=== PATIENT | male | born 1960 | race Caucasian/White ===

== ENCOUNTER → 2017-11-16 15:10 | Outpatient (CLI) | payer OTHER, SELFPAY ==
[2017-11-19 16:51] LABS: Testosterone Free 3.7 pg/mL (7.2-24.0)
== END ==
DX: E29.1 Testicular hypofunction (principal)
CPT/HCPCS: 36415; 84402; 84403

== ENCOUNTER → 2018-03-01 08:15 | Outpatient (CLI) | payer OTHER, SELFPAY ==
--- NOTE | 2018-03-01 08:15 | DT_ITS ---
This patient was seen during an EMR downtime March 01, 2018 - March 08, 2018. This patient may have a combination of paper and electronic documentation or all paper documentation. All documentation is viewable within the e-chart portion of [employer] for each patient visit.
== END ==
DX: E29.1 Testicular hypofunction (principal)
CPT/HCPCS: 36415; 84403

== ENCOUNTER → 2018-07-19 07:37 | Outpatient (CLI) | payer OTHER, SELFPAY ==
[2018-07-19 10:39] LABS: Absolute Lymphocyte Count 1.74 X10^3/ul (0.83-4.51); Absolute Neutrophil Count 3.2 X10^3/uL (2.0-7.7); Basophil# 0.04 X10^3/uL; Basophil% 0.7 % (0-1); Eosinophil# 0.23 X10^3/uL; Eosinophils% 4.1 % (0-5); Hematocrit 43.2 % (40-54); Hemoglobin 14.6 g/dl (13.0-16.5); Lymphocyte # 1.74 X10^3/ul (4.0); Lymphocyte % 30.8 % (19-41); Mean Corp Hgb Conc 33.8 g/gl (32-36); Mean Corpuscular Hgb 30.7 pg (27.0-32.0); Mean Corpuscular Volume 90.9 fL (80-94); Mean Platelet Vol. 9.1 fl (6.2-12.0); Monocyte% 7.1 % (0-10); Neutrophil # 3.22 X10^3/uL (2.7-7.7); Neutrophil % 56.9 % (47-70); Platelet Count 290 K/mm3 (150-450); Red Blood Count 4.75 M/mm3 (4.6-6.2); White Blood Count 5.7 K/mm3 (4.4-11.0)
[2018-07-19 10:50] LABS: PSA,Total - Annual Screen 0.23 ng/mL (0.00-4.00)
[2018-07-19 10:54] LABS: POSITIVE COUNT NO; POSITIVE DIFFERENTIAL NO; POSITIVE MORPHOLOGY NO
== END ==
PROVIDERS: Family Provider Internal Medicine; PCP Internal Medicine
DX: E29.1 Testicular hypofunction (principal)
CPT/HCPCS: 36415; 84153; 84403; 85025; G0103

== ENCOUNTER → 2018-08-17 09:22 | Outpatient (CLI) | payer OTHER, SELFPAY ==
[2018-08-17 09:34] LABS: Lyme Ab Screen Interpretation REF LAB
[2018-08-17 10:39] LABS: Erythrocyte Sedimentation Rate 2 mm/hr (0-20)
[2018-08-17 10:41] LABS: Absolute Lymphocyte Count 1.71 X10^3/ul (0.83-4.51); Absolute Neutrophil Count 2.9 X10^3/uL (2.0-7.7); Basophil# 0.04 X10^3/uL; Basophil% 0.7 % (0-1); Eosinophil# 0.27 X10^3/uL; Hematocrit 39.8 % (40-54); Hemoglobin 13.4 g/dl (13.0-16.5); Lymphocyte # 1.71 X10^3/ul (4.0); Lymphocyte % 31.8 % (19-41); Mean Corp Hgb Conc 33.7 g/gl (32-36); Mean Corpuscular Hgb 30.1 pg (27.0-32.0); Mean Corpuscular Volume 89.4 fL (80-94); Monocyte# 0.48 X10^3/uL; Monocyte% 8.9 % (0-10); Neutrophil # 2.86 X10^3/uL (2.7-7.7); Neutrophil % 53.4 % (47-70); Platelet Count 232 K/mm3 (150-450); RBC Distribution Width CV 12.2 % (11.6-14.6); RBC Distribution Width SD 39.7 fl (35.1-43.9); Red Blood Count 4.45 M/mm3 (4.6-6.2); White Blood Count 5.4 K/mm3 (4.4-11.0)
[2018-08-17 10:42] LABS: POSITIVE COUNT NO; POSITIVE DIFFERENTIAL NO; POSITIVE MORPHOLOGY NO
[2018-08-17 11:20] LABS: CRP 3.08 mg/L (0.0-3.0); Rheumatoid Factor < 10.0 IU/mL (<15); Uric Acid 4.8 mg/dL (3.5-7.2)
[2018-08-18 19:48] LABS: ANTINUCLEAR ANTIBODIES DIRECT Negative (Negative)
[2018-08-24 16:54] LABS: HLA B27 Negative (.); Lyme Scn Total Ab w/Rflx <0.91 ISR (0.00-0.90)
== END ==
PROVIDERS: Family Provider Internal Medicine; PCP Internal Medicine; Referring Provider Orthopaedic Surgery; Visit Provider Orthopaedic Surgery
DX: M50.30 Other cervical disc degeneration, unspecified cervical region (principal)
CPT/HCPCS: 36415; 81374; 84550; 85025; 85652; 86038; 86140; 86431; 86618

== ENCOUNTER → 2018-09-01 09:58 | Outpatient (CLI) | payer OTHER, SELFPAY ==
[2017-03-20 16:06] VITALS: BMI 32.2
== END ==
PROVIDERS: Family Provider Internal Medicine; PCP Internal Medicine
DX: E29.1 Testicular hypofunction (principal)
CPT/HCPCS: 36415; 84403

== ENCOUNTER → 2018-12-30 08:07 | Outpatient (CLI) | payer OTHER, SELFPAY | PROVIDERS: Family Provider Internal Medicine; PCP Internal Medicine | DX: E29.1 Testicular hypofunction (principal) | CPT/HCPCS: 36415; 84403 ==

== ENCOUNTER → 2019-04-04 11:15 | Outpatient (CLI) | payer OTHER, SELFPAY ==
[2017-03-20 16:06] VITALS: BMI 32.2
== END ==
PROVIDERS: Family Provider Internal Medicine; PCP Internal Medicine
DX: E29.1 Testicular hypofunction (principal)
CPT/HCPCS: 36415; 84403

== ENCOUNTER → 2019-05-25 06:56 | Outpatient (CLI) | payer OTHER, SELFPAY ==
[2017-03-20 16:06] VITALS: BMI 32.2
[2019-05-25 08:47] LABS: Absolute Neutrophil Count 3.9 X10^3/uL (2.0-7.7); Basophil# 0.08 X10^3/uL; Basophil% 1.2 % (0-1); Eosinophil# 0.37 X10^3/uL; Eosinophils% 5.7 % (0-5); Hematocrit 45.9 % (40-54); Hemoglobin 15.7 g/dL (13.0-16.5); Lymphocyte % 24.8 % (19-41); Mean Corp Hgb Conc 34.2 g/dL (32-36); Mean Corpuscular Hgb 30.1 pg (27.0-32.0); Mean Corpuscular Volume 87.9 fL (80-94); Mean Platelet Vol. 8.8 fl (6.2-12.0); Monocyte# 0.48 X10^3/uL; Monocyte% 7.4 % (0-10); NRBC Flagged by Analyzer 0 % (0-5); Neutrophil # 3.88 X10^3/uL (2.7-7.7); Neutrophil % 60.3 % (47-70); Platelet Count 280 K/mm3 (150-450); RBC Distribution Width CV 11.9 % (11.6-14.6); RBC Distribution Width SD 38.5 fl (35.1-43.9); Red Blood Count 5.22 M/mm3 (4.6-6.2); White Blood Count 6.5 K/mm3 (4.4-11.0)
[2019-05-25 09:30] LABS: AST(SGOT) 25 U/L (15-37); Alanine Aminotransfer ALT/SGPT 50 U/L (16-61); Albumin, Serum 3.7 g/dL (3.2-5.0); Alkaline Phosphatase 63 U/L (45-117); Anion Gap 10 (5-15); BUN 11 mg/dL (7-18); BUN/Creat Ratio 13.6 RATIO (10-20); Bilirubin, Direct 0.09 mg/dL (0.00-0.30); Calcium,Total 8.8 mg/dL (8.5-10.1); Chloride 104 mmol/L (98-107); Cholesterol 188 mg/dL (200); Creatinine, Serum 0.81 mg/dL (0.70-1.30); EST Glomerular Filtration Rate 104 mL/min (>60); Est Glom Filt Rate - Afr Amer 125 mL/min (>60); Globulin 3.8 g/dL (2.2-4.2); Glucose 102 mg/dL (74-106); High Density Lipoprotein 55 mg/dL; Potassium 4.3 mmol/L (3.5-5.1); Protein, Total 7.5 g/dL (6.4-8.2); Sodium Level 140 mmol/L (136-145); Thyroid Stim Hormone (TSH) 1.63 uIU/mL (0.358-3.74); Triglycerides 98 mg/dL; Very Low Density Lipoprotein 20 mg/dL (5-40)
== END ==
PROVIDERS: Family Provider Internal Medicine; PCP Internal Medicine; Referring Provider Internal Medicine; Visit Provider Internal Medicine
DX: G89.29 Other chronic pain (principal); M54.42 Lumbago with sciatica, left side; N40.1 Benign prostatic hyperplasia with lower urinary tract symptoms; R35.0 Frequency of micturition
CPT/HCPCS: 36415; 80048; 80061; 80076; 84443; 85025

== ENCOUNTER → 2020-04-19 14:58 | Outpatient (CLI) | payer OTHER, SELFPAY ==
[2020-04-20 08:22] LABS: SARS-COV-2 TOTAL ABS Nonreactive (Nonreactive)
== END ==
PROVIDERS: PCP Internal Medicine; Referring Provider Physician Assistant; Visit Provider Physician Assistant
DX: J02.9 Acute pharyngitis, unspecified (principal); R05 Cough; R06.02 Shortness of breath; R53.83 Other fatigue; M79.10 Myalgia, unspecified site; R51 Headache; R19.7 Diarrhea, unspecified; Z20.828 Contact with and (suspected) exposure to other viral communicable diseases
CPT/HCPCS: 36415; 86769; 87635; 94799; G2023; U0003

== ENCOUNTER → 2020-04-26 | Outpatient (CLI) | payer OTHER, SELFPAY ==
[2020-04-19 17:32] VITALS: BMI 32.2
== END | disposition home or self-care (01) ==
PROVIDERS: PCP Internal Medicine; Referring Provider Internal Medicine; Visit Provider Internal Medicine
DX: R19.7 Diarrhea, unspecified (principal); R50.9 Fever, unspecified
CPT/HCPCS: 87506

== ENCOUNTER → 2020-11-02 08:14 | Outpatient (CLI) | payer OTHER, SELFPAY ==
[2020-04-19 17:32] VITALS: BMI 32.2
[2020-11-02 09:28] LABS: Erythrocyte Sedimentation Rate 10 mm/hr (0-20)
[2020-11-02 09:40] LABS: CRP < 2.90 mg/L (0.0-3.0); Uric Acid 7.9 mg/dL (3.5-7.2)
[2020-11-04 14:51] LABS: ANTINUCLEAR ANTIBODIES DIRECT Negative (Negative)
== END ==
PROVIDERS: PCP Internal Medicine; Referring Provider Internal Medicine; Visit Provider Internal Medicine
DX: M54.42 Lumbago with sciatica, left side (principal)
CPT/HCPCS: 36415; 84550; 85652; 86038; 86140; 86225; 86235

== ENCOUNTER 2021-03-25 09:30 | Outpatient (RCR) | payer OTHER, SELFPAY ==
[2020-04-19 17:32] VITALS: BMI 32.2
== END 2021-03-27 23:59 ==
LOC: NS 09:30
PROVIDERS: PCP Internal Medicine; Visit Provider Internal Medicine
DX: Z71.3 Dietary counseling and surveillance (principal); E66.9 Obesity, unspecified; Z68.32 Body mass index [BMI] 32.0-32.9, adult
CPT/HCPCS: 97802; 97803

== ENCOUNTER → 2021-08-30 07:32 | Outpatient (CLI) | payer OTHER, SELFPAY ==
[2021-08-30 08:03] LABS: Hematocrit 47.1 % (40-54); Hemoglobin 16.1 g/dL (13.0-16.5); Mean Corp Hgb Conc 34.2 g/dL (32-36); Mean Corpuscular Volume 90.6 fL (80-94); Mean Platelet Vol. 8.8 fl (6.2-12.0); Platelet Count 271 K/mm3 (150-450); RBC Distribution Width CV 11.9 % (11.6-14.6); RBC Distribution Width SD 39.5 fl (35.1-43.9); White Blood Count 6.7 K/mm3 (4.4-11.0)
[2021-08-30 08:51] LABS: ALB/GLOB Ratio 1.1 RATIO (0.9-2.4); AST(SGOT) 23 U/L (15-37); Alanine Aminotransfer ALT/SGPT 30 U/L (16-61); Albumin, Serum 3.9 g/dL (3.2-5.0); Alkaline Phosphatase 43 U/L (45-117); Anion Gap 3 (5-15); BUN 16 mg/dL (7-18); BUN/Creat Ratio 16.6 RATIO (10-20); CRP < 2.90 mg/L (0.0-3.0); Calcium,Total 9.2 mg/dL (8.5-10.1); Chloride 101 mmol/L (98-107); Cholesterol 177 mg/dL (200); Creatinine, Serum 0.96 mg/dL (0.70-1.30); EST Glomerular Filtration Rate 84 mL/min (>60); Est Glom Filt Rate - Afr Amer 102 mL/min (>60); Globulin 3.5 g/dL (2.2-4.2); Glucose 102 mg/dL (74-106); High Density Lipoprotein 49 mg/dL; Potassium 4.7 mmol/L (3.5-5.1); Protein, Total 7.4 g/dL (6.4-8.2); Sodium Level 136 mmol/L (136-145); Thyroid Stim Hormone (TSH) 1.08 uIU/mL (0.358-3.74); Triglycerides 117 mg/dL; Very Low Density Lipoprotein 23 mg/dL (5-40)
== END ==
PROVIDERS: PCP Internal Medicine; Referring Provider Internal Medicine; Visit Provider Internal Medicine
DX: F41.9 Anxiety disorder, unspecified (principal); E78.5 Hyperlipidemia, unspecified; G89.29 Other chronic pain; N40.1 Benign prostatic hyperplasia with lower urinary tract symptoms; G62.9 Polyneuropathy, unspecified; F32.9 Major depressive disorder, single episode, unspecified; N52.9 Male erectile dysfunction, unspecified; M06.9 Rheumatoid arthritis, unspecified; R53.83 Other fatigue; M19.90 Unspecified osteoarthritis, unspecified site; Z86.79 Personal history of other diseases of the circulatory system
CPT/HCPCS: 36415; 80053; 80061; 84443; 85027; 86140

== ENCOUNTER → 2022-03-18 | Outpatient (CLI) | payer OTHER, SELFPAY ==
[2022-03-18 15:34] LABS: Absolute Lymphocyte Count 2.03 X10^3/uL (0.83-4.51); Absolute Neutrophil Count 5.4 X10^3/uL (2.0-7.7); Basophil# 0.06 X10^3/uL; Basophil% 0.7 % (0-1); Eosinophil# 0.26 X10^3/uL; Eosinophils% 3.1 % (0-5); Hematocrit 42.9 % (40-54); Hemoglobin 14.8 g/dL (13.0-16.5); Lymphocyte # 2.03 X10^3/ul (0.83-4.51); Lymphocyte % 24.3 % (19-41); Mean Corp Hgb Conc 34.5 g/dL (32-36); Mean Corpuscular Hgb 31.6 pg (27.0-32.0); Mean Corpuscular Volume 91.5 fL (80-94); Mean Platelet Vol. 8.9 fl (6.2-12.0); Monocyte# 0.59 X10^3/uL; Monocyte% 7.1 % (0-10); NRBC Flagged by Analyzer 0 % (0-5); Neutrophil # 5.38 X10^3/uL (2.7-7.7); Neutrophil % 64.4 % (47-70); Platelet Count 283 K/mm3 (150-450); RBC Distribution Width CV 12.7 % (11.6-14.6); Red Blood Count 4.69 M/mm3 (4.6-6.2); White Blood Count 8.4 K/mm3 (4.4-11.0)
[2022-03-18 16:07] LABS: Erythrocyte Sedimentation Rate 6 mm/hr (0-20)
[2022-03-18 18:04] LABS: CRP < 2.90 mg/L (0.0-3.0)
== END | disposition home or self-care (01) ==
LOC: LAB 15:07
PROVIDERS: PCP Internal Medicine; Referring Provider Physician Assistant; Visit Provider Physician Assistant
DX: M17.12 Unilateral primary osteoarthritis, left knee (principal); L08.9 Local infection of the skin and subcutaneous tissue, unspecified
CPT/HCPCS: 36415; 85025; 85652; 86140

== ENCOUNTER 2022-06-30 09:00 | Outpatient (RCR) | payer OTHER, SELFPAY ==
--- NOTE | 2022-05-05 12:49 | HP.PTEVAL_ITS ---
Patient's Visit Information ELÍAS TOWNSEND is a 62 year old M referred to Physical Therapy by Dr. Leland Guido MD with a diagnosis of R knee primary OA. Date of Evaluation: 05/05/22 Physical Therapist: Jose Tanner, DPT, OCS, CSCS - Visit Plan Plan: Pt to have appropriate knee surgery next week and call for therapy when requested by doctor. I shoed him Wh walker gait, one step training today and initial ex of AP throughout day, QS, HS adn SLR. Also benefits of elevation and ice with his described veinous insufficieny. Plan to f/u when instructed after surgery 05/12 - Subjective Will have R TKA on next Thursday05/12/22. X ray last week showed he needed it right away. Has been on Uflexa for knee pain. Has been bone on bone for a long time. H/o 7 knee surgeries. Doctor not sure how he is walking. Needs prehab for insurance visits. Will need L TKA in 6 months. Had morning routine that he has done for the last number of years. Does treat his own back book. Also stretches HS and planks each am. Pain on meds 9/10 with sitting. Uses ice as needed. 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 Not able to enjoy that. ice is his go to pain killer. Also has compression garments and knee braces which can help him manage this. Basic ADLs are I and can be painful. No specific knee exercises, stopped gym a few years ago with foot problems. - Pain B knee pain Pain Intensity (Out of 10): 1 Pain Intensity Range: 1, 9 - Objective Walks well adn I without antalgia today. Steps up with some R knee pain and descends turning L hip out to avoid knee flexion and sharp pain R knee. R 17.5inch and 22 inch patella and 6 sp. R knee ext 37# knee flexion 68#. R knee -4 to 115, L knee -2 to 121. TUG 10 seconds - Balance/Special Test Scores Functional Gait Assessment Score: 28 % Disability: 6.6700 Lower Extremity Functional Score: 30 - Goals Goal 1:: Ready for TKA knee surgery, gola met by departure today. Goal Time Frame: 1 Week - Rehabilitation Potential Physical Therapy Diagnosis: R knee OA Rehabilitation Potential: Fair - Anticipated Interventions Patient/Client Instruction: Educate patient on: Condition, Plan of Care For the Purpose of:: To decrease pain, To increase ROM, To improve muscle performance and motor function, To increase tolerance to activity/condition/position, To improve ability of physical actions for home/community/work/leisure, To improve gait and locomotor functions Therapeutic Exercise to Include: Strength training, Flexibilty training, Gait and locomotor training, Passive ROM, Active ROM For the Purpose of:: To decrease pain, To increase ROM, To improve muscle performance and motor function, To increase tolerance to activity/condition/position, To improve ability of physical actions for home/community/work/leisure Manual Therapy Techniques to Include: Passive ROM, Soft tissue mobilization For the Purpose of:: To decrease pain, To increase ROM Cryotherapy (ice pack, ice massage): Yes For the Purpose of:: To decrease swelling/inflammation Thank you for the opportunity to evaluate your patient. For Medicare and Medicare HMO plans, please review the plan of care and approve it. It will need to be FAXED BACK to us at [phone] for Medicare purposes. For Medicare only, by signing this I certify the plan of care. Please let me know if there are questions or concerns regarding this plan of care. Physician Signature: Date:
--- NOTE | 2022-05-19 09:50 | HP.PTREVAL_ITS ---
Dr. Leland Guido MD, It has been my pleasure to treat ELÍAS TOWNSEND over the last 2 visits for R knee primary OA. Please see the progress note below for an update on the physical therapy plan of care! Subjective: Had R TKA one week ago on 05/12. Home on Thursday afternoon. Sleep is about 2 hours short of nromal to change ice in ice machine. It really helps. Pain over this weekend was 9/10 after walking 6 laps(600 yards) around driveway and PT exercises. Using wh walker just in case Soreness under knee cap and otherwise 4/10 pain. Objective/Function: -6 to 76 A. ROM to start and 85 after ex. girth at patella 19 inches and 23 6 sp. 33 womac. 45 # knee flexion seated R and 28# knee extension. Gait is good with wh walker and without it he has good balance but slower ambulation, hesitant and not enough knee flexion at swing. steps are reciprocal with two rails, educated to do just L right now if he encounters steps. Bruising apparent inner thight and mild swelling at knee. incison bandaged and dressed properly. fair prognosis, new goals. Plan Plan: 3x/week for 4-5 weeks per new script for... 1. patella mobs , rollout quad and HS, knee ROM. 2. strengthening and gait training with R knee, stairs. swelling and pain management. ice as needed. Balance/Gait/Functional tests - Balance/Special Test Scores Functional Gait Assessment Score: 28 % Disability: 6.6700 Lower Extremity Functional Score: 30 TUG Test Time Seconds: 12 WOMAC Total Score: 51 WOMAC Percentage: 46.8800 Goals Goal 1:: Ready for TKA knee surgery, gola met by departure today. Goal Time Frame: 1 Week Goal 2:: 0-115 AROM to help with function Goal Time Frame: 4-6 Weeks Goal 3:: Pain 0-2/10 at allt imes Goal Time Frame: 4-6 Weeks Goal 4:: Walk and steps without AD or rails in community Goal Time Frame: 4-6 Weeks Goal 5:: work in shop effectively and without increased pain Goal Time Frame: 4-6 Weeks Goal 6:: R knee 90% better overall. Goal Time Frame: 4-6 Weeks Anticipated Interventions Patient/Client Instruction: Educate patient on: Condition, Plan of Care For the Purpose of:: To decrease pain, To increase ROM, To improve muscle performance and motor function, To increase tolerance to activity/condition/position, To improve ability of physical actions for home/community/work/leisure, To improve gait and locomotor functions Therapeutic Exercise to Include: Strength training, Flexibilty training, Gait and locomotor training, Passive ROM, Active ROM For the Purpose of:: To decrease pain, To increase ROM, To improve muscle performance and motor function, To increase tolerance to activity/condition/position, To improve ability of physical actions for ho me/community/work/leisure Manual Therapy Techniques to Include: Passive ROM, Soft tissue mobilization For the Purpose of:: To decrease pain, To increase ROM Cryotherapy (ice pack, ice massage): Yes For the Purpose of:: To decrease swelling/inflammation Please do not hesitate to contact me at [phone] by phone or if you have questions or concerns regarding this new plan of care! Sincerely, Jose Tanner, DPT, OCS, CSCS
--- NOTE | 2022-06-30 09:35 | HP.PTDCSUM_ITS ---
It has been my pleasure to treat ELÍAS TOWNSEND referred by Dr. Leland Guido MD, with the diagnosis of R knee primary OA for a total of 14 visit(s). Discharge Date: 06/30/22 Please see the following information for a summary of their discharge status. Subjective: Working out in gym 45 minutes 3x week, 30 min on bike and in pool. Pain level is worse with heavy workout to 3/10 but gone with ice on front of knee. Tht pain is sharp at times anterior knee and also happens if he stands for 3-5 hours at [employer] working. I do stuff everyday that casues that pain, i cannot be a couch potato. Sleep is good, much better than in years. Activities at home are pretty normal, still frustrated at his speed on the bike at home. B knee pain Pain Intensity (Out of 10): 0 % Improvement: 80 Objective/Function: girth patella R 19 inch and 6 inch sp 23.5 inches. flexion 120, ext 0 AROM. strength 85+# R knee ext and 70 r knee flexion, some sharp pain laterally trasniently with flexion testing. Walking well, steps reciprocal without rail Goal 1:: Ready for TKA knee surgery, gola met by departure today. Goal Progress: Goal Met Goal 2:: 0-115 AROM to help with function Goal Progress: Goal Met Goal 3:: Pain 0-2/10 at allt imes Goal Progress: Progressing Goal 4:: Walk and steps without AD or rails in community Goal Progress: Goal Met Goal 5:: work in shop effectively and without increased pain Goal Progress: up to 3/10 at times Goal 6:: R knee 90% better overall. Goal Progress: Progressing Plan: d/c, pt to doctor tomorrow. I have had nbumerous discussion regarding avoiding over exercising which he admittedly will not listen to, encouraged emphasis on bike as he seems to like this and it is low stress to the knee for him. If there are questions or concerns regarding this patient's physical therapy, please feel free to call me at [phone]. Thank you for the referral of this patient. Sincerely, Jose Tanner, DPT, OCS, CSCS Balance/Gait/Functional tests - Balance/Special Test Scores Functional Gait Assessment Score: 28 % Disability: 6.6700 Lower Extremity Functional Score: 52 TUG Test Time Seconds: 7 Tug Test: <10 sec.=free mobile WOMAC Total Score: 27 WOMAC Percentage: 71.8800
== END 2022-06-30 14:22 | disposition home or self-care (01) ==
LOC: PT 09:00
PROVIDERS: PCP Internal Medicine; Referring Provider Orthopaedic Surgery; Visit Provider Orthopaedic Surgery
DX: M17.11 Unilateral primary osteoarthritis, right knee (principal)
CPT/HCPCS: 97110; 97140; 97161; 97164; 97530

== ENCOUNTER → 2022-12-22 | Outpatient (CLI) | payer OTHER, SELFPAY ==
[2022-12-22 17:09] LABS: Cholesterol 187 mg/dL (200); High Density Lipoprotein 58 mg/dL; PSA,Total - Annual Screen 0.74 ng/mL (0.00-4.00); Thyroid Stim Hormone (TSH) 1.06 uIU/mL (0.358-3.74); Triglycerides 127 mg/dL; Very Low Density Lipoprotein 25 mg/dL (5-40)
== END | disposition home or self-care (01) ==
LOC: LAB 15:53
PROVIDERS: PCP Internal Medicine; Referring Provider Internal Medicine; Visit Provider Internal Medicine
DX: Z12.5 Encounter for screening for malignant neoplasm of prostate (principal); Z13.220 Encounter for screening for lipoid disorders; G62.9 Polyneuropathy, unspecified; F41.9 Anxiety disorder, unspecified
CPT/HCPCS: 36415; 80061; 84153; 84443; G0103

== ENCOUNTER → 2023-01-08 | Outpatient (CLI) | payer OTHER, SELFPAY ==
[2023-01-08 11:22] LABS: Mucous, Urine 0 SEEN /hpf (<or=2+); Red Blood Cells-Urine 0 SEEN /hpf (0-5)
[2023-01-08 11:26] LABS: Color, Urine Yellow (Yellow); Glucose, Dipstick Normal (Normal); Ketone-Dipstick 5 mg/dl (Negative); Leukocyte Esterase-Dipstick 500 /ul (Negative); Nitrite-Dipstick Negative (Negative); Occult Blood-Urine Negative /ul (Negative); Protein-Dipstick Negative (Negative); Urine Bilirubin Dipstick Negative (Negative); Urine Clarity Clear (Clear); Urine Urobilinogen Normal (Normal); Urine pH 6.5 (5.0 - 8.0)
[2023-01-08 11:39] LABS: Bacteria RARE /hpf (None Seen); Squamous Epithelial Cells - UA 0-5 SEEN /hpf (0-5); White Blood Cells 5-10 SEEN /hpf (0-5)
== END | disposition home or self-care (01) ==
LOC: LABSPEC 11:12
PROVIDERS: PCP Internal Medicine; Referring Provider Physician Assistant; Visit Provider Physician Assistant
DX: R35.0 Frequency of micturition (principal)
CPT/HCPCS: 81001; 87086; 87088

== ENCOUNTER → 2023-02-17 | Outpatient (CLI) | payer OTHER, SELFPAY ==
[2023-02-17 17:07] LABS: Bacteria 0 SEEN /hpf (None Seen); Mucous, Urine 0 SEEN /hpf (<or=2+)
[2023-02-17 18:23] LABS: Color, Urine Yellow (Yellow); Glucose, Dipstick Normal (Normal); Ketone-Dipstick Negative (Negative); Leukocyte Esterase-Dipstick 500 /ul (Negative); Nitrite-Dipstick Negative (Negative); Occult Blood-Urine 10 /ul (Negative); Protein-Dipstick Negative (Negative); Urine Bilirubin Dipstick Negative (Negative); Urine Clarity Sl. Cloudy (Clear); Urine Urobilinogen Normal (Normal)
[2023-02-17 19:10] LABS: White Blood Cells 25-50 SEEN /hpf (0-5)
[2023-02-17 19:11] LABS: Amorphous Sediment 1+ PHOS; Red Blood Cells-Urine 0-5 SEEN /hpf (0-5); Squamous Epithelial Cells - UA 0-5 SEEN /hpf (0-5)
== END | disposition home or self-care (01) ==
LOC: LABSPEC 16:28
PROVIDERS: PCP Internal Medicine; Referring Provider Physician Assistant; Visit Provider Physician Assistant
DX: N39.0 Urinary tract infection, site not specified (principal)
CPT/HCPCS: 81001; 87077; 87086; 87088

== ENCOUNTER 2023-06-10 14:25 | Emergency (ER) | payer OTHER, SELFPAY ==
[2023-06-10 14:27] VITALS: BP 137/88; PULSE 84; RESP 18; TEMP 36.6; O2SAT 97; BMI 33.7
--- NOTE | 2023-06-10 15:08 | EKG12_ITS ---
Test Reason : STROKE LIKE SYMPTOMS Blood Pressure : / mmHG Vent. Rate : 080 BPM Atrial Rate : 080 BPM P-R Int : 194 ms QRS Dur : 094 ms QT Int : 358 ms P-R-T Axes : 043 -26 008 degrees QTc Int : 412 ms Normal sinus rhythm Normal ECG Confirmed by DARVIN JUNIOR MD ([id number]), market editor SAMMI MORALES ([id number]) on 06/11/2023 1:14:55 PM Referred By: MONIKA Confirmed By:DARVIN JUNIOR MD
--- NOTE | 2023-06-10 15:08 | CT_ITS ---
INDICATION: paraesthesias right arm EXAMINATION: CT BRAIN WITH CONTRAST TECHNIQUE: Noncontrast axial images were obtained of the brain. Subsequently, routine carotid CT angiogram protocol was performed without and with IV contrast. In addition, images were obtained of the [place]. NASCET criteria using the distal ICAs for comparison were used for evaluation of stenoses. 3D reconstructions were reviewed. A radiation dose optimization technique was used for this scan. IV Contrast dosage and agent: COMPARISON: FINDINGS: --CT BRAIN: BRAIN PARENCHYMA: No intra- or extra-axial hemorrhage. No evidence of acute infarct. No intracranial mass or mass effect. There is preservation of the patton/white matter interface. Posterior fossa structures are unremarkable. CSF SPACES: Appropriate for age. No hydrocephalus. Basal cisterns are patent. CALVARIUM, SKULL BASE, PARANASAL SINUSES AND MASTOID AIR CELLS: Clear. No discrete lytic or blastic abnormalities. --CTA NECK: AORTIC ARCH AND BRANCHES: Normal anatomy, patent. RIGHT CCA: No occlusion, significant stenosis or dissection. RIGHT CAROTID BULB: Minimal calcifications with no hemodynamically significant stenosis. RIGHT ICA: No occlusion, significant stenosis or dissection. LEFT CCA: No occlusion, significant stenosis or dissection. LEFT CAROTID BULB: Minimal calcifications with no hemodynamically significant stenosis. LEFT ICA: No occlusion, significant stenosis or dissection. RIGHT VERTEBRAL ARTERY: No occlusion, significant stenosis or dissection. LEFT VERTEBRAL ARTERY: No occlusion, significant stenosis or dissection. NECK SOFT TISSUES: Unremarkable. --CTA HEAD: --Anterior circulation: ICAs: No significant stenosis at the intracranial/visualized segments. ACAs: No significant stenosis at the visualized segments. ACOM: Present. MCAs: No significant stenosis at the visualized segments. --Posterior circulation: PCOMs: Patent on the left. Nonvisualization of the right. process improvement consultant: No significant stenosis at the visualized segments. BASILAR ARTERY: No significant stenosis. VERTEBRAL ARTERIES: No significant stenosis at the intradural/visualized segments. No evidence of intracranial aneurysm or vascular malformation. CT/CTA Head AND Neck W/ Contrast IMPRESSION: Negative CT Brain, CTA Carotid, and CTA Brain. Electronically Signed: Mauro Carvalho DO at 17:01 EDT Reading Location ID and State: [facility] / [place] Tel [phone], Service support ,
--- NOTE | 2023-06-10 15:10 | EX.ED.DYSGE1 ---
HPI History of Present Illness Chief Complaint: Numb/Ting Detail of Chief Complaint: Numbness and tingling to right arm Informant: patient Narrative Narrative: Patient presents emergency department complaint of numbness and tingling to the right arm that he initially noticed around 6 AM. Patient states he woke up at 5 AM and did not notice it but then woke up at 6 AM and noticed it. Patient then went to the gym to workout and noted that his right arm was weaker when he was using dumbbells 60 pounds. Denies visual changes. He denies difficulty with speech. Some of the numbness and tingling has improved to the forearm. The numbness and tingling is only from the forearm towards the right thumb. Patient thinks he may have slept wrong as he slept on his right side and when he normally sleeps on his left side. No significant medical history. Patient denies headache or head trauma. Patient has history of neuropathy in his lower extremities from prior back problems he has had and has had prior back surgery. [facility] Medical History (Updated 06/10/23 @ 17:[address] Shiva Hanna, ) Broken bones HTN (hypertension) Home Medications cyclobenzaprine 10 mg tablet 10 mg PO TID PRN Muscle Spasm #20 TABLETS 03/20/17 [Rx Last Taken Unknown] hydrocodone-acetaminophen 5-325mg 5mg-325mg 1 - 2 tab (1 - 2 x 5-325 mg) PO Q4H PRN PRN Pain #12 TABLETS 03/20/17 [Rx Last Taken Unknown] metoprolol tartrate 25 mg tablet 25 mg PO DAILY 03/20/17 [History Last Taken 03/20/17] allopurinol 300 mg tablet 300 mg PO DAILY 06/10/23 [History Last Taken Unknown] amlodipine 10 mg tablet 10 mg PO BID 06/10/23 [History Last Taken Unknown] duloxetine 60 mg capsule,delayed release 60 mg PO DAILY 06/10/23 [History Last Taken Unknown] gabapentin 600 mg tablet 600 mg PO DAILY 06/10/23 [History Last Taken Unknown] naproxen 500 mg tablet 500 mg PO Q12H 06/10/23 [History Last Taken Unknown] tamsulosin 0.4 mg capsule 0.8 mg PO Q24H 06/10/23 [History Last Taken Unknown] testosterone cypionate 200 mg/mL intramuscular oil 200 mg IM Q7D 06/10/23 [History Last Taken Unknown] trazodone 100 mg tablet 100 mg PO DAILY 06/10/23 [History Last Taken Unknown] Allergy/AdvReac Type Severity Reaction Status Date / Time No Known Allergies Allergy Verified 02/17/23 14:03 Surgical History (Updated 06/10/23 @ 15:08 by Jayde Sevilla) H/O knee surgery History of knee replacement History of surgery on arm Social History (Updated 06/10/23 @ 15:09 by Jayde Sevilla) household members: spouse, family and children housing: house Smoking Status: Former smoker ROS ROS ED Review of Systems ROS Unobtainable: other Constitutional Constitutional ED: Reports lethargy; Denies chills, fever(s), sweats or weight loss Eyes Eyes: Denies blurry vision, change in vision or diplopia ENT ENT ED: Denies rhinorrhea or sore throat Cardiovascular Cardiovascular: Denies chest pain, orthopnea or racing heartbeat Respiratory/Chest Respiratory/Chest: Denies cough, dyspnea, dyspnea on exertion, orthopnea or sputum Gastrointestinal Gastrointestinal: Denies abdominal pain, diarrhea, nausea or vomiting Genitourinary Genitourinary ED: Denies dysuria, hematuria or urinary frequency Musculoskeletal Musculoskeletal: Reports other Details: Weakness right arm ; Denies arthralgias, back pain, myalgias or neck pain Integumentary Denies abscess, Abrasions or rash Neurologic Neurologic: Reports paresthesias; Denies headache(s) or weakness Psychiatric Psychiatric: Denies anxiety, depression or suicidal thoughts Endocrine Endocrinology: Denies polydipsia, polyphagia or polyuria Hematologic/Lymphatic Hematologic/Lymphatic: Denies easy bleeding, easy bruising or lymphadenopathy Allergic/Immunologic Allergic/Immunologic ED: Denies mouth swelling, tongue swelling or urticaria EXAM Physical Exam Const Vital Signs: 06/10/23 14:27 06/10/23 17:18 Temperature 97.8 F Temperature Source Temporal Pulse Rate 84 Respiratory Rate 18 16 Blood Pressure 137/88 H Blood Pressure Mean 104 Pulse Ox 97 Oxygen Delivery Method Room Air Positive well nourished and well developed General Appearance ED: well developed and NAD HEENT Reports TM's clear and moist mucous membranes normocephalic and atraumatic; Negative for trauma or tenderness Tympanic Membrane ED: Yes TM's clear Eyes PERRL and EOMs intact bilaterally General Eye ED: Negative for pale conjunctiva or scleral icterus Neck no lymphadenopathy, supple and no JVD General: Negative for tenderness Chest Wall inspection of chest normal and palpation of chest normal Chest: Negative for tenderness Resp normal respiratory effort and clear to auscultation bilaterally Effort and Inspection: Negative for respiratory distress or pain with movement Auscultation: Negative for rhonchi, wheezes or diminished lung sounds Cardio regular rate, regular rhythm, S1 normal heart sound, S2 normal heart sound and no murmurs Peripheral Pulses: pulses 2+ throughout GI normal to inspection, nondistended, normoactive bowel sounds, soft to palpation, non-tender, non-distended and no masses Back/Spine no CVA tenderness and no thoracic nor lumbar tenderness Extremity normal to inspection General Extremety ED: Negative for edema General Extremity: Negative for edema Neuro oriented x3, CN's II-XII intact bilaterally, no sensory deficits noted and gait normal Neuro Narrative: NIH stroke scale is a 1 for somewhat decreased sensation to the right forearm. No focal weakness noted. Sensorium / Orientation: awake, alert, oriented to person, oriented to place and oriented to time Motor Exam: strength 5/5 throughout and strength abnormal Psych mental status grossly normal Skin no rashes or lesions noted and no wounds MDM MDM MDM Narrative Medical decision making narrative: Patient presents with paresthesias to the right forearm and weakness in the right wrist that he first noticed around 6 AM. Patient differential would be peripheral neuropathy versus central cause. Clinically I suspect more of a peripheral neuropathy given the localized nature of the paresthesias involving of the radial nerve distribution. Given his age we will obtain some basic labs and CTA of head and neck to evaluate further for possible central cause. Patient not a thrombolytic candidate given time of onset 6 AM this morning. EKG obtained arrival shows sinus rhythm with a rate of 80 bpm with no acute ST segment changes. CBC with differential was unremarkable. Chemistries unremarkable. Patient had a CT of the brain without contrast that was unremarkable. CTA of head and neck were normal. This point clinically I suspect likely a peripheral neuropathy I do not feel patient is having a stroke. Advised to follow-up with primary care physician within the next 3 to 5 days. Advised patient to take a baby aspirin daily. Lab Data Labs: Laboratory Results - last 24 hr 06/10/23 15:02 WBC 10.3 RBC 4.35 L Hgb 13.9 Hct 41.6 MCV 95.6 H MCH 32.0 MCHC 33.4 RDW Std Deviation 47.3 H RDW Coeff of Aria 13.3 Plt Count 303 MPV 9.0 Immature Gran % (Auto) 0.400 Neut % (Auto) 75.5 H Lymph % (Auto) 15.4 L [place] % (Auto) 5.2 Eos % (Auto) 2.9 Baso % (Auto) 0.6 Absolute Neuts (auto) 7.8 H Absolute Lymphs (auto) 1.59 Nucleated RBC % 0 Sodium 134 L Potassium 3.8 Chloride 101 Carbon Dioxide 28.0 Anion Gap 5 BUN 17 Creatinine 1.05 Estim Creat Clear Calc 83.72 Est GFR (MDRD) Af Amer 92 Est GFR (MDRD) Non-Af 76 BUN/Creatinine Ratio 16.2 Glucose 117 H Calcium 8.8 Radiography Diagnostic Testing: Clinical Impression(s) from Imaging Studies Head/Neck CTA 06/10/23 15:08 IMPRESSION: Negative CT Brain, CTA Carotid, and CTA Brain. Electronically Signed: Mauro Carvalho DO at 17:01 EDT Reading Location ID and State: [facility] / [place] Tel [phone], Service support , EKG Initial EKG: Attestation: I personally reviewed and interpreted this EKG as follows: Comments: Sinus rhythm with a rate of 80 bpm with no acute ST segment changes Discharge Plan Triage Chief Complaint: Numb/Ting ED Provider: Shiva Hanna Dx/Rx/DC Orders Clinical Impression: Peripheral neuropathy, Arm paresthesia, right Instructions: ED Neuropathy, Peripheral, ED Paraesthesias Prescriptions: No Action metoprolol tartrate 25 MG tablet 25 mg PO DAILY cyclobenzaprine 10 MG tablet 10 mg PO TID PRN (Reason: Muscle Spasm) Qty: 20 0RF hydrocodone-acetaminophen 1 TABLET tablet 1 - 2 tab PO Q4H PRN PRN (Reason: Pain) Qty: 12 0RF allopurinol 300 mg tablet 300 mg PO DAILY Patient Comments: TAKE 1 TABLET BY MOUTH ONCE DAILY amlodipine 10 mg tablet 10 mg PO BID Patient Comments: TAKE 1 TABLET BY MOUTH TWICE DAILY duloxetine 60 mg capsule,delayed release(DR/EC) 60 mg PO DAILY Patient Comments: TAKE 1 CAPSULE BY MOUTH DAILY gabapentin 600 mg tablet 600 mg PO DAILY Patient Comments: TAKE 1 CAPSULE BY MOUTH EVERY NIGHT AT BEDTIME naproxen 500 mg tablet 500 mg PO Q12H Patient Comments: TAKE 1 TABLET BY MOUTH WITH FOOD OR MILK NEEDED EVERY 12 HOURS 90 tamsulosin 0.4 mg capsule 0.8 mg PO Q24H Patient Comments: TAKE 2 CAPSULES BY MOUTH EVERY DAY testosterone cypionate 200 mg/mL oil 200 mg IM Q7D Patient Comments: INJECT 1 (ONE) ml INTRAMUSCULARLY EVERY WEEK trazodone 100 mg tablet 100 mg PO DAILY Patient Comments: TAKE 1 TABLET BY MOUTH AT BEDTIME Primary Care Provider: Shazia Mendez Referrals: Shazia Mendez MD [Primary Care Provider] - 3-5 Days Disposition Disposition: Home, Self Care Discharge Date/Time: 06/10/23 17:18
[2023-06-10 15:51] LABS: Absolute Lymphocyte Count 1.59 X10^3/uL (0.83-4.51); Absolute Neutrophil Count 7.8 X10^3/uL (2.0-7.7); Basophil# 0.06 X10^3/uL; Basophil% 0.6 % (0-1); Eosinophils% 2.9 % (0-5); Hematocrit 41.6 % (40-54); Hemoglobin 13.9 g/dL (13.0-16.5); Lymphocyte # 1.59 X10^3/ul (0.83-4.51); Lymphocyte % 15.4 % (19-41); Mean Corp Hgb Conc 33.4 g/dL (32-36); Mean Corpuscular Volume 95.6 fL (80-94); Monocyte# 0.54 X10^3/uL; Monocyte% 5.2 % (0-10); NRBC Flagged by Analyzer 0 % (0-5); Neutrophil # 7.79 X10^3/uL (2.7-7.7); Neutrophil % 75.5 % (47-70); Platelet Count 303 K/mm3 (150-450); RBC Distribution Width CV 13.3 % (11.6-14.6); RBC Distribution Width SD 47.3 fl (35.1-43.9); Red Blood Count 4.35 M/mm3 (4.6-6.2); White Blood Count 10.3 K/mm3 (4.4-11.0)
[2023-06-10 15:59] LABS: Anion Gap 5 (5-15); BUN 17 mg/dL (7-18); BUN/Creat Ratio 16.2 RATIO (10-20); Calcium,Total 8.8 mg/dL (8.5-10.1); Chloride 101 mmol/L (98-107); Creatinine, Serum 1.05 mg/dL (0.70-1.30); EST Glomerular Filtration Rate 76 mL/min (>60); Est Glom Filt Rate - Afr Amer 92 mL/min (>60); Estimated Creatinine Clearance 83.72 ml/min; Glucose 117 mg/dL (74-106); Potassium 3.8 mmol/L (3.5-5.1); Sodium Level 134 mmol/L (136-145)
[2023-06-10] MEDS: 0.9% Normal Saline (1000mL) 1,000 ML 15 ML IV (16:24)
[2023-06-10 17:18] VITALS: RESP 16
== END 2023-06-10 17:18 | disposition home or self-care (01) ==
PROVIDERS: Emergency Provider Emergency Medicine; PCP Internal Medicine; Visit Provider Emergency Medicine
DX: G62.9 Polyneuropathy, unspecified (principal); R20.0 Anesthesia of skin; Z87.891 Personal history of nicotine dependence
CPT/HCPCS: 70496; 70498; 80048; 85025; 93005; 99282; J7030; Q9967; A4216

== ENCOUNTER → 2023-08-25 | Outpatient (CLI) | payer OTHER, SELFPAY ==
--- NOTE | 2023-08-25 12:20 | CT_ITS ---
STUDY: CT CHEST WITHOUT CONTRAST REASON FOR EXAM: Male, 63 years old. SCREENING LIMITED CHEST OVER-READ ONLY RADIATION DOSAGE (If Supplied By Facility): CTDIvol = ( 22.58 ) mGy, DLP = ( 406.46 ) mGycm TECHNIQUE: Transaxial imaging was performed without the administration of intravenous contrast material. Individualized dose optimization techniques were used for this CT. COMPARISON: No relevant priors. FINDINGS: CHEST The lungs are normal. There is no demonstrated pleural abnormality. There are calcifications of the coronary arteries. There are small lymph nodes within the mediastinum, which are normal in size and morphology most compatible with reactive lymph hyperplasia. Normal hilar regions. Normal unenhanced pulmonary arteries. Mild atherosclerotic plaque formation of the aortic arch. The root of the ascending thoracic aorta is dilated and measures 44.3 mm. Normal osseous structures. There is no demonstrated abnormality of the visualized upper abdomen. CT/Limited Chest CT Cardiac Only IMPRESSION: Coronary artery calcification. Dilatation of the root of the ascending thoracic aorta with a transverse dimension of 44.3 mm. Electronically Signed: Samuel Aguilar MD at 11:20 EST ,
--- NOTE | 2023-08-25 12:21 | US_ITS ---
INDICATION: RECURRENT UTI EXAMINATION: Ultrasound US Kidney(s) complete (eg, kidneys and bladder) TECHNIQUE: Villar scale and color doppler images were obtained of the kidneys. COMPARISON: FINDINGS: RIGHT KIDNEY: 11.9 x 7.7 x 7.1 cm. The cortex is 19 mm.. There is no hydronephrosis. No shadowing calculus, focal lesion or perinephric collection is demonstrated. LEFT KIDNEY: 11.2 x 7.4 x 6.9 cm. The cortex is 18 mm.. There is no hydronephrosis. No shadowing calculus, focal lesion or perinephric collection is demonstrated. URINARY BLADDER: It has a volume of 789 cc. There is a questionable 5.2 x 5 cm cystic structure or diverticulum. US/Kidney and Bladder IMPRESSION: Questionable cystic structure or diverticulum of the urinary bladder. Electronically Signed: Mauro Carvalho DO at 16:05 EST ,
--- NOTE | 2023-08-25 17:36 | CA.SCORE ---
Calcium Scoring Date of Study:: 08/25/23 Indications Indications: Cardiac screening Coronary Calcium Scoring: High-resolution Computed Tomographic imaging of the chest was performed on [08/25/2023], with particular attention paid to the coronary arteries. Images from the examination were analyzed for the presence and extent of coronary artery calcification , using coronary calcium quantification software. The patient tolerated the procedure well and there were no complications. The results of the coronary calcification analysis are provided below. Findings Coronary Artery Left Main (LM): 13.9 Left Anterior Descending (LAD): 304 Left Circumflex (LCX): 107 Right Coronary Artery (RCA): 72 Total Agatston Score: 496.9 Percentile Rankinth-90th Calcium Scoring Interpretation: Different methods to categorize the overall amount of coronary plaque. Overall amount CAC SIS Visual of coronary plaque P1 Mild -100 <2 1-2 vessels with mild amount of plaque P2 Moderate 101-300 3-4 1-2 vessels with moderate amount, 3 vessels with mild amount of plaque P3 Severe 301-999 5-7 3 vessels with moderate amount, 1 vessel with severe amount of plaque P4 Extensive >1000 >8 2-3 vessels with severe amount of plaque Calcium Score: Severe: 3 vessels w/moderate amount, 1 vessel w/severe amt of plaque Conclusion: Moderate to severe coronary calcification noted in the left anterior descending artery with moderate disease noted in the other vessels.
== END | disposition home or self-care (01) ==
PROVIDERS: PCP Internal Medicine; Referring Provider Family Medicine; Visit Provider Family Medicine
DX: N39.0 Urinary tract infection, site not specified (principal); Z13.6 Encounter for screening for cardiovascular disorders
CPT/HCPCS: 75571; 76380; 76770

== ENCOUNTER → 2023-09-01 | Outpatient (CLI) | payer OTHER, SELFPAY ==
[2023-09-01 10:14] LABS: Bacteria 0 SEEN /hpf (None Seen); Mucous, Urine 0 SEEN /hpf (<or=2+); Red Blood Cells-Urine 0 SEEN /hpf (0-5)
[2023-09-01 10:19] LABS: Color, Urine Yellow (Yellow); Glucose, Dipstick Normal (Normal); Ketone-Dipstick Negative (Negative); Leukocyte Esterase-Dipstick 100 /ul (Negative); Nitrite-Dipstick Positive (Negative); Occult Blood-Urine Negative /ul (Negative); Protein-Dipstick 15 mg/dl (Negative); Urine Clarity Clear (Clear); Urine Urobilinogen 4 mg/dl (Normal)
[2023-09-01 10:26] LABS: Urine Bilirubin Dipstick 3 mg/dL (Negative)
[2023-09-01 10:28] LABS: Squamous Epithelial Cells - UA 0-5 SEEN /hpf (0-5); White Blood Cells 0-5 SEEN /hpf (0-5)
== END | disposition home or self-care (01) ==
LOC: LABSPEC 10:06
PROVIDERS: PCP Internal Medicine; Referring Provider Physician Assistant; Visit Provider Physician Assistant
DX: R30.0 Dysuria (principal)
CPT/HCPCS: 81001; 87086; 87491; 87591

== ENCOUNTER → 2023-10-16 | Outpatient (CLI) | payer OTHER, SELFPAY ==
--- OUTSIDE RECORDS SUMMARY | 2023-10-16 15:43 | XMS RPT_ITS | CCD ---
Author Name Unknown Address [address] [place] [address] Organization [facility] Care Team Providers Care Events Administrative Assistant Name Role Phone NO, DOCTOR ON Consulting Unavailable [facility] TECHNICIAN- Admitting Unavailable [facility] TECHNICIAN- Primary Care Unavailable [facility] TECHNICIAN- Attending Unavailable JAJA LEE Admitting Unavailable JAJA LEE Primary Care Unavailable JAJA LEE Attending Unavailable NO, DOCTOR ON Consulting Unavailable Shazia Mendez MD Primary Care Provider [phone] Shazia Mendez MD Primary Care Provider [phone] Shazia Mendez MD Primary Care Provider [phone] MICHAEL, ANTONIOS Primary Care Unavailable TAWANNA BROOKS [...] Referring Unavailable TESTRAKE, EDMOND Attending Unavailable MICHAEL, [facility] Unavailable MICHAEL, [facility] Primary [facility] Unavailable PASCUAL MILLER Attending Unavailabl e PSACUAL MILLER Admitting Unavailabl e MICHAEL, [facility] Primary Care Unavailable PASCUAL MILLER Referring Unavailabl e MICHAEL, [facility] Primary Care Unavailable PASCUAL MILLER Referring Unavailabl e PASCUAL MILLER Attending Unavailabl e MICHAEL, [facility] Unavailable MICHAEL, [facility] Unavailable TESTRAKE, EDMOND Referring Unavailable TESTRAKE, EDMOND Attending Unavailable Allergies Allergy Classification Reported Allergen(s) Allergy Type Date of Onset Reaction(s) Facility (8 sources) Amoxicillin; Translations: [AMOXICILLIN] Drug Allergy 02-09-2023 Diarrhea [facility] Medications Current Medications Medication Drug Class(es) [...] 83 mm[Hg] Cami Yusuf MD Work Phone: [facility] 02-09-2023 14:54-0400 Heart rate 81 /min Cami Yusuf MD Work Phone: [facility] 02-09-2023 14:54-0400 Systolic blood pressure 151 mm[Hg] Cami Yusuf MD Work Phone: [facility] 12-22-2022 13:23-0400 Diastolic blood pressure 96 mm[Hg] Pascual Miller MD Work Phone: [facility] 12-22-2022 13:23-0400 Heart rate 70 /min Pascual Samayoa Work Phone: [facility] 12-22-2022 13:23-0400 Systolic blood pressure 157 mm[Hg] Pascual Miller MD Work Phone: [facility] 10-22-2022 13:22-0500 Body height 190.5 cm Pacc 1 Work Phone: [facility] 10-22-2022 13:22-0500 Body temperature 99.1 [degF] Pacc 1 Work Phone: [facility] 10-22-2022 13:22-0500 Body weight 118.39 kg Pacc 1 Work Phone: [facility] 10-22-2022 13:22-0500 Diastolic blood pressure 84 mm[Hg] Pacc 1 Work Phone: [facility] 10-22-2022 13:22-0500 Heart rate 82 /min Pacc 1 Work Phone: [facility] 10-22-2022 13:22-0500 Respiratory rate 16 /min Pacc 1 Work Phone: [facility] 10-22-2022 13:22-0500 SaO2% (BldA) [Mass fraction] 95 % Pacc 1 Work Phone: [facility] 10-22-2022 13:22-0500 Systolic blood pressure 160 mm[Hg] Pacc 1 Work Phone: [facility] 08-12-2022 10:06-0500 Body height 188 cm Anca Mcdonald DO Work Phone: [facility] 08-12-2022 10:06-0500 Body weight 111.13 kg Anca Mcdonald DO Work Phone: [facility] 08-12-2022 10:06-0500 Diastolic blood pressure 89 mm[Hg] Anca Mcdonald DO Work Phone: [facility] 08-12-2022 10:06-0500 Heart rate 89 /min Ancatabatha Velazquezle DO Work Phone: [facility] 08-12-2022 10:06-0500 SaO2% (BldA) [Mass fraction] 96 % Anca Mcdonald DO Work Phone: [facility] 08-12-2022 10:06-0500 Systolic blood pressure 142 mm[Hg] Anca Mcdonald DO Work Phone: [facility] 06-09-2022 12:33-0400 Body height 188 cm Edie Garcia MD Work Phone: [facility] 06-09-2022 12:33-0400 Body weight 112.04 kg Edie Garcia MD Work Phone: [facility] 06-09-2022 12:33-0400 Diastolic blood pressure 86 mm[Hg] Edie Garcia MD Work Phone: [facility] 06-09-2022 12:33-0400 Heart rate 89 /min Edie Garcia MD Work Phone: [facility] 06-09-2022 12:33-0400 SaO2% (BldA) [Mass fraction] 99 % Edie Garcia MD Work Phone: [facility] 06-09-2022 12:33-0400 Systolic blood pressure 156 mm[Hg] Edie Garcia MD Work Phone: [facility] 04-30-2022 16:30-0400 Diastolic blood pressure 82 mm[Hg] Pascual Miller MD Work Phone: [facility] 04-30-2022 16:30-0400 Heart rate 76 /min Pascual Samayoa Work Phone: [facility] 04-30-2022 16:30-0400 Systolic blood pressure 193 mm[Hg] Pascual Miller MD Work Phone: [facility] 04-28-2022 17:14-0400 Diastolic blood pressure 99 mm[Hg] Pascual Miller MD Work Phone: [facility] 04-28-2022 17:14-0400 Heart rate 76 /min Pascual Samayoa Work Phone: [facility] 04-28-2022 17:14-0400 Systolic blood pressure 179 mm[Hg] Pascual Miller MD Work Phone: [facility] 04-28-2022 16:14-0400 Body height 188 cm Pascual Samayoa Work Phone: [facility] 02-17-2022 10:36-0400 Body height 190.5 cm Pascual Samayoa Work Phone: [facility] 02-17-2022 10:36-0400 Body weight 108.86 kg Pascual Samayoa Work Phone: [facility] 02-17-2022 10:36-0400 Diastolic blood pressure 94 mm[Hg] Pascual Miller MD Work Phone: [facility] 02-17-2022 10:36-0400 Heart rate 97 /min Pascual Samayoa Work Phone: [facility] 02-17-2022 10:36-0400 Systolic blood pressure 159 mm[Hg] Pascual Miller MD Work Phone: [facility] 01-30-2022 13:16-0400 Body height 190.5 cm Tawanna Brooks MD Work Phone: [facility] 01-30-2022 13:16-0400 Body weight 106.59 kg Tawanna Brooks MD Work Phone: [facility] Encounters Encounter Date Encounter Type Care Provider Facility Start: 04-30-2023 End: 04-30-2023 ambulatory ANTONIOS MICHAEL Facility:[facility] Start: 04-30-2023 End: 04-30-2023 Patient encounter [...] CANCER SCREENING DISCUSSION PROSTATE CANCER SCREENING DISCUSSION [facility] Start: 01-30-2027 PROSTATE CANCER SCREENING DISCUSSION PROSTATE CANCER SCREENING DISCUSSION [facility] Start: 10-22-2025 DIABETES SCREEN DIABETES SCREEN [facility] Start: 01-30-2025 DIABETES SCREEN DIABETES SCREEN [facility] Start: 12-06-2024 DIABETES SCREEN DIABETES SCREEN [facility] Start: 10-14-2024 PROSTATE CANCER SCREENING DISCUSSION PROSTATE CANCER SCREENING DISCUSSION [facility] Start: 05-29-2023 Influenza vaccination INFLUENZA (#1) [facility] Start: 03-18-2023 End: 05-18-2023 Bacteria identified in Urine by Culture [facility] Work Phone: Immunizations Immunization Date Immunization Notes Care Provider Fa cility 11-05-2022 influenza, injectabl e, quadrivalent, preservative free Pascual Miller MD Work Phone: [facility] 11-04-2022 COVID-19 booster vaccine, age 12+ yr, bivalent ([employer]) Pascual Miller MD Work Phone: [facility] Payers Date Payer Category Payer Unknown MMO MMO [employer] [id number] 2018-Present [phone] [address] [place] [address] PPO [id number] 2018 Unknown [id number] 2018 Unknown [id number] Social History Date Type Detail Facility Start: 12-07-2019 End: 06-09-2022 Tobacco smoking status NHIS Never smoked tobacco [facility] Start: 12-07-2019 End: 06-09-2022 Tobacco use and exposure Smokeless tobacco non-user [facility] Start: 12-26-2021 End: 04-30-2023 Alcohol intake Current non-drinker of alcohol (finding) [facility] Start: 1960 Sex Assigned At Male C [facility] Start: 12-16-2021 End: 07-01-2022 Exposure to SARS-CoV-2 (event) Not sure [facility] Start: 09-03-2020 End: 04-30-2023 History of Social function [facility] Start: 09-03-2020 End: 04-30-2023 Tobacco use panel [facility] National Score (1-10 0), lower number is lower risk Not on file [facility] Start: 10-30-2021 Gender identity Identifies as male gender (finding) [facility] Start: 10-30-2021 Sexual orientation Heterosexual (magaly rondon) [facility] Medical Equipment Procedure Code Equipment Code Equipment Origin al Text Equipment Identifier Dates Prosthesis Spect ra Rear Tip Technical Maintenance Technician 1cm For 12/14mm Cylinders - [id number] Start: 11-04-2022 Prosthesis Ams 7 00 Ms Pump Inhibizone Penile Preconnect Inflatable - [id number] Start: 11-04-2022 Clinical Notes 12-13-2021 to 04-30-2023 Grant Plata MD - 04/30/2023 1:11 PM Meghan Head RN - 03/23/2023 11:10 AM Tawanna Myles MD - 03/23/2023 10:39 AM Meghan Head RN - 03/23/2023 10:49 AM EDTPatient Instructions Note Date & Type Note Facility 04-30-2023 Note HNO ID: [id number] Author: Grant Plata MD Service: ? Author [...] by mouth once daily. 180 capsule 3 Aqgpxioe-Tbkt-Evkkpz-Hyalur Ac 530-073-94-2 mg cap Take 2 tablets by mouth [...] glans engorgement. RTC PRN Grant Plata MD [facility] 04-30-2023 History of Presen t illness [...] by mouth once daily. 180 capsule 3 Pjtgmfjr-Psjs-Nuarqp-Hyalur Ac 111-022-36-2 mg cap Take 2 tablets by mouth [...] Grant Plata MD documented in this encounter [facility] 03-23-2023 Note HNO ID: [id number] Author: Meghan Gibbs RN Service: ? Author [...] Visit completed when applicable. Meghan Gibbs RN [facility] 03-23-2023 Note HNO ID: [id number] Author: Tawanna Brooks MD Service: ? Author [...] with more than 50% of the total hubr-uh-dicy time of the visit in counseling / coordination of care. Tawanna Brooks MD [facility] 03-23-2023 History of Presen t illness [...] with more than 50% of the total plad-fp-hasu time of the visit in counseling / coordination of care. Tawanna Brooks MD documented in this encounter [facility] 03-23-2023 Nurse Note Actual procedure/procedure scheduled: Yes Performing provider/scheduled provider: Yes Patient was roomed in: Q9- 09 Casino Operations Supervisor offered:Patient declines Patient arrived in the room [...] Patient ID with two(2)identifiers verified by: Meghan Gibbs RN Pre-Procedure Antibiotics: None taken at home [...] Education Session: None Instruction Provided To: Patient Cook Sauce Present: not applicable Discipline: Nursing Learning Topic: SURVIVAL SKILLS: Complication Prevention Patient Evaluation: Verbalizes understanding: Yes Supplemental Material Given: Written Material Instructed By Meghan Gibbs RN In Department Urology . documented in this encounter [facility] 03-20-2023 Miscellaneous Notes Spoke with Nathan to stop Cymbalta and trazadone when he is taking Cipro. Pt understood. documented in this encounter [facility] 02-09-2023 Note HNO ID: [id number] Author: Cami Yusuf MD Service: ? Author Type: Physician Type: Progress Notes Filed: 02/09/2023 5:48 PM Note Text: [facility] NEW PATIENT HISTORY AND PHYSICAL [...] for internal providers or letter via the [employer] for external providers. I HISTORY [...] 1 capsule by mouth daily at bedtime. Hzzmquov-Dhet-Ukthzi-Hyalur Ac 682-991-58-2 mg cap Take 2 tablets by mouth [...] a referral Cami Yusuf MD Electronically signed [facility] 02-09-2023 History of Presen t illness Narrative [facility] NEW PATIENT HISTORY AND PHYSICAL [...] for internal providers or letter via the [employer] for external providers. I HISTORY [...] 1 capsule by mouth daily at bedtime. Krguhrcr-Pjjl-Daioak-Hyalur Ac 800-886-93-2 mg cap Take 2 tablets by mouth [...] Cami Yusuf MD documented in this encounter [facility] 02-09-2023 Nurse Note 2nd PVR 369 after voiding 1st PVR 835 documented in this encounter [facility] 02-09-2023 Note Patient Outreach (UR OLMN) ELÍAS COLLADO ([id number]) 1960 M Date Time Provider Department 02/09/23 CAMI YUSUF During your visit today, we recorded the following information about you: Allergies As of Date: 02/09/2023 Noted Allergy Reaction AMOXICILLIN 02/09/2023 6 - Diarrhea Date Reviewed: 02/09/2023 Reviewed by: Cami Yusuf MD - Fully Assessed Visit Diagnosis:Screening for genitourinary condition [Z13.89] Order(s):URINALYSIS, REFLEX MICROSCOPIC [[id number]] Order #: [id number]. #:[id number] Prescriptions as of 02/12/2023 - amLODIPine (NORVASC) [...] capsule by mouth daily at bedtime. - Dirdryeu-Beyq-Tqyqeb-Hyalur Ac 693-730-53-2 mg cap Take 2 tablets by mouth [...] Ejaculatory disorder [N53.19] 02/05/2023 Encounter Status:Closed by Zivix, PRODUSER on 02/12/23 [facility] 02-05-2023 Note HNO ID: [id number] Author: Tawanna Brooks MD Service: ? Author [...] mouth daily at bedtime. 90 capsule 5 Iyrhbzqd-Nnbs-Ivkuue-Hyalur Ac 058-399-95-2 mg cap Take 2 tablets by mouth [...] worse post IPP placement Tawanna Brooks MD [facility] 02-05-2023 History of Presen t illness [...] mouth daily at bedtime. 90 capsule 5 Pkwcvwus-Plbs-Rreclg-Hyalur Ac 945-585-87-2 mg cap Take 2 tablets by mouth [...] Tawanna Brooks MD documented in this encounter [facility] 01-31-2023 Note HNO ID: [id number] Author: Edmond Rojas Service: ? Author Type: [...] 1 capsule by mouth daily at bedtime. Zzivyajo-Fsbo-Qmcfaj-Hyalur Ac 138-388-80-2 mg cap Take 2 tablets by mouth [...] sooner if problems arise. Edmond Rojas DPM [facility] 01-30-2023 History of Presen t illness [...] 1 capsule by mouth daily at bedtime. Qdewoedg-Cqfl-Qfzgzb-Hyalur Ac 877-621-14-2 mg cap Take 2 tablets by mouth [...] Amita Garcia LPN documented in this encounter [facility] 01-29-2023 Note HNO ID: [id number] Author: Amita Garcia LPN Service: ? Author Type: LICENSED NURSE Type: Progress Notes Filed: 01/30/2023 10:41 PM Note Text: AMB ROOMING INTAKE FLOWSHEET DATA Patient presents with: Right Foot - Established Patient, Follow Up Left Foot - Established Patient, Follow Up Amita Garcia LPN [facility] 01-29-2023 Miscellaneous Notes Urology Telephone Note Attempted to call patient multiple times today but have not received an answer. Zachary Calixto Jr., MD Reconstructive Urology Fellow documented in this encounter [facility] 01-20-2023 Miscellaneous Notes Urology Telephone Note Attempted to call patient and spouse multiple times today but have not received an answer. Zachary Calixto Jr., MD Reconstructive Urology Fellow documented in this encounter [facility] 01-19-2023 Miscellaneous Notes Urology Telephone Note Attempted to call patient and spouse multiple times today but have not received an answer. Zachary Calixto Jr., MD Reconstructive Urology Fellow documented in this encounter [facility] 01-17-2023 Miscellaneous Notes Urology Telephone Note I spoke with pt over the phone today. He expressed a lot of frustration with the IPP and concern for infection. I explained that I would follow up the cultures and call him back. Patient expressed understanding and agreement with the plan. Zachary Calixto Jr., MD Reconstructive Urology Fellow documented in this encounter [facility] 12-30-2022 Note HNO ID: [id number] Author: Kasandra Méndez APRN.CNP Service: ? Author Type: Nurse Practitioner Type: Progress Notes Filed: 12/30/2022 5:48 PM Note Text: Deleted pended order for urine culture. Per Meghan Christie's note from today, Elías Collado went to local urgent care over the weekend and is staking cipro with improvement in UTI symptoms. Kasandra Méndez APRN.CNP [facility] 12-30-2022 History of Presen t illness Narrative Deleted pended order for urine culture. Per Meghan Christie's note from today, Elías Collado went to local urgent care over the weekend and is staking cipro with improvement in UTI symptoms. Kasandra Méndez APRN.CNP documented in this encounter [facility] 12-30-2022 Miscellaneous Notes Emailed patient to [...] back then. Anca documented in this encounter [facility] 12-26-2022 Miscellaneous Notes Called Elías Collado [...] back today. Anca documented in this encounter [facility] 12-23-2022 Miscellaneous Notes Returned Elías Collado's [...] done today. Anca documented in this encounter [facility] 12-23-2022 Miscellaneous Notes Elías Collado transferring care from to [facility]. Previously on course to have cyctectomy with [...] Meghan Flores RN documented in this encounter [facility] 12-22-2022 Note HNO ID: [id number] Author: Pascual Miller MD Service: ? Author [...] on File Prior to Visit Medication Sig Itimcdpd-Unyn-Lzizkw-Hyalur Ac 147-483-43-2 mg cap Take 2 tablets by mouth [...] few months for recheck. Pascual Miller MD [facility] 12-22-2022 Note Patient Outreach (UR OLMN) ELÍAS COLLADO ([id number]) 1960 M Date Time Provider Department 12/22/22 PASCUAL MILLER During your visit today, we recorded the following information about you: Allergies As of Date: 12/22/2022 (No Known Allergies) Date Reviewed: 12/22/2022 Reviewed by: AIME Houston - Fully Assessed Visit Diagnosis:Screening for genitourinary condition [Z13.89] Order(s):URINALYSIS, REFLEX MICROSCOPIC [[id number]] Order #: [id number]. #:[id number] Prescriptions as of 12/25/2022 - Prsrmccf-Ctbs-Ygnukv-Hyalur Ac 391-255-86-2 mg cap Take 2 tablets by mouth [...] erectile dysfunction [N52.8] 02/17/2022 Encounter Status:Closed by Zivix, PRODUSER on 12/25/22 [facility] 12-22-2022 History of Presen t illness [...] on File Prior to Visit Medication Sig Nntgtvre-Hqrr-Vwensx-Hyalur Ac 243-697-13-2 mg cap Take 2 tablets by mouth [...] Pascual Miller MD documented in this encounter [facility] 11-05-2022 Note HNO ID: [id number] Author: Angela Upton MD Service: Urology Author Type: Resident Type: Progress Notes Filed: 11/05/2022 6:33 AM Note Text: [facility] UROLOGY PROGRESS NOTE Name: Elías Collado Date: November 05, 2022 After Hours [facility] Urology Service Pager: [phone] ASSESSMENT AND PLAN Elías Collado is a [...] staff, Dr. Pao Upton MD [facility] PGY2 [facility] [place] Pager: [phone] After hours and on weekends, please page [phone] Objective Vital Signs BP 152/79 Pulse 85 [...] Penoscrotal incision CDI. ASTER SS. Imaging Reviewed [facility] 11-04-2022 Note HNO ID: [id number] Author: Angela Upton MD Service: Urology Author Type: Resident Type: Progress Notes Filed: 11/04/2022 2:32 PM Note Text: [facility] UROLOGY PROGRESS NOTE Name: Elías Collado Date: November 04, 2022 After Hours [facility] Service Pager: [phone] ASSESSMENT AND PLAN Elías Collado is a [...] Pao Upton MD Urology PGY2 [facility] [place] Pager: [phone] After hours and on weekends, please page [phone] Objective Vital Signs BP 134/69 Pulse 74 [...] Penoscrotal incision CDI. ASTER SS. Imaging Reviewed [facility] 11-04-2022 Note HNO ID: [id number] Author: Karie Landin APRN.BAIT MAN Service: ? Author Type: Nurse Oriental Rug Repairer Type: Anesthesia Procedure Notes Filed: 11/04/2022 8:03 AM Note Text: ANESTHESIOLOGY PROCEDURE NOTE Airway General Information Procedure Start Time/Medication Administration: 11/04/2022 7:42 AM Patient location during procedure: OR Timeout Performed Pre-procedure: timeout performed Consent Obtained: Yes Patient identity confirmed: arm band Staffing Anesthesiologist: Hardik Castellano MD BAIT MAN: Karie Landin APRN.BAIT MAN Indications and Patient Condition Indications for airway [...] 1 Airway not difficult SIGNATURE: Karie Landin APRN.BAIT MAN PATIENT NAME: Elías Collado DATE: November 04, 2022 TIME: 8:02 AM CSN: [id number] [facility] 10-28-2022 Miscellaneous Notes Urology Telephone Note I spoke with pt over the phone today. I recommended that he change his pre-op Abx to doxycycline. Patient expressed understanding and agreement with the plan. Zachary Calixto Jr., MD Reconstructive Urology Fellow documented in this encounter [facility] 10-22-2022 Instructions Gabriela Cuellar APRN.NETWORK OPERATIONS CENTER TECHNICIAN - 10/22/2022 1:30 PM EST PATIENT PREOPERATIVE INSTRUCTIONS No ref. provider found has scheduled you for your procedure at this surgery center: [facility] [place] Scheduling Office: [phone] --[address] [place] [address]. Please read below carefully for your personalized [...] Procedures: - YOU MUST HAVE A RESPONSIBLE UNDERGROUND HEAVY EQUIPMENT OPERATOR TAKE YOU HOME. A AUTOMOTIVE PARTS COUNTER ASSISTANT OR AUTOMOTIVE PARTS COUNTER ASSISTANT CANNOT BE MADE A RESPONSIBLE UNDERGROUND HEAVY EQUIPMENT OPERATOR. - We recommend that a responsible person [...] call the Thursday before. Your surgeon s glass loading equipment tender will tell you what time to call the office. - If you have not reached the departmental glass loading equipment tender by 5 P.M., call [phone] after 5 P.M. the day before your surgery. Please be aware that emergency situations arise, which may delay or change your surgical time. If this happens, we will notify you as soon as possible and regret any inconvenience. If you already have an Advance Directive, please fax a copy to [phone] or email to for it to be [...] Gabriela Cuellar APRN.ABENA documented in this encounter [facility] 10-22-2022 History and physical note HISTORY [...] fevers. Neurological: No history of TIA's, stroke, HEALTH TECHNICIAN HEARING tumor, impaired sensorium, hemiplegia, paraplegia or quadraplegia. No neurological symptoms or problems. Respiratory: No history of current cough or dyspnea, or pneumonia in the past 6 weeks. No history of respiratory/pulmonary symptoms or problems. Cardiovascular: Positive for: hyperlipidemia (supplement) and hypertension (on rx) Negative for: anticoagulation therapy, arrhythmia, atrial fibrillation, CAD, chest pain, CHF, congenital heart defect, DVT/PE, recent PA, murmur/valvular heart disease, open heart surgery and [...] 10/22/22 1330 Medication Sig Last Dose Taking Lkhhmyhs-Jnou-Vhldtj-Hyalur Ac 394-439-25-2 mg cap Take 2 tablets by mouth [...] or any previous visit (from the past 99022 hour(s)). Assessment Mixed hyperlipidemia Assessment: taking supplement [...] equal to 35 kg/m^2 STOP-Bang Score: 4 [id number] Score: Age: <65 Sex: male CHF history: No Hypertension history: Yes Stroke/TIA/thromboembolism history: No Vascular disease history: No Diabetes history: No UUT2QV7-TASa Score: 1 ARISCAT Score: Age: 51-80 Preoperative [...] PM PAGER/CONTACT #: documented in this encounter [facility] 09-17-2022 Note Patient Outreach (UR OLMN) BRENDAELÍAS RODRIGUEZ Patric ([id number]) 1960 M Date Time Provider Department 09/17/22 PASCUAL MILLER During your visit today, we recorded the following information about you: Allergies As of Date: 09/17/2022 (No Known Allergies) Date Reviewed: 09/17/2022 Reviewed by: Yajaira Joseph MA - Fully Assessed Visit Diagnosis:Screening for genitourinary condition [Z13.89] Order(s):URINALYSIS, REFLEX MICROSCOPIC [[id number]] Order #: [id number]. #:[id number] Prescriptions as of 09/22/2022 - doxycycline hyclate (VIBRAMYCIN) 100 mg capsule Take 1 capsule by mouth twice daily. - Mzdrynfb-Dtrr-Apjlsg-Hyalur Ac 194-517-71-2 mg cap Take 2 tablets by mouth [...] erectile dysfunction [N52.8] 02/17/2022 Encounter Status:Closed by [employer], PRODUSER on 09/22/22 [facility] 09-17-2022 Note HNO ID: [id number] Author: Pascual Miller MD Service: ? Author [...] on File Prior to Visit Medication Sig Fphiouci-Eteq-Fjfwlq-Hyalur Ac 709-396-84-2 mg cap Take 2 tablets by mouth [...] Miller MD Date: 09/17/2022 Time: 9:21 AM [facility] 09-17-2022 Miscellaneous Notes Addended by: PASCUAL MILLER on: 09/17/2022 09:50 AM Modules accepted: Orders documented in this encounter [facility] 09-17-2022 History of Presen t illness [...] on File Prior to Visit Medication Sig Zifbccgj-Dokd-Xcozfm-Hyalur Ac 555-153-47-2 mg cap Take 2 tablets by mouth [...] Time: 9:21 AM documented in this encounter [facility] 08-12-2022 Note HNO ID: [id number] Author: Anca Mcdonald DO Service: Vascular Surgery Author Type: Physician Type: Progress Notes Filed: 08/18/2022 3:17 PM Note Text: NAME: ELÍAS COLLADO [facility] NO: [id number] DATE OF SERVICE: 08/12/2022 Subjective: Mr. Collado [...] us as needed. Wilner Moy/089 Audio #: [id number] Date Dictated: 08/12/2022 10:33:13 Date Typed: 08/18/2022 10:47:41 Date Revised: [facility] 08-12-2022 History of Presen t illness Narrative NAME: ELÍAS COLLADO [facility] NO: [id number] DATE OF SERVICE: 08/12/2022 Subjective: Mr. Collado [...] needed. Anca Mcdonald D.O. KB/089 Audio #: [id number] Date Dictated: 08/12/2022 10:33:13 Date Typed: 08/18/2022 10:47:41 Date Revised: documented in this encounter [facility] 07-29-2022 Miscellaneous Notes ----- Message from [...] recovered in time for his trip to [facility]. In fact, based on the needed [...] available. He has travel plans (Oct 16 [facility]; and Nov 26 [place]) Looks like you are pretty booked up. MAV Called Elías Collado and ANURAG regarding Dr. Miller's response above. Asked him to call the office and discuss with Janny how he would like to proceed. Meghan Flores RN documented in this encounter [facility] 07-07-2022 Note HNO ID: [id number] Author: Edmond Rojas Service: ? Author Type: [...] HTN (hypertension) Current Outpatient Medications Medication Sig Yxhmtypp-Sthu-Qehnfv-Hyalur Ac 267-880-84-2 mg cap Take 2 tablets by mouth [...] will contact the office Edmond Rojas DPM [facility] 07-07-2022 History of Presen t illness [...] HTN (hypertension) Current Outpatient Medications Medication Sig Qbcgbfat-Ywnw-Krepwm-Hyalur Ac 884-471-69-2 mg cap Take 2 tablets by mouth [...] Amita Garcia LPN documented in this encounter [facility] 07-01-2022 Note HNO ID: [id number] Author: Amita Garcia LPN Service: ? Author Type: LICENSED NURSE Type: Progress Notes Filed: 07/07/2022 12:50 PM Note Text: AMB ROOMING INTAKE FLOWSHEET DATA Risk Screening Do you have concerns about personal safety or safety in the home?: No Patient presents with: Right Foot - Established Patient, Follow Up, charcot Amita Garcia LPN [facility] 07-01-2022 Note HNO ID: [id number] Author: RT Estefania(Flori) Service: Nuclear Medicine Author [...] RT Estefania(R) July 01, 2022 9:19 AM [facility] 07-01-2022 History of Presen t illness [...] 2022 9:19 AM documented in this encounter [facility] 06-24-2022 Miscellaneous Notes Jayde with [employer] called to update on patients refund. Patient returned foot plates after a month of use d/t blistering. [employer] agreed to refund the patient but not d/t fault, followed Dr Nataly tate. ESPINOZA Donohue # [phone] documented in this encounter [facility] 06-09-2022 Note HNO ID: [id number] Author: Edie Garcia MD Service: ? Author Type: Physician Type: Progress Notes Filed: 06/09/2022 3:08 PM Note Text: [facility] [place] DEPARTMENT OF VASCULAR SURGERY OUTPATIENT VISIT DATE June 09, 2022 OUTPATIENT VISIT TYPE CONSULTATION SERVICE DATE: 06/09/2022 SERVICE TIME: 12:33 PM PRIMARY CARE PHYSICIAN: Shazia Mendez MD REFERRING PROVIDER: Edmond Rojas, DORIS [address] [facility] [address] Consult requested for an opinion regarding the [...] Cancer Mother thyroid Breast Cancer Mother MEDICATIONS: Fksvxuvt-Jttt-Fjxtsz-Hyalur Ac 279-918-64-2 mg cap Take 2 tablets by mouth [...] reviewed for today's visit: Non-Invasive Vascular Laboratory [facility] Venous Valvular Incompetency Bilateral/Complete Date of service/time: 03/28/2022 1:24:51 PM MR (more content not included)... [facility] 06-09-2022 History of Presen t illness Narrative Images from the original note were not included. [facility] [place] DEPARTMENT OF VASCULAR SURGERY OUTPATIENT VISIT DATE June 09, 2022 OUTPATIENT VISIT TYPE CONSULTATION SERVICE DATE: 06/09/2022 SERVICE TIME: 12:33 PM PRIMARY CARE PHYSICIAN: Shazia Mendez MD REFERRING PROVIDER: Edmond Rojas DPM [address] [facility] [address] Consult requested for an opinion regarding the [...] Cancer Mother thyroid Breast Cancer Mother MEDICATIONS: Ngcaakur-Lfta-Pasnuz-Hyalur Ac 291-545-16-2 mg cap Take 2 tablets by mouth [...] reviewed for today's visit: Non-Invasive Vascular Laboratory [facility] Venous Valvular Incompetency Bilateral/Complete Date [...] Technologist: Micheline Phillips RVT, [facility] Ordering physician: EDMOND ROJAS Interpreting physician: Edie Garcia MD ESSION: Mr. Collado is a 62 year old male with atypical leg pain. May be related to venous insufficiency. Patient will return visit with Dr. Mcdonald for consideration for EVLT. Recommend ibuprofen 600 mg 3 times a day rmtdrz-dea-rxwwi for 5 days. Compression stockings. Medical Decision Making: Medical Decision Making Level: 1 - N/A SIGNATURE: Edie Garcia MD PATIENT NAME: Elías Collado DATE: June 09, 2022 TIME: 12:33 PM documented in this encounter [facility] 04-30-2022 History of Presen t illness [...] Xiaflex 2 Time pulled [address] [id number] Exp: 04/2023 Xiaflex Lot [id number] Exp; 04/2023 documented in this encounter [facility] 04-28-2022 History of Presen t illness [...] Collado here for Xiaflex (1) Xiaflex: Lot: [id number] Exp: January 2023 Time prepared: [address] Lot: [id number] Exp: 04/2023 documented in this encounter [facility] 04-24-2022 Miscellaneous Notes Spoke to patient to schedule a sooner appointment with Dr. Garcia. Encounter closed. Images from the original note were not included. Called and left patient message to call Marsha @[phone] to set up office visit with Dr. Mcdonald. Per message below:DO Marsha Ayers Any chance we can get this krystle into see me sooner rather than later. Ok to add on ;) Previous Messages ----- Message ----- From: Edmond Rojas Sent: 04/19/2022 10:17 PM EDT To: DO Marc Ayres. I was wondering if there would be chances for this patient to see you earlier if he saw you in [place]. He has swelling in legs and demonstrates incompetency on ultrasound. He has severe knee arthritis and has been informed that he needs to get swelling controlled before any intervention on his knees. I wanted to have him see you to discuss options. Thanks documented in this encounter [facility] 04-19-2022 History of Presen t illness [...] he has plans on seeing orthopedics in [facility]. PAIN EVALUATION No data found in the last 1 encounters. 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 He would like another disc with those views. Procedure was done at [facility], should he be inquiring there? Please let him know. 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 Written report also. documented in this encounter [facility] 03-28-2022 History of Presen t illness [...] severe right knee pain. He has seen [facility] who have advised that patient needs total knee replacement on right lower extremity but will not proceed with surgery until his swelling in right great toe resolve. Patient currently has no pain in right foot. He did have esr, crp and cbc at [facility]. All were within normal limits. He is currently not on antibiotic. He has no open wounds to right foot. PAIN EVALUATION No data found in the last 1 encounters. No results found for: HBA1C PCP: Shazia Mendez MD PAST MEDICAL HISTORY Diagnosis Date Anxiety BPH (benign prostatic hyperplasia) HTN (hypertension) Current Outpatient Medications Medication Sig Lexhoolj-Ored-Yedjmx-Hyalur Ac 713-220-91-2 mg cap Take 2 tablets by mouth [...] At patient request, I will discuss with [facility]. I discussed my concern for charcot [...] Edmond Rojas DPM documented in this encounter [facility] 03-28-2022 History of Presen t illness [...] 2022 2:38 PM documented in this encounter [facility] 03-20-2022 Miscellaneous Notes I called patient to discuss blood work at [facility]. Esr, crp and wbc all normal. [...] week as scheduled. documented in this encounter [facility] 03-15-2022 History of Presen t illness [...] HTN (hypertension) Current Outpatient Medications Medication Sig Uzshivtn-Utki-Vofomt-Hyalur Ac 650-519-01-2 mg cap Take 2 tablets by mouth [...] any pain today. documented in this encounter [facility] 03-13-2022 Miscellaneous Notes Phone call to [...] Edmond Rojas DPM documented in this encounter [facility] 03-04-2022 Miscellaneous Notes Left message on [...] Edmond Rojas DPM documented in this encounter [facility] 02-25-2022 History of Presen t illness Narrative Photograph of erection sent by patient, confirms 55 degrees dorsal curvature involving the distal penile shaft. Will get insurance approval for Xiaflex and then schedule for first cycle. Pascual Miller MD documented in this encounter [facility] 02-21-2022 History of Presen t illness [...] HTN (hypertension) Current Outpatient Medications Medication Sig Qwsodrep-Cczn-Mzxlbo-Hyalur Ac 604-442-15-2 mg cap Take 2 tablets by mouth [...] ulcer surgery 12/13/2021 documented in this encounter [facility] 02-17-2022 History of Presen t illness Narrative [facility] NEW PATIENT HISTORY AND PHYSICAL EXAM PATIENT INFO: Elías Patric Collado 61 year old REFERRING MHadley.: Tawanna Brooks [address] [facility] [address] This consult was requested by Dr. Brooks [...] none MEDICATIONS: Current Outpatient Medications Medication Sig Yztuxrdf-Jlpz-Pehots-Hyalur Ac 313-498-63-2 mg cap Take 2 tablets by mouth [...] Time: 12:47 PM documented in this encounter [facility] 01-30-2022 Miscellaneous Notes Addended by: TAWANNA BROOKS on: 01/30/2022 02:14 PM Modules accepted: Orders documented in this encounter [facility] 01-30-2022 History of Presen t illness [...] Current Outpatient Medications Medication Sig Dispense Refill Tohikowj-Gbdr-Jfcjhw-Hyalur Ac 489-752-18-2 mg cap Take 2 tablets by mouth [...] Tawanna Brooks MD documented in this encounter [facility] 01-17-2022 History of Presen t illness [...] Edmond Rojas DPM documented in this encounter [facility] 01-06-2022 History of Presen t illness [...] Edmond Rojas DPM documented in this encounter [facility] 12-26-2021 History of Presen t illness [...] 14 days surgery. documented in this encounter [facility] 12-26-2021 Instructions Edmond Rojas - 12/26/2021 [...] return to work. documented in this encounter [facility] 12-13-2021 Note HNO ID: [id number] Author: RT Meagan(R) Service: Radiology Author Type: [...] RT Meagan(R) December 13, 2021 12:45 PM [facility] 12-13-2021 Note HNO ID: [id number] Author: Jasmyn Gaviria APRN.BAIT MAN Service: Anesthesiology Author Type: Nurse Oriental Rug Repairer Type: Anesthesia Procedure Notes Filed: 12/13/2021 10:08 [...] December 13, 2021 TIME: 10:08 AM CSN: [id number] [facility] 12-13-2021 Note HNO ID: [id number] Author: Omar Caal DPM Service: Vascular Surgery [...] Urine Negative 02/21/2020 Nitrites Negative 02/21/2020 Specific Reynolds, Ur 1.010 02/21/2020 Protein, Urine Negative 02/21/2020 [...] December 13, 2021 TIME: 9:10 AM PAGER: [facility] Diagnosis Post-operative state- Primary Other postprocedural status Neuropathic ulcer of toe, right, with fat layer exposed (HCC) [facility] Diagnosis Post-operative state- Primary Other postprocedural status Neuropathic ulcer of toe, right, with fat layer exposed (HCC) [facility] Diagnosis Benign prostatic hyperplasia with urinary retention- Primary Screening for genitourinary condition Screening for other and unspecified genitourinary condition Nocturia Urinary frequency Increasing residual urine Other specified retention of urine Peyronie's disease [facility] Diagnosis Peyronie's disease- Primary Acquired curvature of penis Other specified disorder of penis Other male erectile dysfunction [facility] Diagnosis Screening for genitourinary condition Screening for other and unspecified genitourinary condition [facility] Diagnosis Neuropathic ulcer of toe, right, with fat layer exposed (HCC)- Primary Neuropathy Mononeuritis of unspecified site Ingrowing toenail Ingrowing nail Venous insufficiency Unspecified venous (peripheral) insufficiency [facility] Diagnosis Pain in right foot- Primary Pain in limb [facility] Diagnosis Charcot's joint of right foot- Primary [facility] Diagnosis Charcot's joint of right foot- Primary Swelling of limb [facility] Diagnosis Charcot's joint of right foot- Primary Swelling of limb Venous insufficiency Unspecified venous (peripheral) insufficiency [facility] Diagnosis Charcot's joint of right foot [facility] Diagnosis Charcot's joint of right foot Swelling of limb [facility] Diagnosis Charcot's joint of right foot- Primary Neuropathy Mononeuritis of unspecified site Venous insufficiency Unspecified venous (peripheral) insufficiency [facility] Diagnosis Peyronie's disease- Primary Acquired curvature of penis Other specified disorder of penis [facility] Diagnosis Peyronie's disease- Primary Acquired curvature of penis Other specified disorder of penis [facility] Diagnosis Screening for genitourinary condition Screening for other and unspecified genitourinary condition [facility] Diagnosis Varicose veins of bilateral lower extremities with pain- Primary [facility] Diagnosis Charcot's joint of right foot- Primary [facility] Diagnosis Charcot's joint of right foot [facility] Diagnosis Charcot's joint of right foot- Primary Neuropathy Mononeuritis of unspecified site Venous insufficiency Unspecified venous (peripheral) insufficiency [facility] Diagnosis Other male erectile dysfunction- Primary Peyronie's disease Acquired curvature of penis Other specified disorder of penis Pyuria Other nonspecific finding on examination of urine [facility] Diagnosis Screening for genitourinary condition Screening for other and unspecified genitourinary condition [facility] Diagnosis Pre-operative examination- Primary Preoperative examination, unspecified Mixed hyperlipidemia Insomnia, unspecified type Gout, unspecified cause, unspecified chronicity, unspecified site Essential hypertension, benign Anxiety Anxiety state, unspecified Benign prostatic hyperplasia with urinary retention Class 1 obesity due to excess calories with serious comorbidity and body mass index (BMI) of 31.0 to 31.9 in adult Peyronie's disease documented in this encounter [facility] note* Diagnosis Other male erectile dysfunction- Primary Peyronie's disease Acquired curvature of penis Other specified disorder of penis documented in this encounter [facility] note* Diagnosis Venous insufficiency- Primary Unspecified venous (peripheral) insufficiency documented in this encounter [facility] note* Diagnosis Screening for genitourinary condition Screening for other and unspecified genitourinary condition documented in this encounter [facility] note* Diagnosis Suspected UTI- Primary documented in this encounter [facility] note* Diagnosis BPH with urinary obstruction- Primary Hypertrophy of prostate with urinary obstruction and other lower urinary tract symptoms (LUTS) documented in this encounter [facility] note* Diagnosis Neuropathy- Primary Mononeuritis of unspecified site documented in this encounter [facility] note* Diagnosis Benign prostatic hyperplasia with urinary retention- Primary Screening for genitourinary condition Screening for other and unspecified genitourinary condition Urinary frequency Weak urinary stream Slowing of urinary stream Urinary urgency Urgency of urination Other post-procedural erectile dysfunction Ejaculatory disorder Other specified disorder of male genital organs documented in this encounter [facility] note* Diagnosis Erectile dysfunction, unspecified erectile dysfunction type- Primary documented in this encounter [facility] note* Diagnosis Acute cystitis without hematuria- Primary Acute cystitis documented in this encounter [facility] note* Diagnosis Benign prostatic hyperplasia with urinary retention- Primary Erectile dysfunction, unspecified erectile dysfunction type Urinary tract infection associated with catheterization of urinary tract, unspecified indwelling urinary catheter type, subsequent encounter Hypotonic neurogenic bladder Neurogenic bladder, NOS BNO (bladder neck obstruction) Bladder neck obstruction documented in this encounter [facility] note* Diagnosis Malfunction of penile prosthesis, subsequent encounter- Primary [facility] ([facility])* Diagnostic Procedure Only (Routine) - Closed Specialty Diagnoses / Procedures Referred By Contac t Referred To Contact XR IMAGING Diagnoses Post-operative state Procedures XR FOOT GENERAL 3V AP/LAT/OBL RIGHT RADEX FOOT COMPLETE MINIMUM 3 VIEWS Edmond Rojas[address] [place] [address] Xr Imaging Referral ID Status Reason Start Date Expiration Date V isits Requested Visits Authorized [id number] Closed Auto-Generate d Referral 12/26/2021 01/25/2023 1 1 [facility] ([facility] Diagnostic Procedure Only (Routine) - Closed Specialty Diagnoses / Procedures Referred By Contac t Referred To Contact XR IMAGING Diagnoses Neuropathic ulcer of toe, right, with fat layer exposed (HCC) Neuropathy Procedures XR FOOT GENERAL 3V AP/LAT/OBL RIGHT RADEX FOOT COMPLETE MINIMUM 3 VIEWS Edmond Rojas[address] [place] [address] Xr Imaging Referral ID Status Reason Start Date Expiration Date V isits Requested Visits Authorized [id number] Closed Auto-Generate d Referral 02/21/2022 03/23/2023 1 1 [facility] for referral (narrative)* Diagnostic Procedure Only (Routine) - Pending Review Specialty Diagnoses / Procedures Referred By Contac t Referred To Contact XR IMAGING Diagnoses Pain in right foot Procedures XR FOOT GENERAL 3V AP/LAT/OBL RIGHT RADEX FOOT COMPLETE MINIMUM 3 VIEWS Edmond [place] [address] Xr Imaging Referral ID Status Reason Start Date Expiration Date Visits Requested Visits Authorized [id number] Pending Review Auto-Generat ed Referral 03/07/2022 04/06/2023 1 1 [facility] for referral (narrative)* Diagnostic Procedure Only (Routine) - Pending Review Specialty Diagnoses / Procedures Referred By Contac t Referred To Contact XR IMAGING Diagnoses Charcot's joint of right foot Procedures XR FOOT GENERAL 3V AP/LAT/OBL RIGHT RADEX FOOT COMPLETE MINIMUM 3 VIEWS Edmond [place] [address] Xr Imaging Referral ID Status Reason Start Date Expiration Date Visits Requested Visits Authorized [id number] Pending Review Auto-Generat ed Referral 03/13/2022 04/12/2023 1 1 [facility] ([facility] Outpatient Procedure (Routine) - Pending Review Specialty Diagnoses / Procedures Referred By Contac t Referred To Contact [facility] Diagnoses Charcot's joint of right foot Swelling of limb Procedures US VENOUS INCOMPETENCY ANASTASIA VAS LAB DUP-SCAN XTR VEINS COMPLETE BILATERAL STUDY Edmond Rojas[address] [place] [address] [facility] [place] [address] [place] [address] Referral ID Status Reason Start Date Expiration Date Visits Requested Visits Authorized [id number] Pending Review Auto-Generat ed Referral 03/20/2022 03/20/2023 1 1 [facility] (narrative)* Diagnostic Procedure Only (Routine) - Pending Review Specialty Diagnoses / Procedures Referred By Contac t Referred To Contact XR IMAGING Diagnoses Charcot's joint of right foot Swelling of limb Procedures XR FOOT GENERAL 3V AP/LAT/OBL RIGHT RADEX FOOT COMPLETE MINIMUM 3 VIEWS Edmond Rojas [address] [place] [address] Xr Imaging Referral ID Status Reason Start Date Expiration Date Visits Requested Visits Authorized [id number] Pending Review Auto-Generat ed Referral 03/28/2022 04/27/2023 1 1 [facility] ([facility] Diagnostic Procedure Only (Routine) - Closed Specialty Diagnoses / Procedures Referred By Contac t Referred To Contact XR IMAGING Diagnoses Charcot's joint of right foot Procedures XR FOOT GENERAL 3V AP/LAT/OBL RIGHT RADEX FOOT COMPLETE MINIMUM 3 VIEWS Edmond Rojas [address] [place] [address] Xr Imaging Referral ID Status Reason Start Date Expiration Date V isits Requested Visits Authorized [id number] Closed Auto-Generate d Referral 03/13/2022 04/12/2023 1 [facility] Diagnostic Procedure Only (Routine) - Closed Specialty Diagnoses / Procedures Referred By Contac t Referred To Contact XR IMAGING Diagnoses Charcot's joint of right foot Swelling of limb Procedures XR FOOT GENERAL 3V AP/LAT/OBL RIGHT RADEX FOOT COMPLETE MINIMUM 3 VIEWS Edmond Rojas [address] [place] [address] Xr Imaging Referral ID Status Reason Start Date Expiration Date V isits Requested Visits Authorized [id number] Closed Auto-Generate d Referral 03/28/2022 04/27/2023 1 1 [facility] Diagnostic Procedure Only (Routine) - Pending Review Specialty Diagnoses / Procedures Referred By Contac t Referred To Contact XR IMAGING Diagnoses Charcot's joint of right foot Procedures XR FOOT GENERAL 3V AP/LAT/OBL RIGHT RADEX FOOT COMPLETE MINIMUM 3 VIEWS Edmond Rojas[address] [place] [address] Xr Imaging Referral ID Status Reason Start Date Expiration Date Visits Requested Visits Authorized [id number] Pending Review Auto-Generat ed Referral 06/27/2022 07/27/2023 1 1 [facility] Diagnostic Procedure Only (Routine) - Closed Specialty Diagnoses / Procedures Referred By Contac t Referred To Contact XR IMAGING Diagnoses Charcot's joint of right foot Procedures XR FOOT GENERAL 3V AP/LAT/OBL RIGHT RADEX FOOT COMPLETE MINIMUM 3 VIEWS Edmond Rojas [address] [place] [address] Xr Imaging Referral ID Status Reason Start Date Expiration Date V isits Requested Visits Authorized [id number] Closed Auto-Generate d Referral 06/27/2022 07/27/2023 1 1 [facility] Diagnostic Procedure Only (Routine) - Closed Specialty Diagnoses / Procedures Referred By Contac t Referred To Contact XR IMAGING Diagnoses Charcot's joint of right foot Procedures XR FOOT GENERAL 3V AP/LAT/OBL RIGHT RADEX FOOT COMPLETE MINIMUM 3 VIEWS Edmond Rojas[address] [place] [address] Xr Imaging Referral ID Status Reason Start Date Expiration Date V isits Requested Visits Authorized [id number] Closed Auto-Generate d Referral 03/13/2022 04/12/2023 1 1 [facility] Diagnostic Procedure Only (Routine) - Closed Specialty Diagnoses / Procedures Referred By Contac t Referred To Contact XR IMAGING Diagnoses Charcot's joint of right foot Swelling of limb Procedures XR FOOT GENERAL 3V AP/LAT/OBL RIGHT RADEX FOOT COMPLETE MINIMUM 3 VIEWS Edmond Rojas[address] [address] Xr Imaging Referral ID Status Reason Start Date Expiration Date V isits Requested Visits Authorized [id number] Closed Auto-Generate d Referral 03/28/2022 04/27/2023 1 1 [facility] Diagnostic Procedure Only (Routine) - Closed Specialty Diagnoses / Procedures Referred By Contac t Referred To Contact XR IMAGING Diagnoses Charcot's joint of right foot Procedures XR FOOT GENERAL 3V AP/LAT/OBL RIGHT RADEX FOOT COMPLETE MINIMUM 3 VIEWS Edmond Rojas [address] [place] [address] Xr Imaging Referral ID Status Reason Start Date Expiration Date V isits Requested Visits Authorized [id number] Closed Auto-Generate d Referral 06/27/2022 07/27/2023 1 1 [facility] Summary Purpose Family History No Family History Records FoundNo Family History Records FoundNo Family History Records Found Advance Directives No Advanced Directives Records FoundDocuments on File Type Date Recorded Patient Technical Manager Expl anation Advance Directive(s) 12/13/2021 7:23 AM Advance Directive(s) 12/02/2021 11:37 AM Advance Directive(s) 02/24/2020 5:20 AM Advance Directive(s) 12/07/2019 12:56 PM Advance Directive(s) 12/05/2019 12:26 PM Documents on File Type Date Recorded Patient Technical Manager Expl anation Advance Directive(s) 12/13/2021 7:23 AM [...] insufficiency Procedures CONSULT TO VASCULAR SURGERY OFFICE/OUTPATIENT [facility] 60-74 MINUTES Concepcion Hernandez DPM [address] [place] [address] Referral ID Status Reason Start Date Expiration Date V isits Requested Visits Authorized [id number] Closed PCP Requested Referral 04/09/2022 07/08/2022 1 1 Referral ID Status Reason Start Date Expiration Date V isits Requested Visits Authorized [id number] Closed PCP Requested Referral 04/09/2022 07/08/2022 1 1 Specialty Diagnoses / Procedures Referred By Contac t Referred To Contact Psychology Diagnoses Erectile dysfunction, unspecified erectile dysfunction type Procedures CONSULT TO PSYCHOLOGY OFFICE/OUTPATIENT [facility] 60-74 MINUTES Cami Yusuf MD [address] [place] [address] Referral ID Status Reason Start Date Expiration Date Visits Requested Visits Authorized [id number] Pending Review PCP Requested Referral 02/09/2023 02/09/2024 1 1 Additional Source Comments (unrecognized sect ion and content) No Status Records FoundNo Status Records FoundNo Status Records Found INFORMATION SOURCE (unrecogn ized section and content) DATE CREATED AUTHOR AUTHOR'S ORGANIZ ATION 12/20/2021 [facility] DATE CREATED AUTHOR AUTHOR'S ORGANIZ ATION 05/01/2023 [facility] Source Comments (unrecognize d section and content) In the event this informatio n is protected by the Federal Confidentiality of Alcohol and Drug Abuse Patient Records regulations: The Federal rules restrict any use of the information to criminally investigate or prosecute any alcohol or drug abuse patient.[facility] the event this information is protected by the Federal Confidentiality of Alcohol and Drug Abuse Patient Records regulations: The Federal rules restrict any use of the information to criminally investigate or prosecute any alcohol or drug abuse patient.[facility] the event this information is protected by the Federal Confidentiality of Alcohol and Drug Abuse Patient Records regulations: The Federal rules restrict any use of the information to criminally investigate or prosecute any alcohol or drug abuse patient.[facility] the event this information is protected by the Federal Confidentiality of Alcohol and Drug Abuse Patient Records regulations: The Federal rules restrict any use of the information to criminally investigate or prosecute any alcohol or drug abuse patient.[facility] the event this information is protected by the Federal Confidentiality of Alcohol and Drug Abuse Patient Records regulations: The Federal rules restrict any use of the information to criminally investigate or prosecute any alcohol or drug abuse patient.[facility] the event this information is protected by the Federal Confidentiality of Alcohol and Drug Abuse Patient Records regulations: The Federal rules restrict any use of the information to criminally investigate or prosecute any alcohol or drug abuse patient.[facility] the event this information is protected by the Federal Confidentiality of Alcohol and Drug Abuse Patient Records regulations: The Federal rules restrict any use of the information to criminally investigate or prosecute any alcohol or drug abuse patient.[facility] the event this information is protected by the Federal Confidentiality of Alcohol and Drug Abuse Patient Records regulations: The Federal rules restrict any use of the information to criminally investigate or prosecute any alcohol or drug abuse patient.[facility] the event this information is protected by the Federal Confidentiality of Alcohol and Drug Abuse Patient Records regulations: The Federal rules restrict any use of the information to criminally investigate or prosecute any alcohol or drug abuse patient.[facility]In the event this information is protected by the Federal Confidentiality of Alcohol and Drug Abuse Patient Records regulations: The Federal rules restrict any use of the information to criminally investigate or prosecute any alcohol or drug abuse patient.[facility]In the event this information is protected by the Federal Confidentiality of Alcohol and Drug Abuse Patient Records regulations: The Federal rules restrict any use of the information to criminally investigate or prosecute any alcohol or drug abuse patient.[facility]In the event this information is protected by the Federal Confidentiality of Alcohol and Drug Abuse Patient Records regulations: The Federal rules restrict any use of the information to criminally investigate or prosecute any alcohol or drug abuse patient.[facility]In the event this information is protected by the Federal Confidentiality of Alcohol and Drug Abuse Patient Records regulations: The Federal rules restrict any use of the information to criminally investigate or prosecute any alcohol or drug abuse patient.[facility]In the event this information is protected by the Federal Confidentiality of Alcohol and Drug Abuse Patient Records regulations: The Federal rules restrict any use of the information to criminally investigate or prosecute any alcohol or drug abuse patient.[facility]In the event this information is protected by the Federal Confidentiality of Alcohol and Drug Abuse Patient Records regulations: The Federal rules restrict any use of the information to criminally investigate or prosecute any alcohol or drug abuse patient.[facility] HospitalIn the event this information is protected by the Federal Confidentiality of Alcohol and Drug Abuse Patient Records regulations: The Federal rules restrict any use of the information to criminally investigate or prosecute any alcohol or drug abuse patient.[facility] HospitalIn the event this information is protected by the Federal Confidentiality of Alcohol and Drug Abuse Patient Records regulations: The Federal rules restrict any use of the information to criminally investigate or prosecute any alcohol or drug abuse patient.[facility]In the event this information is protected by the Federal Confidentiality of Alcohol and Drug Abuse Patient Records regulations: The Federal rules restrict any use of the information to criminally investigate or prosecute any alcohol or drug abuse patient.[facility] HospitalIn the event this information is protected by the Federal Confidentiality of Alcohol and Drug Abuse Patient Records regulations: The Federal rules restrict any use of the information to criminally investigate or prosecute any alcohol or drug abuse patient.[facility] HospitalIn the event this information is protected by the Federal Confidentiality of Alcohol and Drug Abuse Patient Records regulations: The Federal rules restrict any use of the information to criminally investigate or prosecute any alcohol or drug abuse patient.[facility]In the event this information is protected by the Federal Confidentiality of Alcohol and Drug Abuse Patient Records regulations: The Federal rules restrict any use of the information to criminally investigate or prosecute any alcohol or drug abuse patient.[facility] HospitalIn the event this information is protected by the Federal Confidentiality of Alcohol and Drug Abuse Patient Records regulations: The Federal rules restrict any use of the information to criminally investigate or prosecute any alcohol or drug abuse patient.[facility] HospitalIn the event this information is protected by the Federal Confidentiality of Alcohol and Drug Abuse Patient Records regulations: The Federal rules restrict any use of the information to criminally investigate or prosecute any alcohol or drug abuse patient.[facility] HospitalIn the event this information is protected by the Federal Confidentiality of Alcohol and Drug Abuse Patient Records regulations: The Federal rules restrict any use of the information to criminally investigate or prosecute any alcohol or drug abuse patient.[facility]In the event this information is protected by the Federal Confidentiality of Alcohol and Drug Abuse Patient Records regulations: The Federal rules restrict any use of the information to criminally investigate or prosecute any alcohol or drug abuse patient.[facility] HospitalIn the event this information is protected by the Federal Confidentiality of Alcohol and Drug Abuse Patient Records regulations: The Federal rules restrict any use of the information to criminally investigate or prosecute any alcohol or drug abuse patient.[facility] HospitalIn the event this information is protected by the Federal Confidentiality of Alcohol and Drug Abuse Patient Records regulations: The Federal rules restrict any use of the information to criminally investigate or prosecute any alcohol or drug abuse patient.[facility] HospitalIn the event this information is protected by the Federal Confidentiality of Alcohol and Drug Abuse Patient Records regulations: The Federal rules restrict any use of the information to criminally investigate or prosecute any alcohol or drug abuse patient.[facility]In the event this information is protected by the Federal Confidentiality of Alcohol and Drug Abuse Patient Records regulations: The Federal rules restrict any use of the information to criminally investigate or prosecute any alcohol or drug abuse patient.[facility] HospitalIn the event this information is protected by the Federal Confidentiality of Alcohol and Drug Abuse Patient Records regulations: The Federal rules restrict any use of the information to criminally investigate or prosecute any alcohol or drug abuse patient.[facility] HospitalIn the event this information is protected by the Federal Confidentiality of Alcohol and Drug Abuse Patient Records regulations: The Federal rules restrict any use of the information to criminally investigate or prosecute any alcohol or drug abuse patient.[facility]In the event this information is protected by the Federal Confidentiality of Alcohol and Drug Abuse Patient Records regulations: The Federal rules restrict any use of the information to criminally investigate or prosecute any alcohol or drug abuse patient.[facility]In the event this information is protected by the Federal Confidentiality of Alcohol and Drug Abuse Patient Records regulations: The Federal rules restrict any use of the information to criminally investigate or prosecute any alcohol or drug abuse patient.[facility] HospitalIn the event this information is protected by the Federal Confidentiality of Alcohol and Drug Abuse Patient Records regulations: The Federal rules restrict any use of the information to criminally investigate or prosecute any alcohol or drug abuse patient.[facility] HospitalIn the event this information is protected by the Federal Confidentiality of Alcohol and Drug Abuse Patient Records regulations: The Federal rules restrict any use of the information to criminally investigate or prosecute any alcohol or drug abuse patient.[facility]In the event this information is protected by the Federal Confidentiality of Alcohol and Drug Abuse Patient Records regulations: The Federal rules restrict any use of the information to criminally investigate or prosecute any alcohol or drug abuse patient.[facility] HospitalIn the event this information is protected by the Federal Confidentiality of Alcohol and Drug Abuse Patient Records regulations: The Federal rules restrict any use of the information to criminally investigate or prosecute any alcohol or drug abuse patient.[facility] HospitalIn the event this information is protected by the Federal Confidentiality of Alcohol and Drug Abuse Patient Records regulations: The Federal rules restrict any use of the information to criminally investigate or prosecute any alcohol or drug abuse patient.[facility] HospitalIn the event this information is protected by the Federal Confidentiality of Alcohol and Drug Abuse Patient Records regulations: The Federal rules restrict any use of the information to criminally investigate or prosecute any alcohol or drug abuse patient.[facility] HospitalIn the event this information is protected by the Federal Confidentiality of Alcohol and Drug Abuse Patient Records regulations: The Federal rules restrict any use of the information to criminally investigate or prosecute any alcohol or drug abuse patient.[facility] HospitalIn the event this information is protected by the Federal Confidentiality of Alcohol and Drug Abuse Patient Records regulations: The Federal rules restrict any use of the information to criminally investigate or prosecute any alcohol or drug abuse patient.[facility] HospitalIn the event this information is protected by the Federal Confidentiality of Alcohol and Drug Abuse Patient Records regulations: The Federal rules restrict any use of the information to criminally investigate or prosecute any alcohol or drug abuse patient.[facility] HospitalIn the event this information is protected by the Federal Confidentiality of Alcohol and Drug Abuse Patient Records regulations: The Federal rules restrict any use of the information to criminally investigate or prosecute any alcohol or drug abuse patient.[facility] HospitalIn the event this information is protected by the Federal Confidentiality of Alcohol and Drug Abuse Patient Records regulations: The Federal rules restrict any use of the information to criminally investigate or prosecute any alcohol or drug abuse patient.[facility] HospitalIn the event this information is protected by the Federal Confidentiality of Alcohol and Drug Abuse Patient Records regulations: The Federal rules restrict any use of the information to criminally investigate or prosecute any alcohol or drug abuse patient.[facility] HospitalIn the event this information is protected by the Federal Confidentiality of Alcohol and Drug Abuse Patient Records regulations: The Federal rules restrict any use of the information to criminally investigate or prosecute any alcohol or drug abuse patient.[facility] HospitalIn the event this information is protected by the Federal Confidentiality of Alcohol and Drug Abuse Patient Records regulations: The Federal rules restrict any use of the information to criminally investigate or prosecute any alcohol or drug abuse patient.[facility]In the event this information is protected by the Federal Confidentiality of Alcohol and Drug Abuse Patient Records regulations: The Federal rules restrict any use of the information to criminally investigate or prosecute any alcohol or drug abuse patient.[facility] HospitalIn the event this information is protected by the Federal Confidentiality of Alcohol and Drug Abuse Patient Records regulations: The Federal rules restrict any use of the information to criminally investigate or prosecute any alcohol or drug abuse patient.[facility] HospitalIn the event this information is protected by the Federal Confidentiality of Alcohol and Drug Abuse Patient Records regulations: The Federal rules restrict any use of the information to criminally investigate or prosecute any alcohol or drug abuse patient.[facility] HospitalIn the event this information is protected by the Federal Confidentiality of Alcohol and Drug Abuse Patient Records regulations: The Federal rules restrict any use of the information to criminally investigate or prosecute any alcohol or drug abuse patient.[facility]In the event this information is protected by the Federal Confidentiality of Alcohol and Drug Abuse Patient Records regulations: The Federal rules restrict any use of the information to criminally investigate or prosecute any alcohol or drug abuse patient.[facility]In the event this information is protected by the Federal Confidentiality of Alcohol and Drug Abuse Patient Records regulations: The Federal rules restrict any use of the information to criminally investigate or prosecute any alcohol or drug abuse patient.[facility] HospitalIn the event this information is protected by the Federal Confidentiality of Alcohol and Drug Abuse Patient Records regulations: The Federal rules restrict any use of the information to criminally investigate or prosecute any alcohol or drug abuse patient.[facility]In the event this information is protected by the Federal Confidentiality of Alcohol and Drug Abuse Patient Records regulations: The Federal rules restrict any use of the information to criminally investigate or prosecute any alcohol or drug abuse patient.[facility]In the event this information is protected by the Federal Confidentiality of Alcohol and Drug Abuse Patient Records regulations: The Federal rules restrict any use of the information to criminally investigate or prosecute any alcohol or drug abuse patient.[facility]In the event this information is protected by the Federal Confidentiality of Alcohol and Drug Abuse Patient Records regulations: The Federal rules restrict any use of the information to criminally investigate or prosecute any alcohol or drug abuse patient.[facility] HospitalIn the event this information is protected by the Federal Confidentiality of Alcohol and Drug Abuse Patient Records regulations: The Federal rules restrict any use of the information to criminally investigate or prosecute any alcohol or drug abuse patient.[facility] Reason for Visit (unrecogniz ed section [...] total of 8 vials Shazia Mendez MD [address] [place] [id number] Pascual Miller MD [address] [place] [address] Referral ID Status Reason Start Date Expiration Date V isits Requested Visits Authorized [id number] Authorized 03/05/2022 09/27/2022 99 99 Reason Comments Release Of Medical Records Reason Comments New Patient Reason Comments Patient Update Refund for foot plat e Reason Comments Established Patient Follow Up charcot Reason Comments [employer] 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 - Other Reason Comments Established Patient Reason Comments Follow Up Reason Comments Results Reason Comments Post-Op Visit Reason Comments Returning Patient's Call Reason Comments Patient Question Reason Comments Established Patient Follow Up Reason Comments cipro instructions Reason Comments Cystoscopy-1 Care Teams (unrecognized sec tion and content) Events Administrative Assistant Relationship Specialty Start Date End Date Shazia Mendez MD [address] [place] [id number] PCP - General Internal Medicine 02/10/20 Events Administrative Assistant Relationship Specialty Start Date End Date Shazia Mendez MD [address] [place] [id number] PCP - General Internal Medicine 02/10/20 Events Administrative Assistant Relationship Specialty Start Date End Date Shazia Mendez MD [address] [place] [id number] PCP - General Internal Medicine 02/10/20 Events Administrative Assistant Relationship Specialty Start Date End Date Shazia Mendez MD [address] [place] [id number] PCP - General Internal Medicine 02/10/20 Events Administrative Assistant Relationship Specialty Start Date End Date Shazia Mendez MD [address] [place] [id number] PCP - General Internal Medicine 02/10/20 Events Administrative Assistant Relationship Specialty [place] [id number] [place] [address] PCP - General Internal Medicine 02/10/20 Events Administrative Assistant Relationship Specialty [place] [address] [place] [address] PCP - General Internal Medicine 02/10/20 Events Administrative Assistant Relationship Specialty Start [place] [id number] [place] [address] PCP - General Internal Medicine 02/10/20 Events Administrative Assistant Relationship Specialty [place] [id number] [place] [address] PCP - General Internal Medicine 02/10/20 Events Administrative Assistant Relationship Specialty [place] [address] [place] [address] PCP - General Internal Medicine 02/10/20 Events Administrative Assistant Relationship Specialty Start [place] [address] [place] [address] PCP - General Internal Medicine 02/10/20 Events Administrative Assistant Relationship Specialty Start [place] [address] [place] [address] PCP - General Internal Medicine 02/10/20 Events Administrative Assistant Relationship Specialty Start [place] [address] [place] [address] PCP - General Internal Medicine 02/10/20 Events Administrative Assistant Relationship Specialty Start Date [place]az[place] [id number] [place] [address] [address] [place] [address] PCP - General Internal Medicine 02/10/20 Events Administrative Assistant Relationship Specialty Start Date End [place] Shazia Mendez MD [id number] [place] [address] [address] [place] [address] PCP - General Internal Medicine 02/10/20 Events Administrative Assistant Relationship Specialty Start Date End Date Shazia Mendez MD [address] [place] [address] [address] [place] [address] PCP - General Internal Medicine 02/10/20 Events Administrative Assistant Relationship Specialty Start Date End Date Shazia Mendez MD [address] [place] [address] [address] [place] [address] PCP - General Internal Medicine 02/10/20 Events Administrative Assistant Relationship Specialty Start Date End Date Shazia Mendez MD [address] [place] [address] [address] [place] [address] PCP - General Internal Medicine 02/10/20 Events Administrative Assistant Relationship Specialty Start Date End Date Shazia Mendez MD [address] [place] [address] [address] [place] [address] PCP - General Internal Medicine 02/10/20 Events Administrative Assistant Relationship Specialty Start Date End Date Shazia Mendez MD [address] [place] [address] [address] [place] [address] PCP - General Internal Medicine 02/10/20 Events Administrative Assistant Relationship Specialty Start Date End Date Shazia Mendez MD [address] [place] [address] [address] [place] [address] PCP - General Internal Medicine 02/10/20 Events Administrative Assistant Relationship Specialty Start Date End Date Shazia Mendez MD [address] [place] [address] [address] [place] [address] PCP - General Internal Medicine 02/10/20 Events Administrative Assistant Relationship Specialty Start [place] [address] [place] [address] PCP - General Internal Medicine 02/10/20 Events Administrative Assistant Relationship Specialty [place] [address] [facility] [address] [place] [address] PCP - General Internal Medicine 02/10/20 Events Administrative Assistant Relationship Specialty Start [place] [address] [facility] [address] [place] [address] PCP - General Internal Medicine 02/10/20 Events Administrative Assistant Relationship Specialty Start [place] [address] [facility] [address] [place] [address] PCP - General Internal Medicine 02/10/20 Events Administrative Assistant Relationship Specialty Start [place] [address] [facility] [address] [place] [address] PCP - General Internal Medicine 02/10/20 Events Administrative Assistant Relationship Specialty Start [place] [address] [facility] [address] [place] [address] PCP - General Internal Medicine 02/10/20 Events Administrative Assistant Relationship Specialty Start [place] [address] [facility] [address] [place] [address] PCP - General Internal Medicine 02/10/20 FOR [...] BE BASED ON THE PRIMARY CLINICAL RECORDS. [facility] [employer] [facility]. provides no warranty or guarantee of the accuracy or completeness of information in this document.
== END | disposition home or self-care (01) ==
LOC: LABSPEC 15:36
PROVIDERS: PCP Internal Medicine; Referring Provider Nurse Practitioner; Visit Provider Nurse Practitioner
DX: N39.0 Urinary tract infection, site not specified (principal)
CPT/HCPCS: 87077; 87086; 87088; 87186

== ENCOUNTER → 2023-10-22 | Outpatient (CLI) | payer OTHER, SELFPAY ==
--- OUTSIDE RECORDS SUMMARY | 2023-10-16 14:58 | XMS RPT_ITS | CCD ---
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 Name Role Phone NO, DOCTOR ON Consulting Unavailable [facility]- Admitting Unavailable PHILIPPE, [facility]- Primary Care Unavailable [facility]- Attending Unavailable JAJA LEE Admitting Unavailable JAJA LEE Primary Care Unavailable JAJA LEE Attending Unavailable NO, DOCTOR ON Consulting Unavailable Shazia Mendez MD Primary Care Provider [phone] Shazia Mendez MD Primary Care Provider [phone] Shazia Mendez MD Primary Care Provider [phone] MICHAEL, ANTONIOS Primary Care Unavailable TAWANNA BROOKS Referring Unavailable TAWANNA BROOKS Attending Unavailable MICHAEL, ANTONIOS Primary Care Unavailable CAMI YUSUF Attending Unavailable MICHAEL, ANTONIOS Primary Care Unavailable TAWANNA BROOKS Referring Unavailable MICHAEL, ANTONIOS Primary Care Unavailable TAWANNA BROOKS Referring Unavailable MICHAEL, ANTONIOS Primary Care Unavailable SELF Referring Unavailable TAWANNA BROOKS Attending Unavailable MICHAEL, ANTONIOS Primary Care Unavailable GRANT PLATA Attending Unavailable ANCA MCDONALD Referring Unavailable ANCA MCDONALD Attending Unavailable MICHAEL, ANTONIOS Primary Care Unavailable MICHAEL, ANTONIOS Primary Care Unavailable MICHAEL, ANTONIOS Primary Care Unavailable PASCUAL MILLER Referring Unavailabl e PASCUAL MILLER Attending Unavailabl e MICHAEL, ANTONIOS Primary Care Unavailable MICHAEL, ANTONIOS Primary Care Unavailable EDIE GARCIA Attending Unavail able EDMOND ROJAS Referring Unavailable MICHAEL, ANTONIOS Primary Care Unavailable TESTEDMOND SWEET Referring Unavailable TESTRAKE, EDMOND Referring Unavailable TESTRAKE, EDMOND Attending Unavailable MICHAEL, [facility] Unavailable MICHAEL, [facility] Primary [facility] Unavailable PASCUAL MILLER Attending Unavailabl e PASCUAL MILLER Admitting Unavailabl e MICHAEL, [facility] Primary Care Unavailable PASCUAL MILLER Referring Unavailabl e MICHAEL, [facility] Primary Care Unavailable PASCUAL MILLER Referring Unavailabl e PASCUAL MILLER Attending Unavailabl e MICHAEL, [facility] Unavailable MICHAEL, [facility] Unavailable TESTRAKE, EDMOND Referring Unavailable TESTRAKE, EDMOND Attending Unavailable Allergies Allergy Classification Reported Allergen(s) Allergy Type Date of Onset Reaction(s) Facility (8 sources) Amoxicillin; Translations: [AMOXICILLIN] Drug Allergy 02-09-2023 Diarrhea [facility] Medications Current Medications Medication Drug Class(es) Dates Sig (Normalized) Sig (Original) amoxicillin 875 mg / clavulanate 125 mg oral tablet (1 source) Penicillin-class Antibacterial Start: 10-28-2022 End: 11-04-2022 take 1 tablet by mouth twice daily amoxicillin-clav ulanic acid (AUGMENTIN) 875-125 mg per tablet Take 1 tablet by mouth twice daily for 7 days. 14 tablet 0 10/28/2022 11/04/2022 Active Completed/Discontinued Medications Medication Drug Class(es) Dates Sig (Normalized) Sig (Original) acetaminophen 1000 mg oral tablet (20 sources) acetaminophen (T YLENOL EXTRA STRENGTH ORAL) Take 1,000 mg by mouth as needed. 0 Active Problems Active Problems Problem Classification Problem Date Documented Date Episodic/Chronic Acquired foot deformities (1 source) Toe joint rigid; Translations: [Hallux rigidus, right foot] Chronic Anxiety disorders (20 sources) Anxiety; Translations: [Anxiety disorder, unspecified] Onset: 12-06-2021 12-06-2021 Chronic Chronic ulcer of skin (3 sources) Ulcer of toe; Translations: [Non-pressure chronic ulcer of other part of right foot with fat layer exposed] Chronic Complication of device; implant or graft (5 sources) Catheter-associated urinary tract infection; Translations: [Infection and inflammatory reaction due to indwelling urethral catheter, subsequent encounter] Onset: 03-23-2023 03-23-2023 Episodic Disorders of lipid metabolism (20 sources) Mixed hyperlipidemia; Translations: [Mixed hyperlipidemia] Onset: 12-06-2021 12-06-2021 Chronic Essential hypertension (20 sources) Benign essential hypertension; Translations: [Essential (primary) hypertension] Onset: 12-06-2021 12-06-2021 Chronic Gout and other crystal arthropathies (20 sources) Gout; Translations: [Gout, unspecified] Onset: 12-06-2021 12-06-2021 Chronic Hyperplasia of prostate (20 sources) Benign prostatic hypertrophy with outflow obstruction; Translations: [Benign prostatic hyperplasia with lower urinary tract symptoms] Onset: 09-08-2019 06-07-2020 Chronic Joint disorders and dislocations; trauma-related (20 sources) Chondromalacia of patella; Translations: [Chondromalacia patellae, unspecified knee] Onset: 04-03-2014 04-03-2014 Chronic Osteoarthritis (20 sources) Primary gonarthrosis, bilateral; Translations: [Bilateral primary osteoarthritis of knee] Onset: 06-13-2015 06-13-2015 Chronic Other connective tissue disease (1 source) Pain in right foot; Translations: [Pain in right foot] Episodic Other connective tissue disease (3 sources) Swelling of limb; Translations: [Other specified soft tissue disorders] Episodic Other diseases of bladder and urethra (3 sources) Paralysis of bladder; Translations: [Neuromuscular dysfunction of bladder, unspecified] Onset: 03-23-2023 03-23-2023 Chronic Other diseases of bladder and urethra (3 sources) Bladder neck obstruction; Translations: [Bladder-neck obstruction] Onset: 04-30-2023 04-30-2023 Chronic Other diseases of bladder and urethra (1 source) Neuromuscular dysfunction of bladder, unspecified; 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] Onset: 03-23-2023 Chronic Other diseases of kidney and ureters (1 source) Other obstructive and reflux uropathy; Translations: [BPH with urinary obstruction] Onset: 02-18-2023 Episodic Other diseases of veins and lymphatics (5 sources) Vascular insufficiency; Translations: [Venous insufficiency (chronic) (peripheral)] Episodic Other endocrine disorders (20 sources) Male hypogonadism; Translations: [Testicular hypofunction] Onset: 06-07-2020 06-07-2020 Chronic Other male genital disorders (20 sources) Induratio penis plastica; Translations: [Induration penis plastica] Onset: 01-30-2022 Chronic Other male genital disorders (5 sources) Deviation of penis; Translations: [Other specified disorders of penis] Chronic Other male genital disorders (20 sources) Other male erectile dysfunction; Translations: [Impotence of organic origin] Onset: 02-17-2022 Chronic Other male genital disorders (1 source) Male erectile dysfunction, unspecified; Translations: [Erectile dysfunction, unspecified erectile dysfunction type] Onset: 02-09-2023 Chronic Other male genital disorders (1 source) Induration penis plastica; 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] Onset: 01-30-2022 Chronic Other male genital disorders (1 source) Other specified disorders of penis; Translations: [Acquired curvature of penis] Onset: 09-17-2022 Chronic Other male genital disorders (9 sources) Defective ejaculation; Translations: [Other ejaculatory dysfunction] Onset: 02-05-2023 Episodic Other nervous system disorders (4 sources) Neuropathy; Translations: [Polyneuropathy, unspecified] Chronic Other non-traumatic joint disorders (9 sources) Charcot's joint of foot; Translations: [Charcot's joint, right ankle and foot] Chronic Other non-traumatic joint disorders (1 source) Charcot's joint, right ankle and foot; Translations: [Charcot's joint of right foot] Onset: 07-01-2022 Chronic Other nutritional; endocrine; and metabolic disorders (20 sources) Obese class I; Translations: [Obesity, unspecified] Onset: 12-07-2019 12-07-2019 Chronic Other nutritional; endocrine; and metabolic disorders (20 sources) Obesity; Translations: [Other obesity due to excess calories] Onset: 12-06-2021 12-06-2021 Chronic Other nutritional; endocrine; and metabolic disorders (2 sources) Obesity caused by energy imbalance; Translations: [Other obesity due to excess calories] Onset: 12-06-2021 12-06-2021 Chronic Other skin disorders (1 source) Ingrowing toenail; Translations: [Ingrowing nail] Episodic Residual codes; unclassified (3 sources) Postoperative state; Translations: [Other specified postprocedural states] Episodic Unclassified (1 source) Pyuria; Translations: [Pyuria] Onset: 09-17-2022 Urinary tract infections (3 sources) Acute cystitis; Translations: [Acute cystitis without hematuria] Onset: 02-18-2023 Episodic Varicose veins of lower extremity (2 sources) Varicose veins of lower extremity; Translations: [Varicose veins of bilateral lower extremities with pain] Episodic Past or Other Problems Problem Classification Problem Date Documented Date Episodic/Chronic Genitourinary symptoms and ill-defined conditions (20 sources) Poor stream of urine; Translations: [Poor urinary stream] Onset: 09-08-2019 09-08-2019 Episodic Other nervous system disorders (1 source) Other acute postprocedural pain; Translations: [Postoperative pain] Onset: 11-04-2022 Episodic Other screening for suspected conditions (not mental disorders or infectious disease) (20 sources) Patient encounter status; Translations: [Encounter for screening for other disorder] Onset: 01-30-2022 Episodic Residual codes; unclassified (20 sources) Insomnia; Translations: [Insomnia, unspecified] Onset: 12-06-2021 12-06-2021 Episodic Sprains and strains (20 sources) Tear of distal tendon of biceps brachii; Translations: [Strain of muscle, fascia and tendon of other parts of biceps, unspecified arm, initial encounter] Onset: 02-21-2014 02-21-2014 Episodic Results Test Name Value Interpretation Reference Range Facil ity Vital Signs Date Time Vital Sign Value Performing Clinician Jayla baltazar 02-09-2023 14:54-0400 Diastolic blood pressure 83 mm[Hg] Cami Yusuf MD Work Phone: [facility] 02-09-2023 14:54-0400 Heart rate 81 /min Cami Yusuf MD Work Phone: [facility] 02-09-2023 14:54-0400 Systolic blood pressure 151 mm[Hg] Cami Yusuf MD Work Phone: [facility] 12-22-2022 13:23-0400 Diastolic blood pressure 96 mm[Hg] Pascual Miller MD Work Phone: [facility] 12-22-2022 13:23-0400 Heart rate 70 /min Pascual Samayoa Work Phone: [facility] 12-22-2022 13:23-0400 Systolic blood pressure 157 mm[Hg] Pascual Miller MD Work Phone: [facility] 10-22-2022 13:22-0500 Body height 190.5 cm Pacc 1 Work Phone: [facility] 10-22-2022 13:22-0500 Body temperature 99.1 [degF] Pacc 1 Work Phone: [facility] 10-22-2022 13:22-0500 Body weight 118.39 kg Pacc 1 Work Phone: [facility] 10-22-2022 13:22-0500 Diastolic blood pressure 84 mm[Hg] Pacc 1 Work Phone: [facility] 10-22-2022 13:22-0500 Heart rate 82 /min Pacc 1 Work Phone: [facility] 10-22-2022 13:22-0500 Respiratory rate 16 /min Pacc 1 Work Phone: [facility] 10-22-2022 13:22-0500 SaO2% (BldA) [Mass fraction] 95 % Pacc 1 Work Phone: [facility] 10-22-2022 13:22-0500 Systolic blood pressure 160 mm[Hg] Pacc 1 Work Phone: [facility] 08-12-2022 10:06-0500 Body height 188 cm Anca Mcdonald DO Work Phone: [facility] 08-12-2022 10:06-0500 Body weight 111.13 kg Anca Mcdonald DO Work Phone: [facility] 08-12-2022 10:06-0500 Diastolic blood pressure 89 mm[Hg] Anca Mcdonald DO Work Phone: [facility] 08-12-2022 10:06-0500 Heart rate 89 /min Ancatabatha Velazquezle DO Work Phone: [facility] 08-12-2022 10:06-0500 SaO2% (BldA) [Mass fraction] 96 % Anca Mcdonald DO Work Phone: [facility] 08-12-2022 10:06-0500 Systolic blood pressure 142 mm[Hg] Anca Mcdonald DO Work Phone: [facility] 06-09-2022 12:33-0400 Body height 188 cm Edie Garcia MD Work Phone: [facility] 06-09-2022 12:33-0400 Body weight 112.04 kg Edie Garcia MD Work Phone: [facility] 06-09-2022 12:33-0400 Diastolic blood pressure 86 mm[Hg] Edie Garcia MD Work Phone: [facility] 06-09-2022 12:33-0400 Heart rate 89 /min Edie Garcia MD Work Phone: [facility] 06-09-2022 12:33-0400 SaO2% (BldA) [Mass fraction] 99 % Edie Garcia MD Work Phone: [facility] 06-09-2022 12:33-0400 Systolic blood pressure 156 mm[Hg] Edie Garcia MD Work Phone: [facility] 04-30-2022 16:30-0400 Diastolic blood pressure 82 mm[Hg] Pascual Miller MD Work Phone: [facility] 04-30-2022 16:30-0400 Heart rate 76 /min Pascual Samayoa Work Phone: [facility] 04-30-2022 16:30-0400 Systolic blood pressure 193 mm[Hg] Pascual Miller MD Work Phone: [facility] 04-28-2022 17:14-0400 Diastolic blood pressure 99 mm[Hg] Pascual Miller MD Work Phone: [facility] 04-28-2022 17:14-0400 Heart rate 76 /min Pascual Samayoa Work Phone: [facility] 04-28-2022 17:14-0400 Systolic blood pressure 179 mm[Hg] Pascual Miller MD Work Phone: [facility] 04-28-2022 16:14-0400 Body height 188 cm Pascual Samayoa Work Phone: [facility] 02-17-2022 10:36-0400 Body height 190.5 cm Pascual Samayoa Work Phone: [facility] 02-17-2022 10:36-0400 Body weight 108.86 kg Pascual Samayoa Work Phone: [facility] 02-17-2022 10:36-0400 Diastolic blood pressure 94 mm[Hg] Pascual Miller MD Work Phone: [facility] 02-17-2022 10:36-0400 Heart rate 97 /min Pascual Samayoa Work Phone: [facility] 02-17-2022 10:36-0400 Systolic blood pressure 159 mm[Hg] Pascual Miller MD Work Phone: [facility] 01-30-2022 13:16-0400 Body height 190.5 cm Tawanna Brooks MD Work Phone: [facility] 01-30-2022 13:16-0400 Body weight 106.59 kg Tawanna Brooks MD Work Phone: [facility] Encounters Encounter Date Encounter Type Care Provider Facility Start: 04-30-2023 End: 04-30-2023 ambulatory ANTONIOS MICHAEL Facility:[facility] Start: 04-30-2023 End: 04-30-2023 Patient encounter procedure Grant Plata MD Work Phone: Urology Procedures Date Procedure Procedure Detail Performing Clinician Start: 03-23-2023 Urnls dip stick/tabl et rgnt auto w/o microscopy Tawanna Brooks MD Work Phone: Start: 02-05-2023 URINE SEDIMENT B/O Cody Brooks MD Work Phone: Start: 02-05-2023 Urnls dip stick/tabl et rgnt auto w/o microscopy Tawanna Brooks MD Work Phone: Start: 12-22-2022 Urnls dip stick/tabl et rgnt auto w/o microscopy Bulk Order Provider Start: 09-17-2022 Urnls dip stick/tabl et reagent auto microscopy Bulk Order Provider Start: 07-01-2022 Radex foot complete minimum 3 views Edmond Rojas Work Phone: Start: 04-17-2022 Radex foot complete minimum 3 views Edmond Rojas Work Phone: Start: 03-28-2022 Radex foot complete minimum 3 views Edmond Rojas Work Phone: Start: 02-17-2022 Urnls dip stick/tabl et rgnt auto w/o microscopy Bulk Order Provider Start: 01-30-2022 URINE SEDIMENT B/O Cody Brooks MD Work Phone: Plan of Treatment Date Care Activity Detail Author Start: 02-19-2028 PROSTATE CANCER SCREENING DISCUSSION PROSTATE CANCER SCREENING DISCUSSION [facility] Start: 01-30-2027 PROSTATE CANCER SCREENING DISCUSSION PROSTATE CANCER SCREENING DISCUSSION [facility] Start: 10-22-2025 DIABETES SCREEN DIABETES SCREEN [facility] Start: 01-30-2025 DIABETES SCREEN DIABETES SCREEN [facility] Start: 12-06-2024 DIABETES SCREEN DIABETES SCREEN [facility] Start: 10-14-2024 PROSTATE CANCER SCREENING DISCUSSION PROSTATE CANCER SCREENING DISCUSSION [facility] Start: 05-29-2023 Influenza vaccination INFLUENZA (#1) [facility] Start: 03-18-2023 End: 05-18-2023 Bacteria identified in Urine by Culture [facility] Work Phone: Immunizations Immunization Date Immunization Notes Care Provider Fa cility 11-05-2022 influenza, injectabl e, quadrivalent, preservative free Pascual Miller MD Work Phone: [facility] 11-04-2022 COVID-19 booster vaccine, age 12+ yr, bivalent (PFIZER-BIONTCaviar) Pascual Miller MD Work Phone: [facility] Payers Date Payer Category Payer Unknown MMO MMO [employer] [id number] 2018-Present [phone] [address] [place] [address] PPO [id number] 2018 Unknown [id number] 2018 Unknown [id number] Social History Date Type Detail Facility Start: 12-07-2019 End: 06-09-2022 Tobacco smoking status NHIS Never smoked tobacco [facility] Start: 12-07-2019 End: 06-09-2022 Tobacco use and exposure Smokeless tobacco non-user [facility] Start: 12-26-2021 End: 04-30-2023 Alcohol intake Current non-drinker of alcohol (finding) [facility] Start: 1960 Sex Assigned At Male C [facility] Start: 12-16-2021 End: 07-01-2022 Exposure to SARS-CoV-2 (event) Not sure [facility] Start: 09-03-2020 End: 04-30-2023 History of Social function [facility] Start: 09-03-2020 End: 04-30-2023 Tobacco use panel [facility] National Score (1-10 0), lower number is lower risk Not on file [facility] Start: 10-30-2021 Gender identity Identifies as male gender (finding) [facility] Start: 10-30-2021 Sexual orientation Heterosexual (magaly rondon) [facility] Medical Equipment Procedure Code Equipment Code Equipment Origin al Text Equipment Identifier Dates Prosthesis Spect ra Rear Tip [employer]und[employer] Manager 1cm For 12/14mm Cylinders - [id number] Start: 11-04-2022 Prosthesis Ams 7 00 Ms Pump Inhibizone Penile Preconnect Inflatable - [id number] Start: 11-04-2022 Clinical Notes 12-13-2021 to 04-30-2023 Grant Plata MD - 04/30/2023 1:11 PM Meghan Head RN - 03/23/2023 11:10 AM Tawanna Myles MD - 03/23/2023 10:39 AM Meghan Head RN - 03/23/2023 10:49 AM EDTPatient Instructions Note Date & Type Note Facility 04-30-2023 Note HNO ID: [id number] Author: Grant Plata MD Service: ? Author Type: Physician Type: Progress Notes Filed: 04/30/2023 2:10 PM Note Text: Established Patient Visit 04/30/2023 HPI: 63 year old male returns for follow up for ED/PD s/p IPP with concerns regarding glans engorgement, length and girth and sensation of glans. Tried and failed trimix gel. Patient Entered Questionnaires PROMIS Global Health PROMIS Global Health Scale 10/16/2022 02/03/2023 04/23/2023 Physical Health Percentile 53 % 53 % 22 % Mental Health Percentile 63 % 82 % 82 % Percentiles provide an indication of how the patient's score ranks in relation to the general population. Higher percentile rankings indicate better function/quality of life. 50th percentile is the average of the general population and indicates half of respondents had a worse score. PAST MEDICAL HISTORY Diagnosis Date Anxiety BPH (benign prostatic hyperplasia) HTN (hypertension) PAST SURGICAL HISTORY Procedure Laterality Date PAST SURGICAL HISTORY OF 1999 laminectomy; L4-L5, S1 PAST SURGICAL HISTORY OF 1994 right clavicle PAST SURGICAL HISTORY OF 1981 right knee scope PAST SURGICAL HISTORY OF 2010 right hand; 1st knuckle repair of tendon PAST SURGICAL HISTORY OF 2001 right arm biceps tendon repair Rx: Current Outpatient Medications Medication Sig Dispense Refill cholecalciferol, vitamin D3, (VITAMIN D3 ORAL) Take by mouth. phenazopyridine (PYRIDIUM) 200 mg tablet Take 1 tablet by mouth three times daily as needed. 21 tablet 0 amLODIPine (NORVASC) 5 mg tablet Take by mouth once daily. gabapentin (NEURONTIN) 600 mg tablet Take 600 mg by mouth daily at bedtime. naproxen (NAPROSYN) 500 mg tablet Take 500 mg by mouth twice daily with meals. tamsulosin (FLOMAX) 0.4 mg Take 1 capsule by mouth daily at bedtime. 90 capsule 5 acetaminophen (TYLENOL EXTRA STRENGTH ORAL) Take 1,000 mg by mouth as needed. allopurinol (ZYLOPRIM) 300 mg tablet Take 300 mg by mouth once daily. lisinopril (ZESTRIL, PRINIVIL) 20 mg tablet Take 40 mg by mouth once daily. Takes two tablets to equal 40 MG every morning traZODone (DESYREL) 100 mg tablet Take 1 tablet by mouth daily at bedtime. metoprolol succinate ER (TOPROL XL) 25 mg 24 hr tablet Take 50 mg by mouth once daily. clonazePAM (KLONOPIN) 2 mg tablet Take 2 mg by mouth twice daily as needed. DULoxetine (CYMBALTA) 30 mg capsule Take 60 mg by mouth once daily. RED YEAST RICE ORAL Take by mouth once daily. melatonin 5 mg tablet Take 5 mg by mouth daily at bedtime. multivitamin tablet Take 1 tablet by mouth once daily. Catheter (BARD COUDE TIP CATHETER) 16 Fr misc 1 Device once daily. 30 Each 11 tamsulosin (FLOMAX) 0.4 mg Take 2 capsules by mouth once daily. 180 capsule 3 Tfqujzsq-Diju-Dvcakk-Hyalur Ac [id number] mg cap Take 2 tablets by mouth once daily. No current facility-administered medications for this visit. ROS: All other ROS reviewed and non-contributory Labs: GLUCOSE UA (POCT) Negative 03/23/2023 BILIRUBIN UA (POCT) Negative 03/23/2023 KETONE UA (POCT) Negative 03/23/2023 SPECIFIC GRAVITY UA (POCT) 1.015 03/23/2023 HEMOGLOBIN/BLOOD UA (POCT) Value: Trace-intact 03/23/2023 PH UA (POCT) 5.5 03/23/2023 PROTEIN UA (POCT) Negative 03/23/2023 UROBILINOGEN UA (POCT) 0.2 03/23/2023 NITRITE UA (POCT) Negative 03/23/2023 LEUKOCYTES UA (POCT) Trace 03/23/2023 COLOR UA (POCT) Yellow 03/23/2023 CLARITY UA (POCT) Clear 03/23/2023 0.87 Creatinine Date Value Ref Range Status 10/22/2022 0.94 0.73 - 1.22 mg/dL Final 01/30/2022 0.91 0.73 - 1.22 mg/dL Final 12/06/2021 0.89 0.73 - 1.22 mg/dL Final 02/21/2020 0.74 0.73 - 1.22 mg/dL Final No results found for this basename: testt 4.20 Imaging: None Pathology: None PE: General: Well masculinized, well nourished male Psych: euthymic, NAD Neuro: AANDOx3 Chest: non-labored breathing Abdomen: SNTND : Pump mid scrotum, cycles well Tips proximal glans No clear evidence of additional corpora beyond the cylinder tips Glans non-engorged as expected in this setting ASSESSMENT/PLAN: 1. Malfunction of penile prosthesis, subsequent encounter - ICD9: V58.89, 996.39, ICD10: T83.490D Poor glans engorgement and sensation. Explained expectations following IPP. These are common concerns at this point. For glans engorgement, I recommend: - Firmtech ring - Vibratory stimulation to glans - Viagra - Can continue with trimix gel if he wants Discussed psychological aspects of arousal and how perception of unsatisfactory result can further impair glans engorgement. RTC PRN Grant Plata MD [facility] 04-30-2023 History of Presen t illness Narrative Established Patient Visit 04/30/2023 HPI: 63 year old male returns for follow up for ED/PD s/p IPP with concerns regarding glans engorgement, length and girth and sensation of glans. Tried and failed trimix gel. Patient Entered Questionnaires PROMIS Global Health PROMIS Global Health Scale 10/16/2022 02/03/2023 04/23/2023 Physical Health Percentile 53 % 53 % 22 % Mental Health Percentile 63 % 82 % 82 % Percentiles provide an indication of how the patient's score ranks in relation to the general population. Higher percentile rankings indicate better function/quality of life. 50th percentile is the average of the general population and indicates half of respondents had a worse score. PAST MEDICAL HISTORY Diagnosis Date Anxiety BPH (benign prostatic hyperplasia) HTN (hypertension) PAST SURGICAL HISTORY Procedure Laterality Date PAST SURGICAL HISTORY OF 2000 laminectomy; L4-L5, S1 PAST SURGICAL HISTORY OF 1994 right clavicle PAST SURGICAL HISTORY OF 1981 right knee scope PAST SURGICAL HISTORY OF 2010 right hand; 1st knuckle repair of tendon PAST SURGICAL HISTORY OF 2001 right arm biceps tendon repair Rx: Current Outpatient Medications Medication Sig Dispense Refill cholecalciferol, vitamin D3, (VITAMIN D3 ORAL) Take by mouth. phenazopyridine (PYRIDIUM) 200 mg tablet Take 1 tablet by mouth three times daily as needed. 21 tablet 0 amLODIPine (NORVASC) 5 mg tablet Take by mouth once daily. gabapentin (NEURONTIN) 600 mg tablet Take 600 mg by mouth daily at bedtime. naproxen (NAPROSYN) 500 mg tablet Take 500 mg by mouth twice daily with meals. tamsulosin (FLOMAX) 0.4 mg Take 1 capsule by mouth daily at bedtime. 90 capsule 5 acetaminophen (TYLENOL EXTRA STRENGTH ORAL) Take 1,000 mg by mouth as needed. allopurinol (ZYLOPRIM) 300 mg tablet Take 300 mg by mouth once daily. lisinopril (ZESTRIL, PRINIVIL) 20 mg tablet Take 40 mg by mouth once daily. Takes two tablets to equal 40 MG every morning traZODone (DESYREL) 100 mg tablet Take 1 tablet by mouth daily at bedtime. metoprolol succinate ER (TOPROL XL) 25 mg 24 hr tablet Take 50 mg by mouth once daily. clonazePAM (KLONOPIN) 2 mg tablet Take 2 mg by mouth twice daily as needed. DULoxetine (CYMBALTA) 30 mg capsule Take 60 mg by mouth once daily. RED YEAST RICE ORAL Take by mouth once daily. melatonin 5 mg tablet Take 5 mg by mouth daily at bedtime. multivitamin tablet Take 1 tablet by mouth once daily. Catheter (BARD COUDE TIP CATHETER) 16 Fr misc 1 Device once daily. 30 Each 11 tamsulosin (FLOMAX) 0.4 mg Take 2 capsules by mouth once daily. 180 capsule 3 Izcfzbjh-Dgqa-Gvevwd-Hyalur Ac [id number] mg cap Take 2 tablets by mouth once daily. No current facility-administered medications for this visit. ROS: All other ROS reviewed and non-contributory Labs: GLUCOSE UA (POCT) Negative 03/23/2023 BILIRUBIN UA (POCT) Negative 03/23/2023 KETONE UA (POCT) Negative 03/23/2023 SPECIFIC GRAVITY UA (POCT) 1.015 03/23/2023 HEMOGLOBIN/BLOOD UA (POCT) Value: Trace-intact 03/23/2023 PH UA (POCT) 5.5 03/23/2023 PROTEIN UA (POCT) Negative 03/23/2023 UROBILINOGEN UA (POCT) 0.2 03/23/2023 NITRITE UA (POCT) Negative 03/23/2023 LEUKOCYTES UA (POCT) Trace 03/23/2023 COLOR UA (POCT) Yellow 03/23/2023 CLARITY UA (POCT) Clear 03/23/2023 0.87 Creatinine Date Value Ref Range Status 10/22/2022 0.94 0.73 - 1.22 mg/dL Final 01/30/2022 0.91 0.73 - 1.22 mg/dL Final 12/06/2021 0.89 0.73 - 1.22 mg/dL Final 02/21/2020 0.74 0.73 - 1.22 mg/dL Final No results found for this basename: testt 4.20 Imaging: None Pathology: None PE: General: Well masculinized, well nourished male Psych: euthymic, NAD Neuro: A&Ox3 Chest: non-labored breathing Abdomen: SNTND : Pump mid scrotum, cycles well Tips proximal glans No clear evidence of additional corpora beyond the cylinder tips Glans non-engorged as expected in this setting ASSESSMENT/PLAN: 1. Malfunction of penile prosthesis, subsequent encounter - ICD9: V58.89, 996.39, ICD10: T83.490D Poor glans engorgement and sensation. Explained expectations following IPP. These are common concerns at this point. For glans engorgement, I recommend: - Firmtech ring - Vibratory stimulation to glans - Viagra - Can continue with trimix gel if he wants Discussed psychological aspects of arousal and how perception of unsatisfactory result can further impair glans engorgement. RTC PRN Grant Plata MD documented in this encounter [facility] 03-23-2023 Note HNO ID: [id number] Author: Meghan Gibbs RN Service: ? Author Type: Registered Nurse Type: Progress Notes Filed: 03/23/2023 11:10 AM Note Text: UNIVERSAL PROTOCOL / SAFETY CHECKLIST Procedure to be Performed: cysto Sign In: A Moment of CARE was completed. Personnel directly involved with the procedure wore the appropriate PPE (Personal Protective Equipment). No special equipment needed. Patient/Surrogate Stated/Verified: PATIENT VERIFIED(optional for EMERGENT procedures): Patient name, Date of , Relevant allergies, and The intended procedure Time Out Communication: Intended patient and procedure match the source documents. Consent documented and matches the intended procedure. Relevant labs, photos, and/or imaging studies have been reviewed. No correct side/site applicable for marking and visibility. No medications required for procedure. Fire risk assessed and interventions discussed. No implant(s) inserted. Sign Out: SIGN OUT (optional for EMERGENT procedures): No specimen collected. No instruments, equipment or retained foreign bodies applicable. Post-procedure follow-up management communicated and Plan of Care Visit completed when applicable. Meghan Gibbs RN [facility] 03-23-2023 Note HNO ID: [id number] Author: Tawanna Brooks MD Service: ? Author Type: Physician Type: Progress Notes Filed: 04/30/2023 12:49 PM Note Text: PHYSICIAN'S NOTE: CYSTOSCOPY PROCEDURE Epic notes reviewed: yes Clinical Diagnosis: BPH, urinary retention Informed consent obtained Operation: Cystoscopy Anatomic Site: Bladder, Laterality: N/A Urethra, Laterality: Not applicable Prostate, Laterality: N/A Approach: endoscopic Device: None Qualifier: None TECHNIQUE: The procedure was fully explained to the patient, risks were reviewed. The patient was placed in the supine position. The genitalia were prepped with betadine, and the urethra was anesthetized with viscous 2% lidocaine. The flexible cystoscope was introduced into the urethra and advanced under direct vision with findings as outlined below. At the conclusion of the procedure, the cystoscope was withdrawn. Anesthetics given: Administered by nurse - see Pre-Procedure Nurse's Notes. Operative Findings Urethra: Normal Prostate: Nicely patent and s/p pvp Bladder: no stones, no tumors, no lesions, slightly tightened bladder neck but easily traversed with scope Radiologic Studies Urogram: N/A Complications: None Recommendations: Discussed findings with patient Comments: pt mostly bothered by his erectile dysfunction at this time pt to continue ISC prn will hold off on any BNO procedure at this time Post Procedure Evaluation Condition Post Procedure: satisfactory Post Procedure Medications: pyridium I spent 30 minutes in the visit, with more than 50% of the total glxc-pz-eoii time of the visit in counseling / coordination of care. Tawanna Brooks MD [facility] 03-23-2023 History of Presen t illness Narrative UNIVERSAL PROTOCOL / SAFETY CHECKLIST Procedure to be Performed: cysto Sign In: A Moment of CARE was completed. Personnel directly involved with the procedure wore the appropriate PPE (Personal Protective Equipment). No special equipment needed. Patient/Surrogate Stated/Verified: PATIENT VERIFIED(optional for EMERGENT procedures): Patient name, Date of , Relevant allergies, and The intended procedure Time Out Communication: Intended patient and procedure match the source documents. Consent documented and matches the intended procedure. Relevant labs, photos, and/or imaging studies have been reviewed. No correct side/site applicable for marking and visibility. No medications required for procedure. Fire risk assessed and interventions discussed. No implant(s) inserted. Sign Out: SIGN OUT (optional for EMERGENT procedures): No specimen collected. No instruments, equipment or retained foreign bodies applicable. Post-procedure follow-up management communicated and Plan of Care Visit completed when applicable. Meghan Gibbs RN PHYSICIAN'S NOTE: CYSTOSCOPY PROCEDURE Epic notes reviewed: yes Clinical Diagnosis: BPH, urinary retention Informed consent obtained Operation: Cystoscopy Anatomic Site: Bladder, Laterality: N/A Urethra, Laterality: Not applicable Prostate, Laterality: N/A Approach: endoscopic Device: None Qualifier: None TECHNIQUE: The procedure was fully explained to the patient, risks were reviewed. The patient was placed in the supine position. The genitalia were prepped with betadine, and the urethra was anesthetized with viscous 2% lidocaine. The flexible cystoscope was introduced into the urethra and advanced under direct vision with findings as outlined below. At the conclusion of the procedure, the cystoscope was withdrawn. Anesthetics given: Administered by nurse - see Pre-Procedure Nurse's Notes. Operative Findings Urethra: Normal Prostate: Nicely patent and s/p pvp Bladder: no stones, no tumors, no lesions, slightly tightened bladder neck but easily traversed with scope Radiologic Studies Urogram: N/A Complications: None Recommendations: Discussed findings with patient Comments: pt mostly bothered by his erectile dysfunction at this time pt to continue ISC prn will hold off on any BNO procedure at this time Post Procedure Evaluation Condition Post Procedure: satisfactory Post Procedure Medications: pyridium I spent 30 minutes in the visit, with more than 50% of the total zwcq-nd-rikj time of the visit in counseling / coordination of care. Tawanna Brooks MD documented in this encounter [facility] 03-23-2023 Nurse Note Actual procedure/procedure scheduled: Yes Performing provider/scheduled provider: Yes Patient was roomed in: Q9- 09 Warp Dyeing Vat Tender offered:Patient declines Patient arrived in the room at: 1049 Patient ready for procedure: 1058 The procedure started at ( Time Only): 1101 The procedure ended at: 1105 Was the procedure delayed: Yes: Equipment trouble, epic down The patient left the procedure room at: 1115 Meghan Gibbs RN PRE PROCEDURE ASSESSMENT- Cysto Procedure Indication: Cystoscopy Latex Allergy: No Allergies reviewed and updated. Yes Pre-Procedure Vital Signs: BP: 140/787 Pulse: 84 Heart valve replacement: No Joint replacement: No Back Office UA otained: yes PROCEDURE PREP-Cysto Patient ID with two(2)identifiers verified by: Meghan iGbbs RN Pre-Procedure Antibiotics: None taken at home nor prior to procedure Patient Prep: Betadine Scrub to perineum and placement of Sterile Drape. COMPLETED Anesthetic Given:10 cc 2% Lidocaine jelly Meghan Gibbs RN UNIVERSAL PROTOCOL / SAFETY CHECKLIST Procedure to be performed: Botox Injection and Cystoscopy Sign in Communication: Completed Time Out: Team Confirms the Correct Patient, Correct Procedure, Correct Site and Site Marking, Correct Position (if applicable). Sign Out Discussion: Completed Meghan Gibbs RN POST PROCEDURE NURSE ASSESSMENT Present along with physician during procedure exam. Meghan Gibbs RN Instruction sheet given and reviewed and patient verbalizes understanding: yes Post Procedure Antibiotic: None Current pain intensity is 0 on a 0-10 pain scale. Meghan Gibbs RN AMBULATORY PATIENT EDUCATION THE FOLLOWING WAS EVALUATED Motivation To Learn: Interested Family/Significant Other Support: Unable to assess - Family not present Cognitive Ability: Alert/Oriented Method of Instruction: Written instruction - handouts Verbal instruction The Following Influencing Factors Were Barriers To This Education Session: None The Following Physical Limitations Were Barriers To This Education Session: None Instruction Provided To: Patient Apparatus Cleaner Present: not applicable Discipline: Nursing Learning Topic: SURVIVAL SKILLS: Complication Prevention Patient Evaluation: Verbalizes understanding: Yes Supplemental Material Given: Written Material Instructed By Meghan Gibbs RN In Department Urology . documented in this encounter [facility] 03-20-2023 Miscellaneous Notes Spoke with Nathan to stop Cymbalta and trazadone when he is taking Cipro. Pt understood. documented in this encounter [facility] 02-09-2023 Note HNO ID: [id number] Author: Cami Yusuf MD Service: ? Author Type: Physician Type: Progress Notes Filed: 02/09/2023 5:48 PM Note Text: [facility] NEW PATIENT HISTORY AND PHYSICAL EXAM PATIENT INFO: Elías Collado 62 year old REFERRING M.D.: No referring provider defined for this encounter. This consult was requested by Dr. Brooks for an opinion regarding loss of penile sensation, and my final recommendations will be communicated to the requesting health care provider by way of the shared medical record for internal providers or letter via the [employer] Postal Service for external providers. I HISTORY CHIEF COMPLAINT: Problems following IPP HPI: IPP Nov 04, 2022 Complaints of no sensation in the glans penis No erection of the glans penis Auto inflation of the device MEDICATIONS: Current Outpatient Medications Medication Sig amLODIPine (NORVASC) 5 mg tablet Take by mouth once daily. gabapentin (NEURONTIN) 600 mg tablet Take 600 mg by mouth daily at bedtime. naproxen (NAPROSYN) 500 mg tablet Take 500 mg by mouth twice daily with meals. tamsulosin (FLOMAX) 0.4 mg Take 2 capsules by mouth once daily. tamsulosin (FLOMAX) 0.4 mg Take 1 capsule by mouth daily at bedtime. Zqfhgcns-Zunq-Ddexyu-Hyalur Ac [id number] mg cap Take 2 tablets by mouth once daily. acetaminophen (TYLENOL EXTRA STRENGTH ORAL) Take 1,000 mg by mouth as needed. allopurinol (ZYLOPRIM) 300 mg tablet Take 300 mg by mouth once daily. lisinopril (ZESTRIL, PRINIVIL) 20 mg tablet Take 1 tablet by mouth once daily. Takes two tablets to equal 40 MG every morning traZODone (DESYREL) 100 mg tablet Take 1 tablet by mouth daily at bedtime. metoprolol succinate ER (TOPROL XL) 25 mg 24 hr tablet Take 50 mg by mouth once daily. clonazePAM (KLONOPIN) 2 mg tablet Take 2 mg by mouth twice daily as needed. DULoxetine (CYMBALTA) 30 mg capsule Take 60 mg by mouth once daily. RED YEAST RICE ORAL Take by mouth once daily. melatonin 5 mg tablet Take 5 mg by mouth daily at bedtime. multivitamin tablet Take 1 tablet by mouth once daily. No current facility-administered medications for this visit. MEDICATION ALLERGIES: ALLERGIES Allergen Reactions Amoxicillin Diarrhea PAST MEDICAL HISTORY Diagnosis Date Anxiety BPH (benign prostatic hyperplasia) HTN (hypertension) PAST SURGICAL HISTORY Procedure Laterality Date PAST SURGICAL HISTORY OF 1999 laminectomy; L4-L5, S1 PAST SURGICAL HISTORY OF 1994 right clavicle PAST SURGICAL HISTORY OF 1981 right knee scope PAST SURGICAL HISTORY OF 2010 right hand; 1st knuckle repair of tendon PAST SURGICAL HISTORY OF 2001 right arm biceps tendon repair FAMILY HISTORY: NON-CONTRIBUTORY Social History Tobacco Use Smoking status: Never Smokeless tobacco: Never Vaping Use Vaping Use: Never used Substance Use Topics Alcohol use: No Drug use: No REVIEW OF SYSTEMS: Constitutional: negative Gastrointestinal: negative PHYSICAL EXAM: BP 151/83 (BP Site: Left Arm, BP Position: Sitting, BP Cuff Size: Large Adult) Pulse 81 GENERAL:WNL nutrition, no deformities, healthy appearing ABDOMEN: Soft, nontender, nondistended, no masses. HERNIAS: None SKIN/LYMPH: No rash, lesions NEURO/PSYCH: No signs of depression, anxiety, or agitation EXTREMITIES: Extremities normal. No deformities, edema, clubbing or skin discoloration. GENITOURINARY: MALE EXAM: IPP present, both tips normal Pt demonstrates inflation of device, erection good, good glans support Pt demonstrates deflation squeezing the penis MEDICAL DECISION MAKING: (A1) IMPRESSION: (Diagnostic Possibilities) New or Established 1) S/P IPP (A2) PLAN: (Management Options) I discussed proper deflation of device to zero pressure He is not getting any erection with blood flow to his glans I discussed inflating his device before having sex and then having adequate foreplay until he has sexual arousal before entry I discussed sex therapy to help with this and he would like a referral Cami Yusuf MD Electronically signed [facility] 02-09-2023 History of Presen t illness Narrative [facility] NEW PATIENT HISTORY AND PHYSICAL EXAM PATIENT INFO: Elías Spivey Tobias 62 year old REFERRING M.D.: No referring provider defined for this encounter. This consult was requested by Dr. Brooks for an opinion regarding loss of penile sensation, and my final recommendations will be communicated to the requesting health care provider by way of the shared medical record for internal providers or letter via the [employer] Postal Service for external providers. I HISTORY CHIEF COMPLAINT: Problems following IPP HPI: IPP Nov 04, 2022 Complaints of no sensation in the glans penis No erection of the glans penis Auto inflation of the device MEDICATIONS: Current Outpatient Medications Medication Sig amLODIPine (NORVASC) 5 mg tablet Take by mouth once daily. gabapentin (NEURONTIN) 600 mg tablet Take 600 mg by mouth daily at bedtime. naproxen (NAPROSYN) 500 mg tablet Take 500 mg by mouth twice daily with meals. tamsulosin (FLOMAX) 0.4 mg Take 2 capsules by mouth once daily. tamsulosin (FLOMAX) 0.4 mg Take 1 capsule by mouth daily at bedtime. Krexzuaa-Vkci-Nptzzr-Hyalur Ac [id number] mg cap Take 2 tablets by mouth once daily. acetaminophen (TYLENOL EXTRA STRENGTH ORAL) Take 1,000 mg by mouth as needed. allopurinol (ZYLOPRIM) 300 mg tablet Take 300 mg by mouth once daily. lisinopril (ZESTRIL, PRINIVIL) 20 mg tablet Take 1 tablet by mouth once daily. Takes two tablets to equal 40 MG every morning traZODone (DESYREL) 100 mg tablet Take 1 tablet by mouth daily at bedtime. metoprolol succinate ER (TOPROL XL) 25 mg 24 hr tablet Take 50 mg by mouth once daily. clonazePAM (KLONOPIN) 2 mg tablet Take 2 mg by mouth twice daily as needed. DULoxetine (CYMBALTA) 30 mg capsule Take 60 mg by mouth once daily. RED YEAST RICE ORAL Take by mouth once daily. melatonin 5 mg tablet Take 5 mg by mouth daily at bedtime. multivitamin tablet Take 1 tablet by mouth once daily. No current facility-administered medications for this visit. MEDICATION ALLERGIES: ALLERGIES Allergen Reactions Amoxicillin Diarrhea PAST MEDICAL HISTORY Diagnosis Date Anxiety BPH (benign prostatic hyperplasia) HTN (hypertension) PAST SURGICAL HISTORY Procedure Laterality Date PAST SURGICAL HISTORY OF 1999 laminectomy; L4-L5, S1 PAST SURGICAL HISTORY OF 1994 right clavicle PAST SURGICAL HISTORY OF 1981 right knee scope PAST SURGICAL HISTORY OF 2010 right hand; 1st knuckle repair of tendon PAST SURGICAL HISTORY OF 2002 right arm biceps tendon repair FAMILY HISTORY: NON-CONTRIBUTORY Social History Tobacco Use Smoking status: Never Smokeless tobacco: Never Vaping Use Vaping Use: Never used Substance Use Topics Alcohol use: No Drug use: No REVIEW OF SYSTEMS: Constitutional: negative Gastrointestinal: negative PHYSICAL EXAM: BP 151/83 (BP Site: Left Arm, BP Position: Sitting, BP Cuff Size: Large Adult) Pulse 81 GENERAL:WNL nutrition, no deformities, healthy appearing ABDOMEN: Soft, nontender, nondistended, no masses. HERNIAS: None SKIN/LYMPH: No rash, lesions NEURO/PSYCH: No signs of depression, anxiety, or agitation EXTREMITIES: Extremities normal. No deformities, edema, clubbing or skin discoloration. GENITOURINARY: MALE EXAM: IPP present, both tips normal Pt demonstrates inflation of device, erection good, good glans support Pt demonstrates deflation squeezing the penis MEDICAL DECISION MAKING: (A1) IMPRESSION: (Diagnostic Possibilities) New or Established 1) S/P IPP (A2) PLAN: (Management Options) I discussed proper deflation of device to zero pressure He is not getting any erection with blood flow to his glans I discussed inflating his device before having sex and then having adequate foreplay until he has sexual arousal before entry I discussed sex therapy to help with this and he would like a referral Cami Yusuf MD documented in this encounter [facility] 02-09-2023 Nurse Note 2nd PVR 369 after voiding 1st PVR 835 documented in this encounter [facility] 02-09-2023 Note Patient Outreach (UR OLMN) ELÍAS COLLADO ([id number]) 1960 M Date Time Provider Department 02/09/23 CAMI YUSUF During your visit today, we recorded the following information about you: Allergies As of Date: 02/09/2023 Noted Allergy Reaction AMOXICILLIN 02/09/2023 6 - Diarrhea Date Reviewed: 02/09/2023 Reviewed by: Cami Yusuf MD - Fully Assessed Visit Diagnosis:Screening for genitourinary condition [Z13.89] Order(s):URINALYSIS, REFLEX MICROSCOPIC [[id number]] Order #: [id number]. #:[id number] Prescriptions as of 02/12/2023 - amLODIPine (NORVASC) 5 mg tablet Take by mouth once daily. - gabapentin (NEURONTIN) 600 mg tablet Take 600 mg by mouth daily at bedtime. - naproxen (NAPROSYN) 500 mg tablet Take 500 mg by mouth twice daily with meals. - tamsulosin (FLOMAX) 0.4 mg Take 2 capsules by mouth once daily. - tamsulosin (FLOMAX) 0.4 mg Take 1 capsule by mouth daily at bedtime. - Phbzzics-Djxz-Veegdw-Hyalur Ac [id number] mg cap Take 2 tablets by mouth once daily. - acetaminophen (TYLENOL EXTRA STRENGTH ORAL) Take 1,000 mg by mouth as needed. - allopurinol (ZYLOPRIM) 300 mg tablet Take 300 mg by mouth once daily. - lisinopril (ZESTRIL, PRINIVIL) 20 mg tablet Take 1 tablet by mouth once daily. Takes two tablets to equal 40 MG every morning - traZODone (DESYREL) 100 mg tablet Take 1 tablet by mouth daily at bedtime. - metoprolol succinate ER (TOPROL XL) 25 mg 24 hr tablet Take 50 mg by mouth once daily. - clonazePAM (KLONOPIN) 2 mg tablet Take 2 mg by mouth twice daily as needed. - DULoxetine (CYMBALTA) 30 mg capsule Take 60 mg by mouth once daily. - RED YEAST RICE ORAL Take by mouth once daily. - melatonin 5 mg tablet Take 5 mg by mouth daily at bedtime. - multivitamin tablet Take 1 tablet by mouth once daily. 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] 04/03/2014 Primary osteoarthritis of both knees [M17.0] 06/13/2015 Benign prostatic hyperplasia with urinary reten*09/08/2019 Weak urinary stream [R39.12] 09/08/2019 Urinary frequency [R35.0] 09/08/2019 Nocturia [R35.1] 09/08/2019 Incomplete bladder emptying [R33.9] 10/21/2019 Obesity, Class I, BMI 30-34.9 [E66.9] 12/07/2019 Hypogonadism in male [E29.1] 06/07/2020 Feeling of incomplete bladder emptying [R39.14] 06/07/2020 Essential hypertension, benign [I10] 12/06/2021 Mixed hyperlipidemia [E78.2] 12/06/2021 Anxiety [F41.9] 12/06/2021 Gout [M10.9] 12/06/2021 Insomnia [G47.00] 12/06/2021 Class 1 obesity due to excess calories with ser*12/06/2021 Screening for genitourinary condition [Z13.89] 01/30/2022 Increasing residual urine [R39.198] 01/30/2022 Peyronie's disease [N48.6] 01/30/2022 Erectile dysfunction [N52.9] 02/17/2022 Urinary urgency [R39.15] 02/05/2023 Ejaculatory disorder [N53.19] 02/05/2023 Encounter Status:Closed by Yuntaa, PRODUSER on 02/12/23 [facility] 02-05-2023 Note HNO ID: [id number] Author: Tawanna Brooks MD Service: ? Author Type: Physician Type: Progress Notes Filed: 02/05/2023 1:50 PM Note Text: CHIEF COMPLAINT: BPH s/p XPS HPI: 62 y/o male here for follow up for BPH s/p XPS done on 02/24/2020. Previous AUA: 5, QOL: 1, PVR: 584, 631, 889. He is on flomax 0.4mg x 1 month with slight effect. He c/o urgency, frequency, weak stream. He had as much as 3L in the past. Previous AUA: 1, QOL: 1, PVR: 631 AUA Symptom Score Incomplete emptyin Frequency: 5 Intermittency: 2 Urgency: 4 Weak Stream: 5 Strainin Nocturia: 1 Total score: 22 Quality of life due to urinary symptoms: 4 QOL: mostly satisfied PVR: 525 ml He has hypogonadism. He has ED. He is s/p IPP on 11/04/[address] Miller. PSA PSA (ng/mL) Date Value 01/30/2022 1.18 10/14/2019 1.56 09/15/2019 0.98 PSA, Percent Free (%) Date Value 01/30/2022 27 10/14/2019 30 09/15/2019 50 Duration: years Location: Male - prostate Severity: severe Context: voiding Qualilty: severe Timing: constantly Improved by: Worsened by: No Change by: Associated sign AND symptoms: see above MEDICAL HISTORY: PAST MEDICAL HISTORY Diagnosis Date Anxiety BPH (benign prostatic hyperplasia) HTN (hypertension) SURGICAL HISTORY: PAST SURGICAL HISTORY Procedure Laterality Date PAST SURGICAL HISTORY OF 1999 laminectomy; L4-L5, S1 PAST SURGICAL HISTORY OF 1994 right clavicle PAST SURGICAL HISTORY OF 1981 right knee scope PAST SURGICAL HISTORY OF 2010 right hand; 1st knuckle repair of tendon PAST SURGICAL HISTORY OF 2001 right arm biceps tendon repair SOCIAL HISTORY: Social History Tobacco Use Smoking status: Never Smokeless tobacco: Never Vaping Use Vaping Use: Never used Substance Use Topics Alcohol use: No Drug use: No MEDS: Current Outpatient Medications Medication Sig Dispense Refill tamsulosin (FLOMAX) 0.4 mg Take 1 capsule by mouth daily at bedtime. 90 capsule 5 Jqudxdja-Notq-Ujiabq-Hyalur Ac [id number] mg cap Take 2 tablets by mouth once daily. acetaminophen (TYLENOL EXTRA STRENGTH ORAL) Take 1,000 mg by mouth as needed. allopurinol (ZYLOPRIM) 300 mg tablet Take 300 mg by mouth once daily. lisinopril (ZESTRIL, PRINIVIL) 20 mg tablet Take 1 tablet by mouth once daily. Takes two tablets to equal 40 MG every morning traZODone (DESYREL) 100 mg tablet Take 1 tablet by mouth daily at bedtime. metoprolol succinate ER (TOPROL XL) 25 mg 24 hr tablet Take 50 mg by mouth once daily. clonazePAM (KLONOPIN) 2 mg tablet Take 2 mg by mouth twice daily as needed. DULoxetine (CYMBALTA) 30 mg capsule Take 60 mg by mouth once daily. RED YEAST RICE ORAL Take by mouth once daily. melatonin 5 mg tablet Take 5 mg by mouth daily at bedtime. multivitamin tablet Take 1 tablet by mouth once daily. No current facility-administered medications for this visit. PHYSICAL EXAM: GENERAL:Wnl nutrition, no deformities, healthy appearing HEAD AND NECK: No masses, icterus. RESP: NL effort, no retractions or purse-lip breathing. SKIN: No rash or lesions NEURO: A/Ox3 PSYCH: Nl mood, with no signs of depression, anxiety, or agitation. GENITOURINARY: MALE EXAM: No suprapubic tenderness DATA/OR LABS TO BE REVIEWED: (Simple=1 data point; Complex= 2 or more) PSA (ng/mL) Date Value 01/30/2022 1.18 10/14/2019 1.56 09/15/2019 0.98 Creatinine (mg/dL) Date Value 10/22/2022 0.94 01/30/2022 0.91 12/06/2021 0.89 02/21/2020 0.74 12/07/2019 0.77 09/15/2019 0.71 05/05/2002 0.90 Hematocrit (%) Date Value 10/22/2022 41.3 04/17/2022 44.9 06/12/2020 38.4 02/21/2020 40.6 Testosterone (ng/dL) Date Value 06/12/2020 191 10/14/2019 1,213 MEDICAL DECISION MAKING: IMPRESSION: (Diagnostic Possibilities) New or Established 1) BPH 2) ED PLAN: (Management Options) Per Dr. Todd Hdz PA-C I have personally performed a face to face diagnostic evaluation on this patient. I have reviewed and agree with the care plan. My findings are as follows. History and Exam by me shows: 62 year old male with a history of BPH, urinary frequency, weak stream. Exam demonstrates no suprapubic tenderness. Plan: Decreased sensation to penis will refer to Paramjit for this evaluation pt states he has penile prosthesis autoinflation issue 5-7x/day, and his scrotal pump always feels full ? will refer back to Dr Miller for this Pt very frustrated about his current sexual situation increase flomax to 2/day as he states his urination is also worse post IPP placement Tawanna Brooks MD [facility] 02-05-2023 History of Presen t illness Narrative CHIEF COMPLAINT: BPH s/p XPS HPI: 62 y/o male here for follow up for BPH s/p XPS done on 02/24/2020. Previous AUA: 5, QOL: 1, PVR: 584, 631, 889. He is on flomax 0.4mg x 1 month with slight effect. He c/o urgency, frequency, weak stream. He had as much as 3L in the past. Previous AUA: 1, QOL: 1, PVR: 631 AUA Symptom Score Incomplete emptyin Frequency: 5 Intermittency: 2 Urgency: 4 Weak Stream: 5 Strainin Nocturia: 1 Total score: 22 Quality of life due to urinary symptoms: 4 QOL: mostly satisfied PVR: 525 ml He has hypogonadism. He has ED. He is s/p IPP on 11/04/[address] Miller. PSA PSA (ng/mL) Date Value 01/30/2022 1.18 10/14/2019 1.56 09/15/2019 0.98 PSA, Percent Free (%) Date Value 01/30/2022 27 10/14/2019 30 09/15/2019 50 Duration: years Location: Male - prostate Severity: severe Context: voiding Qualilty: severe Timing: constantly Improved by: Worsened by: No Change by: Associated sign & symptoms: see above MEDICAL HISTORY: PAST MEDICAL HISTORY Diagnosis Date Anxiety BPH (benign prostatic hyperplasia) HTN (hypertension) SURGICAL HISTORY: PAST SURGICAL HISTORY Procedure Laterality Date PAST SURGICAL HISTORY OF 1999 laminectomy; L4-L5, S1 PAST SURGICAL HISTORY OF 1994 right clavicle PAST SURGICAL HISTORY OF 1981 right knee scope PAST SURGICAL HISTORY OF 2010 right hand; 1st knuckle repair of tendon PAST SURGICAL HISTORY OF 2001 right arm biceps tendon repair SOCIAL HISTORY: Social History Tobacco Use Smoking status: Never Smokeless tobacco: Never Vaping Use Vaping Use: Never used Substance Use Topics Alcohol use: No Drug use: No MEDS: Current Outpatient Medications Medication Sig Dispense Refill tamsulosin (FLOMAX) 0.4 mg Take 1 capsule by mouth daily at bedtime. 90 capsule 5 Foaecfdq-Qgsz-Wlzrab-Hyalur Ac [id number] mg cap Take 2 tablets by mouth once daily. acetaminophen (TYLENOL EXTRA STRENGTH ORAL) Take 1,000 mg by mouth as needed. allopurinol (ZYLOPRIM) 300 mg tablet Take 300 mg by mouth once daily. lisinopril (ZESTRIL, PRINIVIL) 20 mg tablet Take 1 tablet by mouth once daily. Takes two tablets to equal 40 MG every morning traZODone (DESYREL) 100 mg tablet Take 1 tablet by mouth daily at bedtime. metoprolol succinate ER (TOPROL XL) 25 mg 24 hr tablet Take 50 mg by mouth once daily. clonazePAM (KLONOPIN) 2 mg tablet Take 2 mg by mouth twice daily as needed. DULoxetine (CYMBALTA) 30 mg capsule Take 60 mg by mouth once daily. RED YEAST RICE ORAL Take by mouth once daily. melatonin 5 mg tablet Take 5 mg by mouth daily at bedtime. multivitamin tablet Take 1 tablet by mouth once daily. No current facility-administered medications for this visit. PHYSICAL EXAM: GENERAL:Wnl nutrition, no deformities, healthy appearing HEAD & NECK: No masses, icterus. RESP: NL effort, no retractions or purse-lip breathing. SKIN: No rash or lesions NEURO: A/Ox3 PSYCH: Nl mood, with no signs of depression, anxiety, or agitation. GENITOURINARY: MALE EXAM: No suprapubic tenderness DATA/OR LABS TO BE REVIEWED: (Simple=1 data point; Complex= 2 or more) PSA (ng/mL) Date Value 01/30/2022 1.18 10/14/2019 1.56 09/15/2019 0.98 Creatinine (mg/dL) Date Value 10/22/2022 0.94 01/30/2022 0.91 12/06/2021 0.89 02/21/2020 0.74 12/07/2019 0.77 09/15/2019 0.71 05/05/2002 0.90 Hematocrit (%) Date Value 10/22/2022 41.3 04/17/2022 44.9 06/12/2020 38.4 02/21/2020 40.6 Testosterone (ng/dL) Date Value 06/12/2020 191 10/14/2019 1,213 MEDICAL DECISION MAKING: IMPRESSION: (Diagnostic Possibilities) New or Established 1) BPH 2) ED PLAN: (Management Options) Per Dr. Todd Hdz PA-C I have personally performed a face to face diagnostic evaluation on this patient. I have reviewed and agree with the care plan. My findings are as follows. History and Exam by me shows: 62 year old male with a history of BPH, urinary frequency, weak stream. Exam demonstrates no suprapubic tenderness. Plan: Decreased sensation to penis will refer to Paramjit for this evaluation pt states he has penile prosthesis autoinflation issue 5-7x/day, and his scrotal pump always feels full ? will refer back to Dr Miller for this Pt very frustrated about his current sexual situation increase flomax to 2/day as he states his urination is also worse post IPP placement Tawanna Brooks MD documented in this encounter [facility] 01-31-2023 Note HNO ID: [id number] Author: Edmond Rojas Service: ? Author Type: Physician Type: Progress Notes Filed: 01/30/2023 10:41 PM Note Text: FOLLOW UP PODIATRIC OFFICE VISIT Chief Complaint: This 62 year old who presents for b/l foot exam Patient presents to clinic for follow-up foot exam. He has complaints of burning in both feet. Other than burning, he has no other complaints. He has no open wounds to his feet. He underwent hallux ipj arthroplasty in the past on the right foot and he has not had any open wounds since. PAIN EVALUATION No data found in the last 1 encounters. No results found for: HBA1C PCP: Shazia Mendez MD PAST MEDICAL HISTORY Diagnosis Date Anxiety BPH (benign prostatic hyperplasia) HTN (hypertension) Current Outpatient Medications Medication Sig tamsulosin (FLOMAX) 0.4 mg Take 1 capsule by mouth daily at bedtime. Ydnsardf-Xshp-Gzjqam-Hyalur Ac [id number] mg cap Take 2 tablets by mouth once daily. acetaminophen (TYLENOL EXTRA STRENGTH ORAL) Take 1,000 mg by mouth as needed. allopurinol (ZYLOPRIM) 300 mg tablet Take 300 mg by mouth once daily. lisinopril (ZESTRIL, PRINIVIL) 20 mg tablet Take 1 tablet by mouth once daily. Takes two tablets to equal 40 MG every morning traZODone (DESYREL) 100 mg tablet Take 1 tablet by mouth daily at bedtime. metoprolol succinate ER (TOPROL XL) 25 mg 24 hr tablet Take 50 mg by mouth once daily. clonazePAM (KLONOPIN) 2 mg tablet Take 2 mg by mouth twice daily as needed. DULoxetine (CYMBALTA) 30 mg capsule Take 60 mg by mouth once daily. RED YEAST RICE ORAL Take by mouth once daily. melatonin 5 mg tablet Take 5 mg by mouth daily at bedtime. multivitamin tablet Take 1 tablet by mouth once daily. No current facility-administered medications for this visit. ALLERGIES No Known Allergies PAST SURGICAL HISTORY Procedure Laterality Date PAST SURGICAL HISTORY OF 1999 laminectomy; L4-L5, S1 PAST SURGICAL HISTORY OF 1994 right clavicle PAST SURGICAL HISTORY OF 1981 right knee scope PAST SURGICAL HISTORY OF 2010 right hand; 1st knuckle repair of tendon PAST SURGICAL HISTORY OF 2001 right arm biceps tendon repair Physical Exam: OBJECTIVE: Constitutional: Pt is a well developed 62 year old male who is alert, oriented, cooperative and in no apparent distress. Eyes: Following during examination. No redness or drainage. Respiratory: RR normal and nonlabored. Even breathing. No evidence of distress. Psychology: Patient is engaged during conversation. Normal affect and mood. Does not appear depressed or anxious. Vascular: dp and pt pulses are palpable to b/l feet. Cft is less than 5 seconds. Skin temperature is warm to warm . Neuro: protective sensation is decreased to b/l forefoot. Vibratory sensation is absent b/l. Dermatological: Nails 1-5 b/l are normal. Webspaces clean and dry 1-4 b/l. Skin appears well hydrated and supple. good color, texture, turgor. No open lesions present. No callosities present. Musculoskeletal/Orthopaedic: Patient has no pain to palpation of b/l feet ASSESSMENT: (G62.9) Neuropathy (primary encounter diagnosis) PLAN: B/l foot exam performed. Patient feet has no open wounds at this time. He underwent hallux ipj arthroplasty in the past and this has helped to eliminate recurrent ulceration He does suffer from neuropathy of b/l feet. He is on neurontin. One option that he can pursue is to discuss increasing his neurontin to possibly bid. I would recommend he check with his pcp prior to any attempted increase. Can follow-up in 1 year or sooner if problems arise. Edmond Rojas DPM [facility] 01-30-2023 History of Presen t illness Narrative FOLLOW UP PODIATRIC OFFICE VISIT Chief Complaint: This 62 year old who presents for b/l foot exam Patient presents to clinic for follow-up foot exam. He has complaints of burning in both feet. Other than burning, he has no other complaints. He has no open wounds to his feet. He underwent hallux ipj arthroplasty in the past on the right foot and he has not had any open wounds since. PAIN EVALUATION No data found in the last 1 encounters. No results found for: HBA1C PCP: Shazia Mendez MD PAST MEDICAL HISTORY Diagnosis Date Anxiety BPH (benign prostatic hyperplasia) HTN (hypertension) Current Outpatient Medications Medication Sig tamsulosin (FLOMAX) 0.4 mg Take 1 capsule by mouth daily at bedtime. Jztaaady-Gvlq-Rqqfne-Hyalur Ac [id number] mg cap Take 2 tablets by mouth once daily. acetaminophen (TYLENOL EXTRA STRENGTH ORAL) Take 1,000 mg by mouth as needed. allopurinol (ZYLOPRIM) 300 mg tablet Take 300 mg by mouth once daily. lisinopril (ZESTRIL, PRINIVIL) 20 mg tablet Take 1 tablet by mouth once daily. Takes two tablets to equal 40 MG every morning traZODone (DESYREL) 100 mg tablet Take 1 tablet by mouth daily at bedtime. metoprolol succinate ER (TOPROL XL) 25 mg 24 hr tablet Take 50 mg by mouth once daily. clonazePAM (KLONOPIN) 2 mg tablet Take 2 mg by mouth twice daily as needed. DULoxetine (CYMBALTA) 30 mg capsule Take 60 mg by mouth once daily. RED YEAST RICE ORAL Take by mouth once daily. melatonin 5 mg tablet Take 5 mg by mouth daily at bedtime. multivitamin tablet Take 1 tablet by mouth once daily. No current facility-administered medications for this visit. ALLERGIES No Known Allergies PAST SURGICAL HISTORY Procedure Laterality Date PAST SURGICAL HISTORY OF 1999 laminectomy; L4-L5, S1 PAST SURGICAL HISTORY OF 1994 right clavicle PAST SURGICAL HISTORY OF 1981 right knee scope PAST SURGICAL HISTORY OF 2010 right hand; knuckle repair of tendon PAST SURGICAL HISTORY OF 2001 right arm biceps tendon repair Physical Exam: OBJECTIVE: Constitutional: Pt is a well developed 62 year old male who is alert, oriented, cooperative and in no apparent distress. Eyes: Following during examination. No redness or drainage. Respiratory: RR normal and nonlabored. Even breathing. No evidence of distress. Psychology: Patient is engaged during conversation. Normal affect and mood. Does not appear depressed or anxious. Vascular: dp and pt pulses are palpable to b/l feet. Cft is less than 5 seconds. Skin temperature is warm to warm . Neuro: protective sensation is decreased to b/l forefoot. Vibratory sensation is absent b/l. Dermatological: Nails 1-5 b/l are normal. Webspaces clean and dry 1-4 b/l. Skin appears well hydrated and supple. good color, texture, turgor. No open lesions present. No callosities present. Musculoskeletal/Orthopaedic: Patient has no pain to palpation of b/l feet ASSESSMENT: (G62.9) Neuropathy (primary encounter diagnosis) PLAN: B/l foot exam performed. Patient feet has no open wounds at this time. He underwent hallux ipj arthroplasty in the past and this has helped to eliminate recurrent ulceration He does suffer from neuropathy of b/l feet. He is on neurontin. One option that he can pursue is to discuss increasing his neurontin to possibly bid. I would recommend he check with his pcp prior to any attempted increase. Can follow-up in 1 year or sooner if problems arise. Edmond Rojas DPM AMB ROOMING INTAKE FLOWSHEET DATA Patient presents with: Right Foot - Established Patient, Follow Up Left Foot - Established Patient, Follow Up Amita Garcia LPN documented in this encounter [facility] 01-29-2023 Note HNO ID: [id number] Author: Amita Garcia LPN Service: ? Author Type: LICENSED NURSE Type: Progress Notes Filed: 01/30/2023 10:41 PM Note Text: AMB ROOMING INTAKE FLOWSHEET DATA Patient presents with: Right Foot - Established Patient, Follow Up Left Foot - Established Patient, Follow Up Amita Garcia LPN [facility] 01-29-2023 Miscellaneous Notes Urology Telephone Note Attempted to call patient multiple times today but have not received an answer. Zachary Calixto Jr., MD Reconstructive Urology Fellow documented in this encounter [facility] 01-20-2023 Miscellaneous Notes Urology Telephone Note Attempted to call patient and spouse multiple times today but have not received an answer. Zachary Calixto Jr., MD Reconstructive Urology Fellow documented in this encounter [facility] 01-19-2023 Miscellaneous Notes Urology Telephone Note Attempted to call patient and spouse multiple times today but have not received an answer. Zachary Calixto Jr., MD Reconstructive Urology Fellow documented in this encounter [facility] 01-17-2023 Miscellaneous Notes Urology Telephone Note I spoke with pt over the phone today. He expressed a lot of frustration with the IPP and concern for infection. I explained that I would follow up the cultures and call him back. Patient expressed understanding and agreement with the plan. Zachary Calixto Jr., MD Reconstructive Urology Fellow documented in this encounter [facility] 12-30-2022 Note HNO ID: [id number] Author: Kasandra Méndez APRN.CNP Service: ? Author Type: Nurse Practitioner Type: Progress Notes Filed: 12/30/2022 5:48 PM Note Text: Deleted pended order for urine culture. Per Meghan Christie's note from today, Elías Collado went to local urgent care over the weekend and is staking cipro with improvement in UTI symptoms. Kasandra Méndez APRN.CNP [facility] 12-30-2022 History of Presen t illness Narrative Deleted pended order for urine culture. Per Meghan Christie's note from today, Elías Collado went to local urgent care over the weekend and is staking cipro with improvement in UTI symptoms. Kasandra Méndez APRN.CNP documented in this encounter [facility] 12-30-2022 Miscellaneous Notes Emailed patient to provide information he asked of me since his last office visit. I inquired with our senior most reconstruction surgeon regarding a cream or ointment which would help with glans engorgement since IPP surgery did not help with that. He informs that there is no cream that he is aware of. He recommended trialing viagra or cialis. Informed him that I would watch for culture results and treat as needed. Meghan Flores RN ----- Message from Anca Mitchell Patient Service Spec sent at 12/30/2022 11:25 AM EDT ----- Regarding: looking for a call back Contact: Patient called in to let you know that he did go to urgent care on Thursday and he was prescribed Cipro and that has been helping. He says you are researching something for him and were supposed to give him a call back but he hasn't spoken with you Looking for a call back today.He is disappointed that he has called a few times and hasn't had a call back. You can also email him a good time to talk and he can call back then. Anca documented in this encounter [facility] 12-26-2022 Miscellaneous Notes Called Elías Collado and informed him that urine from office visit on 12/22 was not available to run culture on. New order emailed to him to obtain locally. Patient states understanding of instructions and plan. Meghan Flores RN ----- Message from Anca Mitchell Patient Service Spec sent at 12/26/2022 9:36 AM EDT ----- Regarding: urine culture results Contact: Patient calling to speak with you about his urine culture. Would like a call back today. Anca documented in this encounter [facility] 12-23-2022 Miscellaneous Notes Returned Elías Collado's call regarding urinary results. States he has been having discharge from the penis and urinary frequency. This has been ongoing. PVR at last visit on 12/22 was 588ml. UA on 12/22 showing 75 Leuk estrase. Urine culture ordered and sent to lab. Meghan Flores RN ----- Message from Anca Mitchell Patient Service Spec sent at 12/22/2022 3:23 PM EDT ----- Regarding: urine results Contact: Patient called in to speak with you about his urine test done today. Anca documented in this encounter [facility] 12-23-2022 Miscellaneous Notes Elías Collado transferring care from to [facility]. Previously on course to have cyctectomy with ileal conduit with , but now having surgery with Dr. Miller and Dr. Blake on 01/15. Elías Collado calls today to inquire about plan for current PICC line and IV antibiotics ordered by ID providers. Per Dr. Miller, patient should follow plan of care recommended by ID. Elías Collado reports he has 2 more days of IV abx. Wants to know if he should keep the PICC line until our surgery on 01/15. Informed patient that he should complete the antibiotics prescribed by ID, and then have the PICC removed. That we will retest his urine on 01/07 and then treat if necessary with the appropriate abx. Elías Collado states he will check with on how he should have the PICC removed after IV abx completed. Meghan Flores RN documented in this encounter [facility] 12-22-2022 Note HNO ID: [id number] Author: Pascual Miller MD Service: ? Author Type: Physician Type: Progress Notes Filed: 12/22/2022 2:41 PM Note Text: HPI: Elías Collado is a 62M w PTSD, HTN, and BPH s/p PVP 2019 with Peyronie's + ED. Interval history: 04/30/22 - completed first cycle (2 injections) of Xiaflex injections for 55 degree dorsal curvature. Plan was to undergo cycle 2 in 6 weeks, but he ultimately decided against it because there was no benefit. 08/28/2022 - PVR 410 ml (baseline, managing conservatively, following Dr. Brooks). He has been using sildenafil 100 mg PRN since 2019, but he reports that it is losing efficacy. Elías Collado had IPP placed on 11/04/[address] Miller. Today, here for scheduled follow up and IPP teaching. States he is feeling fine. Partial erection from surgery is uncomfortable. Appetite and bowel function have returned to normal. Able to perform activities of daily living without issue. Completed Keflex 500 mg as prescribed. Last dose 12/05/22. No complaints of interval UTI. Endorses incision clean, dry and without drainage. Reports that he thinks his penis is not as wide or long as he expected. States that he has always been very sexual since he was young. PAST MEDICAL HISTORY Diagnosis Date Anxiety BPH (benign prostatic hyperplasia) HTN (hypertension) PAST SURGICAL HISTORY Procedure Laterality Date PAST SURGICAL HISTORY OF 1999 laminectomy; L4-L5, S1 PAST SURGICAL HISTORY OF 1994 right clavicle PAST SURGICAL HISTORY OF 1981 right knee scope PAST SURGICAL HISTORY OF 2010 right hand; 1st knuckle repair of tendon PAST SURGICAL HISTORY OF 2001 right arm biceps tendon repair Social History Tobacco Use Smoking status: Never Smokeless tobacco: Never Vaping Use Vaping Use: Never used Substance Use Topics Alcohol use: No Drug use: No Current Outpatient Medications on File Prior to Visit Medication Sig Owfdzjrl-Fake-Skgkof-Hyalur Ac [id number] mg cap Take 2 tablets by mouth once daily. acetaminophen (TYLENOL EXTRA STRENGTH ORAL) Take 1,000 mg by mouth as needed. allopurinol (ZYLOPRIM) 300 mg tablet Take 300 mg by mouth once daily. lisinopril (ZESTRIL, PRINIVIL) 20 mg tablet Take 1 tablet by mouth once daily. Takes two tablets to equal 40 MG every morning traZODone (DESYREL) 100 mg tablet Take 1 tablet by mouth daily at bedtime. metoprolol succinate ER (TOPROL XL) 25 mg 24 hr tablet Take 50 mg by mouth once daily. clonazePAM (KLONOPIN) 2 mg tablet Take 2 mg by mouth twice daily as needed. DULoxetine (CYMBALTA) 30 mg capsule Take 60 mg by mouth once daily. RED YEAST RICE ORAL Take by mouth once daily. melatonin 5 mg tablet Take 5 mg by mouth daily at bedtime. multivitamin tablet Take 1 tablet by mouth once daily. No current facility-administered medications on file prior to visit. Reviewed IPP device. Patient able to inflate and deflate without issue. Instructed to inflate and deflate twice a day for the next two weeks before using it for intercourse. Recommended he use lubrication when he does use it. ROS: Constitutional: negative Gastrointestinal: negative DATA/OR LABS TO BE REVIEWED: (Simple=1 data point; Complex= 2 or more) PSA (ng/mL) Date Value 01/30/2022 1.18 10/14/2019 1.56 09/15/2019 0.98 Creatinine (mg/dL) Date Value 10/22/2022 0.94 01/30/2022 0.91 12/06/2021 0.89 02/21/2020 0.74 12/07/2019 0.77 09/15/2019 0.71 05/05/2002 0.90 Testosterone (ng/dL) Date Value 06/12/2020 191 10/14/2019 1,213 Meghan Flores RN Urology Staff Note: I performed a face to face evaluation on the patient. My findings are as follows: Patient has recovered well from surgery. On exam he is healing, no evidence of infection. Pump easily accessible. IPP inflates and deflates with good rigidity and flaccidity. Minimal distal dorsal curvature with full inflation, I showed the patient how to gradually model the penis in order to help with this, but it is very minimal and I do not think it will be a functional problem. He expressed some dissatisfaction with direct length and asked about glans engorgement. I explained again that the prosthetic cylinders do not fill the glans penis and that he can consider using Viagra for this purpose to help engorged the glans. He has some at home, and will call for refills. In terms of length, the cylinder tips are in good position and inflated length today is consistent with stretched length. I explained that this is a fairly accurate expectation following IPP in the setting of Peyronie's disease and his preoperative stretch length. Return to clinic in a few months for recheck. Pascual Miller MD [facility] 12-22-2022 Note Patient Outreach (UR OLMN) ELÍAS COLLADO ([id number]) 1960 M Date Time Provider Department 12/22/22 PASCUAL MILLER During your visit today, we recorded the following information about you: Allergies As of Date: 12/22/2022 (No Known Allergies) Date Reviewed: 12/22/2022 Reviewed by: AIME Houston - Fully Assessed Visit Diagnosis:Screening for genitourinary condition [Z13.89] Order(s):URINALYSIS, REFLEX MICROSCOPIC [LDU3421] Order #: [id number]. #:[id number] Prescriptions as of 12/25/2022 - Eqxezren-Mvcb-Kdeozl-Hyalur Ac 098-977-23-2 mg cap Take 2 tablets by mouth once daily. - acetaminophen (TYLENOL EXTRA STRENGTH ORAL) Take 1,000 mg by mouth as needed. - allopurinol (ZYLOPRIM) 300 mg tablet Take 300 mg by mouth once daily. - lisinopril (ZESTRIL, PRINIVIL) 20 mg tablet Take 1 tablet by mouth once daily. Takes two tablets to equal 40 MG every morning - traZODone (DESYREL) 100 mg tablet Take 1 tablet by mouth daily at bedtime. - metoprolol succinate ER (TOPROL XL) 25 mg 24 hr tablet Take 50 mg by mouth once daily. - clonazePAM (KLONOPIN) 2 mg tablet Take 2 mg by mouth twice daily as needed. - DULoxetine (CYMBALTA) 30 mg capsule Take 60 mg by mouth once daily. - RED YEAST RICE ORAL Take by mouth once daily. - melatonin 5 mg tablet Take 5 mg by mouth daily at bedtime. - multivitamin tablet Take 1 tablet by mouth once daily. 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] 04/03/2014 Primary osteoarthritis of both knees [M17.0] 06/13/2015 Benign prostatic hyperplasia with urinary reten*09/08/2019 Weak urinary stream [R39.12] 09/08/2019 Urinary frequency [R35.0] 09/08/2019 Nocturia [R35.1] 09/08/2019 Incomplete bladder emptying [R33.9] 10/21/2019 Obesity, Class I, BMI 30-34.9 [E66.9] 12/07/2019 Hypogonadism in male [E29.1] 06/07/2020 Feeling of incomplete bladder emptying [R39.14] 06/07/2020 Essential hypertension, benign [I10] 12/06/2021 Mixed hyperlipidemia [E78.2] 12/06/2021 Anxiety [F41.9] 12/06/2021 Gout [M10.9] 12/06/2021 Insomnia [G47.00] 12/06/2021 Class 1 obesity due to excess calories with ser*12/06/2021 Screening for genitourinary condition [Z13.89] 01/30/2022 Increasing residual urine [R39.198] 01/30/2022 Peyronie's disease [N48.6] 01/30/2022 Other male erectile dysfunction [N52.8] 02/17/2022 Encounter Status:Closed by Yuntaa, PRODUSER on 12/25/22 [facility] 12-22-2022 History of Presen t illness Narrative HPI: Elías Collado is a 62M w PTSD, HTN, and BPH s/p PVP 2019 with Peyronie's + ED. Interval history: 04/30/22 - completed first cycle (2 injections) of Xiaflex injections for 55 degree dorsal curvature. Plan was to undergo cycle 2 in 6 weeks, but he ultimately decided against it because there was no benefit. 08/28/2022 - PVR 410 ml (baseline, managing conservatively, following Dr. Brooks). He has been using sildenafil 100 mg PRN since 2019, but he reports that it is losing efficacy. Elías Collado had IPP placed on 11/04/[address] Miller. Today, here for scheduled follow up and IPP teaching. States he is feeling fine. Partial erection from surgery is uncomfortable. Appetite and bowel function have returned to normal. Able to perform activities of daily living without issue. Completed Keflex 500 mg as prescribed. Last dose 12/05/22. No complaints of interval UTI. Endorses incision clean, dry and without drainage. Reports that he thinks his penis is not as wide or long as he expected. States that he has always been very sexual since he was young. PAST MEDICAL HISTORY Diagnosis Date Anxiety BPH (benign prostatic hyperplasia) HTN (hypertension) PAST SURGICAL HISTORY Procedure Laterality Date PAST SURGICAL HISTORY OF 1999 laminectomy; L4-L5, S1 PAST SURGICAL HISTORY OF 1994 right clavicle PAST SURGICAL HISTORY OF 1981 right knee scope PAST SURGICAL HISTORY OF 2010 right hand; 1st knuckle repair of tendon PAST SURGICAL HISTORY OF 2001 right arm biceps tendon repair Social History Tobacco Use Smoking status: Never Smokeless tobacco: Never Vaping Use Vaping Use: Never used Substance Use Topics Alcohol use: No Drug use: No Current Outpatient Medications on File Prior to Visit Medication Sig Cbouheti-Ywme-Ksocyp-Hyalur Ac 660-364-80-2 mg cap Take 2 tablets by mouth once daily. acetaminophen (TYLENOL EXTRA STRENGTH ORAL) Take 1,000 mg by mouth as needed. allopurinol (ZYLOPRIM) 300 mg tablet Take 300 mg by mouth once daily. lisinopril (ZESTRIL, PRINIVIL) 20 mg tablet Take 1 tablet by mouth once daily. Takes two tablets to equal 40 MG every morning traZODone (DESYREL) 100 mg tablet Take 1 tablet by mouth daily at bedtime. metoprolol succinate ER (TOPROL XL) 25 mg 24 hr tablet Take 50 mg by mouth once daily. clonazePAM (KLONOPIN) 2 mg tablet Take 2 mg by mouth twice daily as needed. DULoxetine (CYMBALTA) 30 mg capsule Take 60 mg by mouth once daily. RED YEAST RICE ORAL Take by mouth once daily. melatonin 5 mg tablet Take 5 mg by mouth daily at bedtime. multivitamin tablet Take 1 tablet by mouth once daily. No current facility-administered medications on file prior to visit. Reviewed IPP device. Patient able to inflate and deflate without issue. Instructed to inflate and deflate twice a day for the next two weeks before using it for intercourse. Recommended he use lubrication when he does use it. ROS: Constitutional: negative Gastrointestinal: negative DATA/OR LABS TO BE REVIEWED: (Simple=1 data point; Complex= 2 or more) PSA (ng/mL) Date Value 01/30/2022 1.18 10/14/2019 1.56 09/15/2019 0.98 Creatinine (mg/dL) Date Value 10/22/2022 0.94 01/30/2022 0.91 12/06/2021 0.89 02/21/2020 0.74 12/07/2019 0.77 09/15/2019 0.71 05/05/2002 0.90 Testosterone (ng/dL) Date Value 06/12/2020 191 10/14/2019 1,213 Meghan Flores RN Urology Staff Note: I performed a face to face evaluation on the patient. My findings are as follows: Patient has recovered well from surgery. On exam he is healing, no evidence of infection. Pump easily accessible. IPP inflates and deflates with good rigidity and flaccidity. Minimal distal dorsal curvature with full inflation, I showed the patient how to gradually model the penis in order to help with this, but it is very minimal and I do not think it will be a functional problem. He expressed some dissatisfaction with direct length and asked about glans engorgement. I explained again that the prosthetic cylinders do not fill the glans penis and that he can consider using Viagra for this purpose to help engorged the glans. He has some at home, and will call for refills. In terms of length, the cylinder tips are in good position and inflated length today is consistent with stretched length. I explained that this is a fairly accurate expectation following IPP in the setting of Peyronie's disease and his preoperative stretch length. Return to clinic in a few months for recheck. Pascual Miller MD documented in this encounter [facility] 11-05-2022 Note HNO ID: [id number] Author: Angela Upton MD Service: Urology Author Type: Resident Type: Progress Notes Filed: 11/05/2022 6:33 AM Note Text: [facility] UROLOGY PROGRESS NOTE Name: Elías Collado Date: November 05, 2022 After Hours [facility] Urology Service Pager: [phone] ASSESSMENT AND PLAN Elías Collado is a 62 year old male with history of PTSD, HTN, BPH s/p PVP (2019), peyronie's and ED now 1 Day Post-Op s/p insertion of IPP. INTERVAL/SUBJECTIVE - AFVSS, NAEON - Excellent UOP overnight, 5.8L - ASTER 100cc, 20cc in last shift - Feeling well. Pain improved. Tolerating diet. Plan: /Renal - ASTER likely to be removed prior to D/C, will confirm with staff - Stoll out this AM. Please obtain PVR to ensure adequate emptying after patient's next void Neuro - Multimodal pain control - Continue home clonazepam, trazodone, cymbalta CV/Pulm - Hold ACEI postop, continue other home meds - Close monitoring of hemodynamics - Encourage IS and ambulation to minimize atelectasis FEN - - Regular diet - IVF @ 75cc/hr - Zofran, colace Activity - Encourage ambulation multiple times throughout day DVT prophylaxis - Pharmacologic DVT prophylaxis contraindicated due to bleeding risk Antibiotics - Perioperative antibiotics - Zosyn - Will discharge on course of keflex Discharge planning - Anticipate discharge today after ambulating, voiding, eating Active Problems Anxiety POA: YES, continue home meds Benign prostatic hyperplasia with urinary retention Class 1 obesity due to excess calories with serious comorbidity and body mass index (BMI) of 31.0 to 31.9 in adult Essential components of plan discussed with staff, Dr. Pao Upton MD [facility] PGY2 [facility] [place] Pager: [phone] After hours and on weekends, please page [phone] Objective Vital Signs BP 152/79 Pulse 85 Temp 36.9 ?C (98.4 ?F) (Temporal) Resp 18 SpO2 95% Input and Output Intake/Output Summary (Last 24 hours) at 11/05/2022 0546 Last data filed at 11/05/2022 0519 Gross per 24 hour Intake 5338 ml Output 6640 ml Net -1302 ml Physical Exam GEN: Alert, NAD EYES: Anicteric LUNGS: No increased WOB on RA HEART: Reg rate ABDOMEN: soft, NTND : Glans with intact sensation and refill. Right penile bruising stable. Penoscrotal incision CDI. ASTER SS. Imaging Reviewed [facility] 11-04-2022 Note HNO ID: [id number] Author: Angela Upton MD Service: Urology Author Type: Resident Type: Progress Notes Filed: 11/04/2022 2:32 PM Note Text: [facility] UROLOGY PROGRESS NOTE Name: Elías Collado Date: November 04, 2022 After Hours [facility] [place] Urology Service Pager: [phone] ASSESSMENT AND PLAN Elías Collado is a 62 year old male with history of PTSD, HTN, BPH s/p PVP (2019), peyronie's and ED now Day of Surgery s/p insertion of IPP. INTERVAL/SUBJECTIVE - Afebrile and HDS since OR - Urine clear yellow, ASTER SS - Feeling well, reporting glandular pain but using urojet. - Tolerating diet. No N/V. Plan: /Renal - ASTER to bulb suction, likely removal POD1 prior to discharge - Maintain stoll catheter to gravity drainage. Ensure stoll has gentle upward curvature, secured with tape. Stoll to be removed POD1 with TOV. - Close monitoring of renal function and UOP Neuro - Multimodal pain control - Continue home clonazepam, trazodone, cymbalta CV/Pulm - Hold ACEI postop, continue other home meds - Close monitoring of hemodynamics - Encourage IS and ambulation to minimize atelectasis FEN - - Regular diet - IVF @ 125cc/hr - Zofran, colace Activity - Encourage ambulation multiple times throughout day DVT prophylaxis - Pharmacologic DVT prophylaxis contraindicated due to bleeding risk Antibiotics - Perioperative antibiotics - Zosyn - Will discharge on course of keflex Discharge planning - Anticipate discharge POD1 if meeting milestones Active Problems Anxiety POA: YES, continue home meds Benign prostatic hyperplasia with urinary retention Class 1 obesity due to excess calories with serious comorbidity and body mass index (BMI) of 31.0 to 31.9 in adult Essential components of plan discussed with staff, Dr. Pao Upton MD Urology PGY2 [facility] [place] Pager: [phone] After hours and on weekends, please page [phone] Objective Vital Signs BP 134/69 Pulse 74 Temp 36.7 ?C (98.1 ?F) (Temporal) Resp 16 SpO2 95% Input and Output No intake or output data in the 24 hours ending 11/04/22 0638 Physical Exam GEN: Alert, NAD EYES: Anicteric LUNGS: No increased WOB on RA HEART: Reg rate ABDOMEN: soft, NTND : Glans with intact sensation and refill, mildly tender to palpation. Right penile bruising but no appreciable hematoma. Penoscrotal incision CDI. ASTER SS. Imaging Reviewed [facility] 11-04-2022 Note HNO ID: [id number] Author: Karie Landin APRN.SOCIAL PSYCHOLOGIST Service: ? Author Type: Nurse Manager Order Type: Anesthesia Procedure Notes Filed: 11/04/2022 8:03 AM Note Text: ANESTHESIOLOGY PROCEDURE NOTE Airway General Information Procedure Start Time/Medication Administration: 11/04/2022 7:42 AM Patient location during procedure: OR Timeout Performed Pre-procedure: timeout performed Consent Obtained: Yes Patient identity confirmed: arm band Staffing Anesthesiologist: Hardik Castellano MD SOCIAL PSYCHOLOGIST: Karie Landin APRN.SOCIAL PSYCHOLOGIST Indications and Patient Condition Indications for airway management: anesthesia and airway protection Preoxygenated: yes Patient position: sniffing Method: asleep Difficult Mask: No Airway Accessory: oral airway Final Airway Details Final airway type: endotracheal airway Cuffed: yes Successful intubation technique: video laryngoscopy Devices used: Anna Endotracheal tube insertion site: oral Blade size: #4 Measured from: gums Measurement (cm): 22 Placement verified by: capnometry Cormack-Lehane Classification: grade I - full view of glottis Number of attempts at approach: 1 Airway not difficult SIGNATURE: Karie Landin APRN.SOCIAL PSYCHOLOGIST PATIENT NAME: Elías Collado DATE: November 04, 2022 TIME: 8:02 AM CSN: [id number] [facility] 10-28-2022 Miscellaneous Notes Urology Telephone Note I spoke with pt over the phone today. I recommended that he change his pre-op Abx to doxycycline. Patient expressed understanding and agreement with the plan. Zachary Calixto Jr., MD Reconstructive Urology Fellow documented in this encounter [facility] 10-22-2022 Instructions Gabriela Cuellar APRN.SANDER AND BUFFER - 10/22/2022 1:30 PM EST PATIENT PREOPERATIVE INSTRUCTIONS No ref. provider found has scheduled you for your procedure at this surgery center: [facility] [place] Scheduling Office: [phone] --[address] [place] [address]. Please read below carefully for your personalized instructions. Dietary Restrictions: - No solid food after midnight. - You may have 12 ounces of clear liquids (water, clear juices such as apple juice or gatorade, carbonated beverages, clear tea, black coffee, jello) until 2 hours before scheduled arrival at facility. No red/purple coloring and no creamer/sugar Medications: Unless instructed differently below, stay on all of your medications until your surgery. Approved medications to take the morning of surgery with a sip of water: metoprolol tartrate, (LOPRESSOR), DULoxetine (CYMBALTA) Do not take lisinopril (ZESTRIL, PRINIVIL) the morning and/or evening prior surgery If you take any medications for erectile dysfunction-Cialis (Tadalafil), Levitra, Staxyn (Vardenafil) Viagra (Sildenenafil please do not take these for 48 hours before surgery. If you start any new medications after today's visit, please contact the surgeon's office. Blood Thinning Medications: - Stop NSAIDS (Ibuprofen, Advil, Aleve, Motrin, Celebrex, Mobic, etc.) 7 days before surgery, as directed by your surgeon. - Stop Aspirin 7 days before surgery, as directed by your surgeon. - Stop Vitamin E, ALL multi-vitamins, herbals and dietary supplements 7 days before surgery. - You may take Tylenol (Acetaminophen) or any of your pain medications that do not contain aspirin or NSAIDS as needed. Important Reminders: - Candy, mints, and tobacco products are NOT permitted the morning of surgery. - Hearing aids, dentures and glasses may be worn the morning of surgery. - NO jewelry, body piercings, makeup, hairpins or contacts are to be worn the day of surgery. If you develop symptoms such as a fever, cold, or flu, or have other changes to your health within TWO DAYS of scheduled surgery or the morning of surgery, please contact the surgery center above. Personal Belongings: -Please have photo ID and insurance cards. -If you do not have a copy of advance directives on file with us, please bring a copy with you on the day of surgery. - Leave ALL valuables and money at home or with family members. For Outpatient Procedures: - YOU MUST HAVE A RESPONSIBLE AIRWAYS CONTROL SPECIALIST TAKE YOU HOME. A MIXING PAN TENDER OR AMUSEMENT OR RECREATION CARD CHECKER CANNOT BE MADE A RESPONSIBLE AIRWAYS CONTROL SPECIALIST. - We recommend that a responsible person stays with you overnight to take care of you. - You cannot stay in a hotel alone after outpatient surgery. You will not be permitted to have your surgery, if you do not have someone to take care of you. Arrival Time for Surgery: - To obtain your arrival time for surgery, call your physician's office the day before your surgery. - If your surgery is scheduled for Thursday, call the Thursday before. Your surgeon s first grade teacher will tell you what time to call the office. - If you have not reached the departmental first grade teacher by 5 P.M., call [phone] after 5 P.M. the day before your surgery. Please be aware that emergency situations arise, which may delay or change your surgical time. If this happens, we will notify you as soon as possible and regret any inconvenience. If you already have an Advance Directive, please fax a copy to [phone] or email to for it to be added to your chart. If you do not have an Advance Directive, you can find the appropriate form and more information at [email or web address]. We recommend that you complete the Advance Directive form found on the website and bring it with you the day of your surgery. It can be witnessed and scanned into your chart that day. Gabriela Cuellar APRN.ABENA documented in this encounter [facility] 10-22-2022 History and physical note HISTORY AND PHYSICAL EXAMINATION SERVICE DATE: 10/22/2022 SERVICE TIME: 3:19 PM PRIMARY CARE PHYSICIAN: Shazia Mendez MD REASON FOR VISIT: Elías Collado is a 62 year old male who is scheduled for Procedure(s): INSERTION PROSTHESIS PENILE INFLATABLE MULTI-COMPONENT (N/A) PLASTIC OP ON PENIS TO CORRECT ANGULATION (N/A) at the request of Dr. Pascual Miller MD for consultation. My final recommendation will be communicated back to the requesting physician by way of shared medical record or letter. Subjective The patient has the following: ACTIVE PROBLEM LIST Biceps Rupture, Distal Chondromalacia of Patella Primary Osteoarthritis of Both Knees Benign Prostatic Hyperplasia With Urinary Retention Weak Urinary Stream Urinary Frequency Nocturia Incomplete Bladder Emptying Obesity, Class I, Bmi 30-34.9 Hypogonadism in Male Feeling of Incomplete Bladder Emptying Essential Hypertension, Benign Mixed Hyperlipidemia Anxiety Gout Insomnia Class 1 Obesity Due to Excess Calories With Serious Comorbidity and Body Mass Index (Bmi) of 31.0 to 31.9 in Adult Screening for Genitourinary Condition Increasing Residual Urine Peyronie's Disease Other Male Erectile Dysfunction COVID-19 Immunization Status Overdue - COVID-19 VACCINE (4 - Booster for Moderna series) Overdue since 10/11/2021 08/16/2021 Imm Admin: COVID-19 vaccine, full dose (MODERNA) 11/30/2020 Imm Admin: COVID-19 vaccine, full dose (MODERNA) 10/30/2020 Imm Admin: COVID-19 vaccine, full dose (MODERNA) CHIEF COMPLAINT: Pre-op exam HPI: Elías Collado is a 62 year old seen for PAC due to scheduled above surgery because Peyronie's/ED. 09/17/2022, Dr. Cali HPI: 62M w PTSD, HTN, and BPH s/p PVP 2019 presents for Peyronie's + ED f/u. 04/30/22, completed first cycle (2 injections) of Xiaflex injections for 55 degree dorsal curvature. Plan was to undergo cycle 2 in 6 weeks, but he ultimately decided against it because there was no benefit. Today, PVR 410 ml (baseline, managing conservatively). He has been using sildenafil 100 mg PRN since 2019, but he reports that it is losing efficacy. REVIEW OF SYSTEMS: General: No weight loss, malaise or fevers. Neurological: No history of TIA's, stroke, WINDOW AIR CONDITIONER INSTALLER tumor, impaired sensorium, hemiplegia, paraplegia or quadraplegia. No neurological symptoms or problems. Respiratory: No history of current cough or dyspnea, or pneumonia in the past 6 weeks. No history of respiratory/pulmonary symptoms or problems. Cardiovascular: Positive for: hyperlipidemia (supplement) and hypertension (on rx) Negative for: anticoagulation therapy, arrhythmia, atrial fibrillation, CAD, chest pain, CHF, congenital heart defect, DVT/PE, recent ND, murmur/valvular heart disease, open heart surgery and valve surgery. GI: No history of GI symptoms or problems. No history of esophageal varices, recent ascites, or ETOH greater than 2 drinks per day. : See HPI. Positive for: BPH (s/p TURP). Endocrine: No history of diabetes. Has not taken steroids within the past 30 days. No history of endocrinological symptoms or problems. Hematology: No history of bleeding or clotting disorder. Patient is not taking anti-coagulation or platelet medications. No history of hematological symptoms or problems. Oncology: No history of CA metastasis, chemo within 30 days, or radiotherapy within 90 days. No history of oncological symptoms or problems. Psych: Positive for: anxiety (on rx). Musculoskeletal: +hx lumbar laminectomy. Negative for joint pain or swelling, back pain or muscle pain. Skin: Negative for lesions, rash and itching. PAST MEDICAL HISTORY Diagnosis Date Anxiety BPH (benign prostatic hyperplasia) HTN (hypertension) PAST SURGICAL HISTORY Procedure Laterality Date PAST SURGICAL HISTORY OF 1999 laminectomy; L4-L5, S1 PAST SURGICAL HISTORY OF 1994 right clavicle PAST SURGICAL HISTORY OF 1981 right knee scope PAST SURGICAL HISTORY OF 2010 right hand; knuckle repair of tendon PAST SURGICAL HISTORY OF 2001 right arm biceps tendon repair FAMILY HISTORY Problem Relation Age of Onset Cancer Mother thyroid Breast Cancer Mother Social History Tobacco Use Smoking status: Never Smokeless tobacco: Never Vaping Use Vaping Use: Never used Substance Use Topics Alcohol use: No Drug use: No Prior to Admission medications as of 10/22/22 1330 Medication Sig Last Dose Taking Bjnrdkct-Jsxv-Cjdlez-Hyalur Ac 556-345-32-2 mg cap Take 2 tablets by mouth once daily. Taking Yes acetaminophen (TYLENOL EXTRA STRENGTH ORAL) Take 1,000 mg by mouth as needed. Taking Yes allopurinol (ZYLOPRIM) 300 mg tablet Take 300 mg by mouth once daily. Taking Yes lisinopril (ZESTRIL, PRINIVIL) 20 mg tablet Take 1 tablet by mouth once daily. Takes two tablets to equal 40 MG every morning Taking Yes traZODone (DESYREL) 100 mg tablet Take 1 tablet by mouth daily at bedtime. Taking Yes metoprolol succinate ER (TOPROL XL) 25 mg 24 hr tablet Take 50 mg by mouth once daily. Taking Yes clonazePAM (KLONOPIN) 2 mg tablet Take 2 mg by mouth twice daily as needed. Taking Yes DULoxetine (CYMBALTA) 30 mg capsule Take 60 mg by mouth once daily. Taking Yes RED YEAST RICE ORAL Take by mouth once daily. Taking Yes melatonin 5 mg tablet Take 5 mg by mouth daily at bedtime. Taking Yes multivitamin tablet Take 1 tablet by mouth once daily. Taking Yes No medication comments found. ALLERGIES No Known Allergies Objective PHYSICAL EXAM: General: alert and oriented (x3), healthy appearance and obese. Pertinent negatives noted - not distressed. Skin: normal color, no rash or lesions. HEENT: EOM intact and pupils equal round. Pertinent negatives noted - no carotid bruit. Cardiovascular: regular rate and rhythm, normal S1 and S2, no rub, murmurs, or gallop. Respiratory: normal breath sounds, no wheezes or crackles. No chest wall deformity or tenderness. Abdomen: soft. Pertinent negatives noted - not tender. Extremities: no deformity, no edema or tenderness, no joint swelling or clubbing. Neurological: normal cognition and motor skills. Gait normal. No weakness or sensory deficit. PAIN ASSESSMENT: VITALS: BP 160/84 Pulse 82 Temp (Src) 99.1 (Temporal) Resp 16 Ht 6' 3 (1.91m) Wt 261 lb (118.4kg) SpO2 95% BMI 32.62 kg/(m^2). Diagnostic tests reviewed for today's visit: Lab Value Units Date High Low HB 14.6 g/dL 10/22/2022 17.0 13.0 HCT 41.3 % 10/22/2022 51.0 39.0 WBC 10.76 k/uL 10/22/2022 11.00 3.70 PLT 262 k/uL 10/22/2022 400 150 NA 137 mmol/L 10/22/2022 144 136 K 4.2 mmol/L 10/22/2022 5.1 3.7 GLUC 108 mg/dL 10/22/2022 99 74 BUN 15 mg/dL 10/22/2022 24 9 CREAT 0.94 mg/dL 10/22/2022 1.22 0.73 PTSEC No results within date range. INR No results within date range. APTT No results within date range. ALT 22 U/L 10/22/2022 54 10 AST 23 U/L 10/22/2022 40 14 TBILI 0.3 mg/dL 10/22/2022 1.3 0.2 TSH No results within date range. Lab Value Units Date High Low HCGQT No results within date range. UHCG No results within date range. HCG, BODY* No results within date range. Lab Value Units Date High Low ABORHD No results within date range. ABSCREEN No results within date range. No results found for: HBA1C No results found for this or any previous visit (from the past 8760 hour(s)). No results found for this or any previous visit (from the past 05639 hour(s)). Assessment Mixed hyperlipidemia Assessment: taking supplement Insomnia Assessment: rx as needed Gout Assessment: controlled on rx Essential hypertension, benign Assessment: controlled on rx Last 14 BP Last 14 Encounter BP Readings: Date: BP: 10/22/2022 160/84 08/12/2022 142/89 06/09/2022 156/86 04/30/2022 193/82 04/28/2022 179/99 02/17/2022 159/94 12/13/2021 107/56 12/06/2021 143/89 11/27/2021 136/82 02/21/2020 132/82 02/07/2020 141/72 12/07/2019 153/88 12/07/2019 153/88 12/07/2019 153/88[MD notified[ Anxiety Assessment: stable on rx per pt Benign prostatic hyperplasia with urinary retention Assessment: s/p green light laser therapy Class 1 obesity due to excess calories with serious comorbidity and body mass index (BMI) of 31.0 to 31.9 in adult Assessment: Body mass index is 32.62 kg/m . Rosas Activity Status Index: METS: Climb a flight of stairs or walk up a hill (5.50 METs) DASI Score: 5.5 Patient denies any chest pain or undue shortness of breath with the above physical activity. Clinical Frailty Scale: 3. Well, with treated comorbid disease STOP-Bang Score: Has or is being treated for high blood pressure Patient over 50 years old Has a large neck Male patient Denies snoring loudly Denies feeling tired, fatigued, or sleepy during the daytime Has not been observed to stop breathing or choking/gasping during sleep BMI less than or equal to 35 kg/m^2 STOP-Bang Score: 4 [id number] Score: Age: <65 Sex: male CHF history: No Hypertension history: Yes Stroke/TIA/thromboembolism history: No Vascular disease history: No Diabetes history: No [id number] Score: 1 ARISCAT Score: Age: 51-80 Preoperative SpO2: 91-95% Respiratory infection in the last month: No Preoperative anemia: No Surgical incision: peripheral Duration of surgery: <2 hrs Emergency procedure: No ARISCAT Score: 11 ASA Class: 2 ANESTHESIA FINDINGS: Intubation History: No history of difficult intubation Significant Anesthesia Considerations: none Airway History: No history of difficult airway I - PHYSICAL EVALUATION AIRWAY Patient intubated: No. Tracheostomy tube not present Mallampati: II. TM distance: >3 FB. Neck ROM: full ROM without neurological symptoms. Mouth opening: adequate. Short neck: no. Thick neck: no Garrison present: no DENTAL Dental findings: teeth intact. Additional comments: +crowns/back. II - ANESTHESIA PLAN ASA Score: 2 Anesthetic Plan: other Anesthetic plan additional comments: *PACC/TCI - anesthesia choice. Beta Martinez Monitoring Plan Post Procedure Analgesic Plan Informed Consent Anesthetic risks, benefits, alternatives, personnel and consent discussed: yes. Patient / Responsible Democrat agrees to proceed: yes Patient / Surrogate agrees to blood products: blood products not planned Prepared for Surgery: optimally prepared for surgery, pending [see comment]. labs CONSULTS: Patient does not require consults for optimization at this time Planned Anesthetic: other anesthesia choice The Following Tests/Procedures Have Been Initiated: No orders of the defined types were placed in this encounter. Instructions Given to Patient: Instructions located in the after visit summary. Patient given verbal and written preop instructions and voices comprehension and compliance. SIGNATURE: Gabriela Cuellar APRN.CNP PATIENT NAME: Elías Collado DATE: October 22, 2022 TIME: 1:24 PM PAGER/CONTACT #: documented in this encounter [facility] 09-17-2022 Note Patient Outreach (UR OLMN) BRENDAELÍAS RODRIGUEZ Patric ([id number]) 1960 M Date Time Provider Department 09/17/22 PASCUAL MILLER During your visit today, we recorded the following information about you: Allergies As of Date: 09/17/2022 (No Known Allergies) Date Reviewed: 09/17/2022 Reviewed by: Yajaira Joseph MA - Fully Assessed Visit Diagnosis:Screening for genitourinary condition [Z13.89] Order(s):URINALYSIS, REFLEX MICROSCOPIC [[id number]] Order #: [id number]. #:[id number] Prescriptions as of 09/22/2022 - doxycycline hyclate (VIBRAMYCIN) 100 mg capsule Take 1 capsule by mouth twice daily. - [place]-Xmck-Goloon-Hyalur Ac [id number] mg cap Take 2 tablets by mouth once daily. - celecoxib (CELEBREX) 200 mg capsule Take 1 capsule by mouth twice daily. - acetaminophen (TYLENOL EXTRA STRENGTH ORAL) Take 1,000 mg by mouth as needed. - allopurinol (ZYLOPRIM) 300 mg tablet Take 300 mg by mouth once daily. - lisinopril (ZESTRIL, PRINIVIL) 20 mg tablet Take 1 tablet by mouth once daily. Takes two tablets to equal 40 MG every morning - traZODone (DESYREL) 100 mg tablet Take 1 tablet by mouth daily at bedtime. - metoprolol succinate ER (TOPROL XL) 25 mg 24 hr tablet Take 50 mg by mouth once daily. - clonazePAM (KLONOPIN) 2 mg tablet Take 2 mg by mouth twice daily as needed. - DULoxetine (CYMBALTA) 30 mg capsule Take 60 mg by mouth once daily. - RED YEAST RICE ORAL Take by mouth once daily. - melatonin 5 mg tablet Take 5 mg by mouth daily at bedtime. - multivitamin tablet Take 1 tablet by mouth once daily. 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] 04/03/2014 Primary osteoarthritis of both knees [M17.0] 06/13/2015 Benign prostatic hyperplasia with urinary reten*09/08/2019 Weak urinary stream [R39.12] 09/08/2019 Urinary frequency [R35.0] 09/08/2019 Nocturia [R35.1] 09/08/2019 Incomplete bladder emptying [R33.9] 10/21/2019 Obesity, Class I, BMI 30-34.9 [E66.9] 12/07/2019 Hypogonadism in male [E29.1] 06/07/2020 Feeling of incomplete bladder emptying [R39.14] 06/07/2020 Essential hypertension, benign [I10] 12/06/2021 Mixed hyperlipidemia [E78.2] 12/06/2021 Anxiety [F41.9] 12/06/2021 Gout [M10.9] 12/06/2021 Insomnia [G47.00] 12/06/2021 Class 1 obesity due to excess calories with ser*12/06/2021 Screening for genitourinary condition [Z13.89] 01/30/2022 Increasing residual urine [R39.198] 01/30/2022 Peyronie's disease [N48.6] 01/30/2022 Other male erectile dysfunction [N52.8] 02/17/2022 Encounter Status:Closed by Yuntaa, PRODUSER on 09/22/22 [facility] 09-17-2022 Note HNO ID: [id number] Author: Pascual Miller MD Service: ? Author Type: Physician Type: Progress Notes Filed: 09/17/2022 9:25 AM Note Text: HPI: 62M w PTSD, HTN, and BPH s/p PVP 2019 presents for Peyronie's + ED f/u. 04/30/22, completed first cycle (2 injections) of Xiaflex injections for 55 degree dorsal curvature. Plan was to undergo cycle 2 in 6 weeks, but he ultimately decided against it because there was no benefit. Today, PVR 410 ml (baseline, managing conservatively). He has been using sildenafil 100 mg PRN since 2019, but he reports that it is losing efficacy. PAST MEDICAL HISTORY Diagnosis Date Anxiety BPH (benign prostatic hyperplasia) HTN (hypertension) PAST SURGICAL HISTORY Procedure Laterality Date PAST SURGICAL HISTORY OF 1999 laminectomy; L4-L5, S1 PAST SURGICAL HISTORY OF 1994 right clavicle PAST SURGICAL HISTORY OF 1981 right knee scope PAST SURGICAL HISTORY OF 2010 right hand; 1st knuckle repair of tendon PAST SURGICAL HISTORY OF 2001 right arm biceps tendon repair Social History Tobacco Use Smoking status: Never Smokeless tobacco: Never Vaping Use Vaping Use: Never used Substance Use Topics Alcohol use: No Drug use: No Current Outpatient Medications on File Prior to Visit Medication Sig Fqrbqwit-Lxis-Uoydef-Hyalur Ac [id number] mg cap Take 2 tablets by mouth once daily. celecoxib (CELEBREX) 200 mg capsule Take 1 capsule by mouth twice daily. acetaminophen (TYLENOL EXTRA STRENGTH ORAL) Take 1,000 mg by mouth as needed. allopurinol (ZYLOPRIM) 300 mg tablet Take 300 mg by mouth once daily. lisinopril (ZESTRIL, PRINIVIL) 20 mg tablet Take 1 tablet by mouth once daily. Takes two tablets to equal 40 MG every morning traZODone (DESYREL) 100 mg tablet Take 1 tablet by mouth daily at bedtime. metoprolol succinate ER (TOPROL XL) 25 mg 24 hr tablet Take 50 mg by mouth once daily. clonazePAM (KLONOPIN) 2 mg tablet Take 2 mg by mouth twice daily as needed. DULoxetine (CYMBALTA) 30 mg capsule Take 60 mg by mouth once daily. RED YEAST RICE ORAL Take by mouth once daily. melatonin 5 mg tablet Take 5 mg by mouth daily at bedtime. multivitamin tablet Take 1 tablet by mouth once daily. No current facility-administered medications on file prior to visit. ROS: Constitutional: negative Gastrointestinal: negative PHYSICAL EXAM: There were no vitals taken for this visit. GENERAL: Wnl nutrition, no deformities, healthy appearing DATA/OR LABS TO BE REVIEWED: (Simple=1 data point; Complex= 2 or more) PSA (ng/mL) Date Value 01/30/2022 1.18 10/14/2019 1.56 09/15/2019 0.98 Creatinine (mg/dL) Date Value 01/30/2022 0.91 12/06/2021 0.89 02/21/2020 0.74 12/07/2019 0.77 09/15/2019 0.71 05/05/2002 0.90 Testosterone (ng/dL) Date Value 06/12/2020 191 10/14/2019 1,213 A/P: 62M w anxiety, HTN, and BPH s/p PVP 2019 presents for Pekylenikevin's + ED f/u. He completed 1 cycle of Xiaflex in 04/2022. Zachary Calixto MD Attending Note I evaluated the patient and personally participated in the nunez components. I agree with the resident's findings and plan as documented and have discussed the case and management of the patient's care with the resident. Patient reports diminishing response to Viagra, not able to have reliable satisfactory intercourse, having impact on QOL. Curvature stable. PE: Penis circ, palpable dorsal tunical plaque as before. I demonstrated his stretched penile length to patient and reviewed its significance in terms of postoperative IPP results. PVR noted - chronic and followed by Dr. Brooks ASSESSMENT/PLAN: 1. Other male erectile dysfunction - ICD9: 607.84, ICD10: N52.8 (primary diagnosis) 2. Peyronie's disease - ICD9: 607.85, ICD10: N48.6 3. Acquired curvature of penis - ICD9: 607.89, ICD10: N48.89 Discussed with patient, provided IPP brochure and reviewed function of IPP. I discussed the RBAP related to the procedure, outcomes, appropriate postoperative expectations, recovery. Explained possible need for corporoplasty with graft. Patient agrees to proceed and would like next available date. I spent a total of 30 minutes on the date of the service which included preparing to see the patient, face to face patient care, completing clinical documentation, obtaining and/or reviewing separately obtained history, performing a medically appropriate examination, counseling and educating the patient/family/caregiver, ordering medications, tests, or procedures, and care coordination. Signature: Pascual Miller MD Date: 09/17/2022 Time: 9:21 AM [facility] 09-17-2022 Miscellaneous Notes Addended by: PASCUAL MILLER on: 09/17/2022 09:50 AM Modules accepted: Orders documented in this encounter [facility] 09-17-2022 History of Presen t illness Narrative HPI: 62M w PTSD, HTN, and BPH s/p PVP 2019 presents for Peyronie's + ED f/u. 04/30/22, completed first cycle (2 injections) of Xiaflex injections for 55 degree dorsal curvature. Plan was to undergo cycle 2 in 6 weeks, but he ultimately decided against it because there was no benefit. Today, PVR 410 ml (baseline, managing conservatively). He has been using sildenafil 100 mg PRN since 2019, but he reports that it is losing efficacy. PAST MEDICAL HISTORY Diagnosis Date Anxiety BPH (benign prostatic hyperplasia) HTN (hypertension) PAST SURGICAL HISTORY Procedure Laterality Date PAST SURGICAL HISTORY OF 1999 laminectomy; L4-L5, S1 PAST SURGICAL HISTORY OF 1994 right clavicle PAST SURGICAL HISTORY OF 1981 right knee scope PAST SURGICAL HISTORY OF 2010 right hand; 1st knuckle repair of tendon PAST SURGICAL HISTORY OF 2001 right arm biceps tendon repair Social History Tobacco Use Smoking status: Never Smokeless tobacco: Never Vaping Use Vaping Use: Never used Substance Use Topics Alcohol use: No Drug use: No Current Outpatient Medications on File Prior to Visit Medication Sig Rushkolv-Glgk-Drhhtp-Hyalur Ac [id number] mg cap Take 2 tablets by mouth once daily. celecoxib (CELEBREX) 200 mg capsule Take 1 capsule by mouth twice daily. acetaminophen (TYLENOL EXTRA STRENGTH ORAL) Take 1,000 mg by mouth as needed. allopurinol (ZYLOPRIM) 300 mg tablet Take 300 mg by mouth once daily. lisinopril (ZESTRIL, PRINIVIL) 20 mg tablet Take 1 tablet by mouth once daily. Takes two tablets to equal 40 MG every morning traZODone (DESYREL) 100 mg tablet Take 1 tablet by mouth daily at bedtime. metoprolol succinate ER (TOPROL XL) 25 mg 24 hr tablet Take 50 mg by mouth once daily. clonazePAM (KLONOPIN) 2 mg tablet Take 2 mg by mouth twice daily as needed. DULoxetine (CYMBALTA) 30 mg capsule Take 60 mg by mouth once daily. RED YEAST RICE ORAL Take by mouth once daily. melatonin 5 mg tablet Take 5 mg by mouth daily at bedtime. multivitamin tablet Take 1 tablet by mouth once daily. No current facility-administered medications on file prior to visit. ROS: Constitutional: negative Gastrointestinal: negative PHYSICAL EXAM: There were no vitals taken for this visit. GENERAL: Wnl nutrition, no deformities, healthy appearing DATA/OR LABS TO BE REVIEWED: (Simple=1 data point; Complex= 2 or more) PSA (ng/mL) Date Value 01/30/2022 1.18 10/14/2019 1.56 09/15/2019 0.98 Creatinine (mg/dL) Date Value 01/30/2022 0.91 12/06/2021 0.89 02/21/2020 0.74 12/07/2019 0.77 09/15/2019 0.71 05/05/2002 0.90 Testosterone (ng/dL) Date Value 06/12/2020 191 10/14/2019 1,213 A/P: 62M w anxiety, HTN, and BPH s/p PVP 2019 presents for Peyronie's + ED f/u. He completed 1 cycle of Xiaflex in 04/2022. Zachary Calixto MD Attending Note I evaluated the patient and personally participated in the nunez components. I agree with the resident's findings and plan as documented and have discussed the case and management of the patient's care with the resident. Patient reports diminishing response to Viagra, not able to have reliable satisfactory intercourse, having impact on QOL. Curvature stable. PE: Penis circ, palpable dorsal tunical plaque as before. I demonstrated his stretched penile length to patient and reviewed its significance in terms of postoperative IPP results. PVR noted - chronic and followed by Dr. Brooks ASSESSMENT/PLAN: 1. Other male erectile dysfunction - ICD9: 607.84, ICD10: N52.8 (primary diagnosis) 2. Peyronie's disease - ICD9: 607.85, ICD10: N48.6 3. Acquired curvature of penis - ICD9: 607.89, ICD10: N48.89 Discussed with patient, provided IPP brochure and reviewed function of IPP. I discussed the RBAP related to the procedure, outcomes, appropriate postoperative expectations, recovery. Explained possible need for corporoplasty with graft. Patient agrees to proceed and would like next available date. I spent a total of 30 minutes on the date of the service which included preparing to see the patient, face to face patient care, completing clinical documentation, obtaining and/or reviewing separately obtained history, performing a medically appropriate examination, counseling and educating the patient/family/caregiver, ordering medications, tests, or procedures, and care coordination. Signature: Pascual Miller MD Date: 09/17/2022 Time: 9:21 AM documented in this encounter [facility] 08-12-2022 Note HNO ID: [id number] Author: Anca Mcdonald DO Service: Vascular Surgery Author Type: Physician Type: Progress Notes Filed: 08/18/2022 3:17 PM Note Text: NAME: ELÍAS COLLADO [facility] NO: [id number] DATE OF SERVICE: 08/12/2022 Subjective: Mr. Collado is here to follow up on venous insufficiency. He last saw Dr. Garcia in May. He, at the time was having bradshaw splints, right greater than left. He recently had a total knee replacement on the right earlier this year. He denies any significant edema. He has tried compression in the past, however, he has not worn them more regularly due to a fair amount of sweating and would get hot, and did not notice significant improvement in symptoms. Currently, his bradshaw splints and the bradshaw pain are significantly improved, however, he is using Voltaren cream and patches as well, which helped his symptoms. Reviewed his venous reflux testing. He does have segmental reflux of his distal right GSV of the calf that approximately goes to thigh to 4 mm in diameter. The proximal portion does not reflux. On his left, he only has segmental reflux of his GSV. Assessment/Plan: Venous reflux. Reviewed the findings with Mr. Collado. Recommend he continue his compression, continue walking and exercise as tolerated. Recommend he update me in MyChart if his symptoms are persistent and he still requires the significant amount of NSAIDs. He may ultimately benefit from intervention, however, at this time, I do not believe that the reflux is consistent with his venous symptoms. He is agreeable to this plan. He will send me a message and update me as needed, and follow up with us as needed. Wilner Moy/089 Audio #: [id number] Date Dictated: 08/12/2022 10:33:13 Date Typed: 08/18/2022 10:47:41 Date Revised: [facility] 08-12-2022 History of Presen t illness Narrative NAME: ELÍAS COLLADO [facility] NO: [id number] DATE OF SERVICE: 08/12/2022 Subjective: Mr. Collado is here to follow up on venous insufficiency. He last saw Dr. Garcia in May. He, at the time was having bradshaw splints, right greater than left. He recently had a total knee replacement on the right earlier this year. He denies any significant edema. He has tried compression in the past, however, he has not worn them more regularly due to a fair amount of sweating and would get hot, and did not notice significant improvement in symptoms. Currently, his bradshaw splints and the bradshaw pain are significantly improved, however, he is using Voltaren cream and patches as well, which helped his symptoms. Reviewed his venous reflux testing. He does have segmental reflux of his distal right GSV of the calf that approximately goes to thigh to 4 mm in diameter. The proximal portion does not reflux. On his left, he only has segmental reflux of his GSV. Assessment/Plan: Venous reflux. Reviewed the findings with Mr. Collado. Recommend he continue his compression, continue walking and exercise as tolerated. Recommend he update me in MyChart if his symptoms are persistent and he still requires the significant amount of NSAIDs. He may ultimately benefit from intervention, however, at this time, I do not believe that the reflux is consistent with his venous symptoms. He is agreeable to this plan. He will send me a message and update me as needed, and follow up with us as needed. Anca Mcdonald D.O. KB/089 Audio #: [id number] Date Dictated: 08/12/2022 10:33:13 Date Typed: 08/18/2022 10:47:41 Date Revised: documented in this encounter [facility] 07-29-2022 Miscellaneous Notes ----- Message from Pascual Miller MD sent at 07/29/2022 12:47 PM EDT ----- Regarding: RE: patient is requesting IPP for Peyronie's in Jul if possible He should probably start by coming in for a visit so that I can discuss IPP with him, most recently I just saw him for the Xiafelx injection and I don't see anything about discussion of IPP. My surgery schedule is full through the end of the year. First available would be Sep 30, but it is possible he won't be recovered in time for his trip to [facility]. In fact, based on the needed recovery, he should probably wait until he gets back from [place]. I don't know if Dr. Plata would have earlier availability for surgery, but I guess patient could check, he would need an appt with him first. KEREN ----- Message ----- From: Meghan Flores RN Sent: 07/29/2022 10:35 AM EDT To: Pascual Miller MD Subject: patient is requesting IPP for Peyronie's in # You did not provide a date for him, but he would like surgery first available. He has travel plans (Oct 16 [facility]; and Nov 26 [place]) Looks like you are pretty booked up. MAV Called Elías Collado and ANURAG regarding Dr. Miller's response above. Asked him to call the office and discuss with Janny how he would like to proceed. Meghan Flores RN documented in this encounter [facility] 07-07-2022 Note HNO ID: [id number] Author: Edmond Rojas Service: ? Author Type: Physician Type: Progress Notes Filed: 07/07/2022 12:50 PM Note Text: FOLLOW UP PODIATRIC OFFICE VISIT Chief Complaint: This 62 year old who presents for follow up:right hallux fracture/charcot Patient presents to clinic for follow-up right hallux charcot Patient is wearing steel toe boots and inserts. Has no pain Has new xray to review PAIN EVALUATION No data found in the last 1 encounters. No results found for: HBA1C PCP: Shazia Mendez MD PAST MEDICAL HISTORY Diagnosis Date Anxiety BPH (benign prostatic hyperplasia) HTN (hypertension) Current Outpatient Medications Medication Sig Fhqbmzts-Cpuk-Wybjpd-Hyalur Ac [id number] mg cap Take 2 tablets by mouth once daily. celecoxib (CELEBREX) 200 mg capsule Take 1 capsule by mouth twice daily. acetaminophen (TYLENOL EXTRA STRENGTH ORAL) Take 1,000 mg by mouth as needed. allopurinol (ZYLOPRIM) 300 mg tablet Take 300 mg by mouth once daily. lisinopril (ZESTRIL, PRINIVIL) 20 mg tablet Take 1 tablet by mouth once daily. Takes two tablets to equal 40 MG every morning traZODone (DESYREL) 100 mg tablet Take 1 tablet by mouth daily at bedtime. metoprolol succinate ER (TOPROL XL) 25 mg 24 hr tablet Take 25 mg by mouth once daily. clonazePAM (KLONOPIN) 2 mg tablet Take 2 mg by mouth twice daily as needed. DULoxetine (CYMBALTA) 30 mg capsule Take 60 mg by mouth once daily. RED YEAST RICE ORAL Take by mouth once daily. melatonin 5 mg tablet Take 5 mg by mouth daily at bedtime. multivitamin tablet Take 1 tablet by mouth once daily. No current facility-administered medications for this visit. ALLERGIES No Known Allergies PAST SURGICAL HISTORY Procedure Laterality Date PAST SURGICAL HISTORY OF 1999 laminectomy; L4-L5, S1 PAST SURGICAL HISTORY OF 1994 right clavicle PAST SURGICAL HISTORY OF 1981 right knee scope PAST SURGICAL HISTORY OF 2010 right hand; 1st knuckle repair of tendon PAST SURGICAL HISTORY OF 2001 right arm biceps tendon repair Physical Exam: OBJECTIVE: Constitutional: Pt is a well developed 62 year old male who is alert, oriented, cooperative and in no apparent distress. Eyes: Following during examination. No redness or drainage. Respiratory: RR normal and nonlabored. Even breathing. No evidence of distress. Psychology: Patient is engaged during conversation. Normal affect and mood. Does not appear depressed or anxious. NVSI unchanged from previous visit. Dermatological: Webspaces clean and dry 1-4 b/l. Skin appears well hydrated and supple. good color, texture, turgor. No open lesions present. No callosities present. Musculoskeletal/Orthopaedic: Patient has no pain to palpation of right foot. Swelling is present to right hallux. No gross dislocation noted. Xrays reviewed of right foot. Progressive healing is noted to right hallux ASSESSMENT: (M14.671) Charcot's joint of right foot (primary encounter diagnosis) (G62.9) Neuropathy (I87.2) Venous insufficiency PLAN: Discussed past fracture of right hallux progressive healing is noted. Would continue with firm sole shoe and inserts. Patient is doing very well. No callus or ulceration on exam. If patient has any issues, he will contact the office Edmond Rojas DPM [facility] 07-07-2022 History of Presen t illness Narrative FOLLOW UP PODIATRIC OFFICE VISIT Chief Complaint: This 62 year old who presents for follow up:right hallux fracture/charcot Patient presents to clinic for follow-up right hallux charcot Patient is wearing steel toe boots and inserts. Has no pain Has new xray to review PAIN EVALUATION No data found in the last 1 encounters. No results found for: HBA1C PCP: Shazia Mendez MD PAST MEDICAL HISTORY Diagnosis Date Anxiety BPH (benign prostatic hyperplasia) HTN (hypertension) Current Outpatient Medications Medication Sig Yazsfwxo-Ngki-Vyvmkq-Hyalur Ac [id number] mg cap Take 2 tablets by mouth once daily. celecoxib (CELEBREX) 200 mg capsule Take 1 capsule by mouth twice daily. acetaminophen (TYLENOL EXTRA STRENGTH ORAL) Take 1,000 mg by mouth as needed. allopurinol (ZYLOPRIM) 300 mg tablet Take 300 mg by mouth once daily. lisinopril (ZESTRIL, PRINIVIL) 20 mg tablet Take 1 tablet by mouth once daily. Takes two tablets to equal 40 MG every morning traZODone (DESYREL) 100 mg tablet Take 1 tablet by mouth daily at bedtime. metoprolol succinate ER (TOPROL XL) 25 mg 24 hr tablet Take 25 mg by mouth once daily. clonazePAM (KLONOPIN) 2 mg tablet Take 2 mg by mouth twice daily as needed. DULoxetine (CYMBALTA) 30 mg capsule Take 60 mg by mouth once daily. RED YEAST RICE ORAL Take by mouth once daily. melatonin 5 mg tablet Take 5 mg by mouth daily at bedtime. multivitamin tablet Take 1 tablet by mouth once daily. No current facility-administered medications for this visit. ALLERGIES No Known Allergies PAST SURGICAL HISTORY Procedure Laterality Date PAST SURGICAL HISTORY OF 1999 laminectomy; L4-L5, S1 PAST SURGICAL HISTORY OF 1994 right clavicle PAST SURGICAL HISTORY OF 1981 right knee scope PAST SURGICAL HISTORY OF 2010 right hand; 1st knuckle repair of tendon PAST SURGICAL HISTORY OF 2001 right arm biceps tendon repair Physical Exam: OBJECTIVE: Constitutional: Pt is a well developed 62 year old male who is alert, oriented, cooperative and in no apparent distress. Eyes: Following during examination. No redness or drainage. Respiratory: RR normal and nonlabored. Even breathing. No evidence of distress. Psychology: Patient is engaged during conversation. Normal affect and mood. Does not appear depressed or anxious. NVSI unchanged from previous visit. Dermatological: Webspaces clean and dry 1-4 b/l. Skin appears well hydrated and supple. good color, texture, turgor. No open lesions present. No callosities present. Musculoskeletal/Orthopaedic: Patient has no pain to palpation of right foot. Swelling is present to right hallux. No gross dislocation noted. Xrays reviewed of right foot. Progressive healing is noted to right hallux ASSESSMENT: (M14.671) Charcot's joint of right foot (primary encounter diagnosis) (G62.9) Neuropathy (I87.2) Venous insufficiency PLAN: Discussed past fracture of right hallux progressive healing is noted. Would continue with firm sole shoe and inserts. Patient is doing very well. No callus or ulceration on exam. If patient has any issues, he will contact the office Edmond Rojas DPM AMB ROOMING INTAKE FLOWSHEET DATA Risk Screening Do you have concerns about personal safety or safety in the home?: No Patient presents with: Right Foot - Established Patient, Follow Up, charcot Amita Garcia LPN documented in this encounter [facility] 07-01-2022 Note HNO ID: [id number] Author: Amita Garcia LPN Service: ? Author Type: LICENSED NURSE Type: Progress Notes Filed: 07/07/2022 12:50 PM Note Text: AMB ROOMING INTAKE FLOWSHEET DATA Risk Screening Do you have concerns about personal safety or safety in the home?: No Patient presents with: Right Foot - Established Patient, Follow Up, charcot Amita Garcia LPN [facility] 07-01-2022 Note HNO ID: [id number] Author: RT Estefania(Flori) Service: Nuclear Medicine Author Type: Technologist Type: Progress Notes Filed: 07/01/2022 9:25 AM Note Text: Radiology Service Progress Note PATIENT NAME: Elías Collado DATE OF SERVICE: July 01, 2022 TIME: 9:19 AM PATIENT IDENTITY VERIFICATION COMPLETED USING TWO (2) IDENTIFIERS: Name and Date of confirmed by patient verbally. FALL SCREENING: Has the patient had 2 falls in the last year or 1 fall with injury or currently using an Ambulatory Assistive Device (Walker, Cane, Wheelchair, Crutches, etc.)? No PATIENT GENDER DATA: Male PATIENT RELEVANT IMPLANT DATA REVIEWED: Not Applicable RADIOLOGY DEPARTMENT: General X-ray: Exam(s) Completed: Lower Extremity X-Ray(s): Foot, Right and Wt. Bearing PERIPHERAL IV DATA: Not applicable SIGNED BY: RT Estefania(R) July 01, 2022 9:19 AM [facility] 07-01-2022 History of Presen t illness Narrative Radiology Service Progress Note PATIENT NAME: Elías Collado DATE OF SERVICE: July 01, 2022 TIME: 9:19 AM PATIENT IDENTITY VERIFICATION COMPLETED USING TWO (2) IDENTIFIERS: Name and Date of confirmed by patient verbally. FALL SCREENING: Has the patient had 2 falls in the last year or 1 fall with injury or currently using an Ambulatory Assistive Device (Walker, Cane, Wheelchair, Crutches, etc.)? No PATIENT GENDER DATA: Male PATIENT RELEVANT IMPLANT DATA REVIEWED: Not Applicable RADIOLOGY DEPARTMENT: General X-ray: Exam(s) Completed: Lower Extremity X-Ray(s): Foot, Right and Wt. Bearing PERIPHERAL IV DATA: Not applicable SIGNED BY: RT Estefania(R) July 01, 2022 9:19 AM documented in this encounter [facility] 06-24-2022 Miscellaneous Notes Jayde with [employer] called to update on patients refund. Patient returned foot plates after a month of use d/t blistering. [facility] agreed to refund the patient but not d/t fault, followed Dr Nataly tate. ESPINOZA Donohue # [phone] documented in this encounter [facility] 06-09-2022 Note HNO ID: [id number] Author: Edie Garcia MD Service: ? Author Type: Physician Type: Progress Notes Filed: 06/09/2022 3:08 PM Note Text: [facility] [place] DEPARTMENT OF VASCULAR SURGERY OUTPATIENT VISIT DATE June 09, 2022 OUTPATIENT VISIT TYPE CONSULTATION SERVICE DATE: 06/09/2022 SERVICE TIME: 12:33 PM PRIMARY CARE PHYSICIAN: Shazia Mendez MD REFERRING PROVIDER: Edmond Rojas, DORIS [address] [facility] [id number] Consult requested for an opinion regarding the evaluation and treatment of the above. My final impression and recommendations will be communicated back to the requesting physician by way of the shared medical record or letter via US mail. CHIEF COMPLAINT: Bilateral leg pain. HISTORY OF PRESENT ILLNESS: Vascular consultation at the request of Dr. Edmond Rojas. A copy of this consultation note will be provided to the requesting physician by way of shared Medical record or letter to requesting physician via US mail. Mr. Collado is a 62 year old male who is seen today for bilateral anterior leg pain. Patient describes these as shinsplints . Present for many years. Patient is now status post right TKA about 4 weeks ago. Patient still recovering from that. Normal postoperative pain. Right leg more symptomatic than the left. No history of prior vein procedures. Has had longstanding varicose veins both legs. No history of DVT or superficial thrombophlebitis. PAST MEDICAL HISTORY Diagnosis Date Anxiety BPH (benign prostatic hyperplasia) HTN (hypertension) PAST SURGICAL HISTORY Procedure Laterality Date PAST SURGICAL HISTORY OF 1999 laminectomy; L4-L5, S1 PAST SURGICAL HISTORY OF 1994 right clavicle PAST SURGICAL HISTORY OF 1981 right knee scope PAST SURGICAL HISTORY OF 2010 right hand; 1st knuckle repair of tendon PAST SURGICAL HISTORY OF 2001 right arm biceps tendon repair SOCIAL HISTORY: Social History Tobacco Use Smoking status: Never Smokeless tobacco: Never Vaping Use Vaping Use: Never used Substance Use Topics Alcohol use: No Drug use: No FAMILY HISTORY Problem Relation Age of Onset Cancer Mother thyroid Breast Cancer Mother MEDICATIONS: Elzihyml-Cnvw-Mmzxxi-Hyalur Ac [id number] mg cap Take 2 tablets by mouth once daily. celecoxib (CELEBREX) 200 mg capsule Take 1 capsule by mouth twice daily. acetaminophen (TYLENOL EXTRA STRENGTH ORAL) Take 1,000 mg by mouth as needed. allopurinol (ZYLOPRIM) 300 mg tablet Take 300 mg by mouth once daily. lisinopril (ZESTRIL, PRINIVIL) 20 mg tablet Take 1 tablet by mouth once daily. Takes two tablets to equal 40 MG every morning traZODone (DESYREL) 100 mg tablet Take 1 tablet by mouth daily at bedtime. metoprolol succinate ER (TOPROL XL) 25 mg 24 hr tablet Take 25 mg by mouth once daily. clonazePAM (KLONOPIN) 2 mg tablet Take 2 mg by mouth twice daily as needed. DULoxetine (CYMBALTA) 30 mg capsule Take 60 mg by mouth once daily. RED YEAST RICE ORAL Take by mouth once daily. melatonin 5 mg tablet Take 5 mg by mouth daily at bedtime. multivitamin tablet Take 1 tablet by mouth once daily. ALLERGIES: ALLERGIES No Known Allergies REVIEW OF SYSTEM: Constitutional: No weight loss, malaise or fevers. HEENT: Negative for frequent or significant headaches, No changes in hearing or vision, no nose bleeds or other nasal problems Respiratory: Negative for cough, wheezing, or shortness of breath Cardiovascular: Negative for chest pain, leg swelling or palpitations Gatrointestinal: Negative for abdominal discomfort, blood in stools or black stools or change in bowel habits Genitourinary: No difficulty urination, nocturia >1 times per night or hematuria Musculoskeletal: Negative for joint pain or swelling, back pain or muscle pain Endocrine: Negative for cold or heat intolerance, polyuria, polydipsia and goiter Hematology/Lymphatic: Negative for prolonged bleeding, bruising easily or swollen nodes Neurologic: No history or headaches, syncope, paralysis, seizures or tremors Integumentary: Negative for lesions, rash, and itching. PHYSICAL EXAM: VITALS: There were no vitals taken for this visit. General: Alert and oriented, No acute distress Integumentary: Normal color, no rash, no lesions. HEENT: No carotid bruits Cardiovascular: Pulse regular. Extremities: Right linear anterior knee scar healing appropriately. 2+ right knee edema. Right leg with trace to 1+ edema. Trace edema left leg. Nontender legs. Moderate varicose veins right medial thigh medial calf. Moderate varicose veins left medial calf. No evidence of thrombophlebitis. No hyperpigmentation. Vascular: 2+ pedal pulses bilaterally. Diagnostic tests reviewed for today's visit: Non-Invasive Vascular Laboratory [facility] Venous Valvular Incompetency Bilateral/Complete Date of service/time: 03/28/2022 1:24:51 PM MR (more content not included)... [facility] 06-09-2022 History of Presen t illness Narrative Images from the original note were not included. [facility] [place] DEPARTMENT OF VASCULAR SURGERY OUTPATIENT VISIT DATE June 09, 2022 OUTPATIENT VISIT TYPE CONSULTATION SERVICE DATE: 06/09/2022 SERVICE TIME: 12:33 PM PRIMARY CARE PHYSICIAN: Shazia Mendez MD REFERRING PROVIDER: Edmond Rojas DPM [address] [facility] [id number] Consult requested for an opinion regarding the evaluation and treatment of the above. My final impression and recommendations will be communicated back to the requesting physician by way of the shared medical record or letter via US mail. CHIEF COMPLAINT: Bilateral leg pain. HISTORY OF PRESENT ILLNESS: Vascular consultation at the request of Dr. Edmond Rojas. A copy of this consultation note will be provided to the requesting physician by way of shared Medical record or letter to requesting physician via US mail. Mr. Collado is a 62 year old male who is seen today for bilateral anterior leg pain. Patient describes these as shinsplints . Present for many years. Patient is now status post right TKA about 4 weeks ago. Patient still recovering from that. Normal postoperative pain. Right leg more symptomatic than the left. No history of prior vein procedures. Has had longstanding varicose veins both legs. No history of DVT or superficial thrombophlebitis. PAST MEDICAL HISTORY Diagnosis Date Anxiety BPH (benign prostatic hyperplasia) HTN (hypertension) PAST SURGICAL HISTORY Procedure Laterality Date PAST SURGICAL HISTORY OF 1999 laminectomy; L4-L5, S1 PAST SURGICAL HISTORY OF 1994 right clavicle PAST SURGICAL HISTORY OF 1981 right knee scope PAST SURGICAL HISTORY OF 2010 right hand; 1st knuckle repair of tendon PAST SURGICAL HISTORY OF 2001 right arm biceps tendon repair SOCIAL HISTORY: Social History Tobacco Use Smoking status: Never Smokeless tobacco: Never Vaping Use Vaping Use: Never used Substance Use Topics Alcohol use: No Drug use: No FAMILY HISTORY Problem Relation Age of Onset Cancer Mother thyroid Breast Cancer Mother MEDICATIONS: Gussvuvw-Eyeh-Qcchfp-Hyalur Ac [id number] mg cap Take 2 tablets by mouth once daily. celecoxib (CELEBREX) 200 mg capsule Take 1 capsule by mouth twice daily. acetaminophen (TYLENOL EXTRA STRENGTH ORAL) Take 1,000 mg by mouth as needed. allopurinol (ZYLOPRIM) 300 mg tablet Take 300 mg by mouth once daily. lisinopril (ZESTRIL, PRINIVIL) 20 mg tablet Take 1 tablet by mouth once daily. Takes two tablets to equal 40 MG every morning traZODone (DESYREL) 100 mg tablet Take 1 tablet by mouth daily at bedtime. metoprolol succinate ER (TOPROL XL) 25 mg 24 hr tablet Take 25 mg by mouth once daily. clonazePAM (KLONOPIN) 2 mg tablet Take 2 mg by mouth twice daily as needed. DULoxetine (CYMBALTA) 30 mg capsule Take 60 mg by mouth once daily. RED YEAST RICE ORAL Take by mouth once daily. melatonin 5 mg tablet Take 5 mg by mouth daily at bedtime. multivitamin tablet Take 1 tablet by mouth once daily. ALLERGIES: ALLERGIES No Known Allergies REVIEW OF SYSTEM: Constitutional: No weight loss, malaise or fevers. HEENT: Negative for frequent or significant headaches, No changes in hearing or vision, no nose bleeds or other nasal problems Respiratory: Negative for cough, wheezing, or shortness of breath Cardiovascular: Negative for chest pain, leg swelling or palpitations Gatrointestinal: Negative for abdominal discomfort, blood in stools or black stools or change in bowel habits Genitourinary: No difficulty urination, nocturia >1 times per night or hematuria Musculoskeletal: Negative for joint pain or swelling, back pain or muscle pain Endocrine: Negative for cold or heat intolerance, polyuria, polydipsia and goiter Hematology/Lymphatic: Negative for prolonged bleeding, bruising easily or swollen nodes Neurologic: No history or headaches, syncope, paralysis, seizures or tremors Integumentary: Negative for lesions, rash, and itching. PHYSICAL EXAM: VITALS: There were no vitals taken for this visit. General: Alert and oriented, No acute distress Integumentary: Normal color, no rash, no lesions. HEENT: No carotid bruits Cardiovascular: Pulse regular. Extremities: Right linear anterior knee scar healing appropriately. 2+ right knee edema. Right leg with trace to 1+ edema. Trace edema left leg. Nontender legs. Moderate varicose veins right medial thigh medial calf. Moderate varicose veins left medial calf. No evidence of thrombophlebitis. No hyperpigmentation. Vascular: 2+ pedal pulses bilaterally. Diagnostic tests reviewed for today's visit: Non-Invasive Vascular Laboratory [facility] Venous Valvular Incompetency Bilateral/Complete Date of service/time: 03/28/2022 1:24:51 PM Name: ELÍAS COLLADO Date of : 1960 Age: 62 years Gender: M Clinical Indication Lower extremity swelling and varicose veins. TECHNIQUE -------- A venous duplex ultrasound examination was performed, including grayscale imaging with compression maneuvers and color Doppler and spectral Doppler examination with augmentation maneuvers and response to respiration of the below mentioned veins. FINDINGS -------- RIGHT SIDE Method of augmentation: manual. Common femoral vein Doppler: normal flow. Compression: normal. Femoral vein Doppler: normal flow. Compression: normal. Popliteal vein Doppler: normal flow. Compression: normal. Great saphenous vein Compression: normal. Small saphenous vein Compression: normal. RIGHT GREAT SAPHENOUS VEIN Saphenofemoral junction Augmentation reflux none. Valsalva reflux none. Size 0.84 cm. Proximal thigh Augmentation reflux none. Valsalva reflux none. Size 0.35 cm. Mid thigh Augmentation reflux none. Valsalva reflux none. Size 0.31 cm. Distal thigh Augmentation reflux none. Valsalva reflux none. Size 0.41 cm. At Knee Augmentation reflux none. Size 0.52 cm. Proximal calf Augmentation reflux greater than or equal to 0.5 second. Size 0.49 cm. Mid calf Augmentation reflux greater than or equal to 0.5 second. Size 0.42 cm. Distal calf Augmentation reflux greater than or equal to 0.5 second. Size 0.45 cm. RIGHT SMALL SAPHENOUS VEIN Proximal calf Augmentation reflux none. Size 0.33 cm. Mid calf Augmentation reflux none. Size 0.39 cm. Distal calf Augmentation reflux less than 0.5 second. Size 0.33 cm. RIGHT ANTERIOR ACCESSORY GREAT SAPHENOUS VEIN Saphenous junction Augmentation reflux none. Valsalva reflux none. Size 0.45 cm. Proximal Thigh Augmentation reflux none. Valsalva reflux none. Size 0.47 cm. Mid Thigh Augmentation reflux none. Valsalva reflux none. Size 0.48 cm. Distal Thigh Size 0.49 cm. LEFT SIDE Method of augmentation: manual. Common femoral vein Doppler: normal flow. Compression: normal. Femoral vein Doppler: normal flow. Compression: normal. Popliteal vein Doppler: normal flow. Compression: normal. Great saphenous vein Compression: normal. Small saphenous vein Compression: normal. LEFT GREAT SAPHENOUS VEIN Saphenofemoral junction Augmentation reflux none. Valsalva reflux none. Size 0.49 cm. Proximal thigh Augmentation reflux none. Valsalva reflux none. Size 0.50 cm. Mid thigh Augmentation reflux none. Valsalva reflux none. Size 0.45 cm. Distal thigh Augmentation reflux none. Valsalva reflux none. Size 0.52 cm. At Knee Augmentation reflux none. Size 0.48 cm. Proximal calf Size 0.46 cm. Mid calf Augmentation reflux less than 0.5 second. Size 0.35 cm. Distal calf Augmentation reflux none. Size 0.39 cm. LEFT SMALL SAPHENOUS VEIN Proximal calf Augmentation reflux none. Size 0.22 cm. Mid calf Augmentation reflux none. Size 0.28 cm. Distal calf Augmentation reflux none. Size 0.26 cm. LEFT ANTERIOR ACCESSORY GREAT SAPHENOUS VEIN Saphenous junction Augmentation reflux none. Valsalva reflux none. Size 0.34 cm. Proximal thigh Augmentation reflux none. Valsalva reflux none. Size 0.31 cm. Mid thigh Size 0.31 cm. IMPRESSION RIGHT SIDE - DEEP VEINS Negative for acute deep vein thrombosis in vessels visualized. RIGHT SIDE - SUPERFICIAL VEINS Positive for valvular incompetency in the great saphenous vein. Reflux noted in the calf. Varicosities visualized. Negative for valvular incompetency in the small saphenous vein. LEFT SIDE - DEEP VEINS Negative for acute deep vein thrombosis in vessels visualized. LEFT SIDE - SUPERFICIAL VEINS Negative for valvular incompetency in the great saphenous vein. Negative for valvular incompetency in the small saphenous vein. Technologist: Micheline Phillips RVT, [facility] Ordering physician: EDMOND ROJAS Interpreting physician: Edie Garcia MD ESSION: Mr. Collado is a 62 year old male with atypical leg pain. May be related to venous insufficiency. Patient will return visit with Dr. Mcdonald for consideration for EVLT. Recommend ibuprofen 600 mg 3 times a day [id number] for 5 days. Compression stockings. Medical Decision Making: Medical Decision Making Level: 1 - N/A SIGNATURE: Edie Garcia MD PATIENT NAME: Elías Collado DATE: June 09, 2022 TIME: 12:33 PM documented in this encounter [facility] 04-30-2022 History of Presen t illness Narrative Xiaflex Injection Procedure for Peyronie's Disease Pertinent history since last visit: Mild bruising and swelling Informed consent obtained and patient has agreed to the procedure. Preop Diagnosis: Peyronie's Disease with erectile curvature Postop Diagnosis: Same Protocol number: 1.2 Direction of curvature: Dorsal Degree of curvature: 55 degrees Palpable plaque location: Dorsal midshaft Xiaflex allowed to come to room temperature and then added 0.39 cc diluent Prepped injection site with alcohol swab Local anesthetic: 1% lidocaine Xiaflex injection: 0.25 cc intraplaque Pressure held at injection site Procedure well tolerated, he was instructed on modeling of the penis May 02, and was provided with Xiaflex instruction sheet and he will start the stretching exercises on Thursday. No intercourse for 3 weeks. Next cycle in 6 weeks. Questions were answered and patient agrees with plan. Pascual Miller MD ummary: Xiaflex 2 Time pulled 1620 [address] Lot [id number] Exp: 04/2023 Xiaflex Lot [id number] Exp; 04/2023 documented in this encounter [facility] 04-28-2022 History of Presen t illness Narrative Xiaflex Injection Procedure for Peyronie's Disease Pertinent history since last visit: No change in curvature Informed consent obtained and patient has agreed to the procedure. Preop Diagnosis: Peyronie's Disease with erectile curvature Postop Diagnosis: Same Protocol number: 1.1 Direction of curvature: Dorsal Degree of curvature: 55 degrees Plaque location: Dorsal midshaft Xiaflex allowed to come to room temperature and then added 0.39 cc diluent Prepped injection site with alcohol swab Local anesthetic: 1% lidocaine Xiaflex injection: 0.25 cc intraplaque Pressure held at injection site Procedure well tolerated, Xiaflex instruction sheet given to patient Patient will require an additional Xiaflex injection procedure within the next 48-72 hours Pascual Miller MD ummary: Xiaflex 1 Elías Collado here for Xiaflex (1) Xiaflex: Lot: [id number] Exp: January 2023 Time prepared: 1620 [address]es[address] Lot: [id number] Exp: 04/2023 documented in this encounter [facility] 04-24-2022 Miscellaneous Notes Spoke to patient to schedule a sooner appointment with Dr. Garcia. Encounter closed. Images from the original note were not included. Called and left patient message to call Marsha @[phone] to set up office visit with Dr. Mcdonald. Per message below:DO Marsha Ayers Any chance we can get this rkystle into see me sooner rather than later. Ok to add on ;) Previous Messages ----- Message ----- From: Edmond Rojas Sent: 04/19/2022 10:17 PM EDT To: DO Marc Ayers. I was wondering if there would be chances for this patient to see you earlier if he saw you in [place]. He has swelling in legs and demonstrates incompetency on ultrasound. He has severe knee arthritis and has been informed that he needs to get swelling controlled before any intervention on his knees. I wanted to have him see you to discuss options. Thanks documented in this encounter [facility] 04-19-2022 History of Presen t illness Narrative FOLLOW UP PODIATRIC OFFICE VISIT Chief Complaint: This 62 year old who presents for follow up:right great toe fracture Patient presents to clinic for follow-up right great toe fracture He is wearing steel toed boot with custom orthotic He has no pain in his toe. He has new xrays to review. He does complain of right knee arthrits that he has plans on seeing orthopedics in [facility]. PAIN EVALUATION No data found in the last 1 encounters. No results found for: HBA1C PCP: Shazia Mendez MD PAST MEDICAL HISTORY Diagnosis Date Anxiety BPH (benign prostatic hyperplasia) HTN (hypertension) Current Outpatient Medications Medication Sig Wcnocqrk-Hyvp-Jpthzd-Hyalur Ac [id number] mg cap Take 2 tablets by mouth once daily. celecoxib (CELEBREX) 200 mg capsule Take 1 capsule by mouth twice daily. acetaminophen (TYLENOL EXTRA STRENGTH ORAL) Take 1,000 mg by mouth as needed. allopurinol (ZYLOPRIM) 300 mg tablet Take 300 mg by mouth once daily. lisinopril (ZESTRIL, PRINIVIL) 20 mg tablet Take 1 tablet by mouth once daily. Takes two tablets to equal 40 MG every morning traZODone (DESYREL) 100 mg tablet Take 1 tablet by mouth daily at bedtime. metoprolol succinate ER (TOPROL XL) 25 mg 24 hr tablet Take 25 mg by mouth once daily. clonazePAM (KLONOPIN) 2 mg tablet Take 2 mg by mouth twice daily as needed. DULoxetine (CYMBALTA) 30 mg capsule Take 60 mg by mouth once daily. RED YEAST RICE ORAL Take by mouth once daily. melatonin 5 mg tablet Take 5 mg by mouth daily at bedtime. multivitamin tablet Take 1 tablet by mouth once daily. cephALEXin (KEFLEX) 500 mg capsule Take 1 capsule by mouth three times daily. (Patient not taking: Reported on 03/13/2022 ) cephALEXin (KEFLEX) 500 mg capsule Take 1 capsule by mouth three times daily. (Patient not taking: Reported on 03/13/2022 ) cephALEXin (KEFLEX) 500 mg capsule Take 1 capsule by mouth three times daily. (Patient not taking: Reported on 12/26/2021 ) No current facility-administered medications for this visit. ALLERGIES No Known Allergies PAST SURGICAL HISTORY Procedure Laterality Date PAST SURGICAL HISTORY OF 1999 laminectomy; L4-L5, S1 PAST SURGICAL HISTORY OF 1994 right clavicle PAST SURGICAL HISTORY OF 1981 right knee scope PAST SURGICAL HISTORY OF 2010 right hand; knuckle repair of tendon PAST SURGICAL HISTORY OF 2001 right arm biceps tendon repair Physical Exam: OBJECTIVE: Constitutional: Pt is a well developed 62 year old male who is alert, oriented, cooperative and in no apparent distress. Eyes: Following during examination. No redness or drainage. Respiratory: RR normal and nonlabored. Even breathing. No evidence of distress. Psychology: Patient is engaged during conversation. Normal affect and mood. Does not appear depressed or anxious. NVSI unchanged from previous visit. Dermatological: Nails 1-5 b/l are normal. Webspaces clean and dry 1-4 b/l. Skin appears well hydrated and supple. good color, texture, turgor. No open lesions present. No callosities present. Musculoskeletal/Orthopaedic: Patient has no pain to palpation of right hallux Mild swelling is present to right hallux but appears to be improving. xrays show further hypertrophic bone formation and what appears to be healing of neuropathic fracture of right hallux. ASSESSMENT: (M14.671) Charcot's joint of right foot (primary encounter diagnosis) (G62.9) Neuropathy (I87.2) Venous insufficiency PLAN: Reviewed xrays of right hallux. xrays show further consolidation and healing of frcture. I would continue with firm sole shoe with insert. Will review blood work once final. If cbc, esr and crp remain normal, would have very low concern for any infection as past wound culture and bone cultures show now growth and patient has no open wounds since undergoing arthroplasty. Will notify patient of results. Discussed swelling in right leg. He does have venous incompetency as found on recent venous ultrasound. Will have patient see vascular surgery to discuss options. F/u in 5-6 weeks with new xrays or sooner if problems arise Edmond Rojas DPM documented in this encounter [facility] 04-17-2022 History of Presen t illness Narrative Radiology Service Progress Note PATIENT NAME: Elías Collado DATE OF SERVICE: April 17, 2022 TIME: 2:14 PM PATIENT IDENTITY VERIFICATION COMPLETED USING TWO (2) IDENTIFIERS: Name and Date of confirmed by patient verbally. FALL SCREENING: Has the patient had 2 falls in the last year or 1 fall with injury or currently using an Ambulatory Assistive Device (Walker, Cane, Wheelchair, Crutches, etc.)? No PATIENT GENDER DATA: Male PATIENT RELEVANT IMPLANT DATA REVIEWED: Not Applicable RADIOLOGY DEPARTMENT: General X-ray: Exam(s) Completed: Lower Extremity X-Ray(s): Foot, Right and Wt. Bearing PERIPHERAL IV DATA: Not applicable SIGNED BY: RT Estefania(R) April 17, 2022 2:14 PM documented in this encounter [facility] 04-01-2022 Miscellaneous Notes CD READY FOR KILN HAND AT [facility] Spoke with pt Pt called stating that the disc that he picked up did not have the actual images from the 12/13/21 images taken during/after his procedure that day. He would like another disc with those views. Procedure was done at [facility], should he be inquiring there? Please let him know. CD/ report READY FOR [facility]N HAND AT [facility] Patient is requesting foot x-rays from 10/10/2021 all x-rays from 11/14/2021, Fluoroscopy from 12/13/2021 with x-rays, and 02/21/2022. Written report also. documented in this encounter [facility] 03-28-2022 History of Presen t illness Narrative FOLLOW UP PODIATRIC OFFICE VISIT Chief Complaint: This 62 year old who presents for follow up:charcot of right great toe. Patient presents to clinic for follow-up charcot of right great toe. He was given pneumatic boot at last follow-up. He has been wearing boot around the house but during the day, he is wearing firm sole boot with custom inserts and matthew extension. He has no pain in his right great toe. He does suffer from severe right knee pain. He has seen [facility] who have advised that patient needs total knee replacement on right lower extremity but will not proceed with surgery until his swelling in right great toe resolve. Patient currently has no pain in right foot. He did have esr, crp and cbc at [facility]. All were within normal limits. He is currently not on antibiotic. He has no open wounds to right foot. PAIN EVALUATION No data found in the last 1 encounters. No results found for: HBA1C PCP: Shazia Mendez MD PAST MEDICAL HISTORY Diagnosis Date Anxiety BPH (benign prostatic hyperplasia) HTN (hypertension) Current Outpatient Medications Medication Sig Txpyncax-Disw-Lvliik-Hyalur Ac [id number] mg cap Take 2 tablets by mouth once daily. celecoxib (CELEBREX) 200 mg capsule Take 1 capsule by mouth twice daily. acetaminophen (TYLENOL EXTRA STRENGTH ORAL) Take 1,000 mg by mouth as needed. allopurinol (ZYLOPRIM) 300 mg tablet Take 300 mg by mouth once daily. lisinopril (ZESTRIL, PRINIVIL) 20 mg tablet Take 1 tablet by mouth once daily. Takes two tablets to equal 40 MG every morning traZODone (DESYREL) 100 mg tablet Take 1 tablet by mouth daily at bedtime. metoprolol succinate ER (TOPROL XL) 25 mg 24 hr tablet Take 25 mg by mouth once daily. clonazePAM (KLONOPIN) 2 mg tablet Take 2 mg by mouth twice daily as needed. DULoxetine (CYMBALTA) 30 mg capsule Take 60 mg by mouth once daily. RED YEAST RICE ORAL Take by mouth once daily. melatonin 5 mg tablet Take 5 mg by mouth daily at bedtime. multivitamin tablet Take 1 tablet by mouth once daily. cephALEXin (KEFLEX) 500 mg capsule Take 1 capsule by mouth three times daily. (Patient not taking: Reported on 03/13/2022 ) cephALEXin (KEFLEX) 500 mg capsule Take 1 capsule by mouth three times daily. (Patient not taking: Reported on 03/13/2022 ) cephALEXin (KEFLEX) 500 mg capsule Take 1 capsule by mouth three times daily. (Patient not taking: Reported on 12/26/2021 ) No current facility-administered medications for this visit. ALLERGIES No Known Allergies PAST SURGICAL HISTORY Procedure Laterality Date PAST SURGICAL HISTORY OF 1999 laminectomy; L4-L5, S1 PAST SURGICAL HISTORY OF 1994 right clavicle PAST SURGICAL HISTORY OF 1981 right knee scope PAST SURGICAL HISTORY OF 2010 right hand; 1st knuckle repair of tendon PAST SURGICAL HISTORY OF 2001 right arm biceps tendon repair Physical Exam: OBJECTIVE: Constitutional: Pt is a well developed 62 year old male who is alert, oriented, cooperative and in no apparent distress. Eyes: Following during examination. No redness or drainage. Respiratory: RR normal and nonlabored. Even breathing. No evidence of distress. Psychology: Patient is engaged during conversation. Normal affect and mood. Does not appear depressed or anxious. Vascular: DP and PT pulses are palpable to right foot. CFT is less than 5 seconds. Skin temperature is warm to warm. No erythema noted to right foot. Moderate to severe swelling is noted of right hallux. Dermatological: Right great toe presents with swelling however, no open wounds noted. No signs of infection. Prior ulceration that was present in november remains healed. Surgical incision to right hallux remains healed. No signs of rubbing noted. Musculoskeletal/Orthopaedic: Patient has no pain to palpation of right hallux Right hallux is swollen. No plantar exostosis noted to right great toe. xrays of right foot reviewed. Hypertrophic bone noted to right great toe. ASSESSMENT: Charcot's joint of right foot (primary encounter diagnosis) Swelling of limb Venous insufficiency PLAN: Patient was examined today and we had long discussion regarding his right great toe. He does have swelling in right great toe and it is likely this swelling may last for several months if not up to a year or longer. He has no pain to his right great toe and has no open wounds to his right foot. I have low suspicion for osteomyelitis. He has no open wounds to his foot. He is not currently on antibiotics and xrays do not show any resorption of bone, rather, hypertrophic bone formation is present. He had bone biopsy at time of surgery and this did not show any osteomyelitis. He did have small blister 2 weeks after surgery but at that time, the ulceration had already healed. At time of blister, a wound culture was performed. No growth was detected. He went on to heal his blister without issue. With past culture negative for any bacteria and pathology negative for osteomyelitis, again, I have low suspicion for osteomyelitis. Further, recent esr,crp and cbc are normal. This patient currently suffers from right knee arthritis. It sounds like no surgical intervention will be performed until his swelling subsides. I discussed performing biopsy of the right great toe to confirm no osteomyelitis. Patient is apprehensive about biopsy out of fear or concern of possible causing a wound that could lead to infection. He would prefer to hold on biopsy if at all possible. I will repeat xrays in 3 weeks and repeat blood work. If blood work remains normal and xrays continue to show hypertrophic bone, I would suspect no osteomyelitis. At patient request, I will discuss with [facility]. I discussed my concern for charcot vs traumatic fracture in a patient with neuropathy. xrays appear stable. I would highly recommend boot immobilization and close monitoring. If he is unable to use the boot, I would recommend firm sole boot with custom inserts and carbon fiber insert. I would hold on working out at this time. I discussed findings with radiology today. We discussed mri vs advanced imaging. I personally feel that mri would be difficult to differentiate charcot vs infection vs fracture. For this reason, will continue To monitor xrays and recommend he limit activity as much as possible. Follow-up in 3 weeks. Reviewed venous ultrasoud. He does have reflux. Would recommend he use compression stockings. Vascular surgery consult would be helpful Edmond Rojas DPM documented in this encounter [facility] 03-28-2022 History of Presen t illness Narrative Radiology Service Progress Note PATIENT NAME: Elías Collado DATE OF SERVICE: March 28, 2022 TIME: 2:38 PM PATIENT IDENTITY VERIFICATION COMPLETED USING TWO (2) IDENTIFIERS: Name and Date of confirmed by patient verbally. FALL SCREENING: Has the patient had 2 falls in the last year or 1 fall with injury or currently using an Ambulatory Assistive Device (Walker, Cane, Wheelchair, Crutches, etc.)? No PATIENT GENDER DATA: Male PATIENT RELEVANT IMPLANT DATA REVIEWED: Not Applicable RADIOLOGY DEPARTMENT: General X-ray: Exam(s) Completed: Lower Extremity X-Ray(s): Foot, Right and Wt. Bearing PERIPHERAL IV DATA: Not applicable SIGNED BY: RT Fiona(R) March 28, 2022 2:38 PM documented in this encounter [facility] 03-20-2022 Miscellaneous Notes I called patient to discuss blood work at [facility]. Esr, crp and wbc all normal. Past xrays reviewed and show hypertrophic bone. I suspect the findigns are related to either charcot vs fracture. Given no wounds present, past cultures showing no osteomyelitis and normal esr, crp and wbc, I favor more charcot vs fracture from unknown injury. I discussed options not lilmited to monitoring the toe, treating with boot and repeating xrays. We discussed other imaging such as MRI but mri likely would be difficult to distinguish osteomyelitis vs charcot. We discussed triphasic bone scan/wbc scan. We discussed biopsy. Patient elected to monitor. We discussed swelling in legs. Suspect possible venous insufficiency. Will order venous reflux. F/u in 1 week as scheduled. documented in this encounter [facility] 03-15-2022 History of Presen t illness Narrative FOLLOW UP PODIATRIC OFFICE VISIT Chief Complaint: This 62 year old who presents for follow up:left great toe swelling, posible charcot Patient has been wearing surgical shoe at home At work, he wears firm sole shoe with insert. He has an appointment to get his inserts modified to have carbon fiber insert in. Had been offered boot but has elected to hold on that. PAIN EVALUATION No data found in the last 1 encounters. No results found for: HBA1C PCP: Shazia Mednez MD PAST MEDICAL HISTORY Diagnosis Date Anxiety BPH (benign prostatic hyperplasia) HTN (hypertension) Current Outpatient Medications Medication Sig Nswxdbkp-Mhlv-Rvuksn-Hyalur Ac [id number] mg cap Take 2 tablets by mouth once daily. acetaminophen (TYLENOL EXTRA STRENGTH ORAL) Take 1,000 mg by mouth as needed. allopurinol (ZYLOPRIM) 300 mg tablet Take 300 mg by mouth once daily. lisinopril (ZESTRIL, PRINIVIL) 20 mg tablet Take 1 tablet by mouth once daily. traZODone (DESYREL) 100 mg tablet Take 1 tablet by mouth daily at bedtime. metoprolol succinate ER (TOPROL XL) 25 mg 24 hr tablet Take 25 mg by mouth once daily. clonazePAM (KLONOPIN) 2 mg tablet Take 2 mg by mouth twice daily as needed. DULoxetine (CYMBALTA) 30 mg capsule Take 60 mg by mouth once daily. RED YEAST RICE ORAL Take by mouth. melatonin 5 mg tablet Take 5 mg by mouth. multivitamin tablet Take 1 tablet by mouth once daily. cephALEXin (KEFLEX) 500 mg capsule Take 1 capsule by mouth three times daily. (Patient not taking: Reported on 03/13/2022 ) cephALEXin (KEFLEX) 500 mg capsule Take 1 capsule by mouth three times daily. (Patient not taking: Reported on 03/13/2022 ) celecoxib (CELEBREX) 200 mg capsule Take 1 capsule by mouth twice daily. cephALEXin (KEFLEX) 500 mg capsule Take 1 capsule by mouth three times daily. (Patient not taking: Reported on 12/26/2021 ) No current facility-administered medications for this visit. ALLERGIES No Known Allergies PAST SURGICAL HISTORY Procedure Laterality Date PAST SURGICAL HISTORY OF 1999 laminectomy; L4-L5, S1 PAST SURGICAL HISTORY OF 1994 right clavicle PAST SURGICAL HISTORY OF 1981 right knee scope PAST SURGICAL HISTORY OF 2010 right hand; 1st knuckle repair of tendon PAST SURGICAL HISTORY OF 2001 right arm biceps tendon repair Physical Exam: OBJECTIVE: Constitutional: Pt is a well developed 62 year old male who is alert, oriented, cooperative and in no apparent distress. Eyes: Following during examination. No redness or drainage. Respiratory: RR normal and nonlabored. Even breathing. No evidence of distress. Psychology: Patient is engaged during conversation. Normal affect and mood. Does not appear depressed or anxious. NVSI unchanged from previous visit. Dermatological: No open sores or signs of infection to right foot Past ulceration of right hallux ipj remains healed. Musculoskeletal/Orthopaedic: Patient has no pain to palpation of right foot Right great toe is swollen. xrays performed of right foot show hypertrophic bone formation and fragmentation of right hallux proximal phalanx ASSESSMENT: Charcot's joint of right foot (primary encounter diagnosis) PLAN: Patient was examined today and we discussed all clinical findings as well as radiologic studies. Today's xrays show increased hypertrophic bone formation. He is not currently on any antibiotics and I see no erosive changes to suggest an osteomyelitis. He recently underwent hallux ipj arthroplasty in November 2021 for ongoing ulceration. During that procedure, bone was collected and sent for pathology and micro. No evidence of osteomyelitis was confirmed. He healed his surgical incision in approximately 2 weeks and the only complication he sustained was a blister of the lisandro incisional area that healed without issues. The blister was likely the result of patient returning to regular shoes and going to the gym prior to having the incision even healed. Wound culture of the blister showed no growth. At this present time, this patient has no open wounds to his left foot. His prior ulceraiton of hallux ipj remains healed. The original wound that he had that led to the decision to proceed with arthroplasty healed immediately. Being that this patient has no open wounds, is not currently on antibiotics and the xrays show no erosive changes, I do not feel the changes on xray are related to osteomyelitis. I favor charcot vs traumatic fracture. This patient informe me that he does not recall any recent stubbing injury but does report that it is common for him to bump his toes. It is possible he may have bumped or dropped something on his toe resulting in fracture and the hypertrophic bone that is seen on xray today is fracture healing. I would like to have patient continue with firm sole shoe with inserts with carbon fiber inlay. I will repeat xrays in 2 weeks I offered patient pneumatic boot but he does not feel that is an option as he is unable to wear that at work. I did recommend patient cut down his working or being on his foot to allow this foot to heal. I am going to order repeat xrays for 2 weeks I will order cbc, esr, crp. I will order vitamin d panel. I will have patient f/u in 2 weeks Could consider biopsy of bone but given the fragmentation of bone, percutaneous biopsy could be challenging to obtain adequate specimen. Will evaluate xrays in 2 weeks. 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 documented in this encounter [facility] 03-13-2022 Miscellaneous Notes Phone call to patient. Patient scheduled to come in today, 03/13 at 3:45 pm. There is a possibility that I will need to block my schedule tomorrow due to surgery. Can he come in today Edmond Rojas DPM Pt rescheduled for tomorrow, Thu03/14/22 at 3pm. Please let me know if this is a problem for you. Thanks! Can you reschedule this patient. He had to reschedule due to power outage. He is rescheduled for April 01. I would like to see him sooner than later. Please call him and move his appointment up. Preferably early next week if nothing more for this week Edmond Rojas DPM documented in this encounter [facility] 03-04-2022 Miscellaneous Notes Left message on identified voicemail reminding patient of follow up appt. with Dr. Rojas on 03/12/22 at 8am. Pt. instructed to call if he has any questions or if he can't make appt. Carmelina Waters RN I received text from patient today stating that he has yet to hear from this office regarding follow-up appointment. It appears that our office contacted him on February 21 and informed him via message that he has an appointment on March 12. This provider is out of the office until March 10. This provider contacted him today to see how his foot was doing. Patient states that he is no longer going to the gym and that his foot and swelling has improved. He denies any redness to his foot. He has been using a surgical shoe 85% of the time. By this he means, he uses the surgical shoe at all times at home and when he goes to work he wears firm sole shoe with his insert. I discussed if he could wear the surgical shoe or even a boot at work but he states it is very difficult due to the environment he works in. An open toe shoe or boot could risk injury by nails ,etc. 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 Patient assures me his foot is doing better. He has no pain and has no open sores. I informed patient that his past xrays are more likely that of charcot rather than infection. He has no open wounds and past culture and pathology from his recent surgery are absent for infection. I do feel his activity in recent post-op period did result in charcot. It is important to calm down any activity, otherwise, this could worsen and place him at risk of amputation. This provider recommends he wear a device to resist motion of the great toe. He is wearing a surgical shoe to the great toe. In addition, I discussed use of pneumatic boot to provider further protection. I discussed pneumatic boot or casting to protect the entire foot. While I am out of the office, I informed him that he could make f/u with one of my nurses for boot. He states he would like to just wait on the boot and discuss this at follow-up. He assures me that his foot swelling is improving. I offered patient chance to come in this week and get xray and I would evaluate from out of the office to see how his foot is doing. He states he would like to wait until next week. I recommend he use the surgical shoe at all times unless he has to go to work. I recommend if he is able to, reduce his work hours. He states that that is really not an option but he will wear firm sole sneaker with inserts. I will have patient follow-up with me next week. He can contact me if he has any issues. Patient again reports the foot is improving. Edmond Rojas DPM documented in this encounter [facility] 02-25-2022 History of Presen t illness Narrative Photograph of erection sent by patient, confirms 55 degrees dorsal curvature involving the distal penile shaft. Will get insurance approval for Xiaflex and then schedule for first cycle. Pascual Miller MD documented in this encounter [facility] 02-21-2022 History of Presen t illness Narrative FOLLOW UP PODIATRIC OFFICE VISIT Chief Complaint: This 61 year old who presents for follow up:right hallux ulceration Patient presents to clinic for follow-up right hallux ulceration. Patient ulceration remains healed but his toe is still swollen. He has been using coban to the toe to try and eliminate swelling. As a result of the coban, he has a dry blister. He denies any drainage. He has no pain. He continues to go to the gym and is using recumbent bicycle. PAIN EVALUATION No data found in the last 1 encounters. No results found for: HBA1C PCP: Shazia Mendez MD PAST MEDICAL HISTORY Diagnosis Date Anxiety BPH (benign prostatic hyperplasia) HTN (hypertension) Current Outpatient Medications Medication Sig Sdlooeyh-Qeta-Wiayty-Hyalur Ac [id number] mg cap Take 2 tablets by mouth once daily. celecoxib (CELEBREX) 200 mg capsule Take 1 capsule by mouth twice daily. acetaminophen (TYLENOL EXTRA STRENGTH ORAL) Take 1,000 mg by mouth as needed. allopurinol (ZYLOPRIM) 300 mg tablet Take 300 mg by mouth once daily. lisinopril (ZESTRIL, PRINIVIL) 20 mg tablet Take 1 tablet by mouth once daily. traZODone (DESYREL) 100 mg tablet Take 1 tablet by mouth daily at bedtime. metoprolol succinate ER (TOPROL XL) 25 mg 24 hr tablet Take 25 mg by mouth once daily. clonazePAM (KLONOPIN) 2 mg tablet Take 2 mg by mouth twice daily as needed. DULoxetine (CYMBALTA) 30 mg capsule Take 60 mg by mouth once daily. RED YEAST RICE ORAL Take by mouth. melatonin 5 mg tablet Take 5 mg by mouth. multivitamin tablet Take 1 tablet by mouth once daily. cephALEXin (KEFLEX) 500 mg capsule Take 1 capsule by mouth three times daily. (Patient not taking: Reported on 12/26/2021 ) No current facility-administered medications for this visit. ALLERGIES No Known Allergies PAST SURGICAL HISTORY Procedure Laterality Date PAST SURGICAL HISTORY OF 1999 laminectomy; L4-L5, S1 PAST SURGICAL HISTORY OF 1994 right clavicle PAST SURGICAL HISTORY OF 1981 right knee scope PAST SURGICAL HISTORY OF 2010 right hand; 1st knuckle repair of tendon PAST SURGICAL HISTORY OF 2001 right arm biceps tendon repair Physical Exam: OBJECTIVE: Constitutional: Pt is a well developed 61 year old male who is alert, oriented, cooperative and in no apparent distress. Eyes: Following during examination. No redness or drainage. Respiratory: RR normal and nonlabored. Even breathing. No evidence of distress. Psychology: Patient is engaged during conversation. Normal affect and mood. Does not appear depressed or anxious. Vascular: DP and PT pulses are palpable b/l. CFT is less than 5 seconds. Skin temperature is warm to warm. There is significant swelling present to right hallux. Dermatological: Right foot has peeling skin along the right great toe however, there are no open sores. There is dry eschar along the dorsal lateral aspect of right hallux that peeled off and there are no open sores or signs of drainage present. The base of right 2nd toe has slight swelling with dry blood. No purulence noted. There is slight erythema noted of right 2nd toe. Musculoskeletal/Orthopaedic: Patient has no pain to palpation of b/l feet There is visible swelling noted to right great toe. ASSESSMENT: (L97.512) Neuropathic ulcer of toe, right, with fat layer exposed (HCC) (primary encounter diagnosis) (G62.9) Neuropathy (L60.0) Ingrowing toenail (I87.2) Venous insufficiency PLAN: Patient is s/p hallux ipj arthroplasty (november 2021) and his ulceration remains healed. There is visible swelling present to right great toe however, there are no open wounds to right foot. I am going to order xrays of right foot today to assure no underlying osseous pathology that would explain ongoing swelling of right great toe. He has been using coban to the toe and I think that has led to tourniquet effect' on the toe. I am going to suggest he stop this and start using compression stockings instead. These were ordered. He does have swelling present of right 2nd toenail at base. Offered removal. He has elected to forego this and I will have him soak the toe and will place him on antibiotic. If condition fails to improve, consider removal of toenail. The right 2nd toenail was trimmed today. In order to perform a complete physical exam, one nail slant back was performed. This incidental service is integral to the evaluation and management visit in order to appropriately manage and treat the patient (for their complaint or for this visit). Will call with results. Edmond Rojas DPM Patient presents with: Right Great Toe - Follow Up, neuropathic ulcer surgery 12/13/2021 documented in this encounter [facility] 02-17-2022 History of Presen t illness Narrative [facility] NEW PATIENT HISTORY AND PHYSICAL EXAM PATIENT INFO: Elías Patric Collado 61 year old REFERRING MHadley.: Tawanna Brooks [address] [facility] [id number] This consult was requested by Dr. Brooks for an opinion regarding peyronies disease, and my final recommendations will be communicated to the requesting health care provider by way of the shared medical record for internal providers or letter via the [place] [employer] for external providers. HISTORY Chief Complaint: peyronie's disease HPI: 61M with BPH s/p PVP 2 years ago who now presents with dorsal curvature for 18 months. He refers pain with intercourse prior to the PVP but began to notice the curvature 6 months after the PVP. PVR 679 which is his justice (was retaining 2-3L prior to surgery) Onset of curvature: 18months Degree of primary curvature: 31-45 degrees Direction of primary curvature:dorsal Degree of secondary curvature:N/A degrees Direction of secondary curvature: NA Known or probable prior injury or buckling event: no Pain with erections previously: yes Pain with erections in the past month: no ED: Partial or insufficient erections partial or insufficient erections PDEI Hinging or bending with erections: no Estimated length lost off erections: 2 cm Prior therapies:none Is the patient able to have intercourse? Y Is the patient circumcised? circumcised Personal history of Dupuytren's contracture or Ledderhose's disease none MEDICATIONS: Current Outpatient Medications Medication Sig Dweedvbv-Ljlo-Bucpux-Hyalur Ac [id number] mg cap Take 2 tablets by mouth once daily. celecoxib (CELEBREX) 200 mg capsule Take 1 capsule by mouth twice daily. cephALEXin (KEFLEX) 500 mg capsule Take 1 capsule by mouth three times daily. (Patient not taking: Reported on 12/26/2021 ) acetaminophen (TYLENOL EXTRA STRENGTH ORAL) Take 1,000 mg by mouth as needed. allopurinol (ZYLOPRIM) 300 mg tablet Take 300 mg by mouth once daily. lisinopril (ZESTRIL, PRINIVIL) 20 mg tablet Take 1 tablet by mouth once daily. traZODone (DESYREL) 100 mg tablet Take 1 tablet by mouth daily at bedtime. metoprolol succinate ER (TOPROL XL) 25 mg 24 hr tablet Take 25 mg by mouth once daily. clonazePAM (KLONOPIN) 2 mg tablet Take 2 mg by mouth twice daily as needed. DULoxetine (CYMBALTA) 30 mg capsule Take 60 mg by mouth once daily. RED YEAST RICE ORAL Take by mouth. melatonin 5 mg tablet Take 5 mg by mouth. multivitamin tablet Take 1 tablet by mouth once daily. No current facility-administered medications for this visit. MEDICATION ALLERGIES: ALLERGIES No Known Allergies PAST MEDICAL HISTORY Diagnosis Date Anxiety BPH (benign prostatic hyperplasia) HTN (hypertension) PAST SURGICAL HISTORY Procedure Laterality Date PAST SURGICAL HISTORY OF 1999 laminectomy; L4-L5, S1 PAST SURGICAL HISTORY OF 1994 right clavicle PAST SURGICAL HISTORY OF 1981 right knee scope PAST SURGICAL HISTORY OF 2010 right hand; knuckle repair of tendon PAST SURGICAL HISTORY OF 2001 right arm biceps tendon repair FAMILY HISTORY: NEGATIVE: No related previous family history. FAMILY HISTORY 1st Degree Relative: none Social History Tobacco Use Smoking status: Never Smoker Smokeless tobacco: Never Used Vaping Use Vaping Use: Never used Substance Use Topics Alcohol use: No Drug use: No REVIEW OF SYSTEMS: Constitutional: negative Eyes: negative Ear Nose and Throat: negative Cardiovascular: negative Respiratory: negative Gastrointestinal: negative Musculoskeletal: negative Integumentary: negative Neurological: negative Psychiatric: negative Endocrine: negative Hematologic/Lymphatic: negative Allergic/Immunologic: negative PHYSICAL EXAM: BP 159/94 (BP Site: Left Arm, BP Position: Sitting, BP Cuff Size: Extra Large Adult) Pulse 97 Ht 190.5 cm (6' 3 ) Wt 108.9 kg (240 lb) BMI 30.00 kg/m GENERAL: WNL nutrition, no deformities, healthy appearing HEAD & NECK: No masses, adenopathy, icterus. Thyroid nonpalpable RESP: Chest clear to auscultation without wheezing, rales, or rhonchi. CV: RRR, no murmurs, rubs or gallops ABDOMEN: Soft, nontender, nondistended, no masses. HERNIAS: None SKIN/LYMPH: No rash, lesions NEURO/PSYCH: No signs of depression, anxiety, or agitation EXTREMITIES: Extremities normal. No deformities, edema, clubbing or skin discoloration. GENITOURINARY: MALE EXAM: No scrotal lesions, cysts, rashes. Epididymis & testes: normal size, position, without masses Urethra & meatus: normal size & position w/o lesion or discharge Penis: circumcised, with 1cm midline dorsal plaque at midshaft, lesions, masses, or deformities. MEDICAL DECISION MAKING: (A1) IMPRESSION: (Diagnostic Possibilities) New or Established 1) Peyronie's disease 2) BPH (A2) PLAN: (Management Options) 1) Will have patient send us picture of his erection to document curvature then schedule for Xiaflex 2) S/p PVP with good effect Elías Giraldo MD Electronically signed STAFF NOTE: I evaluated the patient and personally participated in the nunez components. I agree with the resident's findings and plan as documented and have discussed the case and management of the patient's care with the resident. Epic notes reviewed Following the PVP, patient noted onset of dorsal erectile curvature and an element of erectile dysfunction. Currently the curvature remains dorsal, there is no pain with erection, and he estimates about 35 degrees in severity. Using Viagra 100 mg he is able to achieve adequate erectile rigidity, he was not using Viagra prior to PVP. He is able to have intercourse but it is difficult and the curvature causes problems with penetration and positioning. He reports minimal ejaculation as expected following prostate surgery, orgasm is also not as intense. On examination the penis is circumcised. There is a palpable dorsal tunical plaque at the mid shaft. No skin lesions. UA: + leuk, neg nitrites ASSESSMENT/PLAN: 1. Peyronie's disease - ICD9: 607.85, ICD10: N48.6 (primary diagnosis) 2. Acquired curvature of penis - ICD9: 607.89, ICD10: N48.89 I discussed the natural history and pathophysiology of PD with patient, and went over in detail the treatment options of traction device, Xiaflex injection, tunical plication, and continued observation in terms of advantages and disadvantages, risks and potential benefits. He is in the chronic phase of disease, and will send a photograph so that we can document the degree of curvature. After reviewing the above options, he is most interested in Xiaflex injection and we will start the approval process once the photograph has been reviewed. I discussed the RBAP related to the procedure, outcomes, appropriate expectations. Questions were answered and patient agrees with plan. 3. Other male erectile dysfunction - ICD9: 607.84, ICD10: N52.8 Continue Viagra 100 mg I spent a total of 30 minutes on the date of the service which included preparing to see the patient, face to face patient care, completing clinical documentation, obtaining and/or reviewing separately obtained history, performing a medically appropriate examination, counseling and educating the patient/family/caregiver, ordering medications, tests, or procedures, and care coordination. Signature: Pascual Miller MD Service Date: 02/17/2022 Service Time: 12:47 PM documented in this encounter [facility] 01-30-2022 Miscellaneous Notes Addended by: TAWANNA BROOKS on: 01/30/2022 02:14 PM Modules accepted: Orders documented in this encounter [facility] 01-30-2022 History of Presen t illness Narrative CHIEF COMPLAINT: BPH s/p XPS HPI: 61 y/o male here for follow up for BPH s/p XPS done on 02/24/2020. Previous AUA: 21, QOL: 6, PVR: 889. He had as much as 3L in the past. Previous AUA: 1, QOL: 1, PVR: 631 AUA Symptom Score Incomplete emptyin Frequency: 1 Intermittency: 1 Urgency: 1 Weak Stream: 1 Strainin Nocturia: 1 Total score: 5 Quality of life due to urinary symptoms: pleased QOL: 1 PVR: 584 ml He has hypogonadism. He is on testosterone injection with effect on energy. He has peyronie's disease (last 3rd of the penis) upward (45 degrees) and to the left He has ED. He is on viagra 100mg with some effect. He has a full erection, but soft at the tip. Duration: years Location: Male - prostate Severity: severe Context: voiding Qualilty: severe Timing: constantly Improved by: Worsened by: No Change by: Associated sign & symptoms: see above MEDICAL HISTORY: PAST MEDICAL HISTORY Diagnosis Date Anxiety BPH (benign prostatic hyperplasia) HTN (hypertension) SURGICAL HISTORY: PAST SURGICAL HISTORY Procedure Laterality Date PAST SURGICAL HISTORY OF 1999 laminectomy; L4-L5, S1 PAST SURGICAL HISTORY OF 1994 right clavicle PAST SURGICAL HISTORY OF 1981 right knee scope PAST SURGICAL HISTORY OF 2010 right hand; knuckle repair of tendon PAST SURGICAL HISTORY OF 2001 right arm biceps tendon repair SOCIAL HISTORY: Social History Tobacco Use Smoking status: Never Smoker Smokeless tobacco: Never Used Vaping Use Vaping Use: Never used Substance Use Topics Alcohol use: No Drug use: No MEDS: Current Outpatient Medications Medication Sig Dispense Refill Rwktyyou-Sdex-Jyeqwp-Hyalur Ac [id number] mg cap Take 2 tablets by mouth once daily. acetaminophen (TYLENOL EXTRA STRENGTH ORAL) Take 1,000 mg by mouth as needed. allopurinol (ZYLOPRIM) 300 mg tablet Take 300 mg by mouth once daily. lisinopril (ZESTRIL, PRINIVIL) 20 mg tablet Take 1 tablet by mouth once daily. traZODone (DESYREL) 100 mg tablet Take 1 tablet by mouth daily at bedtime. metoprolol succinate ER (TOPROL XL) 25 mg 24 hr tablet Take 25 mg by mouth once daily. clonazePAM (KLONOPIN) 2 mg tablet Take 2 mg by mouth twice daily as needed. DULoxetine (CYMBALTA) 30 mg capsule Take 60 mg by mouth once daily. RED YEAST RICE ORAL Take by mouth. melatonin 5 mg tablet Take 5 mg by mouth. multivitamin tablet Take 1 tablet by mouth once daily. cephALEXin (KEFLEX) 500 mg capsule Take 1 capsule by mouth three times daily. (Patient not taking: Reported on 12/26/2021 ) 21 capsule 0 No current facility-administered medications for this visit. PHYSICAL EXAM: GENERAL:Wnl nutrition, no deformities, healthy appearing HEAD & NECK: No masses, icterus. RESP: NL effort, no retractions or purse-lip breathing. ABDOMEN: No masses, tenderness, organomegaly. SKIN: No rash or lesions NEURO: A/Ox3 PSYCH: Nl mood, with no signs of depression, anxiety, or agitation. EXTREMITIES: Extremities normal. No deformities, edema GENITOURINARY: MALE EXAM: Epididymes & testes normal size, position, without mass, Urethra & meatus normal size & position w/o lesion or discharge and Penis w/o plaques, lesions, masses, or deformities DATA/OR LABS TO BE REVIEWED: (Simple=1 data point; Complex= 2 or more) PSA (ng/mL) Date Value 10/14/2019 1.56 09/15/2019 0.98 Creatinine (mg/dL) Date Value 12/06/2021 0.89 02/21/2020 0.74 12/07/2019 0.77 09/15/2019 0.71 05/05/2002 0.90 Hematocrit (%) Date Value 12/06/2021 46.1 06/12/2020 38.4 02/21/2020 40.6 Testosterone (ng/dL) Date Value 06/12/2020 191 10/14/2019 1,213 MEDICAL DECISION MAKING: IMPRESSION: (Diagnostic Possibilities) New or Established 1) BPH 2) LUTS 3) Peyronie's disease 4) ED PLAN: (Management Options) Discuss options I have personally performed a face to face diagnostic evaluation on this patient. I have reviewed and agree with the care plan. My findings are as follows. History and Exam by me shows: 61 year old male with a history of BPH post xps, now voiding well. Most bothered by his Peyronies Dz. Exam demonstrates I felt no plaque of penis 30g prostate non tender no nodules. Plan: BPH: still with 580cc pvr (but this is his justice level) pt of ISC and does want to restart check PSA and BMP Refer to Dr Miller for Peyronies Dx f/u in 1year Tawanna Brooks MD documented in this encounter [facility] 01-17-2022 History of Presen t illness Narrative FOLLOW UP PODIATRIC OFFICE VISIT Chief Complaint: This 61 year old who presents for follow up:right hallux ipj arthroplasty Patient presents to clinic for follow-up right hallux ipj arthroplasty. Patient has returned to regular shoe. He has no recurrent ulceration. He feels great and is happy with outcome from procedure. PAIN EVALUATION No data found in the last 1 encounters. No results found for: HBA1C PCP: Shazia Mendez MD PAST MEDICAL HISTORY Diagnosis Date Anxiety BPH (benign prostatic hyperplasia) HTN (hypertension) Current Outpatient Medications Medication Sig acetaminophen (TYLENOL EXTRA STRENGTH ORAL) Take 1,000 mg by mouth as needed. allopurinol (ZYLOPRIM) 300 mg tablet Take 300 mg by mouth once daily. lisinopril (ZESTRIL, PRINIVIL) 20 mg tablet Take 1 tablet by mouth once daily. traZODone (DESYREL) 100 mg tablet Take 1 tablet by mouth daily at bedtime. metoprolol succinate ER (TOPROL XL) 25 mg 24 hr tablet Take 25 mg by mouth once daily. clonazePAM (KLONOPIN) 2 mg tablet Take 2 mg by mouth twice daily as needed. DULoxetine (CYMBALTA) 30 mg capsule Take 60 mg by mouth once daily. RED YEAST RICE ORAL Take by mouth. melatonin 5 mg tablet Take 5 mg by mouth. multivitamin tablet Take 1 tablet by mouth once daily. cephALEXin (KEFLEX) 500 mg capsule Take 1 capsule by mouth three times daily. (Patient not taking: Reported on 12/26/2021 ) No current facility-administered medications for this visit. ALLERGIES No Known Allergies PAST SURGICAL HISTORY Procedure Laterality Date PAST SURGICAL HISTORY OF 1999 laminectomy; L4-L5, S1 PAST SURGICAL HISTORY OF 1994 right clavicle PAST SURGICAL HISTORY OF 1981 right knee scope PAST SURGICAL HISTORY OF 2010 right hand; 1st knuckle repair of tendon PAST SURGICAL HISTORY OF 2001 right arm biceps tendon repair Physical Exam: OBJECTIVE: Constitutional: Pt is a well developed 61 year old male who is alert, oriented, cooperative and in no apparent distress. Eyes: Following during examination. No redness or drainage. Respiratory: RR normal and nonlabored. Even breathing. No evidence of distress. Psychology: Patient is engaged during conversation. Normal affect and mood. Does not appear depressed or anxious. NVSI unchanged from previous visit. Dermatological: Surgical incision to right hallux remains healed. Prior blistering is now healed to right hallux. Ulceration of right hallux remains healed. No signs of infection Subtle ingrowing toenail of right hallux. No signs of infection. Musculoskeletal/Orthopaedic: Patient has no pain to palpation of right foot. 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 Ulceration remains healed s/p arthroplasty. Prior blister and incision is healed. Patient has returned to regular shoe without issues. Patient is very happy with outcome. I will have him continue with inserts. F/u in 6 weeks. He does have tendency to develop ingrown toenails. Very small noninfected ingrown noted.. In order to perform a complete physical exam, one nail slant back was performed. This incidental service is integral to the evaluation and management visit in order to appropriately manage and treat the patient (for their complaint or for this visit). F/u in 6 weeks Edmond Rojas DPM documented in this encounter [facility] 01-06-2022 History of Presen t illness Narrative Follow up podiatric office visit for: Chief Complaint: This 61 year old is contacted via phone for follow-up right hallux ipj arthroplasty. Patient is contacted via phone for follow-up right hallux ipj arthroplasty. He did send me pictures of his foot which demonstrates healing of plantar foot ulceration and incision remains healed to right hallux. He has blister of right hallux that is essentially healed. He has no pain. He is doing very well. He actually has returned to regular sneakers and has returned to the gym. He denies n/v/f/c. PAIN EVALUATION No data found in the last 1 encounters. No results found for: HBA1C PCP: Shazia Mendez MD PAST MEDICAL HISTORY Diagnosis Date Anxiety BPH (benign prostatic hyperplasia) HTN (hypertension) Current Outpatient Medications Medication Sig cephALEXin (KEFLEX) 500 mg capsule Take 1 capsule by mouth three times daily. (Patient not taking: Reported on 12/26/2021 ) acetaminophen (TYLENOL EXTRA STRENGTH ORAL) Take 1,000 mg by mouth as needed. allopurinol (ZYLOPRIM) 300 mg tablet Take 300 mg by mouth once daily. lisinopril (ZESTRIL, PRINIVIL) 20 mg tablet Take 1 tablet by mouth once daily. traZODone (DESYREL) 100 mg tablet Take 1 tablet by mouth daily at bedtime. metoprolol succinate ER (TOPROL XL) 25 mg 24 hr tablet Take 25 mg by mouth once daily. clonazePAM (KLONOPIN) 2 mg tablet Take 2 mg by mouth twice daily as needed. DULoxetine (CYMBALTA) 30 mg capsule Take 60 mg by mouth once daily. RED YEAST RICE ORAL Take by mouth. melatonin 5 mg tablet Take 5 mg by mouth. multivitamin tablet Take 1 tablet by mouth once daily. No current facility-administered medications for this visit. ALLERGIES No Known Allergies PAST SURGICAL HISTORY Procedure Laterality Date PAST SURGICAL HISTORY OF 1999 laminectomy; L4-L5, S1 PAST SURGICAL HISTORY OF 1994 right clavicle PAST SURGICAL HISTORY OF 1981 right knee scope PAST SURGICAL HISTORY OF 2010 right hand; knuckle repair of tendon PAST SURGICAL HISTORY OF 2001 right arm biceps tendon repair Physical Exam: Constitutional: Pt is a well developed 61 year old male who is alert, oriented, cooperative and in no apparent distress. OBJECTIVE: NVSI unchanged from previous visit. Dermatological: Ulceration of right hallux remains healed to right hallux. Skin incision to right hallux remains healed. Blister of right hallux is essentially healed. Wound culture shows no growth. ASSESSMENT: (Z98.890) Post-operative state (primary encounter diagnosis) (L97.512) Neuropathic ulcer of toe, right, with fat layer exposed (HCC) PLAN: Patient ulceration remains healed following right hallux ipj arthroplasty. His incision is healed. The blister he developed as a result to increased activity is now healed. As long as his wounds are healed and remain healed, he is ok to return to his wider sneaker and use inserts that were recently modified. Patient is very happy with outcome. I would like to see patient in 2-3 weeks or sooner if problems arise. He is ok to return to work next week provided he remain healed. Edmond Rojas DPM documented in this encounter [facility] 12-26-2021 History of Presen t illness Narrative DOS: 12/13/21 POD: 13 POV: 2 Surgical side: right This 61 year old presents post op right hallux ipj arthroplasty Pain level: 0/10 Vomiting, fever, chills, shortness of breath: n/a Pain Control: n/a Weightbearing status: Full weightbearing. Patient presents wearing his sneakers. He reports to returning to the gym on Thursday and used the bike for 30 minutes and lifted x 30 minutes Objective: Incision site is now healed without evidence of dehiscence. There is blistering to the dorsal aspect of right hallux just distal to incision. No deep wounds or drainage. Slight erythema is noted. No drainage. No lymphadenopathy. No lymphangitis. No surrounding cellulitis. Small eschar to plantar aspect of right hallux ipj but upon debridement, the ulceration is now healed. Patient has no pain to palpation of right calf. Negative Yeung's test. Assessment: (Z98.890) Post-operative state (primary encounter diagnosis) (M20.21) Hallux rigidus, right foot Plan: Patient was examined and informed of current findings. He is 13 days s/p hallux ipj arthroplasty. On exam, his plantar hallux ulceration is now healed. Even with his activity, the ulceration is now healed so this is optimistic that he should remain free of ulceration going forward. He does have considerable swelling of dorsal hallux. His incision is now healed however, he has blister just distal. I did culture this and I want him to stay on antibiotic. I am going to get xray as precaution but I suspect the blistering is due to his activity level. I want him to keep his foot elevated and I want him to refrain from the biking/gym until his blister is healed. He is to use the surgial shoe until healed. I want him to keep his toe clean and dry until healed. He will remain off work until his toe is healed. Follow-up in 1 week Orthotics ordered Edmond Rojas DPM Patient presents with: Right Great Toe - Post Op, Amputation Patient is 14 days surgery. documented in this encounter [facility] 12-26-2021 Instructions Edmond Rojas - 12/26/2021 8:34 AM EDT Apply neosporin to blister of right great toe. Can apply iodine to former incision. Only apply if you notice the incision or toe is white (macerated) Wear surgical shoe to prevent rubbing Follow-up in one week and I suspect the toe will then be healed and you will likely be able to return to work. documented in this encounter [facility] 12-13-2021 Note HNO ID: [id number] Author: RT Meagan(R) Service: Radiology Author Type: Technologist Type: Progress Notes Filed: 12/13/2021 12:45 PM Note Text: Radiology Service Progress Note PATIENT NAME: Elías Collado DATE OF SERVICE: December 13, 2021 TIME: 12:45 PM PATIENT IDENTITY VERIFICATION COMPLETED USING TWO (2) IDENTIFIERS: Name and Date of confirmed by patient verbally. FALL SCREENING: Has the patient had 2 falls in the last year or 1 fall with injury or currently using an Ambulatory Assistive Device (Walker, Cane, Wheelchair, Crutches, etc.)? No PATIENT GENDER DATA: Male PATIENT RELEVANT IMPLANT DATA REVIEWED: Not Applicable RADIOLOGY DEPARTMENT: General X-ray: Exam(s) Completed: Lower Extremity X-Ray(s): Foot, Right PERIPHERAL IV DATA: Not applicable SIGNED BY: RT Meagan(R) December 13, 2021 12:45 PM [facility] 12-13-2021 Note HNO ID: [id number] Author: Jasmyn Gaviria APRN.SOCIAL PSYCHOLOGIST Service: Anesthesiology Author Type: Nurse Manager Order Type: Anesthesia Procedure Notes Filed: 12/13/2021 10:08 AM Note Text: ANESTHESIOLOGY PROCEDURE NOTE Airway General Information Procedure Start Time/Medication Administration: 12/13/2021 9:24 AM Patient location during procedure: OR Timeout Performed Pre-procedure: timeout performed Consent Obtained: Yes Patient identity confirmed: arm band and patient Indications and Patient Condition Preoxygenated: yes Patient position: sniffing Manual In-Line Stabilization: No Indications for airway management: anesthesia anesthesia circuit Method: asleep Cricoid Pressure: No Final Airway Details Final airway type: supraglottic airway Number of attempts at approach: 1 Ventilation between attempts: none Final Supraglottic Airway: i-gel Size 4 Seal Adequate: yes Failed airway: no Unrecognized esophageal intubation: no Airway not difficult SIGNATURE: Jasmyn Gaviria APRN.CRNA PATIENT NAME: Elías Collado DATE: December 13, 2021 TIME: 10:08 AM CSN: [id number] [facility] 12-13-2021 Note HNO ID: [id number] Author: Omar Caal DPM Service: Vascular Surgery Author Type: Resident Type: Progress Notes Filed: 12/13/2021 9:12 AM Note Text: Attestation signed by Edmond Rojas at 12/13/2021 11:21 PM I was present and personally evaluated this patient Edmond Rojas DPM PODIATRIC PRE-OPERATIVE NOTE SERVICE DATE: 12/13/2021 SERVICE TIME: 9:10 AM DIAGNOSIS: Neuropathic ulcer of hallux, right foot PROCEDURE(S): Right hallux IPJ arthroplasty Consent on chart: Yes LABS: CBC: WBC 8.25 12/06/2021 Hemoglobin 16.2 12/06/2021 Hematocrit 46.1 12/06/2021 Platelet Count 268 12/06/2021 CMP: Sodium 133 12/06/2021 Potassium 4.3 12/10/2021 BUN 13 12/06/2021 Creatinine 0.89 12/06/2021 Glucose 108 12/06/2021 COAGS: APTT 25.4 02/21/2020 PT INR 0.9 02/21/2020 URINALYSIS: Ketones, Urine Negative 02/21/2020 Nitrites Negative 02/21/2020 Specific [place], Ur 1.010 02/21/2020 Protein, Urine Negative 02/21/2020 Leukest 3+ 02/21/2020 WBC, Urine neg 06/07/2020 Type AND screen: Yes Medical Clearance: Yes CXR/EKG: N/A Medications/Preop Antibiotics: Ancef ALLERGIES No Known Allergies Surgical site identified: Yes NPO: Yes IV Fluids: Yes Risks and benefits, complications, treatment options, expected outcome and rehabilitation explained, patient understands. All questions were entertained and answered. Patient wishes to proceed with above procedure(s). SIGNATURE: Omar Caal DPM PATIENT NAME: Elías Collado DATE: December 13, 2021 TIME: 9:10 AM PAGER: [facility] Diagnosis Post-operative state- Primary Other postprocedural status Neuropathic ulcer of toe, right, with fat layer exposed (HCC) [facility] Diagnosis Post-operative state- Primary Other postprocedural status Neuropathic ulcer of toe, right, with fat layer exposed (HCC) [facility] Diagnosis Benign prostatic hyperplasia with urinary retention- Primary Screening for genitourinary condition Screening for other and unspecified genitourinary condition Nocturia Urinary frequency Increasing residual urine Other specified retention of urine Peyronie's disease [facility] Diagnosis Peyronie's disease- Primary Acquired curvature of penis Other specified disorder of penis Other male erectile dysfunction [facility] Diagnosis Screening for genitourinary condition Screening for other and unspecified genitourinary condition [facility] Diagnosis Neuropathic ulcer of toe, right, with fat layer exposed (HCC)- Primary Neuropathy Mononeuritis of unspecified site Ingrowing toenail Ingrowing nail Venous insufficiency Unspecified venous (peripheral) insufficiency [facility] Diagnosis Pain in right foot- Primary Pain in limb [facility] Diagnosis Charcot's joint of right foot- Primary [facility] Diagnosis Charcot's joint of right foot- Primary Swelling of limb [facility] Diagnosis Charcot's joint of right foot- Primary Swelling of limb Venous insufficiency Unspecified venous (peripheral) insufficiency [facility] Diagnosis Charcot's joint of right foot [facility] Diagnosis Charcot's joint of right foot Swelling of limb [facility] Diagnosis Charcot's joint of right foot- Primary Neuropathy Mononeuritis of unspecified site Venous insufficiency Unspecified venous (peripheral) insufficiency [facility] Diagnosis Peyronie's disease- Primary Acquired curvature of penis Other specified disorder of penis [facility] Diagnosis Peyronie's disease- Primary Acquired curvature of penis Other specified disorder of penis [facility] Diagnosis Screening for genitourinary condition Screening for other and unspecified genitourinary condition [facility] Diagnosis Varicose veins of bilateral lower extremities with pain- Primary [facility] Diagnosis Charcot's joint of right foot- Primary [facility] Diagnosis Charcot's joint of right foot [facility] Diagnosis Charcot's joint of right foot- Primary Neuropathy Mononeuritis of unspecified site Venous insufficiency Unspecified venous (peripheral) insufficiency [facility] Diagnosis Other male erectile dysfunction- Primary Peyronie's disease Acquired curvature of penis Other specified disorder of penis Pyuria Other nonspecific finding on examination of urine [facility] Diagnosis Screening for genitourinary condition Screening for other and unspecified genitourinary condition [facility]* Diagnosis Pre-operative examination- Primary Preoperative examination, unspecified Mixed hyperlipidemia Insomnia, unspecified type Gout, unspecified cause, unspecified chronicity, unspecified site Essential hypertension, benign Anxiety Anxiety state, unspecified Benign prostatic hyperplasia with urinary retention Class 1 obesity due to excess calories with serious comorbidity and body mass index (BMI) of 31.0 to 31.9 in adult Peyronie's disease documented in this encounter [facility] note* Diagnosis Other male erectile dysfunction- Primary Peyronie's disease Acquired curvature of penis Other specified disorder of penis documented in this encounter [facility] note* Diagnosis Venous insufficiency- Primary Unspecified venous (peripheral) insufficiency documented in this encounter [facility] note* Diagnosis Screening for genitourinary condition Screening for other and unspecified genitourinary condition documented in this encounter [facility] note* Diagnosis Suspected UTI- Primary documented in this encounter [facility] note* Diagnosis BPH with urinary obstruction- Primary Hypertrophy of prostate with urinary obstruction and other lower urinary tract symptoms (LUTS) documented in this encounter [facility] note* Diagnosis Neuropathy- Primary Mononeuritis of unspecified site documented in this encounter [facility] note* Diagnosis Benign prostatic hyperplasia with urinary retention- Primary Screening for genitourinary condition Screening for other and unspecified genitourinary condition Urinary frequency Weak urinary stream Slowing of urinary stream Urinary urgency Urgency of urination Other post-procedural erectile dysfunction Ejaculatory disorder Other specified disorder of male genital organs documented in this encounter [facility] note* Diagnosis Erectile dysfunction, unspecified erectile dysfunction type- Primary documented in this encounter [facility] note* Diagnosis Acute cystitis without hematuria- Primary Acute cystitis documented in this encounter [facility] note* Diagnosis Benign prostatic hyperplasia with urinary retention- Primary Erectile dysfunction, unspecified erectile dysfunction type Urinary tract infection associated with catheterization of urinary tract, unspecified indwelling urinary catheter type, subsequent encounter Hypotonic neurogenic bladder Neurogenic bladder, NOS BNO (bladder neck obstruction) Bladder neck obstruction documented in this encounter [facility] note* Diagnosis Malfunction of penile prosthesis, subsequent encounter- Primary documented in this encounter [facility] for referral (narrative)* Diagnostic Procedure Only (Routine) - Closed Specialty Diagnoses / Procedures Referred By Contac t Referred To Contact XR IMAGING Diagnoses Post-operative state Procedures XR FOOT GENERAL 3V AP/LAT/OBL RIGHT RADEX FOOT COMPLETE MINIMUM 3 VIEWS Edmond Rojas[address] [place] [address] Xr Imaging Referral ID Status Reason Start Date Expiration Date V isits Requested Visits Authorized [id number] Closed Auto-Generate d Referral 12/26/2021 01/25/2023 1 1 T [facility] for referral (narrative)* Diagnostic Procedure Only (Routine) - Closed Specialty Diagnoses / Procedures Referred By Contac t Referred To Contact XR IMAGING Diagnoses Neuropathic ulcer of toe, right, with fat layer exposed (HCC) Neuropathy Procedures XR FOOT GENERAL 3V AP/LAT/OBL RIGHT RADEX FOOT COMPLETE MINIMUM 3 VIEWS Edmond Rojas[address] [place] [address] Xr Imaging Referral ID Status Reason Start Date Expiration Date V isits Requested Visits Authorized [id number] Closed Auto-Generate d Referral 02/21/2022 03/23/2023 1 1 [facility] for referral (narrative)* Diagnostic Procedure Only (Routine) - Pending Review Specialty Diagnoses / Procedures Referred By Contac t Referred To Contact XR IMAGING Diagnoses Pain in right foot Procedures XR FOOT GENERAL 3V AP/LAT/OBL RIGHT RADEX FOOT COMPLETE MINIMUM 3 VIEWS Edmond [place] [place] [address] Xr Imaging Referral ID Status Reason Start Date Expiration Date Visits Requested Visits Authorized [id number] Pending Review Auto-Generat ed Referral 03/07/2022 04/06/2023 1 1 [facility] for referral (narrative)* Diagnostic Procedure Only (Routine) - Pending Review Specialty Diagnoses / Procedures Referred By Contac t Referred To Contact XR IMAGING Diagnoses Charcot's joint of right foot Procedures XR FOOT GENERAL 3V AP/LAT/OBL RIGHT RADEX FOOT COMPLETE MINIMUM 3 [address] Ed[address] [place] [place] [address] Xr Imaging Referral ID Status Reason Start Date Expiration Date Visits Requested Visits Authorized [id number] Pending Review Auto-Generat ed Referral 03/13/2022 04/12/2023 1 1 [facility] for referral (narrative)* Outpatient Procedure (Routine) - Pending Review Specialty Diagnoses / Procedures Referred By Contac t Referred To Contact [facility] Diagnoses Charcot's joint of right foot Swelling of limb Procedures US VENOUS INCOMPETENCY ANASTASIA VAS LAB DUP-SCAN XTR VEINS COMPLETE BILATERAL STUDY Edmond Rojas[address] [place] [address] [facility] [place] [address] [place] [address] Referral ID Status Reason Start Date Expiration Date Visits Requested Visits Authorized [id number] Pending Review Auto-Generat ed Referral 03/20/2022 03/20/2023 1 1 T [facility] for referral (narrative)* Diagnostic Procedure Only (Routine) - Pending Review Specialty Diagnoses / Procedures Referred By Contac t Referred To Contact XR IMAGING Diagnoses Charcot's joint of right foot Swelling of limb Procedures XR FOOT GENERAL 3V AP/LAT/OBL RIGHT RADEX FOOT COMPLETE MINIMUM 3 VIEWS Edmond Rojas [address] [place] [address] Xr Imaging Referral ID Status Reason Start Date Expiration Date Visits Requested Visits Authorized [id number] Pending Review Auto-Generat ed Referral 03/28/2022 04/27/2023 1 1 [facility] for referral (narrative)* Diagnostic Procedure Only (Routine) - Closed Specialty Diagnoses / Procedures Referred By Contac t Referred To Contact XR IMAGING Diagnoses Charcot's joint of right foot Procedures XR FOOT GENERAL 3V AP/LAT/OBL RIGHT RADEX FOOT COMPLETE MINIMUM 3 VIEWS Edmond Rojas [address] [place] [address] Xr Imaging Referral ID Status Reason Start Date Expiration Date V isits Requested Visits Authorized [id number] Closed Auto-Generate d Referral 03/13/2022 04/12/2023 1 1 [facility] for referral (narrative)* Diagnostic Procedure Only (Routine) - Closed Specialty Diagnoses / Procedures Referred By Contac t Referred To Contact XR IMAGING Diagnoses Charcot's joint of right foot Swelling of limb Procedures XR FOOT GENERAL 3V AP/LAT/OBL RIGHT RADEX FOOT COMPLETE MINIMUM 3 VIEWS Edmond Rojas [address] [place] [address] Xr Imaging Referral ID Status Reason Start Date Expiration Date V isits Requested Visits Authorized [id number] Closed Auto-Generate d Referral 03/28/2022 04/27/2023 1 1 [facility] for referral (narrative)* Diagnostic Procedure Only (Routine) - Pending Review Specialty Diagnoses / Procedures Referred By Contac t Referred To Contact XR IMAGING Diagnoses Charcot's joint of right foot Procedures XR FOOT GENERAL 3V AP/LAT/OBL RIGHT RADEX FOOT COMPLETE MINIMUM 3 VIEWS Edmond Rojas[address] [place] [address] Xr Imaging Referral ID Status Reason Start Date Expiration Date Visits Requested Visits Authorized [id number] Pending Review Auto-Generat ed Referral 06/27/2022 07/27/2023 1 1 T [facility] for referral (narrative)* Diagnostic Procedure Only (Routine) - Closed Specialty Diagnoses / Procedures Referred By Contac t Referred To Contact XR IMAGING Diagnoses Charcot's joint of right foot Procedures XR FOOT GENERAL 3V AP/LAT/OBL RIGHT RADEX FOOT COMPLETE MINIMUM 3 VIEWS Edmond Rojas [address] [place] [address] Xr Imaging Referral ID Status Reason Start Date Expiration Date V isits Requested Visits Authorized [id number] Closed Auto-Generate d Referral 06/27/2022 07/27/2023 1 1 [facility] for visit Narrative* Diagnostic Procedure Only (Routine) - Closed Specialty Diagnoses / Procedures Referred By Contac t Referred To Contact XR IMAGING Diagnoses Charcot's joint of right foot Procedures XR FOOT GENERAL 3V AP/LAT/OBL RIGHT RADEX FOOT COMPLETE MINIMUM 3 VIEWS Edmond Rojas[address] [place] [address] Xr Imaging Referral ID Status Reason Start Date Expiration Date V isits Requested Visits Authorized [id number] Closed Auto-Generate d Referral 03/13/2022 04/12/2023 1 1 [facility] for visit Narrative* Diagnostic Procedure Only (Routine) - Closed Specialty Diagnoses / Procedures Referred By Contac t Referred To Contact XR IMAGING Diagnoses Charcot's joint of right foot Swelling of limb Procedures XR FOOT GENERAL 3V AP/LAT/OBL RIGHT RADEX FOOT COMPLETE MINIMUM 3 VIEWS Edmond Rojas[address] [place] [address] Xr Imaging Referral ID Status Reason Start Date Expiration Date V isits Requested Visits Authorized [id number] Closed Auto-Generate d Referral 03/28/2022 04/27/2023 1 1 [facility] for visit Narrative* Diagnostic Procedure Only (Routine) - Closed Specialty Diagnoses / Procedures Referred By Contac t Referred To Contact XR IMAGING Diagnoses Charcot's joint of right foot Procedures XR FOOT GENERAL 3V AP/LAT/OBL RIGHT RADEX FOOT COMPLETE MINIMUM 3 VIEWS Edmond Rojas [address] [place] [address] Xr Imaging Referral ID Status Reason Start Date Expiration Date V isits Requested Visits Authorized [id number] Closed Auto-Generate d Referral 06/27/2022 07/27/2023 1 1 [facility] Summary Purpose Family History No Family History Records FoundNo Family History Records FoundNo Family History Records Found Advance Directives No Advanced Directives Records FoundDocuments on File Type Date Recorded 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 Advance Directive(s) 12/13/2021 7:23 AM Advance Directive(s) 12/02/2021 11:37 AM Advance Directive(s) 02/24/2020 5:20 AM Advance Directive(s) 12/07/2019 12:56 PM Advance Directive(s) 12/05/2019 12:26 PM Documents on File Type Date Recorded 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 Advance Directive(s) 12/13/2021 7:23 AM Advance Directive(s) 12/02/2021 11:37 AM Advance Directive(s) 02/24/2020 5:20 AM Advance Directive(s) 12/07/2019 12:56 PM Advance Directive(s) 12/05/2019 12:26 PM Medications Administered Section Inactive Administered Medications - up to 3 most recent administrations Medication Order MAR Action Action Date Dose Rate Site collagenase clostridium histolyticum 0.58 mg injection (XIAFLEX) 0.58 mg, INJECTION(UNSPECIFIED PARENTERAL ROUTES), ONCE (UP TO 30 DAYS AMB), 1 dose, On Thu04/28/22 at 1730 Given 04/28/2022 5:00 PM EDT 0.58 mg Oth er Inactive Administered Medications - up to 3 most recent administrations Medication Order MAR Action Action Date Dose Rate Site collagenase clostridium histolyticum 0.58 mg injection (XIAFLEX) 0.58 mg, INJECTION(UNSPECIFIED PARENTERAL ROUTES), ONCE (UP TO 30 DAYS AMB), 1 dose, On Thu04/30/22 at 2030 Given 04/30/2022 4:50 PM EDT 0.58 mg Oth er Inactive Administered Medications - up to 3 most recent administrations Medication Order MAR Action Action Date Dose Rate Site lidocaine urojet 2 % 10 mL topical gel (GLYDO) 10 mL, URETHRAL, ONCE, 1 dose, On Thu03/23/23 at 1100, APPLY PRIOR TO PROCEDURE DIRECTED Given 03/23/2023 11:03 AM EDT 10 mL Reason for Referral Specialty Diagnoses / Procedures Referred By Rodo chowdhury Referred To Contact Vascular Surgery Diagnoses Venous insufficiency Procedures CONSULT TO VASCULAR SURGERY OFFICE/OUTPATIENT [facility] 60-74 MINUTES Concepcion Hernandez DPM [address] [place] [address] Referral ID Status Reason Start Date Expiration Date V isits Requested Visits Authorized [id number] Closed PCP Requested Referral 04/09/2022 07/08/2022 1 1 Referral ID Status Reason Start Date Expiration Date V isits Requested Visits Authorized [id number] Closed PCP Requested Referral 04/09/2022 07/08/2022 1 1 Specialty Diagnoses / Procedures Referred By Contac t Referred To Contact Psychology Diagnoses Erectile dysfunction, unspecified erectile dysfunction type Procedures CONSULT TO PSYCHOLOGY OFFICE/OUTPATIENT [facility] 60-74 MINUTES Cami Yusuf MD [address] [place] [address] Referral ID Status Reason Start Date Expiration Date Visits Requested Visits Authorized [id number] Pending Review PCP Requested Referral 02/09/2023 02/09/2024 1 1 Additional Source Comments (unrecognized sect ion and content) No Status Records FoundNo Status Records FoundNo Status Records Found INFORMATION SOURCE (unrecogn ized section and content) DATE CREATED AUTHOR AUTHOR'S ORGANIZ ATION 12/20/2021 [facility] DATE CREATED AUTHOR AUTHOR'S ORGANIZ ATION 05/01/2023 [facility] Source Comments (unrecognize d section and content) In the event this informatio n is protected by the Federal Confidentiality of Alcohol and Drug Abuse Patient Records regulations: The Federal rules restrict any use of the information to criminally investigate or prosecute any alcohol or drug abuse patient.[facility] the event this information is protected by the Federal Confidentiality of Alcohol and Drug Abuse Patient Records regulations: The Federal rules restrict any use of the information to criminally investigate or prosecute any alcohol or drug abuse patient.[facility] the event this information is protected by the Federal Confidentiality of Alcohol and Drug Abuse Patient Records regulations: The Federal rules restrict any use of the information to criminally investigate or prosecute any alcohol or drug abuse patient.[facility] the event this information is protected by the Federal Confidentiality of Alcohol and Drug Abuse Patient Records regulations: The Federal rules restrict any use of the information to criminally investigate or prosecute any alcohol or drug abuse patient.[facility] the event this information is protected by the Federal Confidentiality of Alcohol and Drug Abuse Patient Records regulations: The Federal rules restrict any use of the information to criminally investigate or prosecute any alcohol or drug abuse patient.[facility] the event this information is protected by the Federal Confidentiality of Alcohol and Drug Abuse Patient Records regulations: The Federal rules restrict any use of the information to criminally investigate or prosecute any alcohol or drug abuse patient.[facility] the event this information is protected by the Federal Confidentiality of Alcohol and Drug Abuse Patient Records regulations: The Federal rules restrict any use of the information to criminally investigate or prosecute any alcohol or drug abuse patient.[facility] the event this information is protected by the Federal Confidentiality of Alcohol and Drug Abuse Patient Records regulations: The Federal rules restrict any use of the information to criminally investigate or prosecute any alcohol or drug abuse patient.[facility] the event this information is protected by the Federal Confidentiality of Alcohol and Drug Abuse Patient Records regulations: The Federal rules restrict any use of the information to criminally investigate or prosecute any alcohol or drug abuse patient.[facility] the event this information is protected by the Federal Confidentiality of Alcohol and Drug Abuse Patient Records regulations: The Federal rules restrict any use of the information to criminally investigate or prosecute any alcohol or drug abuse patient.[facility] the event this information is protected by the Federal Confidentiality of Alcohol and Drug Abuse Patient Records regulations: The Federal rules restrict any use of the information to criminally investigate or prosecute any alcohol or drug abuse patient.[facility] the event this information is protected by the Federal Confidentiality of Alcohol and Drug Abuse Patient Records regulations: The Federal rules restrict any use of the information to criminally investigate or prosecute any alcohol or drug abuse patient.[facility] the event this information is protected by the Federal Confidentiality of Alcohol and Drug Abuse Patient Records regulations: The Federal rules restrict any use of the information to criminally investigate or prosecute any alcohol or drug abuse patient.[facility] HospitalIn the event this information is protected by the Federal Confidentiality of Alcohol and Drug Abuse Patient Records regulations: The Federal rules restrict any use of the information to criminally investigate or prosecute any alcohol or drug abuse patient.[facility] HospitalIn the event this information is protected by the Federal Confidentiality of Alcohol and Drug Abuse Patient Records regulations: The Federal rules restrict any use of the information to criminally investigate or prosecute any alcohol or drug abuse patient.[facility] HospitalIn the event this information is protected by the Federal Confidentiality of Alcohol and Drug Abuse Patient Records regulations: The Federal rules restrict any use of the information to criminally investigate or prosecute any alcohol or drug abuse patient.[facility] HospitalIn the event this information is protected by the Federal Confidentiality of Alcohol and Drug Abuse Patient Records regulations: The Federal rules restrict any use of the information to criminally investigate or prosecute any alcohol or drug abuse patient.[facility] HospitalIn the event this information is protected by the Federal Confidentiality of Alcohol and Drug Abuse Patient Records regulations: The Federal rules restrict any use of the information to criminally investigate or prosecute any alcohol or drug abuse patient.[facility] HospitalIn the event this information is protected by the Federal Confidentiality of Alcohol and Drug Abuse Patient Records regulations: The Federal rules restrict any use of the information to criminally investigate or prosecute any alcohol or drug abuse patient.[facility] HospitalIn the event this information is protected by the Federal Confidentiality of Alcohol and Drug Abuse Patient Records regulations: The Federal rules restrict any use of the information to criminally investigate or prosecute any alcohol or drug abuse patient.[facility] HospitalIn the event this information is protected by the Federal Confidentiality of Alcohol and Drug Abuse Patient Records regulations: The Federal rules restrict any use of the information to criminally investigate or prosecute any alcohol or drug abuse patient.[facility] HospitalIn the event this information is protected by the Federal Confidentiality of Alcohol and Drug Abuse Patient Records regulations: The Federal rules restrict any use of the information to criminally investigate or prosecute any alcohol or drug abuse patient.[facility] HospitalIn the event this information is protected by the Federal Confidentiality of Alcohol and Drug Abuse Patient Records regulations: The Federal rules restrict any use of the information to criminally investigate or prosecute any alcohol or drug abuse patient.[facility] HospitalIn the event this information is protected by the Federal Confidentiality of Alcohol and Drug Abuse Patient Records regulations: The Federal rules restrict any use of the information to criminally investigate or prosecute any alcohol or drug abuse patient.[facility] HospitalIn the event this information is protected by the Federal Confidentiality of Alcohol and Drug Abuse Patient Records regulations: The Federal rules restrict any use of the information to criminally investigate or prosecute any alcohol or drug abuse patient.[facility] HospitalIn the event this information is protected by the Federal Confidentiality of Alcohol and Drug Abuse Patient Records regulations: The Federal rules restrict any use of the information to criminally investigate or prosecute any alcohol or drug abuse patient.[facility] HospitalIn the event this information is protected by the Federal Confidentiality of Alcohol and Drug Abuse Patient Records regulations: The Federal rules restrict any use of the information to criminally investigate or prosecute any alcohol or drug abuse patient.[facility] HospitalIn the event this information is protected by the Federal Confidentiality of Alcohol and Drug Abuse Patient Records regulations: The Federal rules restrict any use of the information to criminally investigate or prosecute any alcohol or drug abuse patient.[facility] HospitalIn the event this information is protected by the Federal Confidentiality of Alcohol and Drug Abuse Patient Records regulations: The Federal rules restrict any use of the information to criminally investigate or prosecute any alcohol or drug abuse patient.[facility] HospitalIn the event this information is protected by the Federal Confidentiality of Alcohol and Drug Abuse Patient Records regulations: The Federal rules restrict any use of the information to criminally investigate or prosecute any alcohol or drug abuse patient.[facility] HospitalIn the event this information is protected by the Federal Confidentiality of Alcohol and Drug Abuse Patient Records regulations: The Federal rules restrict any use of the information to criminally investigate or prosecute any alcohol or drug abuse patient.[facility] HospitalIn the event this information is protected by the Federal Confidentiality of Alcohol and Drug Abuse Patient Records regulations: The Federal rules restrict any use of the information to criminally investigate or prosecute any alcohol or drug abuse patient.[facility] HospitalIn the event this information is protected by the Federal Confidentiality of Alcohol and Drug Abuse Patient Records regulations: The Federal rules restrict any use of the information to criminally investigate or prosecute any alcohol or drug abuse patient.[facility] HospitalIn the event this information is protected by the Federal Confidentiality of Alcohol and Drug Abuse Patient Records regulations: The Federal rules restrict any use of the information to criminally investigate or prosecute any alcohol or drug abuse patient.[facility] HospitalIn the event this information is protected by the Federal Confidentiality of Alcohol and Drug Abuse Patient Records regulations: The Federal rules restrict any use of the information to criminally investigate or prosecute any alcohol or drug abuse patient.[facility] HospitalIn the event this information is protected by the Federal Confidentiality of Alcohol and Drug Abuse Patient Records regulations: The Federal rules restrict any use of the information to criminally investigate or prosecute any alcohol or drug abuse patient.[facility] HospitalIn the event this information is protected by the Federal Confidentiality of Alcohol and Drug Abuse Patient Records regulations: The Federal rules restrict any use of the information to criminally investigate or prosecute any alcohol or drug abuse patient.[facility] HospitalIn the event this information is protected by the Federal Confidentiality of Alcohol and Drug Abuse Patient Records regulations: The Federal rules restrict any use of the information to criminally investigate or prosecute any alcohol or drug abuse patient.[facility] HospitalIn the event this information is protected by the Federal Confidentiality of Alcohol and Drug Abuse Patient Records regulations: The Federal rules restrict any use of the information to criminally investigate or prosecute any alcohol or drug abuse patient.[facility] HospitalIn the event this information is protected by the Federal Confidentiality of Alcohol and Drug Abuse Patient Records regulations: The Federal rules restrict any use of the information to criminally investigate or prosecute any alcohol or drug abuse patient.[facility] HospitalIn the event this information is protected by the Federal Confidentiality of Alcohol and Drug Abuse Patient Records regulations: The Federal rules restrict any use of the information to criminally investigate or prosecute any alcohol or drug abuse patient.[facility] HospitalIn the event this information is protected by the Federal Confidentiality of Alcohol and Drug Abuse Patient Records regulations: The Federal rules restrict any use of the information to criminally investigate or prosecute any alcohol or drug abuse patient.[facility] HospitalIn the event this information is protected by the Federal Confidentiality of Alcohol and Drug Abuse Patient Records regulations: The Federal rules restrict any use of the information to criminally investigate or prosecute any alcohol or drug abuse patient.[facility] HospitalIn the event this information is protected by the Federal Confidentiality of Alcohol and Drug Abuse Patient Records regulations: The Federal rules restrict any use of the information to criminally investigate or prosecute any alcohol or drug abuse patient.[facility] HospitalIn the event this information is protected by the Federal Confidentiality of Alcohol and Drug Abuse Patient Records regulations: The Federal rules restrict any use of the information to criminally investigate or prosecute any alcohol or drug abuse patient.[facility] HospitalIn the event this information is protected by the Federal Confidentiality of Alcohol and Drug Abuse Patient Records regulations: The Federal rules restrict any use of the information to criminally investigate or prosecute any alcohol or drug abuse patient.[facility] HospitalIn the event this information is protected by the Federal Confidentiality of Alcohol and Drug Abuse Patient Records regulations: The Federal rules restrict any use of the information to criminally investigate or prosecute any alcohol or drug abuse patient.[facility] HospitalIn the event this information is protected by the Federal Confidentiality of Alcohol and Drug Abuse Patient Records regulations: The Federal rules restrict any use of the information to criminally investigate or prosecute any alcohol or drug abuse patient.[facility] HospitalIn the event this information is protected by the Federal Confidentiality of Alcohol and Drug Abuse Patient Records regulations: The Federal rules restrict any use of the information to criminally investigate or prosecute any alcohol or drug abuse patient.[facility] HospitalIn the event this information is protected by the Federal Confidentiality of Alcohol and Drug Abuse Patient Records regulations: The Federal rules restrict any use of the information to criminally investigate or prosecute any alcohol or drug abuse patient.[facility] HospitalIn the event this information is protected by the Federal Confidentiality of Alcohol and Drug Abuse Patient Records regulations: The Federal rules restrict any use of the information to criminally investigate or prosecute any alcohol or drug abuse patient.[facility] HospitalIn the event this information is protected by the Federal Confidentiality of Alcohol and Drug Abuse Patient Records regulations: The Federal rules restrict any use of the information to criminally investigate or prosecute any alcohol or drug abuse patient.[facility] HospitalIn the event this information is protected by the Federal Confidentiality of Alcohol and Drug Abuse Patient Records regulations: The Federal rules restrict any use of the information to criminally investigate or prosecute any alcohol or drug abuse patient.[facility] HospitalIn the event this information is protected by the Federal Confidentiality of Alcohol and Drug Abuse Patient Records regulations: The Federal rules restrict any use of the information to criminally investigate or prosecute any alcohol or drug abuse patient.[facility] HospitalIn the event this information is protected by the Federal Confidentiality of Alcohol and Drug Abuse Patient Records regulations: The Federal rules restrict any use of the information to criminally investigate or prosecute any alcohol or drug abuse patient.[facility] HospitalIn the event this information is protected by the Federal Confidentiality of Alcohol and Drug Abuse Patient Records regulations: The Federal rules restrict any use of the information to criminally investigate or prosecute any alcohol or drug abuse patient.[facility] HospitalIn the event this information is protected by the Federal Confidentiality of Alcohol and Drug Abuse Patient Records regulations: The Federal rules restrict any use of the information to criminally investigate or prosecute any alcohol or drug abuse patient.[facility] HospitalIn the event this information is protected by the Federal Confidentiality of Alcohol and Drug Abuse Patient Records regulations: The Federal rules restrict any use of the information to criminally investigate or prosecute any alcohol or drug abuse patient.[facility] Reason for Visit (unrecogniz ed section and content) Reason Comments Post Op Reason Comments Established Patient BPH follow up [facility] 06/2020 Reason Comments Consult Reason Comments surgery 12/13/2021 Follow Up neuropathic ulcer Reason Comments Appointment Reason Comments Charcot right great toe Follow Up Reason Comments Patient Update Reason Comments Established Patient Review results of US Follow Up Review results of US Reason Comments Follow Up Foot Deformity Reason Comments Future Appointment Specialty Diagnoses / Procedures Referred By Rodo t Referred To Contact Urology / UROLOGY Diagnoses Peyronie's disease Peyronies disease Procedures COLLAGENASE, CLOST HIST INJ INJECTION PEYRONIE DISEASE NJX C/P/A CAVERNOSA W/PHARMACOLOGIC AGT J0775 XIAFLEX 2 vials every 6 wks for a total of 8 vials Shazia Mendez MD [address] [place] [id number] Pascual Miller MD [address] [place] [address] Referral ID Status Reason Start Date Expiration Date V isits Requested Visits Authorized [id number] Authorized 03/05/2022 09/27/2022 99 99 Reason Comments Release Of Medical Records Reason Comments New Patient Reason Comments Patient Update Refund for foot plat e Reason Comments Established Patient Follow Up charcot 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 Comments Established Patient Reason Comments Follow Up Reason Comments Results Reason Comments Post-Op Visit Reason Comments Returning Patient's Call Reason Comments Patient Question Reason Comments Established Patient Follow Up Reason Comments cipro instructions Reason Comments Cystoscopy-1 Care Teams (unrecognized sec tion and content) 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 Start Date End Date Shazia Mendez MD [address] [place] [address] PCP - General Internal Medicine 02/10/20 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 Start Date End Date Shazia Mendez MD [address] [place] [address] PCP - General Internal Medicine 02/10/20 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 Start Date End Date Shazia Mendez MD [address] [place] [address] PCP - General Internal Medicine 02/10/20 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 Start Date End Date Shazia Mendez MD [address] [place] [address] PCP - General Internal Medicine 02/10/20 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 Start Date End Date Shazia Mendez MD [address] [place] [address] PCP - General Internal Medicine 02/10/20 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 [place] [address] [place] [address] PCP - General Internal Medicine 02/10/20 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 [place] [address] [place] [address] PCP - General Internal Medicine 02/10/20 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 [place] [address] [place] [address] PCP - General Internal Medicine 02/10/20 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 [place] [address] [place] [address] PCP - General Internal Medicine 02/10/20 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 [place] [address] [place] [address] PCP - General Internal Medicine 02/10/20 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 Start [place] [address] [place] [address] PCP - General Internal Medicine 02/10/20 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 Start [place] [address] [place] [address] PCP - General Internal Medicine 02/10/20 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 Start [place] [address] [place] [address] PCP - General Internal Medicine 02/10/20 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 Start Date End Date Shazia Mendez [place] [id number] [place] [address] [address] [place] [address] PCP - General Internal Medicine 02/10/20 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 Start Date [place] Shaz[place] [id number] [place] [address] [address] [place] [address] PCP - General Internal Medicine 02/10/20 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 Start Date End Date Shazia Mendez MD [address] [place] [address] [address] [place] [address] PCP - General Internal Medicine 02/10/20 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 Start Date End Date Shazia Mendez MD [address] [place] [address] [address] [place] [address] PCP - General Internal Medicine 02/10/20 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 Start Date End Date Shazia Mendez MD [address] [place] [address] [address] [place] [address] PCP - General Internal Medicine 02/10/20 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 Start Date End Date Shazia Mendez MD [address] [place] [address] [address] [place] [address] PCP - General Internal Medicine 02/10/20 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 Start Date End Date Shazia Mendez MD [address] [place] [address] [address] [place] [address] PCP - General Internal Medicine 02/10/20 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 Start Date End Date Shazia Mendez MD [address] [place] [address] [address] [place] [address] PCP - General Internal Medicine 02/10/20 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 Start Date End Date Shazia Mendez MD [address] [place] [address] [address] [place] [address] PCP - General Internal Medicine 02/10/20 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 [place] [address] [place] [address] PCP - General Internal Medicine 02/10/20 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 [place] [address] [facility] [address] [place] [address] PCP - General Internal Medicine 02/10/20 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 [place] [address] [facility] [address] [place] [address] PCP - General Internal Medicine 02/10/20 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 [place] [address] [facility] [address] [place] [address] PCP - General Internal Medicine 02/10/20 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 [place] [address] [facility] [address] [place] [address] PCP - General Internal Medicine 02/10/20 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 [place] [address] [facility] [address] [place] [address] PCP - General Internal Medicine 02/10/20 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 [place] [address] [facility] [address] [place] [address] PCP - General Internal Medicine 02/10/20 FOR RECORDS PERTAINING TO PATIENTS WHO ARE OR HAVE BEEN ENROLLED IN A CHEMICAL DEPENDENCY/SUBSTANCEABUSE PROGRAM, SOME INFORMATION MAY BE OMITTED. This clinical summary was aggregated from multiple sources. Caution should be exercised in using it in the provision of clinical care. This summary normalizes information from multiple sources, and as a consequence, information in this document may materially change the coding, format and clinical context of patient data. In addition, data may be omitted in some cases. CLINICAL DECISIONS SHOULD BE BASED ON THE PRIMARY CLINICAL RECORDS. [facility] [employer] [facility]. provides no warranty or guarantee of the accuracy or completeness of information in this document.
--- OUTSIDE RECORDS SUMMARY | 2023-10-22 09:06 | XMS RPT_ITS | CCD ---
Author Name Unknown Address [address] [place] [address] Organization [facility] Care Team Providers Care Forest Resource Specialist Name Role Phone NO, DOCTOR ON Consulting Unavailable BAY PHILIPPE SENIOR ADMINISTRATIVE ASSISTANT- Admitting Unavailable PHILIPPE, BAY SENIOR ADMINISTRATIVE ASSISTANT- Primary Care Unavailable B[place] PHIL[place]PE SENIOR ADMINISTRATIVE ASSISTANT- Attending Unavailable JAJA LEE Admitting Unavailable JAJA LEE Primary Care Unavailable JAJA LEE Attending Unavailable NO, DOCTOR ON Consulting Unavailable Shazia Mendez MD Primary Care Provider [phone] Shazia Mendez MD Primary Care Provider [phone] Shazia Mendez MD Primary Care Provider [phone] MICHAEL, ANTONIOS Primary Care Unavailable TAWANNA BROOKS [...] Referring Unavailable TESTRAKE, EDMOND Attending Unavailable MICHAEL, [facility] Unavailable MICHAEL, [facility] Primary [facility] Unavailable PASCUAL MILLER Attending Unavailabl e PASCUAL MILLER Admitting Unavailabl e MICHAEL, [facility] Primary Care Unavailable PASCUAL MILLER Referring Unavailabl e MICHAEL, [facility] Primary Care Unavailable PASCUAL MILLER Referring Unavailabl e PASCUAL MILLER Attending Unavailabl e MICHAEL, [facility] Unavailable MICHAEL, [facility] Unavailable TESTRAKE, EDMOND Referring Unavailable TESTRAKE, EDMOND Attending Unavailable Allergies Allergy Classification Reported Allergen(s) Allergy Type Date of Onset Reaction(s) Facility (8 sources) Amoxicillin; Translations: [AMOXICILLIN] Drug Allergy 02-09-2023 Diarrhea [facility] Medications Current Medications Medication Drug Class(es) [...] 83 mm[Hg] Cami Yusuf MD Work Phone: [facility] 02-09-2023 14:54-0400 Heart rate 81 /min Cami Yusuf MD Work Phone: [facility] 02-09-2023 14:54-0400 Systolic blood pressure 151 mm[Hg] Cami Yusuf MD Work Phone: [facility] 12-22-2022 13:23-0400 Diastolic blood pressure 96 mm[Hg] Pascual Miller MD Work Phone: [facility] 12-22-2022 13:23-0400 Heart rate 70 /min Pascual Samayoa Work Phone: [facility] 12-22-2022 13:23-0400 Systolic blood pressure 157 mm[Hg] Pascual Miller MD Work Phone: [facility] 10-22-2022 13:22-0500 Body height 190.5 cm Pacc 1 Work Phone: [facility] 10-22-2022 13:22-0500 Body temperature 99.1 [degF] Pacc 1 Work Phone: [facility] 10-22-2022 13:22-0500 Body weight 118.39 kg Pacc 1 Work Phone: [facility] 10-22-2022 13:22-0500 Diastolic blood pressure 84 mm[Hg] Pacc 1 Work Phone: [facility] 10-22-2022 13:22-0500 Heart rate 82 /min Pacc 1 Work Phone: [facility] 10-22-2022 13:22-0500 Respiratory rate 16 /min Pacc 1 Work Phone: [facility] 10-22-2022 13:22-0500 SaO2% (BldA) [Mass fraction] 95 % Pacc 1 Work Phone: [facility] 10-22-2022 13:22-0500 Systolic blood pressure 160 mm[Hg] Pacc 1 Work Phone: [facility] 08-12-2022 10:06-0500 Body height 188 cm Anca Mcdonald DO Work Phone: [facility] 08-12-2022 10:06-0500 Body weight 111.13 kg Anca Mcdonald DO Work Phone: [facility] 08-12-2022 10:06-0500 Diastolic blood pressure 89 mm[Hg] Anca Mcdonald DO Work Phone: [facility] 08-12-2022 10:06-0500 Heart rate 89 /min Ancatabatha Velazquezle DO Work Phone: [facility] 08-12-2022 10:06-0500 SaO2% (BldA) [Mass fraction] 96 % Anca Mcdonald DO Work Phone: [facility] 08-12-2022 10:06-0500 Systolic blood pressure 142 mm[Hg] Anca Mcdonald DO Work Phone: [facility] 06-09-2022 12:33-0400 Body height 188 cm Edie Garcia MD Work Phone: [facility] 06-09-2022 12:33-0400 Body weight 112.04 kg Edie Garcia MD Work Phone: [facility] 06-09-2022 12:33-0400 Diastolic blood pressure 86 mm[Hg] Edie Garcia MD Work Phone: [facility] 06-09-2022 12:33-0400 Heart rate 89 /min Edie aGrcia MD Work Phone: [facility] 06-09-2022 12:33-0400 SaO2% (BldA) [Mass fraction] 99 % Edie Garcia MD Work Phone: [facility] 06-09-2022 12:33-0400 Systolic blood pressure 156 mm[Hg] Edie Garcia MD Work Phone: [facility] 04-30-2022 16:30-0400 Diastolic blood pressure 82 mm[Hg] Pascual Miller MD Work Phone: [facility] 04-30-2022 16:30-0400 Heart rate 76 /min Pascual Samayoa Work Phone: [facility] 04-30-2022 16:30-0400 Systolic blood pressure 193 mm[Hg] Pascual Miller MD Work Phone: [facility] 04-28-2022 17:14-0400 Diastolic blood pressure 99 mm[Hg] Pascual Miller MD Work Phone: [facility] 04-28-2022 17:14-0400 Heart rate 76 /min Pascual Samayoa Work Phone: [facility] 04-28-2022 17:14-0400 Systolic blood pressure 179 mm[Hg] Pascual Miller MD Work Phone: [facility] 04-28-2022 16:14-0400 Body height 188 cm Pascual Samayoa Work Phone: [facility] 02-17-2022 10:36-0400 Body height 190.5 cm Pascual Samayoa Work Phone: [facility] 02-17-2022 10:36-0400 Body weight 108.86 kg Pascual Samayoa Work Phone: [facility] 02-17-2022 10:36-0400 Diastolic blood pressure 94 mm[Hg] Pascual Miller MD Work Phone: [facility] 02-17-2022 10:36-0400 Heart rate 97 /min Pascual Samayoa Work Phone: [facility] 02-17-2022 10:36-0400 Systolic blood pressure 159 mm[Hg] Pascual Miller MD Work Phone: [facility] 01-30-2022 13:16-0400 Body height 190.5 cm Tawanna Brooks MD Work Phone: [facility] 01-30-2022 13:16-0400 Body weight 106.59 kg Tawanna Brooks MD Work Phone: [facility] Encounters Encounter Date Encounter Type Care Provider Facility Start: 04-30-2023 End: 04-30-2023 ambulatory ANTONIOS MICHAEL Facility:[facility] Start: 04-30-2023 End: 04-30-2023 Patient encounter procedure [...] CANCER SCREENING DISCUSSION PROSTATE CANCER SCREENING DISCUSSION [facility] Start: 01-30-2027 PROSTATE CANCER SCREENING DISCUSSION PROSTATE CANCER SCREENING DISCUSSION [facility] Start: 10-22-2025 DIABETES SCREEN DIABETES SCREEN [facility] Start: 01-30-2025 DIABETES SCREEN DIABETES SCREEN [facility] Start: 12-06-2024 DIABETES SCREEN DIABETES SCREEN [facility] Start: 10-14-2024 PROSTATE CANCER SCREENING DISCUSSION PROSTATE CANCER SCREENING DISCUSSION [facility] Start: 05-29-2023 Influenza vaccination INFLUENZA (#1) [facility] Start: 03-18-2023 End: 05-18-2023 Bacteria identified in Urine by Culture [facility] Work Phone: Immunizations Immunization Date Immunization Notes Care Provider Fa cility 11-05-2022 influenza, injectabl e, quadrivalent, preservative free Pascual Miller MD Work Phone: [facility] 11-04-2022 COVID-19 booster vaccine, age 12+ yr, bivalent ([employer] Pascual Miller MD Work Phone: [facility] Payers Date Payer Category Payer Unknown MMO MMO [employer] [id number] 2018-Present [phone] [address] [place] [address] PPO [id number] 2018 Unknown [id number] 2018 Unknown [id number] Social History Date Type Detail Facility Start: 12-07-2019 End: 06-09-2022 Tobacco smoking status NHIS Never smoked tobacco [facility] Start: 12-07-2019 End: 06-09-2022 Tobacco use and exposure Smokeless tobacco non-user [facility] Start: 12-26-2021 End: 04-30-2023 Alcohol intake Current non-drinker of alcohol (finding) [facility] Start: 1960 Sex Assigned At Male [facility] Start: 12-16-2021 End: 07-01-2022 Exposure to SARS-CoV-2 (event) Not sure [facility] Start: 09-03-2020 End: 04-30-2023 History of Social function [facility] Start: 09-03-2020 End: 04-30-2023 Tobacco use panel [facility] National Score (1-10 0), lower number is lower risk Not on file [facility] Start: 10-30-2021 Gender identity Identifies as male gender (finding) [facility] Start: 10-30-2021 Sexual orientation Heterosexual (magaly rondon) [facility] Medical Equipment Procedure Code Equipment Code Equipment Origin al Text Equipment Identifier Dates Prosthesis Spect ra Rear Tip Actuarial Assistant 1cm For 12/14mm Cylinders - [id number] Start: 11-04-2022 Prosthesis Ams 7 00 Ms Pump Inhibizone Penile Preconnect Inflatable - [id number] Start: 11-04-2022 Clinical Notes 12-13-2021 to 04-30-2023 Grant Plata MD - 04/30/2023 1:11 PM Meghan Head RN - 03/23/2023 11:10 AM Tawanna Myles MD - 03/23/2023 10:39 AM Meghan Head RN - 03/23/2023 10:49 AM EDTPatient Instructions Note Date & Type Note Facility 04-30-2023 Note HNO ID: [id number] Author: Grant Plata MD Service: ? Author [...] by mouth once daily. 180 capsule 3 Pxbtkqxj-Myue-Msstis-Hyalur Ac 602-457-11-2 mg cap Take 2 tablets by mouth [...] glans engorgement. RTC PRN Grant Plata MD [facility] 04-30-2023 History of Presen t illness Narrative [...] by mouth once daily. 180 capsule 3 Qkdwahuq-Xnlc-Zdeqzl-Hyalur Ac 520-559-33-2 mg cap Take 2 tablets by mouth [...] Grant Plata MD documented in this encounter [facility] 03-23-2023 Note HNO ID: [id number] Author: Meghan Gibbs RN Service: ? Author [...] Visit completed when applicable. Meghan Gibbs RN [facility] 03-23-2023 Note HNO ID: [id number] Author: Tawanna Brooks MD Service: ? Author [...] with more than 50% of the total tahs-hr-zuvw time of the visit in counseling / coordination of care. Tawanna Brooks MD [facility] 03-23-2023 History of Presen t illness Narrative [...] with more than 50% of the total fqws-ck-jjbe time of the visit in counseling / coordination of care. Tawanna Brooks MD documented in this encounter [facility] 03-23-2023 Nurse Note Actual procedure/procedure scheduled: Yes Performing provider/scheduled provider: Yes Patient was roomed in: Q9- 09 Senior Mechanical Estimator offered:Patient declines Patient arrived in the room [...] Education Session: None Instruction Provided To: Patient Immersion Metalcleaner Present: not applicable Discipline: Nursing Learning Topic: SURVIVAL SKILLS: Complication Prevention Patient Evaluation: Verbalizes understanding: Yes Supplemental Material Given: Written Material Instructed By Meghan Gibbs RN In Department Urology . documented in this encounter [facility] 03-20-2023 Miscellaneous Notes Spoke with Nathan to stop Cymbalta and trazadone when he is taking Cipro. Pt understood. documented in this encounter [facility] 02-09-2023 Note HNO ID: [id number] Author: Cami Yusuf MD Service: ? Author Type: Physician Type: Progress Notes Filed: 02/09/2023 5:48 PM Note Text: [facility] NEW PATIENT HISTORY AND PHYSICAL [...] for internal providers or letter via the [employer] Postal Service for external providers. I HISTORY [...] 1 capsule by mouth daily at bedtime. Blaewpbp-Yaio-Gsvajn-Hyalur Ac 367-891-70-2 mg cap Take 2 tablets by mouth [...] a referral Cami Yusuf MD Electronically signed [facility] 02-09-2023 History of Presen t illness Narrative [facility] NEW PATIENT HISTORY AND PHYSICAL [...] for internal providers or letter via the [employer] Postal Service for external providers. I HISTORY [...] 1 capsule by mouth daily at bedtime. Lwylyjnb-Rkqv-Blkyzz-Hyalur Ac 020-045-74-2 mg cap Take 2 tablets by mouth [...] Cami Yusuf MD documented in this encounter [facility] 02-09-2023 Nurse Note 2nd PVR 369 after voiding 1st PVR 835 documented in this encounter [facility] 02-09-2023 Note Patient Outreach (UR OLMN) ELÍAS COLLADO ([id number]) 1960 M Date Time Provider Department 02/09/23 CAMI YUSUF During your visit today, we recorded the following information about you: Allergies As of Date: 02/09/2023 Noted Allergy Reaction AMOXICILLIN 02/09/2023 6 - Diarrhea Date Reviewed: 02/09/2023 Reviewed by: Cami Yusuf MD - Fully Assessed Visit Diagnosis:Screening for genitourinary condition [Z13.89] Order(s):URINALYSIS, REFLEX MICROSCOPIC [RRC2537] Order #: [id number]. #:[id number] Prescriptions as of 02/12/2023 - amLODIPine (NORVASC) [...] capsule by mouth daily at bedtime. - Opznqwod-Bqra-Qfroxx-Hyalur Ac 319-061-29-2 mg cap Take 2 tablets by mouth [...] Ejaculatory disorder [N53.19] 02/05/2023 Encounter Status:Closed by Palm, PRODUSER on 02/12/23 [facility] 02-05-2023 Note HNO ID: [id number] Author: Tawanna Brooks MD Service: ? Author [...] mouth daily at bedtime. 90 capsule 5 Szzsgvkv-Rmas-Awwxly-Hyalur Ac 628-193-16-2 mg cap Take 2 tablets by mouth [...] worse post IPP placement Tawanna Brooks MD [facility] 02-05-2023 History of Presen t illness Narrative [...] mouth daily at bedtime. 90 capsule 5 Fxwgxztu-Tivg-Lvepba-Hyalur Ac 857-030-77-2 mg cap Take 2 tablets by mouth [...] Tawanna Brooks MD documented in this encounter [facility] 01-31-2023 Note HNO ID: [id number] Author: Edmond Rojas Service: ? Author Type: [...] 1 capsule by mouth daily at bedtime. Dwymmmtq-Ixrr-Sopwwb-Hyalur Ac 857-033-13-2 mg cap Take 2 tablets by mouth [...] sooner if problems arise. Edmond Rojas DPM [facility] 01-30-2023 History of Presen t illness Narrative [...] 1 capsule by mouth daily at bedtime. Jcrcbqla-Xgqk-Uoedtp-Hyalur Ac 415-238-55-2 mg cap Take 2 tablets by mouth [...] Amita Garcia LPN documented in this encounter [facility] 01-29-2023 Note HNO ID: [id number] Author: Amita Garcia LPN Service: ? Author Type: LICENSED NURSE Type: Progress Notes Filed: 01/30/2023 10:41 PM Note Text: AMB ROOMING INTAKE FLOWSHEET DATA Patient presents with: Right Foot - Established Patient, Follow Up Left Foot - Established Patient, Follow Up Amita Garcia LPN [facility] 01-29-2023 Miscellaneous Notes Urology Telephone Note Attempted to call patient multiple times today but have not received an answer. Zachary Calixto Jr., MD Reconstructive Urology Fellow documented in this encounter [facility] 01-20-2023 Miscellaneous Notes Urology Telephone Note Attempted to call patient and spouse multiple times today but have not received an answer. Zachary Calixto Jr., MD Reconstructive Urology Fellow documented in this encounter [facility] 01-19-2023 Miscellaneous Notes Urology Telephone Note Attempted to call patient and spouse multiple times today but have not received an answer. Zachary Calixto Jr., MD Reconstructive Urology Fellow documented in this encounter [facility] 01-17-2023 Miscellaneous Notes Urology Telephone Note I spoke with pt over the phone today. He expressed a lot of frustration with the IPP and concern for infection. I explained that I would follow up the cultures and call him back. Patient expressed understanding and agreement with the plan. Zachary Calixto Jr., MD Reconstructive Urology Fellow documented in this encounter [facility] 12-30-2022 Note HNO ID: [id number] Author: Kasandra Méndez APRN.CNP Service: ? Author Type: Nurse Practitioner Type: Progress Notes Filed: 12/30/2022 5:48 PM Note Text: Deleted pended order for urine culture. Per Meghan Christie's note from today, Elías Collado went to local urgent care over the weekend and is staking cipro with improvement in UTI symptoms. Kasandra Méndez APRN.CNP [facility] 12-30-2022 History of Presen t illness Narrative Deleted pended order for urine culture. Per Meghan Christie's note from today, Elías Collado went to local urgent care over the weekend and is staking cipro with improvement in UTI symptoms. Kasandra Méndez APRN.CNP documented in this encounter [facility] 12-30-2022 Miscellaneous Notes Emailed patient to [...] back then. Anca documented in this encounter [facility] 12-26-2022 Miscellaneous Notes Called Elías Collado [...] back today. Anca documented in this encounter [facility] 12-23-2022 Miscellaneous Notes Returned Elías Collado's [...] done today. Anca documented in this encounter [facility] 12-23-2022 Miscellaneous Notes Elías Collado transferring care from to [facility]. Previously on course to have [...] Meghan Flores RN documented in this encounter [facility] 12-22-2022 Note HNO ID: [id number] Author: Pascual Miller MD Service: ? Author [...] on File Prior to Visit Medication Sig Rzmbiath-Dnbu-Dgcnqs-Hyalur Ac 976-645-20-2 mg cap Take 2 tablets by mouth [...] few months for recheck. Pascual Miller MD [facility] 12-22-2022 Note Patient Outreach (UR OLMN) ELÍAS COLLADO ([id number]) 1960 M Date Time Provider Department 12/22/22 PASCUAL MILLER During your visit today, we recorded the following information about you: Allergies As of Date: 12/22/2022 (No Known Allergies) Date Reviewed: 12/22/2022 Reviewed by: AIME Houston - Fully Assessed Visit Diagnosis:Screening for genitourinary condition [Z13.89] Order(s):URINALYSIS, REFLEX MICROSCOPIC [[id number]] Order #: [id number]. #:[id number] Prescriptions as of 12/25/2022 - Tyaliyiw-Ikdq-Ldravl-Hyalur Ac 644-902-16-2 mg cap Take 2 tablets by mouth [...] erectile dysfunction [N52.8] 02/17/2022 Encounter Status:Closed by Palm, PRODUSER on 12/25/22 [facility] 12-22-2022 History of Presen t illness Narrative [...] on File Prior to Visit Medication Sig Nqngdxeq-Tanq-Hqhbyx-Hyalur Ac 814-555-61-2 mg cap Take 2 tablets by mouth [...] Pascual Miller MD documented in this encounter [facility] 11-05-2022 Note HNO ID: [id number] Author: Angela Upton MD Service: Urology Author Type: Resident Type: Progress Notes Filed: 11/05/2022 6:33 AM Note Text: [facility] UROLOGY PROGRESS NOTE Name: Elías Collado Date: November 05, 2022 After Hours [facility] Urology Service Pager: [phone] ASSESSMENT AND PLAN Elías Collado is a [...] staff, Dr. Pao Upton MD [facility] PGY2 [facility] [place] Pager: [phone] After hours and on weekends, please page [phone] Objective Vital Signs BP 152/79 Pulse 85 [...] Penoscrotal incision CDI. ASTER SS. Imaging Reviewed [facility] 11-04-2022 Note HNO ID: [id number] Author: Angela Upton MD Service: Urology Author Type: Resident Type: Progress Notes Filed: 11/04/2022 2:32 PM Note Text: [facility] UROLOGY PROGRESS NOTE Name: Elías Collado Date: November 04, 2022 After Hours [facility] Service Pager: [phone] ASSESSMENT AND PLAN Elías Collado is a [...] staff, Dr. Pao Upton MD Urology PGY2 [facility] [place] Pager: [phone] After hours and on weekends, please page [phone] Objective Vital Signs BP 134/69 Pulse 74 [...] Penoscrotal incision CDI. ASTER SS. Imaging Reviewed [facility] 11-04-2022 Note HNO ID: [id number] Author: Karie Landin APRN.ELECTRICAL AND INSTRUMENTATION MECHANIC Service: ? Author Type: Nurse Dictating Machine Transcriber Type: Anesthesia Procedure Notes Filed: 11/04/2022 8:03 AM Note Text: ANESTHESIOLOGY PROCEDURE NOTE Airway General Information Procedure Start Time/Medication Administration: 11/04/2022 7:42 AM Patient location during procedure: OR Timeout Performed Pre-procedure: timeout performed Consent Obtained: Yes Patient identity confirmed: arm band Staffing Anesthesiologist: Hardik Castellano MD ELECTRICAL AND INSTRUMENTATION MECHANIC: Karie Landin APRN.ELECTRICAL AND INSTRUMENTATION MECHANIC Indications and Patient Condition Indications for airway [...] 1 Airway not difficult SIGNATURE: Karie Landin APRN.ELECTRICAL AND INSTRUMENTATION MECHANIC PATIENT NAME: Elías Collado DATE: November 04, 2022 TIME: 8:02 AM CSN: [id number] [facility] 10-28-2022 Miscellaneous Notes Urology Telephone Note I spoke with pt over the phone today. I recommended that he change his pre-op Abx to doxycycline. Patient expressed understanding and agreement with the plan. Zachary Calixto Jr., MD Reconstructive Urology Fellow documented in this encounter [facility] 10-22-2022 Instructions Gabriela Cuellar APRN.SENIOR ADMINISTRATIVE ASSISTANT - 10/22/2022 1:30 PM EST PATIENT PREOPERATIVE INSTRUCTIONS No ref. provider found has scheduled you for your procedure at this surgery center: [facility] Scheduling Office: [phone] --[address] [place] [address]. Please read below carefully for your personalized [...] Procedures: - YOU MUST HAVE A RESPONSIBLE BOAT FUELER TAKE YOU HOME. A PUBLIC WORKS LABORER OR ANGLE FURNACEMAN CANNOT BE MADE A RESPONSIBLE BOAT FUELER. - We recommend that a responsible person [...] call the Thursday before. Your surgeon s claim inspector will tell you what time to call the office. - If you have not reached the departmental claim inspector by 5 P.M., call [phone] after 5 P.M. the day before your surgery. Please be aware that emergency situations arise, which may delay or change your surgical time. If this happens, we will notify you as soon as possible and regret any inconvenience. If you already have an Advance Directive, please fax a copy to [phone] or email to for it to be [...] Gabriela Cuellar APRN.ABENA documented in this encounter [facility] 10-22-2022 History and physical note HISTORY [...] fevers. Neurological: No history of TIA's, stroke, DIVE SUPERVISOR tumor, impaired sensorium, hemiplegia, paraplegia or quadraplegia. No neurological symptoms or problems. Respiratory: No history of current cough or dyspnea, or pneumonia in the past 6 weeks. No history of respiratory/pulmonary symptoms or problems. Cardiovascular: Positive for: hyperlipidemia (supplement) and hypertension (on rx) Negative for: anticoagulation therapy, arrhythmia, atrial fibrillation, CAD, chest pain, CHF, congenital heart defect, DVT/PE, recent CA, murmur/valvular heart disease, open heart surgery and [...] 10/22/22 1330 Medication Sig Last Dose Taking Vsictqpx-Rxvx-Lslqcz-Hyalur Ac 330-657-01-2 mg cap Take 2 tablets by mouth [...] or any previous visit (from the past 02139 hour(s)). Assessment Mixed hyperlipidemia Assessment: taking supplement [...] equal to 35 kg/m^2 STOP-Bang Score: 4 [id number] Score: Age: <65 Sex: male CHF history: No Hypertension history: Yes Stroke/TIA/thromboembolism history: No Vascular disease history: No Diabetes history: No [id number] Score: 1 ARISCAT Score: Age: 51-80 Preoperative [...] PM PAGER/CONTACT #: documented in this encounter [facility] 09-17-2022 Note Patient Outreach (UR OLMN) BRENDAELÍAS RODRIGUEZ Patric ([id number]) 1960 M Date Time Provider Department 09/17/22 PASCUAL MILLER During your visit today, we recorded the following information about you: Allergies As of Date: 09/17/2022 (No Known Allergies) Date Reviewed: 09/17/2022 Reviewed by: Yajaira Joseph MA - Fully Assessed Visit Diagnosis:Screening for genitourinary condition [Z13.89] Order(s):URINALYSIS, REFLEX MICROSCOPIC [[id number]] Order #: [id number]. #:[id number] Prescriptions as of 09/22/2022 - doxycycline hyclate (VIBRAMYCIN) 100 mg capsule Take 1 capsule by mouth twice daily. - Pkiprkmy-Adkv-Krdyat-Hyalur Ac 976-638-72-2 mg cap Take 2 tablets by mouth [...] erectile dysfunction [N52.8] 02/17/2022 Encounter Status:Closed by Palm, PRODUSER on 09/22/22 [facility] 09-17-2022 Note HNO ID: [id number] Author: Pascual Miller MD Service: ? Author [...] on File Prior to Visit Medication Sig Wqkwzgmb-Aboo-Alqaoe-Hyalur Ac 800-389-65-2 mg cap Take 2 tablets by mouth [...] Miller MD Date: 09/17/2022 Time: 9:21 AM [facility] 09-17-2022 Miscellaneous Notes Addended by: PASCUAL MILLER on: 09/17/2022 09:50 AM Modules accepted: Orders documented in this encounter [facility] 09-17-2022 History of Presen t illness [...] on File Prior to Visit Medication Sig Ijwzkvyt-Vxpo-Jgsdnd-Hyalur Ac 722-141-24-2 mg cap Take 2 tablets by mouth [...] noted - chronic and followed by Dr. Boroks ASSESSMENT/PLAN: 1. Other male erectile dysfunction - [...] Time: 9:21 AM documented in this encounter [facility] 08-12-2022 Note HNO ID: [id number] Author: Anca Mcdonald DO Service: Vascular Surgery Author Type: Physician Type: Progress Notes Filed: 08/18/2022 3:17 PM Note Text: NAME: ELÍAS COLLADO [facility] NO: [id number] DATE OF SERVICE: 08/12/2022 Subjective: Mr. Collado [...] us as needed. Wilner Moy/089 Audio #: [id number] Date Dictated: 08/12/2022 10:33:13 Date Typed: 08/18/2022 10:47:41 Date Revised: [facility] 08-12-2022 History of Presen t illness Narrative NAME: ELÍAS COLLADO [facility] NO: [id number] DATE OF SERVICE: 08/12/2022 Subjective: Mr. Collado [...] follow up with us as needed. Anca Mcdonlad D.O. KB/089 Audio #: [id number] Date Dictated: 08/12/2022 10:33:13 Date Typed: 08/18/2022 10:47:41 Date Revised: documented in this encounter [facility] 07-29-2022 Miscellaneous Notes ----- Message from [...] recovered in time for his trip to [facility]. In fact, based on the needed [...] available. He has travel plans (Oct 16 [facility]; and Nov 26 [place]) Looks like you are pretty booked up. MAV Called Elías Collado and ANURAG regarding Dr. Miller's response above. Asked him to call the office and discuss with Janny how he would like to proceed. Meghan Flores RN documented in this encounter [facility] 07-07-2022 Note HNO ID: [id number] Author: Edmond Rojas Service: ? Author Type: [...] HTN (hypertension) Current Outpatient Medications Medication Sig Ahpjsgqr-Gtin-Vrkbgj-Hyalur Ac 866-928-64-2 mg cap Take 2 tablets by mouth [...] will contact the office Edmond Rojas DPM [facility] 07-07-2022 History of Presen t illness Narrative [...] HTN (hypertension) Current Outpatient Medications Medication Sig Cbyrasds-Ytbr-Cdyiin-Hyalur Ac 169-772-18-2 mg cap Take 2 tablets by mouth [...] Amita Garcia LPN documented in this encounter [facility] 07-01-2022 Note HNO ID: [id number] Author: Amita Garcia LPN Service: ? Author Type: LICENSED NURSE Type: Progress Notes Filed: 07/07/2022 12:50 PM Note Text: AMB ROOMING INTAKE FLOWSHEET DATA Risk Screening Do you have concerns about personal safety or safety in the home?: No Patient presents with: Right Foot - Established Patient, Follow Up, charcot Amita Garcia LPN [facility] 07-01-2022 Note HNO ID: [id number] Author: RT Estefania(Flori) Service: Nuclear Medicine Author [...] RT Estefania(R) July 01, 2022 9:19 AM [facility] 07-01-2022 History of Presen t illness Narrative [...] 2022 9:19 AM documented in this encounter [facility] 06-24-2022 Miscellaneous Notes Jayde with [employer] called to update on patients refund. Patient returned foot plates after a month of use d/t blistering. [employer] agreed to refund the patient but not d/t fault, followed Dr Nataly tate. ESPINOZA Donohue # [phone] documented in this encounter [facility] 06-09-2022 Note HNO ID: [id number] Author: Edie Garcia MD Service: ? Author Type: Physician Type: Progress Notes Filed: 06/09/2022 3:08 PM Note Text: [facility] [place] DEPARTMENT OF VASCULAR SURGERY OUTPATIENT VISIT DATE June 09, 2022 OUTPATIENT VISIT TYPE CONSULTATION SERVICE DATE: 06/09/2022 SERVICE TIME: 12:33 PM PRIMARY CARE PHYSICIAN: Shazia Mendez MD REFERRING PROVIDER: Edmond Rojas, DORIS [address] [facility] [id number] Consult requested for an opinion regarding the [...] Cancer Mother thyroid Breast Cancer Mother MEDICATIONS: Cziclgcb-Pkdl-Wvvoqu-Hyalur Ac 921-983-22-2 mg cap Take 2 tablets by mouth [...] reviewed for today's visit: Non-Invasive Vascular Laboratory [facility] Venous Valvular Incompetency Bilateral/Complete Date of service/time: 03/28/2022 1:24:51 PM MR (more content not included)... [facility] 06-09-2022 History of Presen t illness Narrative Images from the original note were not included. [facility] [place] DEPARTMENT OF VASCULAR SURGERY OUTPATIENT VISIT DATE June 09, 2022 OUTPATIENT VISIT TYPE CONSULTATION SERVICE DATE: 06/09/2022 SERVICE TIME: 12:33 PM PRIMARY CARE PHYSICIAN: Shazia Mendez MD REFERRING PROVIDER: Edmond Rojas DPM [address] [facility] [id number] Consult requested for an opinion regarding the [...] Cancer Mother thyroid Breast Cancer Mother MEDICATIONS: Zozzqeyq-Dytk-Kdvpuz-Hyalur Ac 005-018-73-2 mg cap Take 2 tablets by mouth [...] reviewed for today's visit: Non-Invasive Vascular Laboratory [facility] Venous Valvular Incompetency Bilateral/Complete Date of service/time: [...] small saphenous vein. Technologist: Micheline Phillips RVT, [facility] Ordering physician: EDMOND ROJAS Interpreting physician: Edie Garcia MD ESSION: Mr. Collado is a 62 year old male with atypical leg pain. May be related to venous insufficiency. Patient will return visit with Dr. Mcdonald for consideration for EVLT. Recommend ibuprofen 600 mg 3 times a day sjbfcp-cqe-ickjr for 5 days. Compression stockings. Medical Decision Making: Medical Decision Making Level: 1 - N/A SIGNATURE: Edie Garcia MD PATIENT NAME: Elías Collado DATE: June 09, 2022 TIME: 12:33 PM documented in this encounter [facility] 04-30-2022 History of Presen t illness [...] Xiaflex 2 Time pulled [address] Lot [id number] Exp: 04/2023 Xiaflex Lot [id number] Exp; 04/2023 documented in this encounter [facility] 04-28-2022 History of Presen t illness [...] Collado here for Xiaflex (1) Xiaflex: Lot: [id number] Exp: January 2023 Time prepared: [address] Lot: [id number] Exp: 04/2023 documented in this encounter [facility] 04-24-2022 Miscellaneous Notes Spoke to patient to schedule a sooner appointment with Dr. Garcia. Encounter closed. Images from the original note were not included. Called and left patient message to call Marsha @[phone] to set up office visit with Dr. [...] you earlier if he saw you in [place]. He has swelling in legs and demonstrates incompetency on ultrasound. He has severe knee arthritis and has been informed that he needs to get swelling controlled before any intervention on his knees. I wanted to have him see you to discuss options. Thanks documented in this encounter [facility] 04-19-2022 History of Presen t illness [...] he has plans on seeing orthopedics in [facility]. PAIN EVALUATION No data found in the last 1 encounters. No results found for: HBA1C PCP: Shazia Mendez MD PAST MEDICAL HISTORY Diagnosis Date Anxiety BPH (benign prostatic hyperplasia) HTN (hypertension) Current Outpatient Medications Medication Sig Smjtibib-Tetv-Jxxdru-Hyalur Ac 040-652-72-2 mg cap Take 2 tablets by mouth [...] Edmond Rojas DPM documented in this encounter [facility] 04-17-2022 History of Presen t illness [...] 2022 2:14 PM documented in this encounter [facility] 04-01-2022 Miscellaneous Notes CD READY FOR DOG BATHER AT [facility] Spoke with pt Pt called stating that the disc that he picked up did not have the actual images from the 12/13/21 images taken during/after his procedure that day. He would like another disc with those views. Procedure was done at [facility], should he be inquiring there? Please let him know. CD/ report READY FOR DOG BATHER AT [facility] Patient is requesting foot x-rays from 10/10/2021 all x-rays from 11/14/2021, Fluoroscopy from 12/13/2021 with x-rays, and 02/21/2022. Written report also. documented in this encounter [facility] 03-28-2022 History of Presen t illness [...] severe right knee pain. He has seen [place] [facility] who have advised that patient needs total knee replacement on right lower extremity but will not proceed with surgery until his swelling in right great toe resolve. Patient currently has no pain in right foot. He did have esr, crp and cbc at [facility]. All were within normal limits. He is currently not on antibiotic. He has no open wounds to right foot. PAIN EVALUATION No data found in the last 1 encounters. No results found for: HBA1C PCP: Shazia Mendez MD PAST MEDICAL HISTORY Diagnosis Date Anxiety BPH (benign prostatic hyperplasia) HTN (hypertension) Current Outpatient Medications Medication Sig Hjgylpdx-Ryyi-Jcetvr-Hyalur Ac 673-004-41-2 mg cap Take 2 tablets by mouth [...] At patient request, I will discuss with [facility]. I discussed my concern for charcot [...] Edmond Rojas DPM documented in this encounter [facility] 03-28-2022 History of Presen t illness [...] 2022 2:38 PM documented in this encounter [facility] 03-20-2022 Miscellaneous Notes I called patient to discuss blood work at [facility]. Esr, crp and wbc all normal. Past [...] week as scheduled. documented in this encounter [facility] 03-15-2022 History of Presen t illness [...] HTN (hypertension) Current Outpatient Medications Medication Sig Fbohhldg-Vvra-Zoznqj-Hyalur Ac 733-597-59-2 mg cap Take 2 tablets by mouth [...] any pain today. documented in this encounter [facility] 03-13-2022 Miscellaneous Notes Phone call to [...] Edmond Rojas DPM documented in this encounter [facility] 03-04-2022 Miscellaneous Notes Left message on [...] Edmond Rojas DPM documented in this encounter [facility] 02-25-2022 History of Presen t illness Narrative Photograph of erection sent by patient, confirms 55 degrees dorsal curvature involving the distal penile shaft. Will get insurance approval for Xiaflex and then schedule for first cycle. Pascual Miller MD documented in this encounter [facility] 02-21-2022 History of Presen t illness [...] HTN (hypertension) Current Outpatient Medications Medication Sig Ldytxzkq-Cdfn-Viqewd-Hyalur Ac 208-721-98-2 mg cap Take 2 tablets by mouth [...] ulcer surgery 12/13/2021 documented in this encounter [facility] 02-17-2022 History of Presen t illness Narrative [facility] NEW PATIENT HISTORY AND PHYSICAL EXAM PATIENT INFO: Elías Patric Collado 61 year old REFERRING MHadley.: Tawanna Brooks [address] [facility] [address] This consult was requested by Dr. Brooks [...] none MEDICATIONS: Current Outpatient Medications Medication Sig Jaguqnzn-Skfn-Hwoavc-Hyalur Ac 246-266-47-2 mg cap Take 2 tablets by mouth [...] Time: 12:47 PM documented in this encounter [facility] 01-30-2022 Miscellaneous Notes Addended by: TAWANNA BROOKS on: 01/30/2022 02:14 PM Modules accepted: Orders documented in this encounter [facility] 01-30-2022 History of Presen t illness [...] Current Outpatient Medications Medication Sig Dispense Refill Kggecilk-Hkvi-Ylyvvr-Hyalur Ac 724-959-06-2 mg cap Take 2 tablets by mouth [...] Tawanna Brooks MD documented in this encounter [facility] 01-17-2022 History of Presen t illness [...] Edmond Rojas DPM documented in this encounter [facility] 01-06-2022 History of Presen t illness [...] Edmond Rojas DPM documented in this encounter [facility] 12-26-2021 History of Presen t illness [...] 14 days surgery. documented in this encounter [facility] 12-26-2021 Instructions Edmond Rojas - 12/26/2021 [...] return to work. documented in this encounter [facility] 12-13-2021 Note HNO ID: [id number] Author: RT Meagan(R) Service: Radiology Author Type: [...] RT Meagan(R) December 13, 2021 12:45 PM [facility] 12-13-2021 Note HNO ID: [id number] Author: Jasmyn Gaviria APRN.ELECTRICAL AND INSTRUMENTATION MECHANIC Service: Anesthesiology Author Type: Nurse Dictating Machine Transcriber Type: Anesthesia Procedure Notes Filed: 12/13/2021 10:08 [...] December 13, 2021 TIME: 10:08 AM CSN: [id number] [facility] 12-13-2021 Note HNO ID: [id number] Author: Omar Caal DPM Service: Vascular Surgery [...] Urine Negative 02/21/2020 Nitrites Negative 02/21/2020 Specific Siren, Ur 1.010 02/21/2020 Protein, Urine Negative 02/21/2020 [...] December 13, 2021 TIME: 9:10 AM PAGER: [facility] Diagnosis Post-operative state- Primary Other postprocedural status Neuropathic ulcer of toe, right, with fat layer exposed (HCC) [facility] Diagnosis Post-operative state- Primary Other postprocedural status Neuropathic ulcer of toe, right, with fat layer exposed (HCC) [facility] Diagnosis Benign prostatic hyperplasia with urinary retention- Primary Screening for genitourinary condition Screening for other and unspecified genitourinary condition Nocturia Urinary frequency Increasing residual urine Other specified retention of urine Peyronie's disease [facility] Diagnosis Peyronie's disease- Primary Acquired curvature of penis Other specified disorder of penis Other male erectile dysfunction [facility] Diagnosis Screening for genitourinary condition Screening for other and unspecified genitourinary condition [facility] Diagnosis Neuropathic ulcer of toe, right, with fat layer exposed (HCC)- Primary Neuropathy Mononeuritis of unspecified site Ingrowing toenail Ingrowing nail Venous insufficiency Unspecified venous (peripheral) insufficiency [facility] Diagnosis Pain in right foot- Primary Pain in limb [facility] Diagnosis Charcot's joint of right foot- Primary [facility] Diagnosis Charcot's joint of right foot- Primary Swelling of limb [facility] Diagnosis Charcot's joint of right foot- Primary Swelling of limb Venous insufficiency Unspecified venous (peripheral) insufficiency [facility] Diagnosis Charcot's joint of right foot [facility] Diagnosis Charcot's joint of right foot Swelling of limb [facility] Diagnosis Charcot's joint of right foot- Primary Neuropathy Mononeuritis of unspecified site Venous insufficiency Unspecified venous (peripheral) insufficiency [facility]* Diagnosis Peyronie's disease- Primary Acquired curvature of penis Other specified disorder of penis [facility] Diagnosis Peyronie's disease- Primary Acquired curvature of penis Other specified disorder of penis [facility] Diagnosis Screening for genitourinary condition Screening for other and unspecified genitourinary condition [facility] Diagnosis Varicose veins of bilateral lower extremities with pain- Primary [facility]* Diagnosis Charcot's joint of right foot- Primary [facility] Diagnosis Charcot's joint of right foot [facility] Diagnosis Charcot's joint of right foot- Primary Neuropathy Mononeuritis of unspecified site Venous insufficiency Unspecified venous (peripheral) insufficiency [facility] Diagnosis Other male erectile dysfunction- Primary Peyronie's disease Acquired curvature of penis Other specified disorder of penis Pyuria Other nonspecific finding on examination of urine [facility]* Diagnosis Screening for genitourinary condition Screening for other and unspecified genitourinary condition [facility] Diagnosis Pre-operative examination- Primary Preoperative examination, unspecified Mixed hyperlipidemia Insomnia, unspecified type Gout, unspecified cause, unspecified chronicity, unspecified site Essential hypertension, benign Anxiety Anxiety state, unspecified Benign prostatic hyperplasia with urinary retention Class 1 obesity due to excess calories with serious comorbidity and body mass index (BMI) of 31.0 to 31.9 in adult Peyronie's disease documented in this encounter [facility] note* Diagnosis Other male erectile dysfunction- Primary Peyronie's disease Acquired curvature of penis Other specified disorder of penis documented in this encounter [facility] note* Diagnosis Venous insufficiency- Primary Unspecified venous (peripheral) insufficiency documented in this encounter [facility] note* Diagnosis Screening for genitourinary condition Screening for other and unspecified genitourinary condition documented in this encounter [facility] note* Diagnosis Suspected UTI- Primary documented in this encounter [facility] note* Diagnosis BPH with urinary obstruction- Primary Hypertrophy of prostate with urinary obstruction and other lower urinary tract symptoms (LUTS) documented in this encounter [facility] note* Diagnosis Neuropathy- Primary Mononeuritis of unspecified site documented in this encounter [facility] note* Diagnosis Benign prostatic hyperplasia with urinary retention- Primary Screening for genitourinary condition Screening for other and unspecified genitourinary condition Urinary frequency Weak urinary stream Slowing of urinary stream Urinary urgency Urgency of urination Other post-procedural erectile dysfunction Ejaculatory disorder Other specified disorder of male genital organs documented in this encounter [facility] note* Diagnosis Erectile dysfunction, unspecified erectile dysfunction type- Primary documented in this encounter [facility] note* Diagnosis Acute cystitis without hematuria- Primary Acute cystitis documented in this encounter [facility] note* Diagnosis Benign prostatic hyperplasia with urinary retention- Primary Erectile dysfunction, unspecified erectile dysfunction type Urinary tract infection associated with catheterization of urinary tract, unspecified indwelling urinary catheter type, subsequent encounter Hypotonic neurogenic bladder Neurogenic bladder, NOS BNO (bladder neck obstruction) Bladder neck obstruction documented in this encounter [facility] note* Diagnosis Malfunction of penile prosthesis, subsequent encounter- Primary documented in this encounter [facility] for referral (narrative)* Diagnostic Procedure Only (Routine) - Closed Specialty Diagnoses / Procedures Referred By Contac t Referred To Contact XR IMAGING Diagnoses Post-operative state Procedures XR FOOT GENERAL 3V AP/LAT/OBL RIGHT RADEX FOOT COMPLETE MINIMUM 3 VIEWS Edmond Rojas[address] [place] [address] Xr Imaging Referral ID Status Reason Start Date Expiration Date V isits Requested Visits Authorized [id number] Closed Auto-Generate d Referral 12/26/2021 01/25/2023 [address] [facility] for referral (narrative)* Diagnostic Procedure Only (Routine) - Closed Specialty Diagnoses / Procedures Referred By Contac t Referred To Contact XR IMAGING Diagnoses Neuropathic ulcer of toe, right, with fat layer exposed (HCC) Neuropathy Procedures XR FOOT GENERAL 3V AP/LAT/OBL RIGHT RADEX FOOT COMPLETE MINIMUM 3 VIEWS Edmond Rojas[address] [place] [address] Xr Imaging Referral ID Status Reason Start Date Expiration Date V isits Requested Visits Authorized [id number] Closed Auto-Generate d Referral 02/21/2022 03/23/2023 1 1 [facility] for referral (narrative)* Diagnostic Procedure Only (Routine) - Pending Review Specialty Diagnoses / Procedures Referred By Contac t Referred To Contact XR IMAGING Diagnoses Pain in right foot Procedures XR FOOT GENERAL 3V AP/LAT/OBL RIGHT RADEX FOOT COMPLETE MINIMUM 3 [address] [place] [place] [address] Xr Imaging Referral ID Status Reason Start Date Expiration Date Visits Requested Visits Authorized [id number] Pending Review Auto-Generat ed Referral 03/07/2022 04/06/2023 1 1 [facility] for referral (narrative)* Diagnostic Procedure Only (Routine) - Pending Review Specialty Diagnoses / Procedures Referred By Contac t Referred To Contact XR IMAGING Diagnoses Charcot's joint of right foot Procedures XR FOOT GENERAL 3V AP/LAT/OBL RIGHT RADEX FOOT COMPLETE MINIMUM [address] [place] [place] [address] Xr Imaging Referral ID Status Reason Start Date Expiration Date Visits Requested Visits Authorized [id number] Pending Review Auto-Generat ed Referral 03/13/2022 04/12/2023 [address] [facility] for referral (narrative)* Outpatient Procedure (Routine) - Pending Review Specialty Diagnoses / Procedures Referred By Contac t Referred To Contact [facility] Diagnoses Charcot's joint of right foot Swelling of limb Procedures US VENOUS INCOMPETENCY ANASTASIA VAS LAB DUP-SCAN XTR VEINS COMPLETE BILATERAL STUDY Edmond Rojas[address] [place] [address] [facility] [place] [address] [place] [address] Referral ID Status Reason Start Date Expiration Date Visits Requested Visits Authorized [id number] Pending Review Auto-Generat ed Referral 03/20/2022 03/20/2023 [address] [facility] for referral (narrative)* Diagnostic Procedure Only (Routine) - Pending Review Specialty Diagnoses / Procedures Referred By Contac t Referred To Contact XR IMAGING Diagnoses Charcot's joint of right foot Swelling of limb Procedures XR FOOT GENERAL 3V AP/LAT/OBL RIGHT RADEX FOOT COMPLETE MINIMUM 3 VIEWS Edmond Rojas [address] [place] [address] Xr Imaging Referral ID Status Reason Start Date Expiration Date Visits Requested Visits Authorized [id number] Pending Review Auto-Generat ed Referral 03/28/2022 04/27/2023 [address] [facility] for referral (narrative)* Diagnostic Procedure Only (Routine) - Closed Specialty Diagnoses / Procedures Referred By Contac t Referred To Contact XR IMAGING Diagnoses Charcot's joint of right foot Procedures XR FOOT GENERAL 3V AP/LAT/OBL RIGHT RADEX FOOT COMPLETE MINIMUM 3 VIEWS Edmond Rojas [address] [place] [address] Xr Imaging Referral ID Status Reason Start Date Expiration Date V isits Requested Visits Authorized [id number] Closed Auto-Generate d Referral 03/13/2022 04/12/2023 [address] [facility] for referral (narrative)* Diagnostic Procedure Only (Routine) - Closed Specialty Diagnoses / Procedures Referred By Contac t Referred To Contact XR IMAGING Diagnoses Charcot's joint of right foot Swelling of limb Procedures XR FOOT GENERAL 3V AP/LAT/OBL RIGHT RADEX FOOT COMPLETE MINIMUM 3 VIEWS Edmond Rojas [address] [place] [address] Xr Imaging Referral ID Status Reason Start Date Expiration Date V isits Requested Visits Authorized [id number] Closed Auto-Generate d Referral 03/28/2022 04/27/2023 [address] [facility] for referral (narrative)* Diagnostic Procedure Only (Routine) - Pending Review Specialty Diagnoses / Procedures Referred By Contac t Referred To Contact XR IMAGING Diagnoses Charcot's joint of right foot Procedures XR FOOT GENERAL 3V AP/LAT/OBL RIGHT RADEX FOOT COMPLETE MINIMUM 3 VIEWS Edmond Rojas[address] [place] [address] Xr Imaging Referral ID Status Reason Start Date Expiration Date Visits Requested Visits Authorized [id number] Pending Review Auto-Generat ed Referral 06/27/2022 07/27/2023 [address] [facility] for referral (narrative)* Diagnostic Procedure Only (Routine) - Closed Specialty Diagnoses / Procedures Referred By Contac t Referred To Contact XR IMAGING Diagnoses Charcot's joint of right foot Procedures XR FOOT GENERAL 3V AP/LAT/OBL RIGHT RADEX FOOT COMPLETE MINIMUM 3 VIEWS Edmond Rojas [address] [place] [address] Xr Imaging Referral ID Status Reason Start Date Expiration Date V isits Requested Visits Authorized [id number] Closed Auto-Generate d Referral 06/27/2022 07/27/2023 [address] [facility] for visit Narrative* Diagnostic Procedure Only (Routine) - Closed Specialty Diagnoses / Procedures Referred By Contac t Referred To Contact XR IMAGING Diagnoses Charcot's joint of right foot Procedures XR FOOT GENERAL 3V AP/LAT/OBL RIGHT RADEX FOOT COMPLETE MINIMUM 3 VIEWS Edmond Rojas[address] [place] [address] Xr Imaging Referral ID Status Reason Start Date Expiration Date V isits Requested Visits Authorized [id number] Closed Auto-Generate d Referral 03/13/2022 04/12/2023 [address] [facility] for visit Narrative* Diagnostic Procedure Only (Routine) - Closed Specialty Diagnoses / Procedures Referred By Contac t Referred To Contact XR IMAGING Diagnoses Charcot's joint of right foot Swelling of limb Procedures XR FOOT GENERAL 3V AP/LAT/OBL RIGHT RADEX FOOT COMPLETE MINIMUM 3 VIEWS Edmond Rojas[address] [place] [address] Xr Imaging Referral ID Status Reason Start Date Expiration Date V isits Requested Visits Authorized [id number] Closed Auto-Generate d Referral 03/28/2022 04/27/2023 [address] [facility] for visit Narrative* Diagnostic Procedure Only (Routine) - Closed Specialty Diagnoses / Procedures Referred By Contac t Referred To Contact XR IMAGING Diagnoses Charcot's joint of right foot Procedures XR FOOT GENERAL 3V AP/LAT/OBL RIGHT RADEX FOOT COMPLETE MINIMUM 3 VIEWS Edmond Rojas [address] [place] [address] Xr Imaging Referral ID Status Reason Start Date Expiration Date V isits Requested Visits Authorized [id number] Closed Auto-Generate d Referral 06/27/2022 07/27/2023 1 1 [facility] Summary Purpose Family History No Family History Records FoundNo Family History Records FoundNo Family History Records Found Advance Directives No Advanced Directives Records FoundDocuments on File Type Date Recorded 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 Advance Directive(s) 12/13/2021 7:23 AM Advance Directive(s) 12/02/2021 11:37 AM Advance Directive(s) 02/24/2020 5:20 AM Advance Directive(s) 12/07/2019 12:56 PM Advance Directive(s) 12/05/2019 12:26 PM Documents on File Type Date Recorded 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 Advance Directive(s) 12/13/2021 7:23 AM [...] insufficiency Procedures CONSULT TO VASCULAR SURGERY OFFICE/OUTPATIENT [facility] 60-74 MINUTES Concepcion Hernandez DPM [address] [place] [address] Referral ID Status Reason Start Date Expiration Date V isits Requested Visits Authorized [id number] Closed PCP Requested Referral 04/09/2022 07/08/2022 1 1 Referral ID Status Reason Start Date Expiration Date V isits Requested Visits Authorized [id number] Closed PCP Requested Referral 04/09/2022 07/08/2022 1 1 Specialty Diagnoses / Procedures Referred By Contac t Referred To Contact Psychology Diagnoses Erectile dysfunction, unspecified erectile dysfunction type Procedures CONSULT TO PSYCHOLOGY OFFICE/OUTPATIENT [facility] 60-74 MINUTES Cami Yusuf MD [address] [place] [address] Referral ID Status Reason Start Date Expiration Date Visits Requested Visits Authorized [id number] Pending Review PCP Requested Referral 02/09/2023 02/09/2024 1 1 Additional Source Comments (unrecognized sect ion and content) No Status Records FoundNo Status Records FoundNo Status Records Found INFORMATION SOURCE (unrecogn ized section and content) DATE CREATED AUTHOR AUTHOR'S ORGANIZ ATION 12/20/2021 [facility] DATE CREATED AUTHOR AUTHOR'S ORGANIZ ATION 05/01/2023 [facility] Source Comments (unrecognize d section and content) In the event this informatio n is protected by the Federal Confidentiality of Alcohol and Drug Abuse Patient Records regulations: The Federal rules restrict any use of the information to criminally investigate or prosecute any alcohol or drug abuse patient.[facility] the event this information is protected by the Federal Confidentiality of Alcohol and Drug Abuse Patient Records regulations: The Federal rules restrict any use of the information to criminally investigate or prosecute any alcohol or drug abuse patient.[facility] the event this information is protected by the Federal Confidentiality of Alcohol and Drug Abuse Patient Records regulations: The Federal rules restrict any use of the information to criminally investigate or prosecute any alcohol or drug abuse patient.[facility] the event this information is protected by the Federal Confidentiality of Alcohol and Drug Abuse Patient Records regulations: The Federal rules restrict any use of the information to criminally investigate or prosecute any alcohol or drug abuse patient.[facility] the event this information is protected by the Federal Confidentiality of Alcohol and Drug Abuse Patient Records regulations: The Federal rules restrict any use of the information to criminally investigate or prosecute any alcohol or drug abuse patient.[facility] the event this information is protected by the Federal Confidentiality of Alcohol and Drug Abuse Patient Records regulations: The Federal rules restrict any use of the information to criminally investigate or prosecute any alcohol or drug abuse patient.[facility] the event this information is protected by the Federal Confidentiality of Alcohol and Drug Abuse Patient Records regulations: The Federal rules restrict any use of the information to criminally investigate or prosecute any alcohol or drug abuse patient.[facility] the event this information is protected by the Federal Confidentiality of Alcohol and Drug Abuse Patient Records regulations: The Federal rules restrict any use of the information to criminally investigate or prosecute any alcohol or drug abuse patient.[facility] the event this information is protected by the Federal Confidentiality of Alcohol and Drug Abuse Patient Records regulations: The Federal rules restrict any use of the information to criminally investigate or prosecute any alcohol or drug abuse patient.[facility] the event this information is protected by the Federal Confidentiality of Alcohol and Drug Abuse Patient Records regulations: The Federal rules restrict any use of the information to criminally investigate or prosecute any alcohol or drug abuse patient.[facility] the event this information is protected by the Federal Confidentiality of Alcohol and Drug Abuse Patient Records regulations: The Federal rules restrict any use of the information to criminally investigate or prosecute any alcohol or drug abuse patient.[facility] the event this information is protected by the Federal Confidentiality of Alcohol and Drug Abuse Patient Records regulations: The Federal rules restrict any use of the information to criminally investigate or prosecute any alcohol or drug abuse patient.[facility] the event this information is protected by the Federal Confidentiality of Alcohol and Drug Abuse Patient Records regulations: The Federal rules restrict any use of the information to criminally investigate or prosecute any alcohol or drug abuse patient.[facility] the event this information is protected by the Federal Confidentiality of Alcohol and Drug Abuse Patient Records regulations: The Federal rules restrict any use of the information to criminally investigate or prosecute any alcohol or drug abuse patient.[facility] the event this information is protected by the Federal Confidentiality of Alcohol and Drug Abuse Patient Records regulations: The Federal rules restrict any use of the information to criminally investigate or prosecute any alcohol or drug abuse patient.[facility] the event this information is protected by the Federal Confidentiality of Alcohol and Drug Abuse Patient Records regulations: The Federal rules restrict any use of the information to criminally investigate or prosecute any alcohol or drug abuse patient.[facility] the event this information is protected by the Federal Confidentiality of Alcohol and Drug Abuse Patient Records regulations: The Federal rules restrict any use of the information to criminally investigate or prosecute any alcohol or drug abuse patient.[facility] the event this information is protected by the Federal Confidentiality of Alcohol and Drug Abuse Patient Records regulations: The Federal rules restrict any use of the information to criminally investigate or prosecute any alcohol or drug abuse patient.[facility] the event this information is protected by the Federal Confidentiality of Alcohol and Drug Abuse Patient Records regulations: The Federal rules restrict any use of the information to criminally investigate or prosecute any alcohol or drug abuse patient.[facility]In the event this information is protected by the Federal Confidentiality of Alcohol and Drug Abuse Patient Records regulations: The Federal rules restrict any use of the information to criminally investigate or prosecute any alcohol or drug abuse patient.[facility] the event this information is protected by the Federal Confidentiality of Alcohol and Drug Abuse Patient Records regulations: The Federal rules restrict any use of the information to criminally investigate or prosecute any alcohol or drug abuse patient.[facility]In the event this information is protected by the Federal Confidentiality of Alcohol and Drug Abuse Patient Records regulations: The Federal rules restrict any use of the information to criminally investigate or prosecute any alcohol or drug abuse patient.[facility] HospitalIn the event this information is protected by the Federal Confidentiality of Alcohol and Drug Abuse Patient Records regulations: The Federal rules restrict any use of the information to criminally investigate or prosecute any alcohol or drug abuse patient.[facility]In the event this information is protected by the Federal Confidentiality of Alcohol and Drug Abuse Patient Records regulations: The Federal rules restrict any use of the information to criminally investigate or prosecute any alcohol or drug abuse patient.[facility]In the event this information is protected by the Federal Confidentiality of Alcohol and Drug Abuse Patient Records regulations: The Federal rules restrict any use of the information to criminally investigate or prosecute any alcohol or drug abuse patient.[facility]In the event this information is protected by the Federal Confidentiality of Alcohol and Drug Abuse Patient Records regulations: The Federal rules restrict any use of the information to criminally investigate or prosecute any alcohol or drug abuse patient.[facility]In the event this information is protected by the Federal Confidentiality of Alcohol and Drug Abuse Patient Records regulations: The Federal rules restrict any use of the information to criminally investigate or prosecute any alcohol or drug abuse patient.[facility]In the event this information is protected by the Federal Confidentiality of Alcohol and Drug Abuse Patient Records regulations: The Federal rules restrict any use of the information to criminally investigate or prosecute any alcohol or drug abuse patient.[facility]In the event this information is protected by the Federal Confidentiality of Alcohol and Drug Abuse Patient Records regulations: The Federal rules restrict any use of the information to criminally investigate or prosecute any alcohol or drug abuse patient.[facility]In the event this information is protected by the Federal Confidentiality of Alcohol and Drug Abuse Patient Records regulations: The Federal rules restrict any use of the information to criminally investigate or prosecute any alcohol or drug abuse patient.[facility]In the event this information is protected by the Federal Confidentiality of Alcohol and Drug Abuse Patient Records regulations: The Federal rules restrict any use of the information to criminally investigate or prosecute any alcohol or drug abuse patient.[facility]In the event this information is protected by the Federal Confidentiality of Alcohol and Drug Abuse Patient Records regulations: The Federal rules restrict any use of the information to criminally investigate or prosecute any alcohol or drug abuse patient.[facility]In the event this information is protected by the Federal Confidentiality of Alcohol and Drug Abuse Patient Records regulations: The Federal rules restrict any use of the information to criminally investigate or prosecute any alcohol or drug abuse patient.[facility]In the event this information is protected by the Federal Confidentiality of Alcohol and Drug Abuse Patient Records regulations: The Federal rules restrict any use of the information to criminally investigate or prosecute any alcohol or drug abuse patient.[facility]In the event this information is protected by the Federal Confidentiality of Alcohol and Drug Abuse Patient Records regulations: The Federal rules restrict any use of the information to criminally investigate or prosecute any alcohol or drug abuse patient.[facility]In the event this information is protected by the Federal Confidentiality of Alcohol and Drug Abuse Patient Records regulations: The Federal rules restrict any use of the information to criminally investigate or prosecute any alcohol or drug abuse patient.[facility]In the event this information is protected by the Federal Confidentiality of Alcohol and Drug Abuse Patient Records regulations: The Federal rules restrict any use of the information to criminally investigate or prosecute any alcohol or drug abuse patient.[facility]In the event this information is protected by the Federal Confidentiality of Alcohol and Drug Abuse Patient Records regulations: The Federal rules restrict any use of the information to criminally investigate or prosecute any alcohol or drug abuse patient.[facility]In the event this information is protected by the Federal Confidentiality of Alcohol and Drug Abuse Patient Records regulations: The Federal rules restrict any use of the information to criminally investigate or prosecute any alcohol or drug abuse patient.[facility]In the event this information is protected by the Federal Confidentiality of Alcohol and Drug Abuse Patient Records regulations: The Federal rules restrict any use of the information to criminally investigate or prosecute any alcohol or drug abuse patient.[facility]In the event this information is protected by the Federal Confidentiality of Alcohol and Drug Abuse Patient Records regulations: The Federal rules restrict any use of the information to criminally investigate or prosecute any alcohol or drug abuse patient.[facility]In the event this information is protected by the Federal Confidentiality of Alcohol and Drug Abuse Patient Records regulations: The Federal rules restrict any use of the information to criminally investigate or prosecute any alcohol or drug abuse patient.[facility]In the event this information is protected by the Federal Confidentiality of Alcohol and Drug Abuse Patient Records regulations: The Federal rules restrict any use of the information to criminally investigate or prosecute any alcohol or drug abuse patient.[facility]In the event this information is protected by the Federal Confidentiality of Alcohol and Drug Abuse Patient Records regulations: The Federal rules restrict any use of the information to criminally investigate or prosecute any alcohol or drug abuse patient.[facility]In the event this information is protected by the Federal Confidentiality of Alcohol and Drug Abuse Patient Records regulations: The Federal rules restrict any use of the information to criminally investigate or prosecute any alcohol or drug abuse patient.[facility]In the event this information is protected by the Federal Confidentiality of Alcohol and Drug Abuse Patient Records regulations: The Federal rules restrict any use of the information to criminally investigate or prosecute any alcohol or drug abuse patient.[facility]In the event this information is protected by the Federal Confidentiality of Alcohol and Drug Abuse Patient Records regulations: The Federal rules restrict any use of the information to criminally investigate or prosecute any alcohol or drug abuse patient.[facility]In the event this information is protected by the Federal Confidentiality of Alcohol and Drug Abuse Patient Records regulations: The Federal rules restrict any use of the information to criminally investigate or prosecute any alcohol or drug abuse patient.[facility]In the event this information is protected by the Federal Confidentiality of Alcohol and Drug Abuse Patient Records regulations: The Federal rules restrict any use of the information to criminally investigate or prosecute any alcohol or drug abuse patient.[facility]In the event this information is protected by the Federal Confidentiality of Alcohol and Drug Abuse Patient Records regulations: The Federal rules restrict any use of the information to criminally investigate or prosecute any alcohol or drug abuse patient.[facility]In the event this information is protected by the Federal Confidentiality of Alcohol and Drug Abuse Patient Records regulations: The Federal rules restrict any use of the information to criminally investigate or prosecute any alcohol or drug abuse patient.[facility]In the event this information is protected by the Federal Confidentiality of Alcohol and Drug Abuse Patient Records regulations: The Federal rules restrict any use of the information to criminally investigate or prosecute any alcohol or drug abuse patient.[facility]In the event this information is protected by the Federal Confidentiality of Alcohol and Drug Abuse Patient Records regulations: The Federal rules restrict any use of the information to criminally investigate or prosecute any alcohol or drug abuse patient.[facility]In the event this information is protected by the Federal Confidentiality of Alcohol and Drug Abuse Patient Records regulations: The Federal rules restrict any use of the information to criminally investigate or prosecute any alcohol or drug abuse patient.[facility]In the event this information is protected by the Federal Confidentiality of Alcohol and Drug Abuse Patient Records regulations: The Federal rules restrict any use of the information to criminally investigate or prosecute any alcohol or drug abuse patient.[facility]In the event this information is protected by the Federal Confidentiality of Alcohol and Drug Abuse Patient Records regulations: The Federal rules restrict any use of the information to criminally investigate or prosecute any alcohol or drug abuse patient.[facility]In the event this information is protected by the Federal Confidentiality of Alcohol and Drug Abuse Patient Records regulations: The Federal rules restrict any use of the information to criminally investigate or prosecute any alcohol or drug abuse patient.[facility]In the event this information is protected by the Federal Confidentiality of Alcohol and Drug Abuse Patient Records regulations: The Federal rules restrict any use of the information to criminally investigate or prosecute any alcohol or drug abuse patient.[facility] Reason for Visit (unrecogniz ed section [...] total of 8 vials Shazia Mendez MD [address] [place] [id number] Pascual Miller MD [address] [place] [address] Referral ID Status Reason Start Date Expiration Date V isits Requested Visits Authorized [id number] Authorized 03/05/2022 09/27/2022 99 99 Reason Comments Release Of Medical Records Reason Comments New Patient Reason Comments Patient Update Refund for foot plat e Reason Comments Established Patient Follow Up charcot Reason Comments Vest 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 - Other Reason Comments Established Patient Reason Comments Follow Up Reason Comments Results Reason Comments Post-Op Visit Reason Comments Returning Patient's Call Reason Comments Patient Question Reason Comments Established Patient Follow Up Reason Comments cipro instructions Reason Comments Cystoscopy-1 Care Teams (unrecognized sec tion and content) 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 Resource Specialist Relationship Specialty Start Date End Date Shazia Mendez MD [address] [place] [id number] PCP - General Internal Medicine 02/10/20 Forest Resource Specialist Relationship Specialty Start Date End Date Shazia Mendez MD [address] [place] [id number] PCP - General Internal Medicine 02/10/20 Forest Resource Specialist Relationship Specialty Start Date End Date Shazia Mendez MD [address] [place] [id number] PCP - General Internal Medicine 02/10/20 Forest Resource Specialist Relationship Specialty Start Date End Date Shazia Mendez MD [address] [place] [phone] PCP - General Internal Medicine 02/10/20 Forest Resource Specialist Relationship Specialty Start Date End Date Shazia Mendez MD [address] [place] [phone] PCP - General Internal Medicine 02/10/20 Forest Resource Specialist Relationship Specialty Start [place] [id number] [place] [address] PCP - General Internal Medicine 02/10/20 [employer] Specialist Relationship Specialty [place] [address] [place] [address] PCP - General Internal Medicine 02/10/20 [employer] Resource Specialist Relationship Specialty [place] [address] [place] [address] PCP - General Internal Medicine 02/10/20 [employer] Resource Specialist Relationship Specialty Start [place] [address] [place] [address] PCP - General Internal Medicine 02/10/20 Forest Resource Specialist Relationship Specialty Start [place] [address] [place] [address] PCP - General Internal Medicine 02/10/20 Forest Resource Specialist Relationship Specialty Start [place] [address] [place] [address] PCP - General Internal Medicine 02/10/20 Forest Resource Specialist Relationship Specialty Start [place] [address] [place] [address] PCP - General Internal Medicine 02/10/20 Forest Resource Specialist Relationship Specialty Start [place] [address] [place] [address] PCP - General Internal Medicine 02/10/20 Forest Resource Specialist Relationship Specialty Start Date End [place]azia Mendez [place] [id number] [place] [address] [address] [place] [address] PCP - General Internal Medicine 02/10/20 Forest Resource Specialist Relationship Specialty Start Date End [place]az[place] Mendez [place] [id number] [place] [address] [address] [place] [address] PCP - General Internal Medicine 02/10/20 Forest Resource Specialist Relationship Specialty Start Date End Date Shazia Mendez MD [address] [place] [address] [address] [place] [address] PCP - General Internal Medicine 02/10/20 Forest Resource Specialist Relationship Specialty Start Date End Date Shazia Mendez MD [address] [place] [address] [address] [place] [address] PCP - General Internal Medicine 02/10/20 Forest Resource Specialist Relationship Specialty Start Date End Date Shazia Mendez MD [address] [place] [address] [address] [place] [address] PCP - General Internal Medicine 02/10/20 Forest Resource Specialist Relationship Specialty Start Date End Date Shazia Mendez MD [address] [place] [address] [address] [place] [address] PCP - General Internal Medicine 02/10/20 Forest Resource Specialist Relationship Specialty Start Date End Date Shazia Mendez MD [address] [place] [address] [address] [place] [address] PCP - General Internal Medicine 02/10/20 Forest Resource Specialist Relationship Specialty Start Date End Date Shazia Mendez MD [address] [place] [address] [address] [place] [address] PCP - General Internal Medicine 02/10/20 Forest Resource Specialist Relationship Specialty Start Date End Date Shazia Mendez MD [address] [place] [address] [address] [place] [address] PCP - General Internal Medicine 02/10/20 Forest Resource Specialist Relationship Specialty Start [place] [address] [place] [address] PCP - General Internal Medicine 02/10/20 Forest Resource Specialist Relationship Specialty [place] [address] [facility] [address] [place] [address] PCP - General Internal Medicine 02/10/20 Forest Resource Specialist Relationship Specialty [place] [address] [facility] [address] [place] [address] PCP - General Internal Medicine 02/10/20 Forest Resource Specialist Relationship Specialty Start [place] [address] [facility] [address] [place] [address] PCP - General Internal Medicine 02/10/20 Forest Resource Specialist Relationship Specialty Start [place] [address] [facility] [address] [place] [address] PCP - General Internal Medicine 02/10/20 Forest Resource Specialist Relationship Specialty Start [place] [address] [facility] [address] [place] [address] PCP - General Internal Medicine 02/10/20 Forest Resource Specialist Relationship Specialty Start [place] [address] [facility] [address] [place] [address] PCP - General Internal Medicine 02/10/20 FOR [...] BE BASED ON THE PRIMARY CLINICAL RECORDS. [facility] [employer] [facility]. provides no warranty or guarantee of the accuracy or completeness of information in this document.
[2023-10-22 09:23] LABS: Absolute Lymphocyte Count 1.26 X10^3/uL (0.83-4.51); Absolute Neutrophil Count 5.6 X10^3/uL (2.0-7.7); Basophil# 0.06 X10^3/uL; Basophil% 0.8 % (0-1); Eosinophil# 0.16 X10^3/uL; Hematocrit 43.9 % (40-54); Hemoglobin 14.3 g/dL (13.0-16.5); Lymphocyte # 1.26 X10^3/ul (0.83-4.51); Mean Corp Hgb Conc 32.6 g/dL (32-36); Mean Corpuscular Hgb 31.2 pg (27.0-32.0); Mean Corpuscular Volume 95.9 fL (80-94); Mean Platelet Vol. 8.6 fl (6.2-12.0); Monocyte# 0.77 X10^3/uL; Monocyte% 9.8 % (0-10); NRBC Flagged by Analyzer 0 % (0-5); Neutrophil # 5.58 X10^3/uL (2.7-7.7); Neutrophil % 70.6 % (47-70); Platelet Count 238 K/mm3 (150-450); RBC Distribution Width CV 12.3 % (11.6-14.6); RBC Distribution Width SD 43.7 fl (35.1-43.9); Red Blood Count 4.58 M/mm3 (4.6-6.2); White Blood Count 7.9 K/mm3 (4.4-11.0)
[2023-10-22 10:07] LABS: ALB/GLOB Ratio 1.2 RATIO (0.9-2.4); AST(SGOT) 32 U/L (15-37); Alanine Aminotransfer ALT/SGPT 79 U/L (16-61); Albumin, Serum 3.8 g/dL (3.2-5.0); Alkaline Phosphatase 46 U/L (45-117); Anion Gap 1 (5-15); BUN 16 mg/dL (7-18); BUN/Creat Ratio 15.2 RATIO (10-20); Calcium,Total 9.3 mg/dL (8.5-10.1); Chloride 99 mmol/L (98-107); Cholesterol 146 mg/dL (200); Creatinine, Serum 1.05 mg/dL (0.70-1.30); EST Glomerular Filtration Rate 76 mL/min (>60); Est Glom Filt Rate - Afr Amer 92 mL/min (>60); Globulin 3.2 g/dL (2.2-4.2); Glucose 97 mg/dL (74-106); High Density Lipoprotein 59 mg/dL; Potassium 4.5 mmol/L (3.5-5.1); Sodium Level 131 mmol/L (136-145); Triglycerides 150 mg/dL; Very Low Density Lipoprotein 30 mg/dL (5-40)
== END | disposition home or self-care (01) ==
LOC: LAB 08:28
PROVIDERS: Nurse Practitioner; PCP Internal Medicine; Referring Provider Internal Medicine; Visit Provider Internal Medicine
DX: I10 Essential (primary) hypertension (principal); R79.89 Other specified abnormal findings of blood chemistry; Z87.440 Personal history of urinary (tract) infections
CPT/HCPCS: 36415; 80053; 80061; 84403; 85025

== ENCOUNTER → 2023-11-04 | Outpatient (CLI) | payer OTHER, SELFPAY ==
[2023-11-04 14:42] LABS: Mucous, Urine 0 SEEN /hpf (<or=2+); Red Blood Cells-Urine 0 SEEN /hpf (0-5); Squamous Epithelial Cells - UA 0 SEEN /hpf (0-5)
[2023-11-04 17:01] LABS: Color, Urine Yellow (Yellow); Glucose, Dipstick Normal (Normal); Ketone-Dipstick Negative (Negative); Leukocyte Esterase-Dipstick 500 /ul (Negative); Nitrite-Dipstick Positive (Negative); Occult Blood-Urine 10 /ul (Negative); Protein-Dipstick Negative (Negative); Specific Gravity, Urine 1.005 (1.002-1.030); Urine Bilirubin Dipstick Negative (Negative); Urine Clarity Clear (Clear); Urine Urobilinogen 1 mg/dl (Normal)
[2023-11-04 17:13] LABS: Bacteria RARE /hpf (None Seen); White Blood Cells 10-25 SEEN /hpf (0-5)
--- OUTSIDE RECORDS SUMMARY | 2023-11-04 18:54 | XMS RPT_ITS | CCD ---
Author Name Unknown Address [address] [place] [address] Organization [facility] Care Team Providers Care Medical Aide Name Role Phone NO, DOCTOR ON Consulting Unavailable BAY PHILIPPE CASTING TESTER- Admitting Unavailable PHILIPPE, BAY CASTING TESTER- Primary Care Unavailable BAY PHILIPPE CASTING TESTER- Attending Unavailable JAJA LEE Admitting Unavailable JAJA LEE Primary Care Unavailable JAJA LEE Attending Unavailable NO, DOCTOR ON Consulting Unavailable Shazia Mendez MD Primary Care Provider [phone] Shazia Mendez MD Primary Care Provider [phone] Shazia Mendez MD Primary Care Provider [phone] MICHAEL, ANTONIOS Primary Care Unavailable TAWANNA BROOKS [...] Unavailabl e MICHAEL, ANTONIOS Primary Care Unavailable MICHEAL, ANTONIOS Primary Care Unavailable EDIE GARCIA Attending Unavail able EDMOND ROJAS Referring Unavailable MICHAEL, ANTONIOS Primary Care Unavailable TESTEDMOND SWEET Referring Unavailable TESTRAKE, EDMOND Referring Unavailable TESTRAKE, EDMOND Attending Unavailable MICHAEL, [facility] Unavailable MICHAEL, [facility] Primary [facility] [place] Unavailable PASCUAL MILLER Attending Unavailabl e PASCUAL MILLER Admitting Unavailabl e MICHAEL, [facility] Primary Care Unavailable PASCUAL MILLER Referring Unavailabl e MICHAEL, [facility] Primary Care Unavailable PASCUAL MILLER Referring Unavailabl e PASCUAL MILLER Attending Unavailabl e MICHAEL, [facility] Unavailable MICHAEL, [facility] Unavailable TESTRAKE, EDMOND Referring Unavailable TESTRAKE, EDMOND Attending Unavailable Allergies Allergy Classification Reported Allergen(s) Allergy Type Date of Onset Reaction(s) Facility (8 sources) Amoxicillin; Translations: [AMOXICILLIN] Drug Allergy 02-09-2023 Diarrhea [facility] Medications Current Medications Medication Drug Class(es) Dates [...] 83 mm[Hg] Cami Yusuf MD Work Phone: [facility] 02-09-2023 14:54-0400 Heart rate 81 /min Cami Yusuf MD Work Phone: [facility] 02-09-2023 14:54-0400 Systolic blood pressure 151 mm[Hg] Cami Yusuf MD Work Phone: [facility] 12-22-2022 13:23-0400 Diastolic blood pressure 96 mm[Hg] Pascual Miller MD Work Phone: [facility] 12-22-2022 13:23-0400 Heart rate 70 /min Pascual Samayoa Work Phone: [facility] 12-22-2022 13:23-0400 Systolic blood pressure 157 mm[Hg] Pascual Miller MD Work Phone: [facility] 10-22-2022 13:22-0500 Body height 190.5 cm Pacc 1 Work Phone: [facility] 10-22-2022 13:22-0500 Body temperature 99.1 [degF] Pacc 1 Work Phone: [facility] 10-22-2022 13:22-0500 Body weight 118.39 kg Pacc 1 Work Phone: [facility] 10-22-2022 13:22-0500 Diastolic blood pressure 84 mm[Hg] Pacc 1 Work Phone: [facility] 10-22-2022 13:22-0500 Heart rate 82 /min Pacc 1 Work Phone: [facility] 10-22-2022 13:22-0500 Respiratory rate 16 /min Pacc 1 Work Phone: [facility] 10-22-2022 13:22-0500 SaO2% (BldA) [Mass fraction] 95 % Pacc 1 Work Phone: [facility] 10-22-2022 13:22-0500 Systolic blood pressure 160 mm[Hg] Pacc 1 Work Phone: [facility] 08-12-2022 10:06-0500 Body height 188 cm Anca Mcdonald DO Work Phone: [facility] 08-12-2022 10:06-0500 Body weight 111.13 kg Anca Mcdonald DO Work Phone: [facility] 08-12-2022 10:06-0500 Diastolic blood pressure 89 mm[Hg] Anca Mcdonald DO Work Phone: [facility] 08-12-2022 10:06-0500 Heart rate 89 /min Ancatabatha Velazquezle DO Work Phone: [facility] 08-12-2022 10:06-0500 SaO2% (BldA) [Mass fraction] 96 % Anca Mcdonald DO Work Phone: [facility] 08-12-2022 10:06-0500 Systolic blood pressure 142 mm[Hg] Anca Mcdonald DO Work Phone: [facility] 06-09-2022 12:33-0400 Body height 188 cm Edie Garcia MD Work Phone: [facility] 06-09-2022 12:33-0400 Body weight 112.04 kg Edie Garcia MD Work Phone: [facility] 06-09-2022 12:33-0400 Diastolic blood pressure 86 mm[Hg] Edie Garcia MD Work Phone: [facility] 06-09-2022 12:33-0400 Heart rate 89 /min Edie Garcia MD Work Phone: [facility] 06-09-2022 12:33-0400 SaO2% (BldA) [Mass fraction] 99 % Edie Garcia MD Work Phone: [facility] 06-09-2022 12:33-0400 Systolic blood pressure 156 mm[Hg] Edie Garcia MD Work Phone: [facility] 04-30-2022 16:30-0400 Diastolic blood pressure 82 mm[Hg] Pascual Miller MD Work Phone: [facility] 04-30-2022 16:30-0400 Heart rate 76 /min Pascual Samayoa Work Phone: [facility] 04-30-2022 16:30-0400 Systolic blood pressure 193 mm[Hg] Pascual Miller MD Work Phone: [facility] 04-28-2022 17:14-0400 Diastolic blood pressure 99 mm[Hg] Pascual Miller MD Work Phone: [facility] 04-28-2022 17:14-0400 Heart rate 76 /min Pascual Samayoa Work Phone: [facility] 04-28-2022 17:14-0400 Systolic blood pressure 179 mm[Hg] Pascual Miller MD Work Phone: [facility] 04-28-2022 16:14-0400 Body height 188 cm Pascual Samayoa Work Phone: [facility] 02-17-2022 10:36-0400 Body height 190.5 cm Pascual Samayoa Work Phone: [facility] 02-17-2022 10:36-0400 Body weight 108.86 kg Pascual Samayoa Work Phone: [facility] 02-17-2022 10:36-0400 Diastolic blood pressure 94 mm[Hg] Pascual Miller MD Work Phone: [facility] 02-17-2022 10:36-0400 Heart rate 97 /min Pascual Samayoa Work Phone: [facility] 02-17-2022 10:36-0400 Systolic blood pressure 159 mm[Hg] Pascual Miller MD Work Phone: [facility] 01-30-2022 13:16-0400 Body height 190.5 cm Tawanna Brooks MD Work Phone: [facility] 01-30-2022 13:16-0400 Body weight 106.59 kg Tawanna Brooks MD Work Phone: [facility] Encounters Encounter Date Encounter Type Care Provider Facility Start: 04-30-2023 End: 04-30-2023 ambulatory ANTONIOS MICHAEL Facility:[facility] Start: 04-30-2023 End: 04-30-2023 Patient encounter [...] CANCER SCREENING DISCUSSION PROSTATE CANCER SCREENING DISCUSSION [facility] Start: 01-30-2027 PROSTATE CANCER SCREENING DISCUSSION PROSTATE CANCER SCREENING DISCUSSION [facility] Start: 10-22-2025 DIABETES SCREEN DIABETES SCREEN [facility] Start: 01-30-2025 DIABETES SCREEN DIABETES SCREEN [facility] Start: 12-06-2024 DIABETES SCREEN DIABETES SCREEN [facility] Start: 10-14-2024 PROSTATE CANCER SCREENING DISCUSSION PROSTATE CANCER SCREENING DISCUSSION [facility] Start: 05-29-2023 Influenza vaccination INFLUENZA (#1) [facility] Start: 03-18-2023 End: 05-18-2023 Bacteria identified in Urine by [facility] Work Phone: Immunizations Immunization Date Immunization Notes Care Provider Fa cility 11-05-2022 influenza, injectabl e, quadrivalent, preservative free Pascual Miller MD Work Phone: [facility] 11-04-2022 COVID-19 booster vaccine, age 12+ yr, bivalent (PFIZER-BIONTAdelphic Mobile) Pascual Miller MD Work Phone: [facility] Payers Date Payer Category Payer Unknown MMO MMO [employer] [id number] 2018-Present [phone] [address] [place] [address] PPO [id number] 2018 Unknown [id number] 2018 Unknown [id number] Social History Date Type Detail Facility Start: 12-07-2019 End: 06-09-2022 Tobacco smoking status NHIS Never smoked tobacco [facility] Start: 12-07-2019 End: 06-09-2022 Tobacco use and exposure Smokeless tobacco non-user [facility] Start: 12-26-2021 End: 04-30-2023 Alcohol intake Current non-drinker of alcohol (finding) [facility] Start: 1960 Sex Assigned At Male C [facility] Start: 12-16-2021 End: 07-01-2022 Exposure to SARS-CoV-2 (event) Not sure [facility] Start: 09-03-2020 End: 04-30-2023 History of Social function [facility] Start: 09-03-2020 End: 04-30-2023 Tobacco use panel [facility] National Score (1-10 0), lower number is lower risk Not on file [facility] Start: 10-30-2021 Gender identity Identifies as male gender (finding) [facility] Start: 10-30-2021 Sexual orientation Heterosexual (magaly rondon) [facility] Medical Equipment Procedure Code Equipment Code Equipment Origin al Text Equipment Identifier Dates Prosthesis Spect ra Rear Tip Control Integration Engineer 1cm For 12/14mm Cylinders - [id number] Start: 11-04-2022 Prosthesis Ams 7 00 Ms Pump Inhibizone Penile Preconnect Inflatable - [id number] Start: 11-04-2022 Clinical Notes 12-13-2021 to 04-30-2023 Grant Plata MD - 04/30/2023 1:11 PM Meghan Head RN - 03/23/2023 11:10 AM Tawanna Myles MD - 03/23/2023 10:39 AM Meghan Head RN - 03/23/2023 10:49 AM EDTPatient Instructions Note Date & Type Note Facility 04-30-2023 Note HNO ID: [id number] Author: Grant Plata MD Service: ? Author [...] by mouth once daily. 180 capsule 3 Jekgtyzw-Uccn-Rchwtr-Hyalur Ac 027-058-73-2 mg cap Take 2 tablets by mouth [...] glans engorgement. RTC PRN Grant Plata MD [facility] 04-30-2023 History of Presen t illness Narrative [...] by mouth once daily. 180 capsule 3 Ahlmrcok-Idum-Kmdiug-Hyalur Ac 304-157-79-2 mg cap Take 2 tablets by mouth [...] Grant Plata MD documented in this encounter [facility] 03-23-2023 Note HNO ID: [id number] Author: Meghan Gibbs RN Service: ? Author [...] Visit completed when applicable. Meghan Gibbs RN [facility] 03-23-2023 Note HNO ID: [id number] Author: Tawanna Brooks MD Service: ? Author [...] with more than 50% of the total oocm-sr-psqa time of the visit in counseling / coordination of care. Tawanna Brooks MD [facility] 03-23-2023 History of Presen t illness Narrative [...] with more than 50% of the total mead-kv-tjyb time of the visit in counseling / coordination of care. Tawanna Brooks MD documented in this encounter [facility] 03-23-2023 Nurse Note Actual procedure/procedure scheduled: Yes Performing provider/scheduled provider: Yes Patient was roomed in: Q9- 09 [place] Vessel Pilot offered:Patient declines Patient arrived in the room [...] along with physician during procedure exam. Meghan Gbibs RN Instruction sheet given and reviewed and [...] Education Session: None Instruction Provided To: Patient Child Care Coordinator Present: not applicable Discipline: Nursing Learning Topic: SURVIVAL SKILLS: Complication Prevention Patient Evaluation: Verbalizes understanding: Yes Supplemental Material Given: Written Material Instructed By Meghan Gibbs RN In Department Urology . documented in this encounter [facility] 03-20-2023 Miscellaneous Notes Spoke with Nathan to stop Cymbalta and trazadone when he is taking Cipro. Pt understood. documented in this encounter [facility] 02-09-2023 Note HNO ID: [id number] Author: Cami Yusuf MD Service: ? Author Type: Physician Type: Progress Notes Filed: 02/09/2023 5:48 PM Note Text: [facility] NEW PATIENT HISTORY AND PHYSICAL [...] for internal providers or letter via the [employer] for external providers. I HISTORY [...] 1 capsule by mouth daily at bedtime. Kluxulrc-Cmwn-Szmbjs-Hyalur Ac 647-942-75-2 mg cap Take 2 tablets by mouth [...] a referral Cami Yusuf MD Electronically signed [facility] 02-09-2023 History of Presen t illness Narrative [facility] NEW PATIENT HISTORY AND PHYSICAL [...] for internal providers or letter via the [employer] for external providers. I HISTORY [...] 1 capsule by mouth daily at bedtime. Yfhmwmgq-Wplc-Lwbosd-Hyalur Ac 700-451-04-2 mg cap Take 2 tablets by mouth [...] Cami Yusuf MD documented in this encounter [facility] 02-09-2023 Nurse Note 2nd PVR 369 after voiding 1st PVR 835 documented in this encounter [facility] 02-09-2023 Note Patient Outreach (UR OLMN) ELÍAS COLLADO ([id number]) 1960 M Date Time Provider Department 02/09/23 CAMI YUSUF During your visit today, we recorded the following information about you: Allergies As of Date: 02/09/2023 Noted Allergy Reaction AMOXICILLIN 02/09/2023 6 - Diarrhea Date Reviewed: 02/09/2023 Reviewed by: Cami Yusuf MD - Fully Assessed Visit Diagnosis:Screening for genitourinary condition [Z13.89] Order(s):URINALYSIS, REFLEX MICROSCOPIC [[id number]] Order #: [id number]. #:[id number] Prescriptions as of 02/12/2023 - amLODIPine (NORVASC) [...] capsule by mouth daily at bedtime. - Utfzrvbc-Yath-Bwcqgt-Hyalur Ac 669-094-92-2 mg cap Take 2 tablets by mouth [...] Ejaculatory disorder [N53.19] 02/05/2023 Encounter Status:Closed by Responsive Sports, PRODUSER on 02/12/23 [facility] 02-05-2023 Note HNO ID: [id number] Author: Tawanna Brooks MD Service: ? Author [...] mouth daily at bedtime. 90 capsule 5 Bvrppvli-Zhen-Jsmayx-Hyalur Ac 416-711-59-2 mg cap Take 2 tablets by mouth [...] worse post IPP placement Tawanna Brooks MD [facility] 02-05-2023 History of Presen t illness Narrative [...] mouth daily at bedtime. 90 capsule 5 Vialvxsa-Ypxv-Nupigf-Hyalur Ac 590-981-31-2 mg cap Take 2 tablets by mouth [...] Tawanna Brooks MD documented in this encounter [facility] 01-31-2023 Note HNO ID: [id number] Author: Edmond Rojas Service: ? Author Type: [...] 1 capsule by mouth daily at bedtime. Zgnadntm-Bavl-Rakmjq-Hyalur Ac 074-994-29-2 mg cap Take 2 tablets by mouth [...] sooner if problems arise. Edmond Rojas DPM [facility] 01-30-2023 History of Presen t illness Narrative [...] 1 capsule by mouth daily at bedtime. Nvuhzxus-Ftng-Jyjqpl-Hyalur Ac 457-574-46-2 mg cap Take 2 tablets by mouth [...] Amita Garcia LPN documented in this encounter [facility] 01-29-2023 Note HNO ID: [id number] Author: Amita Garcia LPN Service: ? Author Type: LICENSED NURSE Type: Progress Notes Filed: 01/30/2023 10:41 PM Note Text: AMB ROOMING INTAKE FLOWSHEET DATA Patient presents with: Right Foot - Established Patient, Follow Up Left Foot - Established Patient, Follow Up Amita Garcia LPN [facility] 01-29-2023 Miscellaneous Notes Urology Telephone Note Attempted to call patient multiple times today but have not received an answer. Zachary Calixto Jr., MD Reconstructive Urology Fellow documented in this encounter [facility] 01-20-2023 Miscellaneous Notes Urology Telephone Note Attempted to call patient and spouse multiple times today but have not received an answer. Zachary Calixto Jr., MD Reconstructive Urology Fellow documented in this encounter [facility] 01-19-2023 Miscellaneous Notes Urology Telephone Note Attempted to call patient and spouse multiple times today but have not received an answer. Zachary Calixto Jr., MD Reconstructive Urology Fellow documented in this encounter [facility] 01-17-2023 Miscellaneous Notes Urology Telephone Note I spoke with pt over the phone today. He expressed a lot of frustration with the IPP and concern for infection. I explained that I would follow up the cultures and call him back. Patient expressed understanding and agreement with the plan. Zachary Calixto Jr., MD Reconstructive Urology Fellow documented in this encounter [facility] 12-30-2022 Note HNO ID: [id number] Author: Kasandra Méndez APRN.CNP Service: ? Author Type: Nurse Practitioner Type: Progress Notes Filed: 12/30/2022 5:48 PM Note Text: Deleted pended order for urine culture. Per Meghan Christie's note from today, Elías Collado went to local urgent care over the weekend and is staking cipro with improvement in UTI symptoms. Kasandra Méndez APRN.CNP [facility] 12-30-2022 History of Presen t illness Narrative Deleted pended order for urine culture. Per Meghan Christie's note from today, Elías Collado went to local urgent care over the weekend and is staking cipro with improvement in UTI symptoms. Kasandra Méndez APRN.CNP documented in this encounter [facility] 12-30-2022 Miscellaneous Notes Emailed patient to provide [...] back then. Anca documented in this encounter [facility] 12-26-2022 Miscellaneous Notes Called Elías Collado and [...] back today. Anca documented in this encounter [facility] 12-23-2022 Miscellaneous Notes Returned Elías Collado's call [...] done today. Anca documented in this encounter [facility] 12-23-2022 Miscellaneous Notes Elías Collado transferring care from to [facility]. Previously on course to have cyctectomy [...] Meghan Flores RN documented in this encounter [facility] 12-22-2022 Note HNO ID: [id number] Author: Pascual Miller MD Service: ? Author [...] on File Prior to Visit Medication Sig Xdurdujg-Qnjw-Krpgco-Hyalur Ac 766-068-32-2 mg cap Take 2 tablets by mouth [...] few months for recheck. Pascual Miller MD [facility] 12-22-2022 Note Patient Outreach (UR OLMN) ELÍAS COLLADO ([id number]) 1960 M Date Time Provider Department 12/22/22 PASCUAL MILLER During your visit today, we recorded the following information about you: Allergies As of Date: 12/22/2022 (No Known Allergies) Date Reviewed: 12/22/2022 Reviewed by: AIME Houston - Fully Assessed Visit Diagnosis:Screening for genitourinary condition [Z13.89] Order(s):URINALYSIS, REFLEX MICROSCOPIC [[id number]] Order #: [id number]. #:[id number] Prescriptions as of 12/25/2022 - Gpwewbfe-Vppo-Vffzgb-Hyalur Ac 003-467-65-2 mg cap Take 2 tablets by mouth [...] erectile dysfunction [N52.8] 02/17/2022 Encounter Status:Closed by Responsive Sports, PRODUSER on 12/25/22 [facility] 12-22-2022 History of Presen t illness Narrative [...] on File Prior to Visit Medication Sig Ftotiqeq-Ocgi-Haqccu-Hyalur Ac 288-432-26-2 mg cap Take 2 tablets by mouth [...] Pascual Miller MD documented in this encounter [facility] 11-05-2022 Note HNO ID: [id number] Author: Angela Upton MD Service: Urology Author Type: Resident Type: Progress Notes Filed: 11/05/2022 6:33 AM Note Text: [facility] UROLOGY PROGRESS NOTE Name: Elías Collado Date: November 05, 2022 After Hours [facility] Urology Service Pager: [phone] ASSESSMENT AND PLAN Elías Collado is a [...] staff, Dr. Pao Upton MD [facility]rology PGY2 [facility] [place] Pager: [phone] After hours and on weekends, please page [phone] Objective Vital Signs BP 152/79 Pulse 85 [...] Penoscrotal incision CDI. ASTER SS. Imaging Reviewed [facility] 11-04-2022 Note HNO ID: [id number] Author: Angela Upton MD Service: Urology Author Type: Resident Type: Progress Notes Filed: 11/04/2022 2:32 PM Note Text: [facility] UROLOGY PROGRESS NOTE Name: Elías Collado Date: November 04, 2022 After Hours [facility] Service Pager: [phone] ASSESSMENT AND PLAN Elías Collado is a [...] staff, Dr. Pao Upton MD Urology PGY2 [facility] [place] Pager: [phone] After hours and on weekends, please page [phone] Objective Vital Signs BP 134/69 Pulse 74 [...] Penoscrotal incision CDI. ASTER SS. Imaging Reviewed [facility] 11-04-2022 Note HNO ID: [id number] Author: Karie Landin APRN.TRENCH PIPE LAYER HELPER Service: ? Author Type: Nurse Document Control Supervisor Type: Anesthesia Procedure Notes Filed: 11/04/2022 8:03 AM Note Text: ANESTHESIOLOGY PROCEDURE NOTE Airway General Information Procedure Start Time/Medication Administration: 11/04/2022 7:42 AM Patient location during procedure: OR Timeout Performed Pre-procedure: timeout performed Consent Obtained: Yes Patient identity confirmed: arm band Staffing Anesthesiologist: Hardik Castellano MD TRENCH PIPE LAYER HELPER: Karie Landin APRN.TRENCH PIPE LAYER HELPER Indications and Patient Condition Indications for airway [...] 1 Airway not difficult SIGNATURE: Karie Landin APRN.TRENCH PIPE LAYER HELPER PATIENT NAME: Elías Collado DATE: November 04, 2022 TIME: 8:02 AM CSN: [id number] [facility] 10-28-2022 Miscellaneous Notes Urology Telephone Note I spoke with pt over the phone today. I recommended that he change his pre-op Abx to doxycycline. Patient expressed understanding and agreement with the plan. Zachary Calixto Jr., MD Reconstructive Urology Fellow documented in this encounter [facility] 10-22-2022 Instructions Gabriela Cuellar APRN.CASTING TESTER - 10/22/2022 1:30 PM EST PATIENT PREOPERATIVE INSTRUCTIONS No ref. provider found has scheduled you for your procedure at this surgery center: [facility] [place] Scheduling Office: [phone] --[address] [place] [address]. Please read below carefully for your personalized [...] Procedures: - YOU MUST HAVE A RESPONSIBLE DIRECTOR CUSTOM TAKE YOU HOME. A SOIL CONSERVATION AIDE OR TANK SYSTEMS MAINTAINER CANNOT BE MADE A RESPONSIBLE DIRECTOR CUSTOM. - We recommend that a responsible person [...] call the Thursday before. Your surgeon s pricing clerk will tell you what time to call the office. - If you have not reached the departmental pricing clerk by 5 P.M., call [phone] after 5 P.M. the day before your surgery. Please be aware that emergency situations arise, which may delay or change your surgical time. If this happens, we will notify you as soon as possible and regret any inconvenience. If you already have an Advance Directive, please fax a copy to [phone] or email to for it to be [...] Gabriela Cuellar APRN.ABENA documented in this encounter [facility] 10-22-2022 History and physical note HISTORY AND [...] fevers. Neurological: No history of TIA's, stroke, RELIEF MANAGER tumor, impaired sensorium, hemiplegia, paraplegia or quadraplegia. No neurological symptoms or problems. Respiratory: No history of current cough or dyspnea, or pneumonia in the past 6 weeks. No history of respiratory/pulmonary symptoms or problems. Cardiovascular: Positive for: hyperlipidemia (supplement) and hypertension (on rx) Negative for: anticoagulation therapy, arrhythmia, atrial fibrillation, CAD, chest pain, CHF, congenital heart defect, DVT/PE, recent FL, murmur/valvular heart disease, open heart surgery and [...] 10/22/22 1330 Medication Sig Last Dose Taking Amxrwknv-Lnxb-Retplh-Hyalur Ac 048-452-69-2 mg cap Take 2 tablets by mouth [...] or any previous visit (from the past 78402 hour(s)). Assessment Mixed hyperlipidemia Assessment: taking supplement [...] equal to 35 kg/m^2 STOP-Bang Score: 4 [id number] Score: Age: <65 Sex: male CHF history: No Hypertension history: Yes Stroke/TIA/thromboembolism history: No Vascular disease history: No Diabetes history: No [id number] Score: 1 ARISCAT Score: Age: 51-80 Preoperative [...] and consent discussed: yes. Patient / Responsible [employer] Party agrees to proceed: yes Patient / Surrogate [...] PM PAGER/CONTACT #: documented in this encounter [facility] 09-17-2022 Note Patient Outreach (UR OLMN) BRENDAELÍAS RODRIGUEZ Patric ([id number]) 1960 M Date Time Provider Department 09/17/22 PASCUAL MILLER During your visit today, we recorded the following information about you: Allergies As of Date: 09/17/2022 (No Known Allergies) Date Reviewed: 09/17/2022 Reviewed by: Yajaira Joseph MA - Fully Assessed Visit Diagnosis:Screening for genitourinary condition [Z13.89] Order(s):URINALYSIS, REFLEX MICROSCOPIC [BIL8269] Order #: [id number]. #:[id number] Prescriptions as of 09/22/2022 - doxycycline hyclate (VIBRAMYCIN) 100 mg capsule Take 1 capsule by mouth twice daily. - Uoeaprli-Iuza-Pwefuc-Hyalur Ac 320-475-10-2 mg cap Take 2 tablets by mouth [...] erectile dysfunction [N52.8] 02/17/2022 Encounter Status:Closed by Responsive Sports, PRODUSER on 09/22/22 [facility] 09-17-2022 Note HNO ID: [id number] Author: Pascual Miller MD Service: ? Author [...] on File Prior to Visit Medication Sig Yfhbsbye-Lgrj-Cnyvpo-Hyalur Ac 283-989-34-2 mg cap Take 2 tablets by mouth [...] Miller MD Date: 09/17/2022 Time: 9:21 AM [facility] 09-17-2022 Miscellaneous Notes Addended by: PASCUAL MILLER on: 09/17/2022 09:50 AM Modules accepted: Orders documented in this encounter [facility] 09-17-2022 History of Presen t illness Narrative [...] on File Prior to Visit Medication Sig Dhyuseca-Wket-Vdotts-Hyalur Ac 456-598-40-2 mg cap Take 2 tablets by mouth [...] Time: 9:21 AM documented in this encounter [facility] 08-12-2022 Note HNO ID: [id number] Author: Anca Mcdonald DO Service: Vascular Surgery Author Type: Physician Type: Progress Notes Filed: 08/18/2022 3:17 PM Note Text: NAME: ELÍAS COLLADO [facility] NO: [id number] DATE OF SERVICE: 08/12/2022 Subjective: Mr. Collado [...] us as needed. Wilner Moy/089 Audio #: [id number] Date Dictated: 08/12/2022 10:33:13 Date Typed: 08/18/2022 10:47:41 Date Revised: [facility] 08-12-2022 History of Presen t illness Narrative NAME: ELÍAS COLLADO [facility] NO: [id number] DATE OF SERVICE: 08/12/2022 Subjective: Mr. Collado [...] needed. Anca Mcdonald D.O. KB/089 Audio #: [id number] Date Dictated: 08/12/2022 10:33:13 Date Typed: 08/18/2022 10:47:41 Date Revised: documented in this encounter [facility] 07-29-2022 Miscellaneous Notes ----- Message from Pascual [...] Meghan Flores RN documented in this encounter [facility] 07-07-2022 Note HNO ID: [id number] Author: Edmond Rojas Service: ? Author Type: [...] HTN (hypertension) Current Outpatient Medications Medication Sig Vzqhjbur-Adcp-Tohied-Hyalur Ac 569-454-56-2 mg cap Take 2 tablets by mouth [...] will contact the office Edmond Rojas DPM [facility] 07-07-2022 History of Presen t illness Narrative [...] HTN (hypertension) Current Outpatient Medications Medication Sig Bnbyvwdr-Otms-Lcsmlg-Hyalur Ac 725-089-20-2 mg cap Take 2 tablets by mouth [...] Amita Garcia LPN documented in this encounter [facility] 07-01-2022 Note HNO ID: [id number] Author: Amita Garcia LPN Service: ? Author Type: LICENSED NURSE Type: Progress Notes Filed: 07/07/2022 12:50 PM Note Text: AMB ROOMING INTAKE FLOWSHEET DATA Risk Screening Do you have concerns about personal safety or safety in the home?: No Patient presents with: Right Foot - Established Patient, Follow Up, charcot Amita Garcia LPN [facility] 07-01-2022 Note HNO ID: [id number] Author: RT Estefania(Flori) Service: Nuclear Medicine Author [...] RT Estefania(R) July 01, 2022 9:19 AM [facility] 07-01-2022 History of Presen t illness Narrative [...] 2022 9:19 AM documented in this encounter [facility] 06-24-2022 Miscellaneous Notes Jayde with [employer] called to update on patients refund. Patient returned foot plates after a month of use d/t blistering. [employer] agreed to refund the patient but not d/t fault, followed Dr Nataly tate. ESPINOZA Donohue # [phone] documented in this encounter [facility] 06-09-2022 Note HNO ID: [id number] Author: Edie Garcia MD Service: ? Author Type: Physician Type: Progress Notes Filed: 06/09/2022 3:08 PM Note Text: [facility] [place] DEPARTMENT OF VASCULAR SURGERY OUTPATIENT VISIT DATE June 09, 2022 OUTPATIENT VISIT TYPE CONSULTATION SERVICE DATE: 06/09/2022 SERVICE TIME: 12:33 PM PRIMARY CARE PHYSICIAN: Shazia Mendez MD REFERRING PROVIDER: Edmond Rojas, DORIS [address] [place] [address] Consult requested for an opinion regarding the [...] Cancer Mother thyroid Breast Cancer Mother MEDICATIONS: Kfwwdzdg-Xddd-Kzsccn-Hyalur Ac 671-534-61-2 mg cap Take 2 tablets by mouth [...] reviewed for today's visit: Non-Invasive Vascular Laboratory [facility] Venous Valvular Incompetency Bilateral/Complete Date of service/time: 03/28/2022 1:24:51 PM MR (more content not included)... [facility] 06-09-2022 History of Presen t illness Narrative Images from the original note were not included. [facility] [place] DEPARTMENT OF VASCULAR SURGERY OUTPATIENT VISIT DATE June 09, 2022 OUTPATIENT VISIT TYPE CONSULTATION SERVICE DATE: 06/09/2022 SERVICE TIME: 12:33 PM PRIMARY CARE PHYSICIAN: Shazia Mendez MD REFERRING PROVIDER: Edmond Rojas DPM [address] [facility] [address] Consult requested for an opinion regarding the [...] Cancer Mother thyroid Breast Cancer Mother MEDICATIONS: Lntftgyi-Cfpv-Pamcvt-Hyalur Ac 409-447-91-2 mg cap Take 2 tablets by mouth [...] reviewed for today's visit: Non-Invasive Vascular Laboratory [facility] Venous Valvular Incompetency Bilateral/Complete Date of service/time: [...] small saphenous vein. Technologist: Micheline Phillips RVT, [facility] Ordering physician: EDMOND ORJAS Interpreting physician: Edie Garcia MD ESSION: Mr. Collado is a 62 year old male with atypical leg pain. May be related to venous insufficiency. Patient will return visit with Dr. Mcdonald for consideration for EVLT. Recommend ibuprofen 600 mg 3 times a day birdxe-jbz-rjtjm for 5 days. Compression stockings. Medical Decision Making: Medical Decision Making Level: 1 - N/A SIGNATURE: Edie Garcia MD PATIENT NAME: Elías Collado DATE: June 09, 2022 TIME: 12:33 PM documented in this encounter [facility] 04-30-2022 History of Presen t illness Narrative [...] Xiaflex 2 Time pulled [address] [id number] Exp: 04/2023 Xiaflex Lot [id number] Exp; 04/2023 documented in this encounter [facility] 04-28-2022 History of Presen t illness Narrative [...] Collado here for Xiaflex (1) Xiaflex: Lot: [id number] Exp: January 2023 Time prepared: [address] Lot: [id number] Exp: 04/2023 documented in this encounter [facility] 04-24-2022 Miscellaneous Notes Spoke to patient to schedule a sooner appointment with Dr. Garcia. Encounter closed. Images from the original note were not included. Called and left patient message to call Marsha @[phone] to set up office visit with Dr. [...] you earlier if he saw you in [place]. He has swelling in legs and demonstrates incompetency on ultrasound. He has severe knee arthritis and has been informed that he needs to get swelling controlled before any intervention on his knees. I wanted to have him see you to discuss options. Thanks documented in this encounter [facility] 04-19-2022 History of Presen t illness Narrative [...] he has plans on seeing orthopedics in [facility]. PAIN EVALUATION No data found in the last 1 encounters. 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 He would like another disc with those views. Procedure was done at [facility], should he be inquiring there? Please let him know. CD/ report READY FOR ELEVATOR CONSTRUCTOR ELECTRIC AT [facility] Patient is requesting foot x-rays from 10/10/2021 all x-rays from 11/14/2021, Fluoroscopy from 12/13/2021 with x-rays, and 02/21/2022. Written report also. documented in this encounter [facility] 03-28-2022 History of Presen t illness Narrative [...] severe right knee pain. He has seen [place] [facility] who have advised that patient needs total knee replacement on right lower extremity but will not proceed with surgery until his swelling in right great toe resolve. Patient currently has no pain in right foot. He did have esr, crp and cbc at [facility]. All were within normal limits. He is currently not on antibiotic. He has no open wounds to right foot. PAIN EVALUATION No data found in the last 1 encounters. No results found for: HBA1C PCP: Shazia Mendez MD PAST MEDICAL HISTORY Diagnosis Date Anxiety BPH (benign prostatic hyperplasia) HTN (hypertension) Current Outpatient Medications Medication Sig Yjmuvmlh-Ajxa-Vixzte-Hyalur Ac 819-146-41-2 mg cap Take 2 tablets by mouth [...] At patient request, I will discuss with [facility]. I discussed my concern for charcot [...] Edmond Rojas DPM documented in this encounter [facility] 03-28-2022 History of Presen t illness Narrative [...] 2022 2:38 PM documented in this encounter [facility] 03-20-2022 Miscellaneous Notes I called patient to discuss blood work at [facility]. Esr, crp and wbc all [...] week as scheduled. documented in this encounter [facility] 03-15-2022 History of Presen t illness Narrative [...] HTN (hypertension) Current Outpatient Medications Medication Sig Cbgpqeli-Wskq-Cwjvkz-Hyalur Ac 054-461-52-2 mg cap Take 2 tablets by mouth [...] any pain today. documented in this encounter [facility] 03-13-2022 Miscellaneous Notes Phone call to patient. [...] Edmond Rojas DPM documented in this encounter [facility] 03-04-2022 Miscellaneous Notes Left message on identified [...] Edmond Rojas DPM documented in this encounter [facility] 02-25-2022 History of Presen t illness Narrative Photograph of erection sent by patient, confirms 55 degrees dorsal curvature involving the distal penile shaft. Will get insurance approval for Xiaflex and then schedule for first cycle. Pascual Miller MD documented in this encounter [facility] 02-21-2022 History of Presen t illness Narrative [...] HTN (hypertension) Current Outpatient Medications Medication Sig Jnxqlwqr-Rkac-Yvrqni-Hyalur Ac 676-078-70-2 mg cap Take 2 tablets by mouth [...] ulcer surgery 12/13/2021 documented in this encounter [facility] 02-17-2022 History of Presen t illness Narrative [facility] NEW PATIENT HISTORY AND PHYSICAL EXAM PATIENT INFO: Elías Patric Collado 61 year old REFERRING MHadley.: Tawanna Brooks [address] [facility] [place] [id number] This consult was requested by Dr. Brooks [...] none MEDICATIONS: Current Outpatient Medications Medication Sig Rjfxdocf-Zieb-Vqoovj-Hyalur Ac 051-984-21-2 mg cap Take 2 tablets by mouth [...] Time: 12:47 PM documented in this encounter [facility] 01-30-2022 Miscellaneous Notes Addended by: TAWANNA BROOKS on: 01/30/2022 02:14 PM Modules accepted: Orders documented in this encounter [facility] 01-30-2022 History of Presen t illness Narrative [...] Current Outpatient Medications Medication Sig Dispense Refill Zqfdvmyv-Xwts-Zqjrci-Hyalur Ac 378-715-20-2 mg cap Take 2 tablets by mouth [...] Tawanna Brooks MD documented in this encounter [facility] 01-17-2022 History of Presen t illness Narrative [...] Edmond Rojas DPM documented in this encounter [facility] 01-06-2022 History of Presen t illness Narrative [...] Edmond Rojas DPM documented in this encounter [facility] 12-26-2021 History of Presen t illness Narrative [...] 14 days surgery. documented in this encounter [facility] 12-26-2021 Instructions Edmond Rojas - 12/26/2021 8:34 [...] return to work. documented in this encounter [facility] 12-13-2021 Note HNO ID: [id number] Author: RT Meagan(R) Service: Radiology Author Type: [...] RT Meagan(R) December 13, 2021 12:45 PM [facility] 12-13-2021 Note HNO ID: [id number] Author: Jasmyn Gaviria APRN.[employer] PIPE LAYER HELPER Service: Anesthesiology Author Type: Nurse Document Control Supervisor Type: Anesthesia Procedure Notes Filed: 12/13/2021 10:08 [...] December 13, 2021 TIME: 10:08 AM CSN: [id number] [facility] 12-13-2021 Note HNO ID: [id number] Author: Omar Caal DPM Service: Vascular Surgery [...] Urine Negative 02/21/2020 Nitrites Negative 02/21/2020 Specific [place], Ur 1.010 02/21/2020 Protein, Urine Negative 02/21/2020 [...] December 13, 2021 TIME: 9:10 AM PAGER: [facility] Diagnosis Post-operative state- Primary Other postprocedural status Neuropathic ulcer of toe, right, with fat layer exposed (HCC) [facility] Diagnosis Post-operative state- Primary Other postprocedural status Neuropathic ulcer of toe, right, with fat layer exposed (HCC) [facility] Diagnosis Benign prostatic hyperplasia with urinary retention- Primary Screening for genitourinary condition Screening for other and unspecified genitourinary condition Nocturia Urinary frequency Increasing residual urine Other specified retention of urine Peyronie's disease [facility] Diagnosis Peyronie's disease- Primary Acquired curvature of penis Other specified disorder of penis Other male erectile dysfunction [facility] Diagnosis Screening for genitourinary condition Screening for other and unspecified genitourinary condition [facility] Diagnosis Neuropathic ulcer of toe, right, with fat layer exposed (HCC)- Primary Neuropathy Mononeuritis of unspecified site Ingrowing toenail Ingrowing nail Venous insufficiency Unspecified venous (peripheral) insufficiency [facility] Diagnosis Pain in right foot- Primary Pain in limb [facility] Diagnosis Charcot's joint of right foot- Primary [facility] Diagnosis Charcot's joint of right foot- Primary Swelling of limb [facility] Charcot's joint of right foot- Primary Swelling of limb Venous insufficiency Unspecified venous (peripheral) insufficiency [facility] Diagnosis Charcot's joint of right foot [facility] Diagnosis Charcot's joint of right foot Swelling of limb [facility] Diagnosis Charcot's joint of right foot- Primary Neuropathy Mononeuritis of unspecified site Venous insufficiency Unspecified venous (peripheral) insufficiency [facility] Diagnosis Peyronie's disease- Primary Acquired curvature of penis Other specified disorder of penis [facility] Diagnosis Peyronie's disease- Primary Acquired curvature of penis Other specified disorder of penis [facility] Diagnosis Screening for genitourinary condition Screening for other and unspecified genitourinary condition [facility] Diagnosis Varicose veins of bilateral lower extremities with pain- Primary [facility] Diagnosis Charcot's joint of right foot- Primary [facility] Diagnosis Charcot's joint of right foot [facility] Diagnosis Charcot's joint of right foot- Primary Neuropathy Mononeuritis of unspecified site Venous insufficiency Unspecified venous (peripheral) insufficiency [facility] Diagnosis Other male erectile dysfunction- Primary Peyronie's disease Acquired curvature of penis Other specified disorder of penis Pyuria Other nonspecific finding on examination of urine [facility] Diagnosis Screening for genitourinary condition Screening for other and unspecified genitourinary condition [facility] Diagnosis Pre-operative examination- Primary Preoperative examination, unspecified Mixed hyperlipidemia Insomnia, unspecified type Gout, unspecified cause, unspecified chronicity, unspecified site Essential hypertension, benign Anxiety Anxiety state, unspecified Benign prostatic hyperplasia with urinary retention Class 1 obesity due to excess calories with serious comorbidity and body mass index (BMI) of 31.0 to 31.9 in adult Peyronie's disease documented in this encounter [facility] note* Diagnosis Other male erectile dysfunction- Primary Peyronie's disease Acquired curvature of penis Other specified disorder of penis documented in this encounter [facility] note* Diagnosis Venous insufficiency- Primary Unspecified venous (peripheral) insufficiency documented in this encounter [facility] note* Diagnosis Screening for genitourinary condition Screening for other and unspecified genitourinary condition documented in this encounter [facility] note* Diagnosis Suspected UTI- Primary documented in this encounter [facility] note* Diagnosis BPH with urinary obstruction- Primary Hypertrophy of prostate with urinary obstruction and other lower urinary tract symptoms (LUTS) documented in this encounter [facility] note* Diagnosis Neuropathy- Primary Mononeuritis of unspecified site documented in this encounter [facility] note* Diagnosis Benign prostatic hyperplasia with urinary retention- Primary Screening for genitourinary condition Screening for other and unspecified genitourinary condition Urinary frequency Weak urinary stream Slowing of urinary stream Urinary urgency Urgency of urination Other post-procedural erectile dysfunction Ejaculatory disorder Other specified disorder of male genital organs documented in this encounter [facility] note* Diagnosis Erectile dysfunction, unspecified erectile dysfunction type- Primary documented in this encounter [facility] note* Diagnosis Acute cystitis without hematuria- Primary Acute cystitis documented in this encounter [facility] note* Diagnosis Benign prostatic hyperplasia with urinary retention- Primary Erectile dysfunction, unspecified erectile dysfunction type Urinary tract infection associated with catheterization of urinary tract, unspecified indwelling urinary catheter type, subsequent encounter Hypotonic neurogenic bladder Neurogenic bladder, NOS BNO (bladder neck obstruction) Bladder neck obstruction documented in this encounter [facility] note* Diagnosis Malfunction of penile prosthesis, subsequent encounter- Primary documented in this encounter [facility] for referral (narrative)* Diagnostic Procedure Only (Routine) - Closed Specialty Diagnoses / Procedures Referred By Contac t Referred To Contact XR IMAGING Diagnoses Post-operative state Procedures XR FOOT GENERAL 3V AP/LAT/OBL RIGHT RADEX FOOT COMPLETE MINIMUM 3 VIEWS Edmond Rojas[address] [place] [address] Xr Imaging Referral ID Status Reason Start Date Expiration Date V isits Requested Visits Authorized [id number] Closed Auto-Generate d Referral 12/26/2021 01/25/2023 1 1 T [facility] for referral (narrative)* Diagnostic Procedure Only (Routine) - Closed Specialty Diagnoses / Procedures Referred By Contac t Referred To Contact XR IMAGING Diagnoses Neuropathic ulcer of toe, right, with fat layer exposed (HCC) Neuropathy Procedures XR FOOT GENERAL 3V AP/LAT/OBL RIGHT RADEX FOOT COMPLETE MINIMUM 3 VIEWS Edmond Rojas[address] [place] [address] Xr Imaging Referral ID Status Reason Start Date Expiration Date V isits Requested Visits Authorized [id number] Closed Auto-Generate d Referral 02/21/2022 03/23/2023 1 1 [facility] for referral (narrative)* Diagnostic Procedure Only (Routine) - Pending Review Specialty Diagnoses / Procedures Referred By Contac t Referred To Contact XR IMAGING Diagnoses Pain in right foot Procedures XR FOOT GENERAL 3V AP/LAT/OBL RIGHT RADEX FOOT COMPLETE MINIMUM 3 V[address]WS [place] [address] Xr Imaging Referral ID Status Reason Start Date Expiration Date Visits Requested Visits Authorized [id number] Pending Review Auto-Generat ed Referral 03/07/2022 04/06/2023 1 1 [facility] for referral (narrative)* Diagnostic Procedure Only (Routine) - Pending Review Specialty Diagnoses / Procedures Referred By Contac t Referred To Contact XR IMAGING Diagnoses Charcot's joint of right foot Procedures XR FOOT GENERAL 3V AP/LAT/OBL RIGHT RADEX FOOT COMPLETE MINIMUM 3 VIEWS [address] [address] Xr Imaging Referral ID Status Reason Start Date Expiration Date Visits Requested Visits Authorized [id number] Pending Review Auto-Generat ed Referral 03/13/2022 04/12/2023 1 1 [facility] for referral (narrative)* Outpatient Procedure (Routine) - Pending Review Specialty Diagnoses / Procedures Referred By Contac t Referred To Contact [facility] Diagnoses Charcot's joint of right foot Swelling of limb Procedures US VENOUS INCOMPETENCY ANASTASIA VAS LAB DUP-SCAN XTR VEINS COMPLETE BILATERAL STUDY Edmond Rojas[address] [place] [address] [facility] [address] [place] [address] Referral ID Status Reason Start Date Expiration Date Visits Requested Visits Authorized [id number] Pending Review Auto-Generat ed Referral 03/20/2022 03/20/2023 1 1 T [facility] for referral (narrative)* Diagnostic Procedure Only (Routine) - Pending Review Specialty Diagnoses / Procedures Referred By Contac t Referred To Contact XR IMAGING Diagnoses Charcot's joint of right foot Swelling of limb Procedures XR FOOT GENERAL 3V AP/LAT/OBL RIGHT RADEX FOOT COMPLETE MINIMUM 3 VIEWS Edmond Rojas [address] [place] [address] Xr Imaging Referral ID Status Reason Start Date Expiration Date Visits Requested Visits Authorized [id number] Pending Review Auto-Generat ed Referral 03/28/2022 04/27/2023 1 1 [facility] for referral (narrative)* Diagnostic Procedure Only (Routine) - Closed Specialty Diagnoses / Procedures Referred By Contac t Referred To Contact XR IMAGING Diagnoses Charcot's joint of right foot Procedures XR FOOT GENERAL 3V AP/LAT/OBL RIGHT RADEX FOOT COMPLETE MINIMUM 3 VIEWS Edmond Rojas [address] [place] [address] Xr Imaging Referral ID Status Reason Start Date Expiration Date V isits Requested Visits Authorized [id number] Closed Auto-Generate d Referral 03/13/2022 04/12/2023 1 1 [facility] for referral (narrative)* Diagnostic Procedure Only (Routine) - Closed Specialty Diagnoses / Procedures Referred By Contac t Referred To Contact XR IMAGING Diagnoses Charcot's joint of right foot Swelling of limb Procedures XR FOOT GENERAL 3V AP/LAT/OBL RIGHT RADEX FOOT COMPLETE MINIMUM 3 VIEWS Edmond Rojas [address] [place] [address] Xr Imaging Referral ID Status Reason Start Date Expiration Date V isits Requested Visits Authorized [id number] Closed Auto-Generate d Referral 03/28/2022 04/27/2023 1 1 [facility] for referral (narrative)* Diagnostic Procedure Only (Routine) - Pending Review Specialty Diagnoses / Procedures Referred By Contac t Referred To Contact XR IMAGING Diagnoses Charcot's joint of right foot Procedures XR FOOT GENERAL 3V AP/LAT/OBL RIGHT RADEX FOOT COMPLETE MINIMUM 3 VIEWS Edmond Rojas[address] [place] [address] Xr Imaging Referral ID Status Reason Start Date Expiration Date Visits Requested Visits Authorized [id number] Pending Review Auto-Generat ed Referral 06/27/2022 07/27/2023 1 1 T [facility] for referral (narrative)* Diagnostic Procedure Only (Routine) - Closed Specialty Diagnoses / Procedures Referred By Contac t Referred To Contact XR IMAGING Diagnoses Charcot's joint of right foot Procedures XR FOOT GENERAL 3V AP/LAT/OBL RIGHT RADEX FOOT COMPLETE MINIMUM 3 VIEWS Edmond Rojas [address] [place] [address] Xr Imaging Referral ID Status Reason Start Date Expiration Date V isits Requested Visits Authorized [id number] Closed Auto-Generate d Referral 06/27/2022 07/27/2023 1 1 [facility] for visit Narrative* Diagnostic Procedure Only (Routine) - Closed Specialty Diagnoses / Procedures Referred By Contac t Referred To Contact XR IMAGING Diagnoses Charcot's joint of right foot Procedures XR FOOT GENERAL 3V AP/LAT/OBL RIGHT RADEX FOOT COMPLETE MINIMUM 3 VIEWS Edmond Rojas[address] [place] [address] Xr Imaging Referral ID Status Reason Start Date Expiration Date V isits Requested Visits Authorized [id number] Closed Auto-Generate d Referral 03/13/2022 04/12/2023 1 1 [facility] for visit Narrative* Diagnostic Procedure Only (Routine) - Closed Specialty Diagnoses / Procedures Referred By Contac t Referred To Contact XR IMAGING Diagnoses Charcot's joint of right foot Swelling of limb Procedures XR FOOT GENERAL 3V AP/LAT/OBL RIGHT RADEX FOOT COMPLETE MINIMUM 3 VIEWS Edmond Rojas[address] [place] [address] Xr Imaging Referral ID Status Reason Start Date Expiration Date V isits Requested Visits Authorized [id number] Closed Auto-Generate d Referral 03/28/2022 04/27/2023 1 1 [facility] for visit Narrative* Diagnostic Procedure Only (Routine) - Closed Specialty Diagnoses / Procedures Referred By Contac t Referred To Contact XR IMAGING Diagnoses Charcot's joint of right foot Procedures XR FOOT GENERAL 3V AP/LAT/OBL RIGHT RADEX FOOT COMPLETE MINIMUM 3 VIEWS Edmond Rojas [address] [place] [address] Xr Imaging Referral ID Status Reason Start Date Expiration Date V isits Requested Visits Authorized [id number] Closed Auto-Generate d Referral 06/27/2022 07/27/2023 1 1 [facility] Summary Purpose Family History No Family History Records FoundNo Family History Records FoundNo Family History Records Found Advance Directives No Advanced Directives Records FoundDocuments on File Type Date Recorded Patient General Magistrate Expl anation Advance Directive(s) 12/13/2021 7:23 AM Advance Directive(s) 12/02/2021 11:37 AM Advance Directive(s) 02/24/2020 5:20 AM Advance Directive(s) 12/07/2019 12:56 PM Advance Directive(s) 12/05/2019 12:26 PM Documents on File Type Date Recorded Patient General Magistrate Expl anation Advance Directive(s) 12/13/2021 7:23 AM [...] insufficiency Procedures CONSULT TO VASCULAR SURGERY OFFICE/OUTPATIENT [facility] 60-74 MINUTES Concepcion Hernandez DPM [address] [place] [address] Referral ID Status Reason Start Date Expiration Date V isits Requested Visits Authorized [id number] Closed PCP Requested Referral 04/09/2022 07/08/2022 1 1 Referral ID Status Reason Start Date Expiration Date V isits Requested Visits Authorized [id number] Closed PCP Requested Referral 04/09/2022 07/08/2022 1 1 Specialty Diagnoses / Procedures Referred By Contac t Referred To Contact Psychology Diagnoses Erectile dysfunction, unspecified erectile dysfunction type Procedures CONSULT TO PSYCHOLOGY OFFICE/OUTPATIENT [facility] 60-74 MINUTES Cmai Yusuf MD [address] [place] [address] Referral ID Status Reason Start Date Expiration Date Visits Requested Visits Authorized [id number] Pending Review PCP Requested Referral 02/09/2023 02/09/2024 1 1 Additional Source Comments (unrecognized sect ion and content) No Status Records FoundNo Status Records FoundNo Status Records Found INFORMATION SOURCE (unrecogn ized section and content) DATE CREATED AUTHOR AUTHOR'S ORGANIZ ATION 12/20/2021 [facility] DATE CREATED AUTHOR AUTHOR'S ORGANIZ ATION 05/01/2023 [facility] Source Comments (unrecognize d section and content) In the event this informatio n is protected by the Federal Confidentiality of Alcohol and Drug Abuse Patient Records regulations: The Federal rules restrict any use of the information to criminally investigate or prosecute any alcohol or drug abuse patient.[facility] the event this information is protected by the Federal Confidentiality of Alcohol and Drug Abuse Patient Records regulations: The Federal rules restrict any use of the information to criminally investigate or prosecute any alcohol or drug abuse patient.[facility] the event this information is protected by the Federal Confidentiality of Alcohol and Drug Abuse Patient Records regulations: The Federal rules restrict any use of the information to criminally investigate or prosecute any alcohol or drug abuse patient.[facility] the event this information is protected by the Federal Confidentiality of Alcohol and Drug Abuse Patient Records regulations: The Federal rules restrict any use of the information to criminally investigate or prosecute any alcohol or drug abuse patient.[facility] the event this information is protected by the Federal Confidentiality of Alcohol and Drug Abuse Patient Records regulations: The Federal rules restrict any use of the information to criminally investigate or prosecute any alcohol or drug abuse patient.[facility] the event this information is protected by the Federal Confidentiality of Alcohol and Drug Abuse Patient Records regulations: The Federal rules restrict any use of the information to criminally investigate or prosecute any alcohol or drug abuse patient.[facility] the event this information is protected by the Federal Confidentiality of Alcohol and Drug Abuse Patient Records regulations: The Federal rules restrict any use of the information to criminally investigate or prosecute any alcohol or drug abuse patient.[facility] the event this information is protected by the Federal Confidentiality of Alcohol and Drug Abuse Patient Records regulations: The Federal rules restrict any use of the information to criminally investigate or prosecute any alcohol or drug abuse patient.[facility] the event this information is protected by the Federal Confidentiality of Alcohol and Drug Abuse Patient Records regulations: The Federal rules restrict any use of the information to criminally investigate or prosecute any alcohol or drug abuse patient.[facility] the event this information is protected by the Federal Confidentiality of Alcohol and Drug Abuse Patient Records regulations: The Federal rules restrict any use of the information to criminally investigate or prosecute any alcohol or drug abuse patient.[facility] the event this information is protected by the Federal Confidentiality of Alcohol and Drug Abuse Patient Records regulations: The Federal rules restrict any use of the information to criminally investigate or prosecute any alcohol or drug abuse patient.[facility] the event this information is protected by the Federal Confidentiality of Alcohol and Drug Abuse Patient Records regulations: The Federal rules restrict any use of the information to criminally investigate or prosecute any alcohol or drug abuse patient.[facility] the event this information is protected by the Federal Confidentiality of Alcohol and Drug Abuse Patient Records regulations: The Federal rules restrict any use of the information to criminally investigate or prosecute any alcohol or drug abuse patient.[facility] the event this information is protected by the Federal Confidentiality of Alcohol and Drug Abuse Patient Records regulations: The Federal rules restrict any use of the information to criminally investigate or prosecute any alcohol or drug abuse patient.[facility] the event this information is protected by the Federal Confidentiality of Alcohol and Drug Abuse Patient Records regulations: The Federal rules restrict any use of the information to criminally investigate or prosecute any alcohol or drug abuse patient.[facility] the event this information is protected by the Federal Confidentiality of Alcohol and Drug Abuse Patient Records regulations: The Federal rules restrict any use of the information to criminally investigate or prosecute any alcohol or drug abuse patient.[facility] the event this information is protected by the Federal Confidentiality of Alcohol and Drug Abuse Patient Records regulations: The Federal rules restrict any use of the information to criminally investigate or prosecute any alcohol or drug abuse patient.[facility] the event this information is protected by the Federal Confidentiality of Alcohol and Drug Abuse Patient Records regulations: The Federal rules restrict any use of the information to criminally investigate or prosecute any alcohol or drug abuse patient.[facility]In the event this information is protected by the Federal Confidentiality of Alcohol and Drug Abuse Patient Records regulations: The Federal rules restrict any use of the information to criminally investigate or prosecute any alcohol or drug abuse patient.[facility]In the event this information is protected by the Federal Confidentiality of Alcohol and Drug Abuse Patient Records regulations: The Federal rules restrict any use of the information to criminally investigate or prosecute any alcohol or drug abuse patient.[facility]In the event this information is protected by the Federal Confidentiality of Alcohol and Drug Abuse Patient Records regulations: The Federal rules restrict any use of the information to criminally investigate or prosecute any alcohol or drug abuse patient.[facility]In the event this information is protected by the Federal Confidentiality of Alcohol and Drug Abuse Patient Records regulations: The Federal rules restrict any use of the information to criminally investigate or prosecute any alcohol or drug abuse patient.[facility]In the event this information is protected by the Federal Confidentiality of Alcohol and Drug Abuse Patient Records regulations: The Federal rules restrict any use of the information to criminally investigate or prosecute any alcohol or drug abuse patient.[facility] the event this information is protected by the Federal Confidentiality of Alcohol and Drug Abuse Patient Records regulations: The Federal rules restrict any use of the information to criminally investigate or prosecute any alcohol or drug abuse patient.[facility]In the event this information is protected by the Federal Confidentiality of Alcohol and Drug Abuse Patient Records regulations: The Federal rules restrict any use of the information to criminally investigate or prosecute any alcohol or drug abuse patient.[facility]In the event this information is protected by the Federal Confidentiality of Alcohol and Drug Abuse Patient Records regulations: The Federal rules restrict any use of the information to criminally investigate or prosecute any alcohol or drug abuse patient.[facility] the event this information is protected by the Federal Confidentiality of Alcohol and Drug Abuse Patient Records regulations: The Federal rules restrict any use of the information to criminally investigate or prosecute any alcohol or drug abuse patient.[facility]In the event this information is protected by the Federal Confidentiality of Alcohol and Drug Abuse Patient Records regulations: The Federal rules restrict any use of the information to criminally investigate or prosecute any alcohol or drug abuse patient.[facility]In the event this information is protected by the Federal Confidentiality of Alcohol and Drug Abuse Patient Records regulations: The Federal rules restrict any use of the information to criminally investigate or prosecute any alcohol or drug abuse patient.[facility]In the event this information is protected by the Federal Confidentiality of Alcohol and Drug Abuse Patient Records regulations: The Federal rules restrict any use of the information to criminally investigate or prosecute any alcohol or drug abuse patient.[facility]In the event this information is protected by the Federal Confidentiality of Alcohol and Drug Abuse Patient Records regulations: The Federal rules restrict any use of the information to criminally investigate or prosecute any alcohol or drug abuse patient.[facility]In the event this information is protected by the Federal Confidentiality of Alcohol and Drug Abuse Patient Records regulations: The Federal rules restrict any use of the information to criminally investigate or prosecute any alcohol or drug abuse patient.[facility]In the event this information is protected by the Federal Confidentiality of Alcohol and Drug Abuse Patient Records regulations: The Federal rules restrict any use of the information to criminally investigate or prosecute any alcohol or drug abuse patient.[facility]In the event this information is protected by the Federal Confidentiality of Alcohol and Drug Abuse Patient Records regulations: The Federal rules restrict any use of the information to criminally investigate or prosecute any alcohol or drug abuse patient.[facility]In the event this information is protected by the Federal Confidentiality of Alcohol and Drug Abuse Patient Records regulations: The Federal rules restrict any use of the information to criminally investigate or prosecute any alcohol or drug abuse patient.[facility]In the event this information is protected by the Federal Confidentiality of Alcohol and Drug Abuse Patient Records regulations: The Federal rules restrict any use of the information to criminally investigate or prosecute any alcohol or drug abuse patient.[facility]In the event this information is protected by the Federal Confidentiality of Alcohol and Drug Abuse Patient Records regulations: The Federal rules restrict any use of the information to criminally investigate or prosecute any alcohol or drug abuse patient.[facility]In the event this information is protected by the Federal Confidentiality of Alcohol and Drug Abuse Patient Records regulations: The Federal rules restrict any use of the information to criminally investigate or prosecute any alcohol or drug abuse patient.[facility]In the event this information is protected by the Federal Confidentiality of Alcohol and Drug Abuse Patient Records regulations: The Federal rules restrict any use of the information to criminally investigate or prosecute any alcohol or drug abuse patient.[facility]In the event this information is protected by the Federal Confidentiality of Alcohol and Drug Abuse Patient Records regulations: The Federal rules restrict any use of the information to criminally investigate or prosecute any alcohol or drug abuse patient.[facility]In the event this information is protected by the Federal Confidentiality of Alcohol and Drug Abuse Patient Records regulations: The Federal rules restrict any use of the information to criminally investigate or prosecute any alcohol or drug abuse patient.[facility]In the event this information is protected by the Federal Confidentiality of Alcohol and Drug Abuse Patient Records regulations: The Federal rules restrict any use of the information to criminally investigate or prosecute any alcohol or drug abuse patient.[facility]In the event this information is protected by the Federal Confidentiality of Alcohol and Drug Abuse Patient Records regulations: The Federal rules restrict any use of the information to criminally investigate or prosecute any alcohol or drug abuse patient.[facility]In the event this information is protected by the Federal Confidentiality of Alcohol and Drug Abuse Patient Records regulations: The Federal rules restrict any use of the information to criminally investigate or prosecute any alcohol or drug abuse patient.[facility]In the event this information is protected by the Federal Confidentiality of Alcohol and Drug Abuse Patient Records regulations: The Federal rules restrict any use of the information to criminally investigate or prosecute any alcohol or drug abuse patient.[facility]In the event this information is protected by the Federal Confidentiality of Alcohol and Drug Abuse Patient Records regulations: The Federal rules restrict any use of the information to criminally investigate or prosecute any alcohol or drug abuse patient.[facility]In the event this information is protected by the Federal Confidentiality of Alcohol and Drug Abuse Patient Records regulations: The Federal rules restrict any use of the information to criminally investigate or prosecute any alcohol or drug abuse patient.[facility]In the event this information is protected by the Federal Confidentiality of Alcohol and Drug Abuse Patient Records regulations: The Federal rules restrict any use of the information to criminally investigate or prosecute any alcohol or drug abuse patient.[facility]In the event this information is protected by the Federal Confidentiality of Alcohol and Drug Abuse Patient Records regulations: The Federal rules restrict any use of the information to criminally investigate or prosecute any alcohol or drug abuse patient.[facility]In the event this information is protected by the Federal Confidentiality of Alcohol and Drug Abuse Patient Records regulations: The Federal rules restrict any use of the information to criminally investigate or prosecute any alcohol or drug abuse patient.[facility]In the event this information is protected by the Federal Confidentiality of Alcohol and Drug Abuse Patient Records regulations: The Federal rules restrict any use of the information to criminally investigate or prosecute any alcohol or drug abuse patient.[facility]In the event this information is protected by the Federal Confidentiality of Alcohol and Drug Abuse Patient Records regulations: The Federal rules restrict any use of the information to criminally investigate or prosecute any alcohol or drug abuse patient.[facility] the event this information is protected by the Federal Confidentiality of Alcohol and Drug Abuse Patient Records regulations: The Federal rules restrict any use of the information to criminally investigate or prosecute any alcohol or drug abuse patient.[facility] the event this information is protected by the Federal Confidentiality of Alcohol and Drug Abuse Patient Records regulations: The Federal rules restrict any use of the information to criminally investigate or prosecute any alcohol or drug abuse patient.[facility] the event this information is protected by the Federal Confidentiality of Alcohol and Drug Abuse Patient Records regulations: The Federal rules restrict any use of the information to criminally investigate or prosecute any alcohol or drug abuse patient.[facility] the event this information is protected by the Federal Confidentiality of Alcohol and Drug Abuse Patient Records regulations: The Federal rules restrict any use of the information to criminally investigate or prosecute any alcohol or drug abuse patient.[facility] the event this information is protected by the Federal Confidentiality of Alcohol and Drug Abuse Patient Records regulations: The Federal rules restrict any use of the information to criminally investigate or prosecute any alcohol or drug abuse patient.[facility]In the event this information is protected by the Federal Confidentiality of Alcohol and Drug Abuse Patient Records regulations: The Federal rules restrict any use of the information to criminally investigate or prosecute any alcohol or drug abuse patient.[facility] Reason for Visit (unrecogniz ed section and [...] total of 8 vials Shazia Mendez MD [address] [place] [id number] Pascual Miller MD [address] [place] [address] Referral ID Status Reason Start Date Expiration Date V isits Requested Visits Authorized [id number] Authorized 03/05/2022 09/27/2022 99 99 Reason Comments Release Of Medical Records Reason Comments New Patient Reason Comments Patient Update Refund for foot plat e Reason Comments 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 Established Patient Reason Comments Follow Up Reason Comments Results Reason Comments Post-Op Visit Reason Comments Returning Patient's Call Reason Comments Patient Question Reason Comments Established Patient Follow Up Reason Comments cipro instructions Reason Comments Cystoscopy-1 Care Teams (unrecognized sec tion and content) Medical Aide Relationship Specialty Start Date End Date Shazia Mendez MD [address] [place] [address] PCP - General Internal Medicine 02/10/20 Medical Aide Relationship Specialty Start Date End Date Shazia Mendez MD [address] [place] [address] PCP - General Internal Medicine 02/10/20 Medical Aide Relationship Specialty Start Date End Date Shazia Mendez MD [address] [place] [address] PCP - General Internal Medicine 02/10/20 Medical Aide Relationship Specialty Start Date End Date Shazia Mendez MD [address] [place] [address] PCP - General Internal Medicine 02/10/20 Medical Aide Relationship Specialty Start Date End Date Shazia Mendez MD [address] [place] [address] PCP - General Internal Medicine 02/10/20 Medical Aide Relationship Specialty [place] [address] [place] [address] PCP - General Internal Medicine 02/10/20 Medical Aide Relationship Specialty [place] [address] [place] [address] PCP - General Internal Medicine 02/10/20 Medical Aide Relationship Specialty [place] [address] [place] [address] PCP - General Internal Medicine 02/10/20 Medical Aide Relationship Specialty [place] [address] [place] [address] PCP - General Internal Medicine 02/10/20 Medical Aide Relationship Specialty [place] [address] [place] [address] PCP - General Internal Medicine 02/10/20 Medical Aide Relationship Specialty [place] [address] [place] [address] PCP - General Internal Medicine 02/10/20 Medical Aide Relationship Specialty [place] [address] [place] [address] PCP - General Internal Medicine 02/10/20 Medical Aide Relationship Specialty [place] [address] [place] [address] PCP - General Internal Medicine 02/10/20 Medical Aide Relationship Specialty Start Date [place] [id number] [place] [address] [address] [place] [address] PCP - General Internal Medicine 02/10/20 Medical Aide Relationship Specialty Start Date [place]az[place] [id number] [place] [address] [address] [place] [address] PCP - General Internal Medicine 02/10/20 Medical Aide Relationship Specialty Start Date End Date Shazia Mendez MD [address] [place] [address] [address] [place] [address] PCP - General Internal Medicine 02/10/20 Medical Aide Relationship Specialty Start Date End Date Shazia Mendez MD [address] [place] [address] [address] [place] [address] PCP - General Internal Medicine 02/10/20 Medical Aide Relationship Specialty Start Date End Date Shazia Mendez MD [address] [place] [address] [address] [place] [address] PCP - General Internal Medicine 02/10/20 Medical Aide Relationship Specialty Start Date End Date Shazia Mendez MD [address] [place] [address] [address] [place] [address] PCP - General Internal Medicine 02/10/20 Medical Aide Relationship Specialty Start Date End Date Shazia Mendez MD [address] [place] [address] [address] [place] [address] PCP - General Internal Medicine 02/10/20 Medical Aide Relationship Specialty Start Date End Date Shazia Mendez MD [address] [place] [address] [address] [place] [address] PCP - General Internal Medicine 02/10/20 Medical Aide Relationship Specialty Start Date End Date Shazia Mendez MD [address] [place] [address] [address] [place] [address] PCP - General Internal Medicine 02/10/20 Medical Aide Relationship Specialty [place] [address] [place] [address] PCP - General Internal Medicine 02/10/20 Medical Aide Relationship Specialty [place] [address] [facility] [address] [place] [address] PCP - General Internal Medicine 02/10/20 Medical Aide Relationship Specialty [place] [address] [facility] [address] [place] [address] PCP - General Internal Medicine 02/10/20 Medical Aide Relationship Specialty [place] [address] [facility] [address] [place] [address] PCP - General Internal Medicine 02/10/20 Medical Aide Relationship Specialty [place] [address] [facility] [address] [place] [address] PCP - General Internal Medicine 02/10/20 Medical Aide Relationship Specialty [place] [address] [facility] [address] [place] [address] PCP - General Internal Medicine 02/10/20 Medical Aide Relationship Specialty [place] [address] [facility] [address] [place] [address] PCP - General Internal Medicine 02/10/20 FOR [...] BE BASED ON THE PRIMARY CLINICAL RECORDS. [facility] [employer] [facility]. provides no warranty or guarantee of the accuracy or completeness of information in this document.
== END | disposition home or self-care (01) ==
LOC: LABSPEC 14:41
PROVIDERS: PCP Physician Assistant; Referring Provider Physician Assistant; Visit Provider Physician Assistant
DX: R30.0 Dysuria (principal)
CPT/HCPCS: 81001; 87077; 87086; 87088; 87186

== ENCOUNTER → 2023-11-17 | Outpatient (CLI) | payer OTHER, SELFPAY ==
[2023-11-17 09:05] LABS: Mucous, Urine 0 SEEN /hpf (<or=2+)
[2023-11-17 12:33] LABS: Color, Urine Yellow (Yellow); Glucose, Dipstick Normal (Normal); Ketone-Dipstick Negative (Negative); Leukocyte Esterase-Dipstick 500 /ul (Negative); Nitrite-Dipstick Positive (Negative); Occult Blood-Urine 10 /ul (Negative); Protein-Dipstick 30 mg/dl (Negative); Urine Bilirubin Dipstick Negative (Negative); Urine Clarity Sl. Cloudy (Clear); Urine Urobilinogen 1 mg/dl (Normal); Urine pH 6.5 (5.0 - 8.0)
[2023-11-17 12:41] LABS: Bacteria 1+ /hpf (None Seen); Red Blood Cells-Urine 0-5 SEEN /hpf (0-5); Squamous Epithelial Cells - UA 0-5 SEEN /hpf (0-5); White Blood Cells 25-50 SEEN /hpf (0-5)
== END | disposition home or self-care (01) ==
LOC: BIMLAB 08:34
PROVIDERS: PCP Physician Assistant; Visit Provider Physician Assistant
DX: N39.0 Urinary tract infection, site not specified (principal)
CPT/HCPCS: 81001; 87077; 87086; 87088; 87186

== ENCOUNTER → 2023-12-31 | Outpatient (CLI) | payer OTHER, SELFPAY ==
--- NOTE | 2023-12-31 12:29 | RAD_ITS ---
INDICATION: Spondylosis without myelopathy or radiculopathy, lumbosacral jason EXAMINATION/TECHNIQUE: X-RAY - XR Spine Lumbar 2 or 3 Views COMPARISON: No relevant prior comparison study available FINDINGS: VERTEBRAE: Preserved vertebral body height. No fracture. Mild anterolisthesis of L3 with respect to L2 and L4. Preservation of the normal lumbar lordosis. No substantial scoliosis. DISCS: Multilevel disc space narrowing worse at the level of L4-L5. Endplate spondylosis at multiple levels. Laminectomy at the levels of L4 and L5. INCLUDED ABDOMEN: Surgical clips in the right lower quadrant. RAD/Lumbar Spine 2 or 3 Views IMPRESSION: Degenerative changes of the lumbar spine as described above. Electronically Signed: Ash Padron MD at 10:37 EDT ,
== END | disposition home or self-care (01) ==
LOC: RAD 12:19
PROVIDERS: PCP Physician Assistant
DX: M47.817 Spondylosis without myelopathy or radiculopathy, lumbosacral region (principal)
CPT/HCPCS: 72100

== ENCOUNTER 2024-01-07 13:00 | Outpatient (RCR) | payer OTHER, SELFPAY ==
--- NOTE | 2023-11-03 13:58 | HP.PTEVAL_ITS ---
Patient's Visit Information Visit Information Visit Information: ELÍAS TOWNSEND is a 63 year old M referred to Physical Therapy by PENNY FRANKS with a diagnosis of L RCT and biceps tendonitis. Date of Evaluation: 11/03/23 Physical Therapist: Jose Tanner, DPT, OCS, CSCS Visit Plan Frequency: 1-2x /Week Duration: 4-6 Weeks Plan: 2x/week as needed of activitiy modification to avoid pain with workout and daily. then RC strengthening and review upper body and lower body workout for need for modification due to L shoulder pain. Subjective Subjective: L shoulder pain. Both were seperated long time ago. MRI of L shoulder showed plaque and OA is causing his pain. Recommended clean out arthroscopic but pt does not want. Is used to benching and lifting heavy weights. Has lowered the weight recently and avoided benching. Still in the gym 4x/week though. Doing lat pulls, db incline presses, cable flyes/press, Gets icepick type feeling in anterior shoulder at times. 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 Mostly feels good at rest. Sleep is OK. No numbness or tingling. Sleeps on left or right side. It does wake him up if on L side. Avoids dirt bikes motocross due to pain. , Pain L shoulder: Pain Intensity (Out of 10): 0 Pain Intensity Range: 0 and 5 Objective Objective: Walks and trasnfers I, in very good shape and is very strong. R knee brace in place. Fair posture with slight forward head. Minimal protraction of scapula. Full aROM B shoulders without much pain except endrange of L shoulder flexion, has slight painful arc with resistance. cervical aROM is symmetrical and without pain. sensation UE WNL to gross light touch. reflexes 2/3 bi and tri. Strength shoulder 5/5 tami vation and abduction but painful in flexion and empty can. Rotations 4/5 with just slight L er pain. biceps, triceps and wrist are 5/5, some L biceps pain with resistance max. - HK, - neer, - labral test, - sulcus. Balance/Special Test Scores Quick DASH Score: 9.0900 Goals Goal 1:: Full aROM of L shoulder without pain Goal Time Frame: 4-6 Weeks Goal 2:: gym workout without pain Goal Time Frame: 4-6 Weeks Goal 3:: include RC stab exercises in gym routine I Goal Time Frame: 4-6 Weeks Rehabilitation Potential Physical Therapy Diagnosis: L shoulder pain and dysfunciton limiting QOL Rehabilitation Potential: Fair Anticipated Interventions For the Purpose of:: To decrease pain, To improve nutrient delivery to tissue, To improve muscle performance and motor function and To increase tolerance to activity/condition/position Therapeutic Exercise to Include: Strength training and Scapular Strength/Stabilization For the Purpose of:: To decrease pain, To increase ROM, To improve nutrient delivery to tissue, To improve muscle performance and motor function, To increase tolerance to activity/condition/position and To improve ability of physical actions for home/community/work/leisure Text: Thank you for the opportunity to evaluate your patient. For Medicare and Medicare HMO plans, please review the plan of care and approve it. It will need to be FAXED BACK to us at [phone] for Medicare purposes. For Medicare only, by signing this I certify the plan of care. Please let me know if there are questions or concerns regarding this plan of care. Physician Sig nature: Date:
--- NOTE | 2024-01-07 13:23 | HP.PTDCSUM ---
Discharge Summary D/C summary: It has been my pleasure to treat ELÍAS TOWNSEND referred by PENNY FRANKS, with the diagnosis of L RCT and biceps tendonitis for a total of 3 visit(s). Discharge Date: 01/07/24 Please see the following information for a summary of their discharge status. Subjective Subjective: Shoulder is a little sore. typically when he overdoes it. No problem at rest. Lifting arm into abduction, DN helps. Will need prstate surgery soon. Not been working out much in last 3 weeks due to prostate issues. Activities normal at home but painful with lifting. Mostly confortable at rest. Sleeps on right side comfortably. Pain L shoulder: Pain Intensity (Out of 10): 0 Objective Objective/Function: Full aROM without pain L shoulder unless abducts with thumb down adn then gets some pain. L shoulder flex/abd and er weaker than R but funcitonal, painful to ext rotate and 4/5 vs 4+ on R. Wants to be done with PT in favor of taking care of prostate and will get back to exercises when able. Goals Goal 1:: Full aROM of L shoulder without pain Goal Progress: Goal Met Goal 2:: gym workout without pain Goal Progress: Progressing Goal 3:: include RC stab exercises in gym routine I Goal Progress: Goal Met Plan Plan: d/c D/C Information d/c sentence: If there are questions or concerns regarding this patient's physical therapy, please feel free to call me at [phone]. Thank you for the referral of this patient. Sincerely, Jose Tanner, DPT, OCS, CSCS Balance/Gait/Functional tests Balance/Special Test Scores Quick DASH Score: 6.8175
== END 2024-01-07 19:00 | disposition home or self-care (01) ==
LOC: PT 13:00
PROVIDERS: PCP Internal Medicine
DX: M75.112 Incomplete rotator cuff tear or rupture of left shoulder, not specified as traumatic (principal); M75.22 Bicipital tendinitis, left shoulder
CPT/HCPCS: 97110; 97161; 97530

== ENCOUNTER 2024-03-15 11:00 | Outpatient (RCR) | payer OTHER, SELFPAY ==
--- NOTE | 2024-01-29 08:50 | HP.PTEVAL_ITS ---
Patient's Visit Information Visit Information Visit Information: ELÍAS TOWNSEND is a 63 year old M referred to Physical Therapy by GAIL STALLINGS with a diagnosis of Lumbar radiculopathy. Date of Evaluation: 01/29/24 Physical Therapist: Jose Tanner, DPT, OCS, CSCS Visit Plan Frequency: 3-4 visits over 6 Duration: 6 Weeks Plan: every other week to third week to progress HEP. IE given quad and HS s tretch 30 5x daily and PPU 10x 3x/day recheck in 3 weeks and consider yoga stretches LB if doing well with current stretches. Pt is to continue his current routine for back of supermans, prone opposite UE/LE lifts, bugs with legs straight, crunches, SKC and skc in sidelying for core strength daily at home which he has been doing for years. Based on history and activity level and symptoms, I am not overly hopeful for any improvement, and MRI is appropriate right away if doctor wishes in order to ensure no condition that will worsen this neuropathy. Subjective Subjective: Had shoulder PT but unable to do exercises due to prostate surgery which went great. Needs another surgery in April. Is here for back. Had neuropathy for 25 yrs since surgery(double laminectomy [id number]) on back 25 yrs ago which was successful at getting rid of pain. Expected loss of sensation in feet from that surgery and shortly after. No sensation in either feet with burning neuropathy. Doctor wants MRI of LB due to feet b/c he wonders if nerves in LB are crunched up. Insurance requires PT. Numbness is about the same for the last decade. has to be careful with back or he will get sore but this does not effect his life much. Burning in feet is getting worse and that is why he is seeing doctor. Burning pain is bottom of both feet plantar surface. It gets up to 8/10 all the time. It does not keep him up at night when horizontal. Activitiy is normal. No activities make him worse. Pain B feet: Pain Intensity (Out of 10): 8 Pain Intensity Range: 8 Comment: always an 8 and has been for years Objective Objective: Walks I into PT, trasnfers easily adn I no back pain. Lumbar ROM ext max stiff with central stretch, SB and flexion. HS max tight at -40 90/90 test B. Quads max tight at 100 knee flexion in prone B. reflexes 0/3 patella and achilles Sensation LE WNL to gross light touch, neuropathy is pain and burning bottom of feet. strength is 5/5 in hips and knee and ankles and 4+ in core ext and flexion. - SLR - Slump Balance/Special Test Scores Oswestry Low Back Score: 11 Goals Goal 1:: I appropriate exercises to minimize problems with neuroapthy Goal Time Frame: 4-6 Weeks Rehabilitation Potential Physical Therapy Diagnosis: neuropathy uncomfortable and effecting comfort with funciton Rehabilitation Potential: Poor Anticipated Interventions Patient/Client Instruction: Educate patient on: Condition and Plan of Care For the Purpose of:: To decrease pain Therapeutic Exercise to Include: Strength training and Flexibilty training For the Purpose of:: To decrease pain, To improve nutrient delivery to tissue, To improve muscle performance and motor function and To increase tolerance to activity/condition/position Text: Thank you for the opportunity to evaluate your patient. For Medicare and Medicare HMO plans, please review the plan of care and approve it. It will need to be FAXED BACK to us at [phone] for Medicare purposes. For Medicare only, by signing this I certify the plan of care. Please let me know if there are questions or concerns regarding this plan of care. Physician Signature: Date:
--- NOTE | 2024-03-15 11:17 | HP.PTDCSUM ---
Discharge Summary D/C summary: It has been my pleasure to treat ELÍAS TOWNSEND referred by GAIL STALLINGS, with the diagnosis of Lumbar radiculopathy for a total of 3 visit(s). Discharge Date: 03/15/24 Please see the following information for a summary of their discharge status. Subjective Subjective: Doing exercises regaularly but not feeling much different. Needs L TKA which will be done in a month. Back is not overly painful but constant 5/10 never goes away in lower back. Worse with lifting heavy objects incorreetly which he is managing. Has not kep him up at night in last several weeks. Wants to get back to doctor for next step. Pain B feet: Pain Intensity (Out of 10): 8 Overall Improvement % Improvement: 0 Objective Objective/Function: LB AROM mod limited in ext and some minor pain [id number], flexion mod limited and stretchy, SB not painful and mod defictis. Walking well without pain today. Good balance. No improvements in overall pain feeling though. Goals Goal 1:: I appropriate exercises to minimize problems with neuroapthy Goal Progress: Not Progressing Plan Plan: d/c, pt to schedule back with doctor for next medical step. Has a good HEP which he will continue. D/C Information Discharge Comments: Continue HEP and schedule with doctor for next step d/c sentence: If there are questions or concerns regarding this patient's physical therapy, please feel free to call me at [phone]. Thank you for the referral of this patient. Sincerely, Jose Tanner, DPT, OCS, CSCS Balance/Gait/Functional tests Balance/Special Test Scores Oswestry Low Back Score: 14 Improvement % Improvement: 0
== END 2024-03-15 19:00 | disposition home or self-care (01) ==
LOC: PT 11:00
PROVIDERS: PCP Physician Assistant
DX: M54.16 Radiculopathy, lumbar region (principal)
CPT/HCPCS: 97110; 97161; 97530

== ENCOUNTER 2024-06-14 13:00 | Outpatient (RCR) | payer OTHER, SELFPAY ==
--- NOTE | 2024-04-25 09:17 | HP.PTEVAL ---
Patient's Visit Information Visit Information Visit Information: ELÍAS TOWNSEND is a 64 year old M referred to Physical Therapy by Dr. Leland Guido MD with a diagnosis of L TKA, DOS: 04/18/24. Date of Evaluation: 04/25/24 Physical Therapist: Floyd Hill DPT Visit Plan Frequency: 3x /Week Duration: 6 Weeks Plan: Start with ROM progressing extension and flexion towards end ranges. Use ice and vaso for edema control. Add in progressive functional strengthening and gait progression as tolerated. Subjective Subjective: Pt. is here today for his initial evaluation with diagnosis of L TKA. DOS: 04/18/24. Pt. arrives with use of FWW with good use. Pt. reports overall doing well. History of R TKA as well. Pt. is pleased thus far with his knee. Pt. is icing as prescribed and doing his ROM exercises. Pt. is reports going to the gym frequently. No calf pain, no N/T noted. Pt. is to go back to physician in 10 days. He reports being very active and would like to get back to all of his previous activities without limitations. He is having some difficulty with sleeping, but is improving. He reports being ready to start exercising. I did talk to him about easing back into activities rather than over doing it, pt. reports understanding. Pain L knee: Pain Intensity (Out of 10): 5 Objective Objective: POSTURE: Pt. has a general decent posture. He is lacking TKE on the L side in stance with slight R lateral wt. shift. Pt. is able to stand without AD. PALPATION: pt. has bandage on for a few more days. No calf pain, no marked redness noted. NEURO: normal sensation and normal achilles DTR. Pt. is able to rise on heels and toes without issues. ROM: L knee: 0-5-94deg. Pt. has good HS length MMT: LLE: decent quad set, but did have difficulty with SLR, but was able to complete with light assistance. GAIT: Pt. ambulates with FWW with good tolerance. He does lack TKE during stance phase and decreased knee flexion during swing phase, improved with VCIng. Pt. is able to negotiate steps with step to pattern with use of BHR. Balance/Special Test Scores TUG Test Time Seconds: 17.1 WOMAC Total Score: 49 WOMAC Percentatge: 48.9600 Goals Goal 1:: LTG: Pt. to be I with HEP for L knee ROM and LE strengthening. Goal Time Frame: 4-6 Weeks Goal 2:: STG: Pt. to have increased L knee ROM to 0-0-120deg without increase in symptoms. Goal Time Frame: 2 Weeks Goal 3:: LTG: Pt. to have symmetrical strength between BLEs allowing for good tolerance to all activities. Goal Time Frame: 4-6 Weeks Goal 4:: LTG: pt. to complete TUG with time less than 8 sec without use of AD. Goal Time Frame: 4-6 Weeks Goal 5:: LTG: Pt. to ambulate with out AD with normal gait pattern without increase in symptoms. Goal Time Frame: 4-6 Weeks Rehabilitation Potential Physical Therapy Diagnosis: Pt. has signs and symptoms consistent with L TKA, DOS: 04/18/24. Pt. has marked hypomobility, weakness, and difficulty with walking. He would benefit from PT to address the above limitations progressing back to all gym and recreational activities without issues. Rehabilitation Potential: Excellent Anticipated Interventions Patient/Client Instruction: Educate patient on: Condition, Plan of Care, Risk Factors and Benefits of Fitness Program For the Purpose of:: To foster healthy habits, To improve decision making, To facilitate caregiver knowledge, To improve self management, To prevent re-injury and To improve ability to perform tasks related to life management Therapeutic Exercise to Include: Strength training, Power training, Balance training, Postural training, Flexibilty training, Gait and locomotor training, Passive ROM and Active ROM For the Purpose of:: To decrease pain, To decrease swelling/inflammation, To increase ROM, To improve nutrient delivery to tissue, To increase oxygenation perfusion, To improve muscle performance and motor function, To improve ability to perform ADL's, To improve gait and locomotor functions, To improve health of tissue, To decrease soft tissue restriction and To increase flexibility/ROM Cryotherapy (ice pack, ice massage): Yes Vasopneumatic device: Yes For the Purpose of:: To decrease pain, To decrease swelling/inflammation and To increase ROM Text: Thank you for the opportunity to evaluate your patient. For Medicare and Medicare HMO plans, please review the plan of care and approve it. It will need to be FAXED BACK to us at [phone] for Medicare purposes. For Medicare only, by signing this I certify the plan of care. Please let me know if there are questions or concerns regarding this plan of care. Physician Signature: Date:
== END 2024-06-14 19:00 | disposition home or self-care (01) ==
LOC: PT 13:00
PROVIDERS: PCP Physician Assistant; Referring Provider Orthopaedic Surgery; Visit Provider Orthopaedic Surgery
DX: M17.12 Unilateral primary osteoarthritis, left knee (principal); Z96.652 Presence of left artificial knee joint
CPT/HCPCS: 97016; 97110; 97140; 97161; 97530

== ENCOUNTER → 2024-10-12 | Outpatient (CLI) | payer OTHER, SELFPAY ==
[2024-10-12 16:44] LABS: Hematocrit 38.4 % (40-54); Hemoglobin 13.1 g/dL (13.0-16.5); Mean Corp Hgb Conc 34.1 g/dL (32-36); Mean Corpuscular Volume 87.9 fL (80-94); Mean Platelet Vol. 8.8 fl (6.2-12.0); Platelet Count 262 K/mm3 (150-450); RBC Distribution Width CV 12.4 % (11.6-14.6); Red Blood Count 4.37 M/mm3 (4.6-6.2); White Blood Count 6.8 K/mm3 (4.4-11.0)
[2024-10-12 17:10] LABS: ALB/GLOB Ratio 1.2 RATIO (0.9-2.4); AST(SGOT) 26 U/L (15-37); Alanine Aminotransfer ALT/SGPT 44 U/L (16-61); Albumin, Serum 4.3 g/dL (3.2-5.0); Alkaline Phosphatase 74 U/L (45-117); Anion Gap 7 (5-15); BUN 17 mg/dL (7-18); BUN/Creat Ratio 18.8 RATIO (10-20); Calcium,Total 9.6 mg/dL (8.5-10.1); Chloride 95 mmol/L (98-107); Cholesterol 229 mg/dL (200); EST Glomerular Filtration Rate 90 mL/min (>60); Est Glom Filt Rate - Afr Amer 109 mL/min (>60); Globulin 3.5 g/dL (2.2-4.2); Glucose 97 mg/dL (74-106); High Density Lipoprotein 64 mg/dL; Potassium 4.6 mmol/L (3.5-5.1); Protein, Total 7.8 g/dL (6.4-8.2); Sodium Level 136 mmol/L (136-145); Triglycerides 210 mg/dL; Very Low Density Lipoprotein 42 mg/dL (5-40)
== END | disposition home or self-care (01) ==
LOC: BIMLAB 15:08
PROVIDERS: PCP Physician Assistant; Referring Provider Physician Assistant; Visit Provider Physician Assistant
DX: Z00.00 Encounter for general adult medical examination without abnormal findings (principal); I10 Essential (primary) hypertension
CPT/HCPCS: 36415; 80053; 80061; 84443; 85027

== ENCOUNTER 2024-11-14 14:00 | Outpatient (RCR) | payer OTHER, SELFPAY ==
--- NOTE | 2024-10-03 08:40 | HP.PTEVAL_ITS ---
Patient's Visit Information Visit Information Visit Information: ELÍAS TONWSEND is a 64 year old M referred to Physical Therapy by Dr. Serge Barr MD with a diagnosis of L RTC repair, small 09/08/24. Date of Evaluation: 09/29/24 Physical Therapist: Floyd [facility] DPT Visit Plan Frequency: 1-2x /Week Duration: 2 Months Plan: 1) PROM, phase I protocol. Use Dr. Barr's small to medium RTC protocol. May use ice and tens of pain control. Progress HEP as tolerated. Subjective Subjective: Pt. is here today for his initial evaluation with diagnosis of L rotator cuff repair on 09/08/24. Pt. arrived today without his script. He initially thought he had a RTC and biceps repair, but was unsure. After talking to physician he has a RTC. He is okay to start phase I of his protocol. He arrives in sling. He reports taking his arm out a bit at home and has not been sleeping in it very much. Pt. reports overall not much pain, unless he tried to move it. Which I told him to avoid doing. Pt. reports otherwise doing well. No NT in either UE. Pt. is hopeful to get back to all recreational activities without limitations. He appears to be unsure of what he can and can not do. I talked to him about being out of sling for exercises only and which exercises he can complete at home. Pain L shoulder: Pain Intensity (Out of 10): 4 Pain Intensity Range: 2 and 6 Objective Objective: POSTURE: Pt. has L shoulder in guarded posture. Pt. is able to have proper posture in VCing. PALPATION: pt. has some bruising at proximal biceps region, anterior shoulder. Pt. has no signs of infection. Pt. has well healing incsions. NEURO: Normal throughout BUEs. ROM: R shoulder: full active R should ROM. L shoulder: PROM: flexion 150deg, , ER at side 30deg, scaption 145deg. Pt. reports slight increase in symptoms closer to end ranges. At time of elevation I was unsure about biceps tenodesis, but has full PROM of L elbow. MMT: DNT due to surgery Balance/Special Test Scores Quick DASH Score: 40.9075 Goals Goal 1:: LTG: Pt. to be I with HEP. Goal Time Frame: 4-6 Weeks Goal 2:: STG: pt. to have full PROM of L shoulder without increase in symptoms. Goal Time Frame: 2-4 Weeks Goal 3:: LTG: PT. to have full L shoulder AROM without increase in symptoms. Goal Time Frame: 6-8 Weeks Goal 4:: STG: Pt. to sleep throughout the night without increase in symptoms. Goal Time Frame: 2 Weeks Goal 5:: LTG: Pt. to have symmetrical strength throughout B RTC and deltoid musculature. Goal Time Frame: 8-12 Weeks Rehabilitation Potential Physical Therapy Diagnosis: Pt. has signs and symptoms consistent with L RTC tear on 09/08/24. Pt. has good PROM at evaluation. He does need frequent reminders on restrictions at this point in time. Overall he is doing well, but will need PT to work on ROM progression. Then progressing with strengthening once appropriate. Rehabilitation Potential: Excellent Anticipated Interventions Patient/Client Instruction: Educate patient on: Condition, Plan of Care, Risk Factors and Benefits of Fitness Program For the Purpose of:: To facilitate caregiver knowledge, To improve self management, To prevent re-injury, To improve ability to perform tasks related to life management and To improve tolerance to ADL's Therapeutic Exercise to Include: Strength training, Power training, Body mechanics, Postural training, Flexibilty training, Passive ROM, Active ROM and Scapular Strength/Stabilization For the Purpose of:: To decrease pain, To increase ROM, To improve nutrient de livery to tissue, To increase oxygenation perfusion, To improve muscle performance and motor function, To improve ability to perform ADL's, To improve health of tissue, To decrease soft tissue restriction and To increase flexibility/ROM Manual Therapy Techniques to Include: Mobilization, Passive ROM and Soft tissue mobilization For the Purpose of:: To decrease pain, To decrease swelling/inflammation, To increase ROM, To improve nutrient delivery to tissue, To increase oxygenation perfusion, To improve muscle performance and motor function, To improve ability to perform ADL's, To decrease soft tissue restriction and To increase flexibility/ROM IF ES: Yes Cryotherapy (ice pack, ice massage): Yes For the Purpose of:: To decrease pain, To decrease swelling/inflammation, To increase ROM, To improve nutrient delivery to tissue and To increase oxygenation perfusion Text: Thank you for the opportunity to evaluate your patient. For Medicare and Medicare HMO plans, please review the plan of care and approve it. It will need to be FAXED BACK to us at [phone] for Medicare purposes. For Medicare only, by signing this I certify the plan of care. Please let me know if there are questions or concerns regarding this plan of care. Physician Signature: Date:
== END 2024-11-14 19:00 | disposition home or self-care (01) ==
LOC: PT 14:00
PROVIDERS: PCP Nurse Practitioner; Referring Provider Orthopaedic Surgery; Visit Provider Orthopaedic Surgery
DX: M75.112 Incomplete rotator cuff tear or rupture of left shoulder, not specified as traumatic (principal)
CPT/HCPCS: 97110; 97140; 97161; 97530